=== PATIENT | female | born 1950 | race Caucasian/White ===

== ENCOUNTER 2019-02-19 07:43 | Inpatient (IN) | payer MEDICARE, BC ==
[~2019-02-19] VITALS: Ht 170.2 cm; Wt 92.6 kg
[2019-02-19] VITALS (15 sets, daily range): BP systolic 139–191; BP diastolic 57–76
[2019-02-19] MEDS ORDERED: INSULIN REGULAR 100 UNIT/ML 3ML VIAL. IV ONE (08:00)
[2019-02-19] MEDS ORDERED: IV NORMAL SALINE 1000ML BAG 1,000 ML IV ONE ×3 (08:00→09:00)
[2019-02-19] MEDS ORDERED: INSULIN,REGULAR 150 UNIT DRIP 150 ML IV ONE (08:00)
[2019-02-19 08:11] LABS: BASE EXCESS ABG -13 mmol/L (-3-3); HCO3 ABG 11 mmol/L (21-28); PCO2 ABG 22 mmHg (35-46); PO2 ABG 68 mmHg (65-108); SAT O2 ABG 92 % (92-99)
[2019-02-19 08:13] LABS: BASO % 0 % (0-3); EOS % 0 % (0-3); HEMATOCRIT 49.1 % (36.0-47.0); HEMOGLOBIN 15.8 g/dL (12.0-15.5); LYMPH # 0.7 x10^3/uL (1.0-4.8); LYMPH % 6 % (24-48); MEAN CORPUSCULAR HEMOGLOBIN 30 pg (25-35); MEAN CORPUSCULAR HGB CONC 32 g/dL (31-37); MEAN CORPUSCULAR VOLUME 94 fL (79-100); MONO # 0.7 x10^3/uL (0.0-1.1); MONO % 6 % (0-9); NEUT # 11.3 x10^3uL (1.8-7.7); NEUT % 89 % (31-73); PLATELET COUNT 353 x10^3/uL (140-400); RED BLOOD COUNT 5.24 x10^6/uL (3.50-5.40); RED CELL DISTRIBUTION WIDTH 14.4 % (11.5-14.5); WHITE BLOOD COUNT 12.8 x10^3/uL (4.0-11.0)
[2019-02-19 08:19] LABS: FIO2 ABG 21%
[2019-02-19 08:33] LABS: PROTHROMBIN TIME PATIENT 14.5 SEC (11.7-14.0)
[2019-02-19 08:37] LABS: CALCIUM 10.7 mg/dL (8.5-10.1); CREATININE 2.1 mg/dL (0.6-1.0); GFR 23.6; POTASSIUM 4.1 mmol/L (3.5-5.1)
[2019-02-19 08:39] LABS: ALBUMIN/GLOBULIN RATIO 0.7 (1.0-1.7); MAGNESIUM 3.1 mg/dL (1.8-2.4); TOTAL BILIRUBIN 0.8 mg/dL (0.2-1.0); TOTAL PROTEIN 7.3 g/dL (6.4-8.2)
--- NOTE | 2019-02-19 08:43 | RAD ---
CT scan of the head without contrast 02/19/2019 Clinical History: Altered mental status. Technique: Unenhanced, contiguous, 5 mm axial sections were obtained through the head. One or more of the following individualized dose reduction techniques were utilized for this study: 1. Automated exposure control. 2. Adjustment of the mA and/or kV according to patient size. 3. Use of iterative reconstruction technique. Findings: No previous studies are available for comparison. There is generalized parenchymal atrophy. Areas of decreased attenuation are seen within the periventricular and subcortical white matter of both cerebral hemispheres consistent with areas of small vessel ischemic disease. A 6 mm low-attenuation area is seen superior to the region of the right lenticular nucleus which may represent an old area of lacunar infarction. No acute parenchymal abnormality is seen. No extra-axial fluid collection is noted. No skull fracture is seen. Impression: No acute intracranial abnormality is seen. Electronically signed by: Sacha Leon MD (02/19/2019 8:40 AM) [facility]
--- NOTE | 2019-02-19 08:49 | PHYS DOC ---
Past Medical History Past Medical History: Diabetes-Type II Additional Past Surgical Histo: Surgery on abcessed tooth Alcohol Use: None Drug Use: None Adult General Chief Complaint Chief Complaint: ALTERED MENTAL STATUS HPI HPI Patient is a 68 year old female who brought in by EMS because of altered level of consciousness. Patient has been who is a poor historian state she overusing her back one week ago and had back pain and took pain medication that caused nausea and vomiting and was not able to eat or drink and was unable to get out of the bed since yesterday morning and was found unresponsive today. Patient has history of diet-controlled diabetes mellitus and currently doesn't take any medication. EMS reported that patient had urine and bowel incontinence and covered with urine. Patient is able to tell her name but unable to give history. Review of Systems Review of Systems Unable to obtain because of medical condition Current Medications Current Medications Current Medications Medications (Trade) Dose Ordered Sig/Annette Start Time Stop Time Status Last Admin Dose Admin Insulin Human Regular 150 ml @ 0 mls/hr 1X ONCE 02/19/19 08:00 02/19/19 08:02 DC 02/19/19 08:34 7 MLS/HR Insulin Human Regular (HumuLIN R VIAL) 10 unit 1X ONCE 02/19/19 08:00 02/19/19 08:02 DC 02/19/19 07:50 10 UNIT Sodium Chloride 1,000 ml @ 1,000 mls/hr 1X ONCE 02/19/19 08:00 02/19/19 08:59 DC 02/19/19 08:10 1,000 MLS/HR Allergies Allergies Physical Exam Physical Exam Constitutional: Moderate distress distress, afebrile[] HENT: Normocephalic, atraumatic, oropharynx dry Eyes: PERRLA. Neck: Normal range of motion, no tenderness, supple, no stridor. [] Cardiovascular: Tachycardia, no murmur [] Lungs & Thorax: Bilateral breath sounds clear to auscultation [] Abdomen: Bowel sounds normal, soft, no tenderness, no masses, no pulsatile masses. [] Skin: Warm, dry, no erythema, no rash. [] ] Extremities: No sign of injury or edema Neurologic: Alert 1, moves all extremities Psychologic: Unable to evaluate Current Patient Data Vital Signs Vital Signs Date Time Temp Pulse Resp B/P (MAP) Pulse Ox O2 Delivery O2 Flow Rate FiO2 02/19/19 07:50 97.7 105 20 190/80 (116) 93 Room Air 97.7 Lab Values Laboratory Tests Test 02/19/19 07:52 02/19/19 08:00 O2 Saturation 92 % (92-99) Arterial Blood pH 7.31 (7.35-7.45) L Arterial Blood pCO2 at Patient Temp 22 mmHg (35-46) L Arterial Blood pO2 at Patient Temp 68 mmHg (65-108) Arterial Blood HCO3 11 mmol/L (21-28) L Arterial Blood Base Excess -13 mmol/L (-3-3) L FiO2 21% White Blood Count 12.8 x10^3/uL (4.0-11.0) H Red Blood Count 5.24 x10^6/uL (3.50-5.40) Hemoglobin 15.8 g/dL (12.0-15.5) H Hematocrit 49.1 % (36.0-47.0) H Mean Corpuscular Volume 94 fL (79-100) Mean Corpuscular Hemoglobin 30 pg (25-35) Mean Corpuscular Hemoglobin Concent 32 g/dL (31-37) Red Cell Distribution Width 14.4 % (11.5-14.5) Platelet Count 353 x10^3/uL (140-400) Neutrophils (%) (Auto) 89 % (31-73) H Lymphocytes (%) (Auto) 6 % (24-48) L Monocytes (%) (Auto) 6 % (0-9) Eosinophils (%) (Auto) 0 % (0-3) Basophils (%) (Auto) 0 % (0-3) Neutrophils # (Auto) 11.3 x10^3uL (1.8-7.7) H Lymphocytes # (Auto) 0.7 x10^3/uL (1.0-4.8) L Monocytes # (Auto) 0.7 x10^3/uL (0.0-1.1) Eosinophils # (Auto) 0.0 x10^3/uL (0.0-0.7) Basophils # (Auto) 0.0 x10^3/uL (0.0-0.2) Segmented Neutrophils % 85 % (35-66) H Band Neutrophils % 8 % (0-9) Lymphocytes % 4 % (24-48) L Monocytes % 3 % (0-10) Platelet Estimate Adequate (ADEQUATE) Prothrombin Time 14.5 SEC (11.7-14.0) H Prothrombin Time INR 1.2 (0.8-1.1) H PTT 24 SEC (24-38) Sodium Level 146 mmol/L (136-145) H Potassium Level 4.1 mmol/L (3.5-5.1) Chloride Level 101 mmol/L (98-107) Carbon Dioxide Level 13 mmol/L (21-32) L Anion Gap 32 (6-14) H Blood Urea Nitrogen 57 mg/dL (7-20) H Creatinine 2.1 mg/dL (0.6-1.0) H Estimated GFR (Cockcroft-Gault) 23.6 BUN/Creatinine Ratio 27 (6-20) H Glucose Level 747 mg/dL (70-99) *H Lactic Acid Level 2.3 mmol/L (0.4-2.0) H Calcium Level 10.7 mg/dL (8.5-10.1) H Phosphorus Level 5.1 mg/dL (2.6-4.7) H Magnesium Level 3.1 mg/dL (1.8-2.4) H Total Bilirubin 0.8 mg/dL (0.2-1.0) Aspartate Amino Transferase (AST) 14 U/L (15-37) L Alanine Aminotransferase (ALT) 17 U/L (14-59) Alkaline Phosphatase 116 U/L (46-116) Ammonia 14 mcmol/L (11-34) Creatine Kinase 50 U/L (26-192) Troponin I Quantitative < 0.017 ng/mL (0.000-0.055) WQ-Ppr-T-Type Natriuretic Peptide 139 pg/mL (0-124) H Total Protein 7.3 g/dL (6.4-8.2) Albumin 3.0 g/dL (3.4-5.0) L Albumin/Globulin Ratio 0.7 (1.0-1.7) L Lipase 90 U/L (73-393) Acetone Level Mod pos (NEG) Laboratory Tests 02/19/19 08:00 Laboratory Tests 02/19/19 08:00 EKG EKG EKG interpreted by me. EKG at 0750 showed sinus tachycardia at rate of 108, left atrial abnormality, left axis deviation, left anterior fascicular block, normal KS and QT intervals, poor R-wave progress in anterior leads, no acute ST and T-wave abnormalities. Radiology/Procedures Radiology/Procedures [address] [address] IMAGING REPORT Signed PATIENT: MATHIEU ORTIZ ACCOUNT: [id number] : 1950 LOCATION: ER AGE: 68 SEX: F EXAM STATUS: REG ER ORD. PHYSICIAN: MARYLIN SALMERON MD REASON: ALOC, SOA PROCEDURE: PORTABLE CHEST 1V AP portable chest radiograph 02/19/2019 Clinical History: Shortness of breath. An AP erect portable digital radiograph of the chest was obtained. No previous studies are available for comparison. The cardiac silhouette is mildly enlarged. The thoracic aorta is mildly tortuous. Mild elevation of the right hemidiaphragm is seen. No acute pulmonary infiltrate is noted. No pneumothorax or pleural effusion is seen. Very mild S-shaped curvature of the thoracolumbar spine is seen. Degenerative changes are seen involving the thoracic spine. IMPRESSION: No acute abnormality is seen. Electronically signed by: Sacha Leon MD (02/19/2019 8:44 AM) [facility] DICTATED and SIGNED BY: SACHA LEON MD DATE: 02/19/19 [id number] [place] [address] IMAGING REPORT Signed PATIENT: MATHIEU ORTIZ ACCOUNT: [id number] : 1950 LOCATION: ER AGE: 68 SEX: F EXAM STATUS: REG ER ORD. PHYSICIAN: MARYLIN SALMERON MD REASON: ALOC/AMS PROCEDURE: CT HEAD WO CONTRAST CT scan of the head without contrast 02/19/2019 Clinical History: Altered mental status. Technique: Unenhanced, contiguous, 5 mm axial sections were obtained through the head. One or more of the following individualized dose reduction techniques were utilized for this study: 1. Automated exposure control. 2. Adjustment of the mA and/or kV according to patient size. 3. Use of iterative reconstruction technique. Findings: No previous studies are available for comparison. There is generalized parenchymal atrophy. Areas of decreased attenuation are seen within the periventricular and subcortical white matter of both cerebral hemispheres consistent with areas of small vessel ischemic disease. A 6 mm low-attenuation area is seen superior to the region of the right lenticular nucleus which may represent an old area of lacunar infarction. No acute parenchymal abnormality is seen. No extra-axial fluid collection is noted. No skull fracture is seen. Impression: No acute intracranial abnormality is seen. Electronically signed by: Sacha Leon MD (02/19/2019 8:40 AM) [facility] DICTATED and SIGNED BY: SACHA LEON MD DATE: 02/19/19 6589 Course & Med Decision Making Course & Med Decision Making Pertinent Labs and Imaging studies reviewed. (See chart for details) Evaluation of patient in ER showed 68-year-old female patient with diet- controlled diabetes mellitus brought in by EMS because of altered level of consciousness. Patient was alert and oriented 1 and had tachycardia and a dry oral mucosa. Patient had blood sugar of 1700 and treated with IV fluid and insulin bolus and drip. Labs showed renal insufficiency and dehydration and elevation of lactic acid with UTI. Patient gradually started to sit extremity and became more alert and oriented. Patient was admitted to ICU. Patient requiring admission for further evaluation and treatment. Discussed with who is in agreement with admission. Discussed findings and plan with patient and family, who acknowledge understanding and agreement. Dragon Disclaimer Dragon Disclaimer This electronic medical record was generated, in whole or in part, using a voice recognition dictation system. Departure Departure Impression: Primary Impression: DKA (diabetic ketoacidoses) Additional Impressions: Altered level of consciousness Renal insufficiency Dehydration Hypermagnesemia Sepsis Hypercalcemia Disposition: ADMITTED INPATIENT (at 0854) Admitting Physician: Sabiha Olivo (accepted admission at 0 853) Condition: GUARDED Referrals: NO PCP (PCP) Critical Care Time Critical care time was 70 minutes exclusive of procedures. Problem Qualifiers Primary Impression: DKA (diabetic ketoacidoses) Diabetes mellitus type: type 2 Diabetes mellitus complication detail: with coma Qualified Codes: E11.11 - Type 2 diabetes mellitus with ketoacidosis with coma Additional Impressions: Sepsis Sepsis type: sepsis due to unspecified organism Qualified Codes: A41.9 - Sepsis, unspecified organism MARYLIN SALMERON MD February 19, 2019 08:49
[2019-02-19] MEDS ORDERED: cefTRIAXone IV Push 1 GM VIAL. IVP ONE (09:00)
[2019-02-19 09:13] LABS: % BANDS 8 % (0-9); % LYMPHS 4 % (24-48); % MONOS 3 % (0-10); % SEGS 85 % (35-66); PLT ESTIMATE ADEQUATE (ADEQUATE)
[2019-02-19] MEDS ORDERED: ONDANSETRON PF 4 MG/2 ML VIAL. IV PRN (09:45)
[2019-02-19] MEDS ORDERED: HYDROcodone/APAP 5/325MG 1 TAB TABLET PO PRN (09:45)
[2019-02-19] MEDS ORDERED: ACETAMINOPHEN/CODEINE 300/30MG TABLET. PO PRN (09:45)
[2019-02-19] MEDS ORDERED: ONDANSETRON ODT 4 MG TAB.RAPDIS. PO PRN (09:45)
[2019-02-19] MEDS ORDERED: fentaNYL PF VIAL 100 MCG/2 ML VIAL IV PRN (09:45)
[2019-02-19] MEDS ORDERED: POTASSIUM CHLORIDE 10MEQ 100 ML IV PRN ×3 (09:45→10:00)
[2019-02-19] MEDS ORDERED: INSULIN REGULAR VIAL 150 UNIT in 0.9 % SODIUM CHLORIDE 150ML 150 ML IV PRN ×2 (10:00→13:00)
[2019-02-19] MEDS ORDERED: IV NORMAL SALINE 1000ML BAG 1,000 ML IV SCH (10:00)
--- NOTE | 2019-02-19 10:00 | NUR ---
Pt arrived via gurney from ED. Pt alert to self only and currently thinks it is 2017. Pt admitted with altered mental status and DKA. Pt currently has insulin gtt running. Per family, pt does not take any home medications. Pt denies pain at this time. Will continue to monitor.
[2019-02-19] MEDS: IV 1/2 NORMAL SALINE 1,000 ML IV SCH ×2 (10:07→14:59)
[2019-02-19] MEDS: LABETALOL 20 MG/4 ML DISP.SYRIN. IVP PRN (10:46)
--- NOTE | 2019-02-19 11:10 | PDOC1 ---
History and Physical Date of Admission Date of Admission DATE: 02/19/19 TIME: 11:04 Identification/Chief Complaint Chief Complaint back pain Source Source: Caregiver, Chart review, Patient History of Present Illness History of Present Illness She is a very poor historian, currently confused seen the ICU. 68-year-old white obese female with a BMI 31, brought in by , not taking meds since June 2018. Apparently brought in because of back pain, I am unable to elicit if there was trauma etc.to the back. Again poor historian and was not at bedside during my encounter. But on labs was found to be in DKA with a blood sugar over 700, anion gap of 30. Bicarbonate 13, ABG pH 7.31. WBC 12 with hemoconcentration at 15 hemoglobin Platelets 353. Magnesium is high at 3.1, lactate elevated at 2.3 tachycardic, tachypneic, Kussmaul's respiration, hypercalcemia 10.7 with pending UA. Admitted DKA protocol ICU. Past Medical History Endocrine: Diabetes Past Surgical History Past Surgical History: No pertinent history Family History Family History: Family History Unknown Social History Smoke: No ALCOHOL: none Drugs: None, Other (could not be fully obtained, confused) Current Problem List Problem List Problems Medical Problems: (1) Altered level of consciousness Status: Acute (2) Dehydration Status: Acute (3) DKA (diabetic ketoacidoses) Status: Acute (4) Hypercalcemia Status: Acute (5) Hypermagnesemia Status: Acute (6) Renal insufficiency Status: Acute (7) Sepsis Status: Acute Current Medications Current Medications Current Medications Sodium Chloride 1,000 ml @ 1,000 mls/hr 1X ONCE IV Last administered on 02/19/19at 08:10; Start 02/19/19 at 08:00; Stop 02/19/19 at 08:59; Status DC Insulin Human Regular (HumuLIN R VIAL) 10 unit 1X ONCE IV Last administered on 02/19/19at 07:50; Start 02/19/19 at 08:00; Stop 02/19/19 at 08:02; Status DC Insulin Human Regular 150 ml @ 0 mls/hr 1X ONCE IV Last administered on 02/09 10/30at 08:34; Start 02/19/19 at 08:00; Stop 02/19/19 at 08:02; Status DC Sodium Chloride 1,000 ml @ 100 mls/hr 1X ONCE IV Last administered on 02/19/19at 08:29; Start 02/19/19 at 09:00; Stop 02/19/19 at 18:59 Sodium Chloride 1,000 ml @ 1,000 mls/hr 1X ONCE IV ; Start 02/19/19 at 09:00; Stop 02/19/19 at 10:02; Status DC Ceftriaxone Sodium (Rocephin) 1 gm 1X ONCE IVP Last administered on 02/19/19at 10:28; Start 02/19/19 at 09:00; Stop 02/19/19 at 09:01; Status DC Sodium Chloride 1,000 ml @ 200 mls/hr Q5H IV ; Start 02/19/19 at 10:00; Stop 02/20/19 at 09:59; Status Cancel Insulin Human Regular 150 unit/ Sodium Chloride 151.5 ml @ 0 mls/hr CONT PRN PRN IV PER PROTOCOL; Start 02/19/19 at 13:00; Status Cancel Dextrose/Sodium Chloride 1,000 ml @ 250 mls/hr Q4H IV ; Start 02/19/19 at 19:00 Insulin Human Regular 150 unit/ Sodium Chloride 151.5 ml @ 0 mls/hr CONT PRN PRN IV PER PROTOCOL; Start 02/19/19 at 10:00 Potassium Chloride/Water 100 ml @ 100 mls/hr PRN Q1HR PRN IV SEE COMMENTS; Start 02/19/19 at 10:00 Potassium Chloride/Water 100 ml @ 100 mls/hr PRN Q1HR PRN IV SEE COMMENTS; Start 02/19/19 at 09:45 Potassium Chloride/Water 100 ml @ 100 mls/hr PRN Q1HR PRN IV SEE COMMENTS; Start 02/19/19 at 09:45 Labetalol HCl (Normodyne Iv Push) 10 mg PRN Q2HR PRN IVP HYPERTENSION, SEE COMMENTS Last administered on 02/19/19at 10:46; Start 02/19/19 at 09:45 Acetaminophen/ Codeine Phosphate (Tylenol #3) 1 tab PRN Q6HRS PRN PO PAIN; Start 02/19/19 at 09:45 Ondansetron HCl (Zofran) 4 mg PRN Q6HRS PRN IV NAUSEA/VOMITING; Start 02/19/19 at 09:45 Ondansetron HCl (Zofran Odt) 4 mg PRN Q6HRS PRN PO NAUSEA/VOMITING; Start 02/19/19 at 09:45 Acetaminophen/ Hydrocodone Bitart (Lortab 5/325) 1 tab PRN Q4HRS PRN PO PAIN; Start 02/19/19 at 09:45 Fentanyl Citrate (Fentanyl 2ml Vial) 25 mcg PRN Q2HR PRN IV PAIN; Start 02/19/19 at 09:45 Sodium Chloride 1,000 ml @ 250 mls/hr Q4H IV Last administered on 02/19/19at 10:07; Start 02/19/19 at 11:00 Allergies Allergies: Coded Allergies: No Known Drug Allergies (Unverified , 02/19/19) ROS Review of System Back pain right side is all she can tell me, the rest of ROS is limited-she is confused Physical Exam General: mild distress, Other (tachypnea, Kussmaul's respiration, but sats are okay) HEENT: Atraumatic, PERRLA, EOMI Lungs: Clear to auscultation Heart: RRR, no thrills, no rubs, no gallops, no murmurs, no jug vein distention, other (sinus tachycardia) Cardiovascular: S1, S2 Abdomen: Normal bowel sounds, Soft, No tenderness, No hepatosplenomegaly, No masses Rectal Exam: not examined PELVIC: Nml ext genitalia Extremities: No clubbing, No cyanosis, No edema, Normal pulses, No tender ness/swelling Skin: No rashes, No breakdown, No significant lesion, Other (sallow skin,) Vitals Vitals Vital Signs Date Time Temp Pulse Resp B/P (MAP) Pulse Ox O2 Delivery O2 Flow Rate FiO2 02/19/19 11:00 74 21 139/58 (85) 94 Nasal Cannula 2.0 02/19/19 09:30 98.6 98.6 Labs Labs Laboratory Tests Test 02/19/19 07:52 02/19/19 08:00 02/19/19 09:31 O2 Saturation 92 % (92-99) Arterial Blood pH 7.31 (7.35-7.45) Arterial Blood pCO2 at Patient Temp 22 mmHg (35-46) Arterial Blood pO2 at Patient Temp 68 mmHg (65-108) Arterial Blood HCO3 11 mmol/L (21-28) Arterial Blood Base Excess -13 mmol/L (-3-3) FiO2 21% White Blood Count 12.8 x10^3/uL (4.0-11.0) Red Blood Count 5.24 x10^6/uL (3.50-5.40) Hemoglobin 15.8 g/dL (12.0-15.5) Hematocrit 49.1 % (36.0-47.0) Mean Corpuscular Volume 94 fL (79-100) Mean Corpuscular Hemoglobin 30 pg (25-35) Mean Corpuscular Hemoglobin Concent 32 g/dL (31-37) Red Cell Distribution Width 14.4 % (11.5-14.5) Platelet Count 353 x10^3/uL (140-400) Neutrophils (%) (Auto) 89 % (31-73) Lymphocytes (%) (Auto) 6 % (24-48) Monocytes (%) (Auto) 6 % (0-9) Eosinophils (%) (Auto) 0 % (0-3) Basophils (%) (Auto) 0 % (0-3) Neutrophils # (Auto) 11.3 x10^3uL (1.8-7.7) Lymphocytes # (Auto) 0.7 x10^3/uL (1.0-4.8) Monocytes # (Auto) 0.7 x10^3/uL (0.0-1.1) Eosinophils # (Auto) 0.0 x10^3/uL (0.0-0.7) Basophils # (Auto) 0.0 x10^3/uL (0.0-0.2) Segmented Neutrophils % 85 % (35-66) Band Neutrophils % 8 % (0-9) Lymphocytes % 4 % (24-48) Monocytes % 3 % (0-10) Platelet Estimate Adequate (ADEQUATE) Prothrombin Time 14.5 SEC (11.7-14.0) Prothromb Time International Ratio 1.2 (0.8-1.1) Activated Partial Thromboplast Time 24 SEC (24-38) Sodium Level 146 mmol/L (136-145) Potassium Level 4.1 mmol/L (3.5-5.1) Chloride Level 101 mmol/L (98-107) Carbon Dioxide Level 13 mmol/L (21-32) Anion Gap 32 (6-14) Blood Urea Nitrogen 57 mg/dL (7-20) Creatinine 2.1 mg/dL (0.6-1.0) Estimated GFR (Cockcroft-Gault) 23.6 BUN/Creatinine Ratio 27 (6-20) Glucose Level 747 mg/dL (70-99) Lactic Acid Level 2.3 mmol/L (0.4-2.0) Calcium Level 10.7 mg/dL (8.5-10.1) Phosphorus Level 5.1 mg/dL (2.6-4.7) Magnesium Level 3.1 mg/dL (1.8-2.4) Total Bilirubin 0.8 mg/dL (0.2-1.0) Aspartate Amino Transf (AST/SGOT) 14 U/L (15-37) Alanine Aminotransferase (ALT/SGPT) 17 U/L (14-59) Alkaline Phosphatase 116 U/L (46-116) Ammonia 14 mcmol/L (11-34) Creatine Kinase 50 U/L (26-192) Troponin I Quantitative < 0.017 ng/mL (0.000-0.055) TY-Lul-I-Type Natriuretic Peptide 139 pg/mL (0-124) Total Protein 7.3 g/dL (6.4-8.2) Albumin 3.0 g/dL (3.4-5.0) Albumin/Globulin Ratio 0.7 (1.0-1.7) Lipase 90 U/L (73-393) Acetone Level Mod pos (NEG) Glucose (Fingerstick) 521 mg/dL (70-99) Laboratory Tests Test 02/19/19 07:52 02/19/19 08:00 02/19/19 09:31 O2 Saturation 92 % (92-99) Arterial Blood pH 7.31 (7.35-7.45) Arterial Blood pCO2 at Patient Temp 22 mmHg (35-46) Arterial Blood pO2 at Patient Temp 68 mmHg (65-108) Arterial Blood HCO3 11 mmol/L (21-28) Arterial Blood Base Excess -13 mmol/L (-3-3) FiO2 21% White Blood Count 12.8 x10^3/uL (4.0-11.0) Red Blood Count 5.24 x10^6/uL (3.50-5.40) Hemoglobin 15.8 g/dL (12.0-15.5) Hematocrit 49.1 % (36.0-47.0) Mean Corpuscular Volume 94 fL (79-100) Mean Corpuscular Hemoglobin 30 pg (25-35) Mean Corpuscular Hemoglobin Concent 32 g/dL (31-37) Red Cell Distribution Width 14.4 % (11.5-14.5) Platelet Count 353 x10^3/uL (140-400) Neutrophils (%) (Auto) 89 % (31-73) Lymphocytes (%) (Auto) 6 % (24-48) Monocytes (%) (Auto) 6 % (0-9) Eosinophils (%) (Auto) 0 % (0-3) Basophils (%) (Auto) 0 % (0-3) Neutrophils # (Auto) 11.3 x10^3uL (1.8-7.7) Lymphocytes # (Auto) 0.7 x10^3/uL (1.0-4.8) Monocytes # (Auto) 0.7 x10^3/uL (0.0-1.1) Eosinophils # (Auto) 0.0 x10^3/uL (0.0-0.7) Basophils # (Auto) 0.0 x10^3/uL (0.0-0.2) Segmented Neutrophils % 85 % (35-66) Band Neutrophils % 8 % (0-9) Lymphocytes % 4 % (24-48) Monocytes % 3 % (0-10) Platelet Estimate Adequate (ADEQUATE) Prothrombin Time 14.5 SEC (11.7-14.0) Prothromb Time International Ratio 1.2 (0.8-1.1) Activated Partial Thromboplast Time 24 SEC (24-38) Sodium Level 146 mmol/L (136-145) Potassium Level 4.1 mmol/L (3.5-5.1) Chloride Level 101 mmol/L (98-107) Carbon Dioxide Level 13 mmol/L (21-32) Anion Gap 32 (6-14) Blood Urea Nitrogen 57 mg/dL (7-20) Creatinine 2.1 mg/dL (0.6-1.0) Estimated GFR (Cockcroft-Gault) 23.6 BUN/Creatinine Ratio 27 (6-20) Glucose Level 747 mg/dL (70-99) Lactic Acid Level 2.3 mmol/L (0.4-2.0) Calcium Level 10.7 mg/dL (8.5-10.1) Phosphorus Level 5.1 mg/dL (2.6-4.7) Magnesium Level 3.1 mg/dL (1.8-2.4) Total Bilirubin 0.8 mg/dL (0.2-1.0) Aspartate Amino Transf (AST/SGOT) 14 U/L (15-37) Alanine Aminotransferase (ALT/SGPT) 17 U/L (14-59) Alkaline Phosphatase 116 U/L (46-116) Ammonia 14 mcmol/L (11-34) Creatine Kinase 50 U/L (26-192) Troponin I Quantitative < 0.017 ng/mL (0.000-0.055) LY-Dkm-C-Type Natriuretic Peptide 139 pg/mL (0-124) Total Protein 7.3 g/dL (6.4-8.2) Albumin 3.0 g/dL (3.4-5.0) Albumin/Globulin Ratio 0.7 (1.0-1.7) Lipase 90 U/L (73-393) Acetone Level Mod pos (NEG) Glucose (Fingerstick) 521 mg/dL (70-99) VTE Prophylaxis Ordered VTE Prophylaxis Devices: Yes VTE Pharmacological Prophylaxi: Yes Assessment/Plan Assessment/Plan DKA with metabolic encephalopathy Diabetes Mellitus 2, diet-controlled per 's relay-not on any meds since June 2018 Hemoconcentration Reactive leukocytosis AK IN deepthi background of DKA Increase in anion gap metabolic acidosis in the background of DKA Hypercalcemia in the background of hemoconcentration and DKA Hypermagnesemia Elevated lactate SIRS not infectious Accelerated hypertension POA Plan: ICU bed, DKA protocol Check a UA Follow that hemoconcentration and leukocytosis - should get better with treatment No need for bicarbonate is ABG/pH is not less than 6.9 Hydrated aggressively to address DKA and hypercalcemia and hemoconcentration DVT prophylaxis Liquid diet for now then ADA diet once more fully awake PT OT once more fully awake Check an A1c Labetalol when necessary for high BP Check a thoracolumbar x-ray and consult physiatry as her chief complaint was back pain which initially brought her in Critical care 35 minutes FULL CODE ZAKIA PRUETT MD February 19, 2019 11:10
[2019-02-19 11:17] LABS: BILIRUBIN,URINE MODERATE (NEG); CLARITY,URINE CLEAR; COLOR,URINE YELLOW; NITRITE,URINE NEGATIVE (NEG); PROTEIN,URINE 30 mg/dL (NEG-TRACE); UROBILINOGEN,URINE 0.2 mg/dL (0.2 mg/dL)
[2019-02-19 11:21] LABS: BARBITURATES NEG (NEG); BENZODIAZEPINES NEG (NEG); CANNABINOIDS NEG (NEG); COCAINE NEG (NEG); METHADONE NEG (NEG); OPIATES NEG (NEG); PHENCYCLIDINE NEG (NEG)
[2019-02-19 11:22] LABS: AMPHETAMINE/METHAMPHETAMINE NEG (NEG)
[2019-02-19 11:25] LABS: BACTERIA,URINE 0 /HPF (0-FEW); RBC,URINE OCC /HPF (0-2); SQUAMOUS EPITHELIAL CELL,UR FEW /LPF; WBC,URINE RARE /HPF (0-4)
--- NOTE | 2019-02-19 12:01 | NUR ---
Pt is extremely agitated and confused. Unable to redirect pt after multiple attempts. Pt continues to pull at lines and take soft mitts off. Received orders from Dr. Olivo at this time. Will continue to monitor.
[2019-02-19 12:54] LABS: CALCIUM 9.3 mg/dL (8.5-10.1); CREATININE 1.8 mg/dL (0.6-1.0); GFR 28.2; MAGNESIUM 2.4 mg/dL (1.8-2.4); PHOSPHORUS 2.4 mg/dL (2.6-4.7)
[2019-02-19 13:10] LABS: POTASSIUM 2.5 mmol/L (3.5-5.1)
[2019-02-19] MEDS: POTASSIUM PHOSPHATE DIBASIC 13.6 MMOL in IV DEXTROSE 5% 100ML 100 ML IV SCH ×3 (13:38→18:05)
[2019-02-19] MEDS ORDERED: IV DEXTROSE 5 %-0.45 % NACL 1,000 ML IV SCH (14:00)
--- NOTE | 2019-02-19 14:00 | RAD ---
AP and lateral radiographs of the lower thoracic to include the lumbar spine 02/19/2019 CLINICAL HISTORY: Mid and low back pain. Portable AP and lateral digital radiographs of the mid and lower thoracic and lumbar spine were obtained. The spine was imaged from the T4 level through the lumbar vertebrae on the lateral radiograph and the T5 level through the lumbar vertebrae on the AP radiograph. Minimal S-shaped curvature of the thoracolumbar spine is seen. No fracture or subluxation is seen. Degenerative changes are seen throughout the visualized thoracic and lumbar disc spaces consisting of varying degrees of disc space narrowing, vertebral endplate sclerosis and minimal to mild anterior vertebral body osteophyte formation. Degenerative changes are seen involving the facet joints of the mid and lower thoracic spine and the lower lumbar spine. IMPRESSION: Degenerative changes are seen involving the thoracic and lumbar spine as outlined above. No acute osseous abnormality is seen. Electronically signed by: Sacha Leon MD (02/19/2019 1:57 PM) [facility]
[2019-02-19] MEDS: IV DEXTROSE 5 %-0.45 % NACL 1,000 ML IV SCH ×2 (14:57→18:06)
[2019-02-19] MEDS: HEPARIN for SUB-Q USE 5,000 UNIT/ML VIAL. SQ SCH ×2 (14:58→21:36)
[2019-02-19 20:19] LABS: CALCIUM 9.1 mg/dL (8.5-10.1); CREATININE 1.5 mg/dL (0.6-1.0); GFR 34.7; MAGNESIUM 2.1 mg/dL (1.8-2.4); PHOSPHORUS 4.8 mg/dL (2.6-4.7); POTASSIUM 3.2 mmol/L (3.5-5.1)
[2019-02-19] MEDS: PATCH REMOVAL. MC SCH (21:00)
[2019-02-19] MEDS ORDERED: ACETAMINOPHEN 650 MG SUPP.RECT. PR PRN (21:00)
[2019-02-19] MEDS ORDERED: POTASSIUM CHLORIDE 40 MEQ in IV NORMAL SALINE 1000ML BAG 1,000 ML IV SCH (21:00)
[2019-02-19] MEDS: INSULIN GLARGINE 300 UNITS/3 ML INSULN.PEN. SQ SCH (21:07)
[2019-02-19] MEDS: ACETAMINOPHEN 325 MG TABLET. PO PRN (21:24)
--- NOTE | 2019-02-19 22:20 | NUR ---
Dr. Olivo notified at approx 2034 of pts lab results orders given. Pt given lantus 30 units and insulin gtt stopped at 2149. Pt had a temp of 100.7 orders received and tylenol po adm, pt took crushed and in applesauce. Will continue to monitor.
[2019-02-20] VITALS (24 sets, daily range): BP systolic 145–189; BP diastolic 62–81
[2019-02-20] MEDS ORDERED: INSULIN LISPRO 300 UNITS/3 ML INSULN.PEN. SQ ONE ×2 (02:00→06:00)
[2019-02-20 04:37] LABS: CALCIUM 9.3 mg/dL (8.5-10.1); CREATININE 1.4 mg/dL (0.6-1.0); GFR 37.6; POTASSIUM 3.7 mmol/L (3.5-5.1)
[2019-02-20] MEDS: HEPARIN for SUB-Q USE 5,000 UNIT/ML VIAL. SQ SCH ×3 (05:35→21:36)
[2019-02-20] MEDS: INSULIN LISPRO 300 UNITS/3 ML INSULN.PEN. SQ SCH ×6 (08:00→18:25)
[2019-02-20] MEDS: LIDOCAINE (700MG/PATCH) PATCH. TD SCH (08:12)
[2019-02-20] MEDS: LABETALOL 20 MG/4 ML DISP.SYRIN. IVP PRN ×2 (08:16→21:31)
[2019-02-20] MEDS: SODIUM CHLORIDE IV SCH ×2 (08:51→21:30)
[2019-02-20] MEDS: STERILE WATER IV SCH ×2 (08:51→21:30)
[2019-02-20] MEDS: ACETAMINOPHEN 325 MG TABLET. PO PRN (11:16)
--- NOTE | 2019-02-20 12:43 | NUR ---
Called consult for Dr. Sheehan, this nurse will continue to monitor.
[2019-02-20 12:49] LABS: CALCIUM 8.9 mg/dL (8.5-10.1); CREATININE 1.3 mg/dL (0.6-1.0); POTASSIUM 3.6 mmol/L (3.5-5.1)
--- NOTE | 2019-02-20 13:41 | PDOC ---
[employer] PROGRESS NOTE Chief Complaint Chief Complaint DKA DM Bilious Emesis AMS Electrolyte abnormalities History of Present Illness History of Present Illness Patient seen and examined in ICU Patient was alert and oriented to self, but not time nor place. Stating it was 1976 and unable to determine what hospital she was at. She was very lethargic Patient recently had an episode of emesis which was bilious with some granulations Last Anion gap was 16 Discussed with nurse Vitals Vitals Vital Signs Date Time Temp Pulse Resp B/P (MAP) Pulse Ox O2 Delivery O2 Flow Rate FiO2 02/20/19 12:11 98.5 82 19 175/62 (99) 95 Nasal Cannula 2.0 98.5 Physical Exam General: Alert, mild distress, Other (oriented to self, but not place or time) Heart: Regular rate, Normal S1 Abdomen: Normal bowel sounds, Soft, No tenderness, No hepatosplenomegaly, No masses Extremities: No clubbing, No cyanosis, No edema, Normal pulses, No tenderness/swelling Skin: No rashes, No breakdown, No significant lesion, Other (sallow skin,) Labs LABS Laboratory Tests Test 02/19/19 13:54 02/19/19 14:53 02/19/19 16:00 02/19/19 17:03 Glucose (Fingerstick) 230 mg/dL (70-99) 236 mg/dL (70-99) 243 mg/dL (70-99) 256 mg/dL (70-99) Test 02/19/19 18:03 02/19/19 19:00 02/19/19 19:55 02/19/19 20:05 Glucose (Fingerstick) 208 mg/dL (70-99) 213 mg/dL (70-99) 168 mg/dL (70-99) Sodium Level 147 mmol/L (136-145) Potassium Level 3.2 mmol/L (3.5-5.1) Chloride Level 112 mmol/L (98-107) Carbon Dioxide Level 23 mmol/L (21-32) Anion Gap 12 (6-14) Blood Urea Nitrogen 39 mg/dL (7-20) Creatinine 1.5 mg/dL (0.6-1.0) Estimated GFR (Cockcroft-Gault) 34.7 Glucose Level 186 mg/dL (70-99) Calcium Level 9.1 mg/dL (8.5-10.1) Phosphorus Level 4.8 mg/dL (2.6-4.7) Magnesium Level 2.1 mg/dL (1.8-2.4) Test 02/19/19 23:10 02/20/19 01:15 02/20/19 03:30 02/20/19 07:20 Glucose (Fingerstick) 155 mg/dL (70-99) 297 mg/dL (70-99) 286 mg/dL (70-99) Sodium Level 150 mmol/L (136-145) Potassium Level 3.7 mmol/L (3.5-5.1) Chloride Level 113 mmol/L (98-107) Carbon Dioxide Level 21 mmol/L (21-32) Anion Gap 16 (6-14) Blood Urea Nitrogen 37 mg/dL (7-20) Creatinine 1.4 mg/dL (0.6-1.0) Estimated GFR (Cockcroft-Gault) 37.6 Glucose Level 352 mg/dL (70-99) Calcium Level 9.3 mg/dL (8.5-10.1) Test 02/20/19 11:14 02/20/19 12:22 02/20/19 12:56 Glucose (Fingerstick) 263 mg/dL (70-99) 296 mg/dL (70-99) Sodium Level 153 mmol/L (136-145) Potassium Level 3.6 mmol/L (3.5-5.1) Chloride Level 115 mmol/L (98-107) Carbon Dioxide Level 23 mmol/L (21-32) Anion Gap 15 (6-14) Blood Urea Nitrogen 38 mg/dL (7-20) Creatinine 1.3 mg/dL (0.6-1.0) Estimated GFR (Cockcroft-Gault) 41.0 Glucose Level 321 mg/dL (70-99) Calcium Level 8.9 mg/dL (8.5-10.1) Review of Systems Review of Systems Patient admits to N/V Patient denies LE swelling Assessment and Plan Assessmemt and Plan Problems Medical Problems: (1) Altered level of consciousness Status: Acute (2) Dehydration Status: Acute (3) DKA (diabetic ketoacidoses) Status: Acute (4) Hypercalcemia Status: Acute (5) Hypermagnesemia Status: Acute (6) Renal insufficiency Status: Acute (7) Sepsis Status: Acute Assessment: DKA- Anion gap of 16 DM- BS of 296 Bilious Emesis AMS Electrolyte abnormalities Plan: ICU monitoring Repeat Anion gap Stat Insulin Electrolyte Corrections prn IVF Zofran Labs Home meds DVT ppx Consult GI Comment Review of Relevant I have reviewed the following items katalina (where applicable) has been applied. Labs Laboratory Tests Test 02/19/19 07:52 02/19/19 08:00 02/19/19 09:31 02/19/19 10:31 O2 Saturation 92 % (92-99) Arterial Blood pH 7.31 (7.35-7.45) Arterial Blood pCO2 at Patient Temp 22 mmHg (35-46) Arterial Blood pO2 at Patient Temp 68 mmHg (65-108) Arterial Blood HCO3 11 mmol/L (21-28) Arterial Blood Base Excess -13 mmol/L (-3-3) FiO2 21% White Blood Count 12.8 x10^3/uL (4.0-11.0) Red Blood Count 5.24 x10^6/uL (3.50-5.40) Hemoglobin 15.8 g/dL (12.0-15.5) Hematocrit 49.1 % (36.0-47.0) Mean Corpuscular Volume 94 fL (79-100) Mean Corpuscular Hemoglobin 30 pg (25-35) Mean Corpuscular Hemoglobin Concent 32 g/dL (31-37) Red Cell Distribution Width 14.4 % (11.5-14.5) Platelet Count 353 x10^3/uL (140-400) Neutrophils (%) (Auto) 89 % (31-73) Lymphocytes (%) (Auto) 6 % (24-48) Monocytes (%) (Auto) 6 % (0-9) Eosinophils (%) (Auto) 0 % (0-3) Basophils (%) (Auto) 0 % (0-3) Neutrophils # (Auto) 11.3 x10^3uL (1.8-7.7) Lymphocytes # (Auto) 0.7 x10^3/uL (1.0-4.8) Monocytes # (Auto) 0.7 x10^3/uL (0.0-1.1) Eosinophils # (Auto) 0.0 x10^3/uL (0.0-0.7) Basophils # (Auto) 0.0 x10^3/uL (0.0-0.2) Segmented Neutrophils % 85 % (35-66) Band Neutrophils % 8 % (0-9) Lymphocytes % 4 % (24-48) Monocytes % 3 % (0-10) Platelet Estimate Adequate (ADEQUATE) Prothrombin Time 14.5 SEC (11.7-14.0) Prothromb Time International Ratio 1.2 (0.8-1.1) Activated Partial Thromboplast Time 24 SEC (24-38) Sodium Level 146 mmol/L (136-145) Potassium Level 4.1 mmol/L (3.5-5.1) Chloride Level 101 mmol/L (98-107) Carbon Dioxide Level 13 mmol/L (21-32) Anion Gap 32 (6-14) Blood Urea Nitrogen 57 mg/dL (7-20) Creatinine 2.1 mg/dL (0.6-1.0) Estimated GFR (Cockcroft-Gault) 23.6 BUN/Creatinine Ratio 27 (6-20) Glucose Level 747 mg/dL (70-99) Lactic Acid Level 2.3 mmol/L (0.4-2.0) Calcium Level 10.7 mg/dL (8.5-10.1) Phosphorus Level 5.1 mg/dL (2.6-4.7) Magnesium Level 3.1 mg/dL (1.8-2.4) Total Bilirubin 0.8 mg/dL (0.2-1.0) Aspartate Amino Transf (AST/SGOT) 14 U/L (15-37) Alanine Aminotransferase (ALT/SGPT) 17 U/L (14-59) Alkaline Phosphatase 116 U/L (46-116) Ammonia 14 mcmol/L (11-34) Creatine Kinase 50 U/L (26-192) Troponin I Quantitative < 0.017 ng/mL (0.000-0.055) OR-Byh-E-Type Natriuretic Peptide 139 pg/mL (0-124) Total Protein 7.3 g/dL (6.4-8.2) Albumin 3.0 g/dL (3.4-5.0) Albumin/Globulin Ratio 0.7 (1.0-1.7) Lipase 90 U/L (73-393) Acetone Level Mod pos (NEG) Glucose (Fingerstick) 521 mg/dL (70-99) 450 mg/dL (70-99) Test 02/19/19 10:35 02/19/19 11:05 02/19/19 11:35 02/19/19 12:23 Nasal Screen MRSA (PCR) Negative (Negative) Urine Collection Type Unknown Urine Color Yellow Urine Clarity Clear Urine pH 5.0 Urine Specific [place] >=1.030 Urine Protein 30 mg/dL (NEG-TRACE) Urine Glucose (UA) >=1000 mg/dL (NEG) Urine Ketones (Stick) >=80 mg/dL (NEG) Urine Blood Trace (NEG) Urine Nitrite Negative (NEG) Urine Bilirubin Moderate (NEG) Urine Urobilinogen Dipstick 0.2 mg/dL (0.2 mg/dL) Urine Leukocyte Esterase Negative (NEG) Urine RBC Occ /HPF (0-2) Urine WBC Rare /HPF (0-4) Urine Squamous Epithelial Cells Few /LPF Urine Bacteria 0 /HPF (0-FEW) Urine Opiates Screen Neg (NEG) Urine Methadone Screen Neg (NEG) Urine Barbiturates Neg (NEG) Urine Phencyclidine Screen Neg (NEG) Urine Amphetamine/Methamphetamine Neg (NEG) Urine Benzodiazepines Screen Neg (NEG) Urine Cocaine Screen Neg (NEG) Urine Cannabinoids Screen Neg (NEG) Urine Ethyl Alcohol Neg (NEG) Glucose (Fingerstick) 358 mg/dL (70-99) Sodium Level 148 mmol/L (136-145) Potassium Level 2.5 mmol/L (3.5-5.1) Chloride Level 110 mmol/L (98-107) Carbon Dioxide Level 19 mmol/L (21-32) Anion Gap 19 (6-14) Blood Urea Nitrogen 47 mg/dL (7-20) Creatinine 1.8 mg/dL (0.6-1.0) Estimated GFR (Cockcroft-Gault) 28.2 Glucose Level 338 mg/dL (70-99) Lactic Acid Level 2.8 mmol/L (0.4-2.0) Calcium Level 9.3 mg/dL (8.5-10.1) Phosphorus Level 2.4 mg/dL (2.6-4.7) Magnesium Level 2.4 mg/dL (1.8-2.4) Test 02/19/19 12:49 02/19/19 13:54 02/19/19 14:53 02/19/19 16:00 Glucose (Fingerstick) 294 mg/dL (70-99) 230 mg/dL (70-99) 236 mg/dL (70-99) 243 mg/dL (70-99) Test 02/19/19 17:03 02/19/19 18:03 02/19/19 19:00 02/19/19 19:55 Glucose (Fingerstick) 256 mg/dL (70-99) 208 mg/dL (70-99) 213 mg/dL (70-99) Sodium Level 147 mmol/L (136-145) Potassium Level 3.2 mmol/L (3.5-5.1) Chloride Level 112 mmol/L (98-107) Carbon Dioxide Level 23 mmol/L (21-32) Anion Gap 12 (6-14) Blood Urea Nitrogen 39 mg/dL (7-20) Creatinine 1.5 mg/dL (0.6-1.0) Estimated GFR (Cockcroft-Gault) 34.7 Glucose Level 186 mg/dL (70-99) Calcium Level 9.1 mg/dL (8.5-10.1) Phosphorus Level 4.8 mg/dL (2.6-4.7) Magnesium Level 2.1 mg/dL (1.8-2.4) Test 02/19/19 20:05 02/19/19 23:10 02/20/19 01:15 02/20/19 03:30 Glucose (Fingerstick) 168 mg/dL (70-99) 155 mg/dL (70-99) 297 mg/dL (70-99) Sodium Level 150 mmol/L (136-145) Potassium Level 3.7 mmol/L (3.5-5.1) Chloride Level 113 mmol/L (98-107) Carbon Dioxide Level 21 mmol/L (21-32) Anion Gap 16 (6-14) Blood Urea Nitrogen 37 mg/dL (7-20) Creatinine 1.4 mg/dL (0.6-1.0) Estimated GFR (Cockcroft-Gault) 37.6 Glucose Level 352 mg/dL (70-99) Calcium Level 9.3 mg/dL (8.5-10.1) Test 02/20/19 07:20 02/20/19 11:14 02/20/19 12:22 02/20/19 12:56 Glucose (Fingerstick) 286 mg/dL (70-99) 263 mg/dL (70-99) 296 mg/dL (70-99) Sodium Level 153 mmol/L (136-145) Potassium Level 3.6 mmol/L (3.5-5.1) Chloride Level 115 mmol/L (98-107) Carbon Dioxide Level 23 mmol/L (21-32) Anion Gap 15 (6-14) Blood Urea Nitrogen 38 mg/dL (7-20) Creatinine 1.3 mg/dL (0.6-1.0) Estimated GFR (Cockcroft-Gault) 41.0 Glucose Level 321 mg/dL (70-99) Calcium Level 8.9 mg/dL (8.5-10.1) Laboratory Tests Test 02/19/19 13:54 02/19/19 14:53 02/19/19 16:00 02/19/19 17:03 Glucose (Fingerstick) 230 mg/dL (70-99) 236 mg/dL (70-99) 243 mg/dL (70-99) 256 mg/dL (70-99) Test 02/19/19 18:03 02/19/19 19:00 02/19/19 19:55 02/19/19 20:05 Glucose (Fingerstick) 208 mg/dL (70-99) 213 mg/dL (70-99) 168 mg/dL (70-99) Sodium Level 147 mmol/L (136-145) Potassium Level 3.2 mmol/L (3.5-5.1) Chloride Level 112 mmol/L (98-107) Carbon Dioxide Level 23 mmol/L (21-32) Anion Gap 12 (6-14) Blood Urea Nitrogen 39 mg/dL (7-20) Creatinine 1.5 mg/dL (0.6-1.0) Estimated GFR (Cockcroft-Gault) 34.7 Glucose Level 186 mg/dL (70-99) Calcium Level 9.1 mg/dL (8.5-10.1) Phosphorus Level 4.8 mg/dL (2.6-4.7) Magnesium Level 2.1 mg/dL (1.8-2.4) Test 02/19/19 23:10 02/20/19 01:15 02/20/19 03:30 02/20/19 07:20 Glucose (Fingerstick) 155 mg/dL (70-99) 297 mg/dL (70-99) 286 mg/dL (70-99) Sodium Level 150 mmol/L (136-145) Potassium Level 3.7 mmol/L (3.5-5.1) Chloride Level 113 mmol/L (98-107) Carbon Dioxide Level 21 mmol/L (21-32) Anion Gap 16 (6-14) Blood Urea Nitrogen 37 mg/dL (7-20) Creatinine 1.4 mg/dL (0.6-1.0) Estimated GFR (Cockcroft-Gault) 37.6 Glucose Level 352 mg/dL (70-99) Calcium Level 9.3 mg/dL (8.5-10.1) Test 02/20/19 11:14 02/20/19 12:22 02/20/19 12:56 Glucose (Fingerstick) 263 mg/dL (70-99) 296 mg/dL (70-99) Sodium Level 153 mmol/L (136-145) Potassium Level 3.6 mmol/L (3.5-5.1) Chloride Level 115 mmol/L (98-107) Carbon Dioxide Level 23 mmol/L (21-32) Anion Gap 15 (6-14) Blood Urea Nitrogen 38 mg/dL (7-20) Creatinine 1.3 mg/dL (0.6-1.0) Estimated GFR (Cockcroft-Gault) 41.0 Glucose Level 321 mg/dL (70-99) Calcium Level 8.9 mg/dL (8.5-10.1) Medications Current Medications Sodium Chloride 1,000 ml @ 1,000 mls/hr 1X ONCE IV Last administered on 02/19at 08:10; Start 02/19/19 at 08:00; Stop 02/19/19 at 08:59; Status DC Insulin Human Regular (HumuLIN R VIAL) 10 unit 1X ONCE IV Last administered on 02/19/19at 07:50; Start 02/19/19 at 08:00; Stop 02/19/19 at 08:02; Status DC Insulin Human Regular 150 ml @ 0 mls/hr 1X ONCE IV Last administered on 02/19/19at 08:34; Start 02/19/19 at 08:00; Stop 02/19/19 at 08:02; Status DC Sodium Chloride 1,000 ml @ 100 mls/hr 1X ONCE IV Last administered on 02/19/19at 08:29; Start 02/19/19 at 09:00; Stop 02/19/19 at 13:58; Status DC Sodium Chloride 1,000 ml @ 1,000 mls/hr 1X ONCE IV ; Start 02/19/19 at 09:00; Stop 02/19/19 at 10:02; Status DC Ceftriaxone Sodium (Rocephin) 1 gm 1X ONCE IVP Last administered on 02/19/19at 10:28; Start 02/19/19 at 09:00; Stop 02/19/19 at 09:01; Status DC Sodium Chloride 1,000 ml @ 200 mls/hr Q5H IV ; Start 02/19/19 at 10:00; Stop 02/20/19 at 09:59; Status Cancel Insulin Human Regular 150 unit/ Sodium Chloride 151.5 ml @ 0 mls/hr CONT PRN PRN IV PER PROTOCOL; Start 02/19/19 at 13:00; Status Cancel Dextrose/Sodium Chloride 1,000 ml @ 250 mls/hr Q4H IV Last administered on 02/19/19at 18:06; Start 02/19/19 at 15:00; Stop 02/19/19 at 21:01; Status DC Insulin Human Regular 150 unit/ Sodium Chloride 151.5 ml @ 0 mls/hr CONT PRN P RN IV PER PROTOCOL; Start 02/19/19 at 10:00; Stop 02/19/19 at 21:01; Status DC Potassium Chloride/Water 100 ml @ 100 mls/hr PRN Q1HR PRN IV SEE COMMENTS; Start 02/19/19 at 10:00; Stop 02/19/19 at 21:01; Status DC Potassium Chloride/Water 100 ml @ 100 mls/hr PRN Q1HR PRN IV SEE COMMENTS; Start 02/19/19 at 09:45; Stop 02/19/19 at 21:01; Status DC Potassium Chloride/Water 100 ml @ 100 mls/hr PRN Q1HR PRN IV SEE COMMENTS; Start 02/19/19 at 09:45; Stop 02/19/19 at 21:01; Status DC Labetalol HCl (Normodyne Iv Push) 10 mg PRN Q2HR PRN IVP HYPERTENSION, SEE COMMENTS Last administered on 02/20/19at 08:16; Start 02/19/19 at 09:45 Acetaminophen/ Codeine Phosphate (Tylenol #3) 1 tab PRN Q6HRS PRN PO PAIN; Start 02/19/19 at 09:45 Ondansetron HCl (Zofran) 4 mg PRN Q6HRS PRN IV NAUSEA/VOMITING Last administered on 02/20/19at 11:25; Start 02/19/19 at 09:45 Ondansetron HCl (Zofran Odt) 4 mg PRN Q6HRS PRN PO NAUSEA/VOMITING; Start 02/19/19 at 09:45 Acetaminophen/ Hydrocodone Bitart (Lortab 5/325) 1 tab PRN Q4HRS PRN PO PAIN; Start 02/19/19 at 09:45 Fentanyl Citrate (Fentanyl 2ml Vial) 25 mcg PRN Q2HR PRN IV PAIN; Start 02/19/19 at 09:45 Sodium Chloride 1,000 ml @ 250 mls/hr Q4H IV Last administered on 02/19/19at 10:07; Start 02/19/19 at 11:00; Stop 02/19/19 at 18:06; Status DC Lidocaine (Lidoderm) 1 patch DAILY TD Last administered on 02/20/19 08:12; Start 02/20/19 at 09:00 Miscellaneous (Lidoderm Patch Removal) 1 ea QHS MC Last administered on 02/19/19 21:00; Start 02/19/19 at 21:00 Heparin Sodium (Porcine) (Heparin Sodium) 5,000 unit Q8HRS SQ Last administered on 02/20/19at 05:35; Start 02/19/19 at 14:00 Lorazepam (Ativan) 2 mg PRN Q4HRS PRN IV ANXIETY / AGITATION Last administered on 02/19/19at 11:59; Start 02/19/19 at 11:45 Lorazepam (Ativan) 2 mg PRN Q4HRS PRN IV ANXIETY / AGITATION; Start 02/19/19 at 12:00; Status UNV Potassium Phosphate 13.6 mmol/Dextrose 104.5333 ml @ 52.267 m... Q2H IV Last administered on 02/19/19at 18:05; Start 02/19/19 at 14:00; Stop 02/19/19 at 19:59; Status DC Dextrose/Sodium Chloride 1,000 ml @ 250 mls/hr Q4H IV ; Start 02/19/19 at 14:00; Status UNV Potassium Chloride 40 meq/ Sodium Chloride 1,020 ml @ 75 mls/hr [id number] IV Last administered on 02/19/19at 21:07; Start 02/19/19 at 21:00; Stop 02/20/19 at 08:04; Status DC Insulin Glargine (Lantus) 30 units QHS SQ Last administered on 02/19/19at 21:07; Start 02/19/19 at 21:00 Insulin Human Lispro (HumaLOG) 0-9 UNITS TIDWMEALS SQ Last administered on 02/20/19at 11:18; Start 02/20/19 at 08:00 Dextrose (Dextrose 50%-Water Syringe) 12.5 gm PRN Q15MIN PRN IV SEE COMMENTS; Start 02/19/19 at 21:00 Insulin Human Lispro (HumaLOG) 12 units TIDWMEALS SQ Last administered on 02/20/19at 12:59; Start 02/20/19 at 08:00 Acetaminophen (Tylenol) 650 mg PRN Q6HRS PRN PO temp Last administered on 02/20/19at 11:16; Start 02/19/19 at 21:00 Acetaminophen (Tylenol Supp) 650 mg PRN Q6HRS PRN VA MILD PAIN / TEMP; Start 02/19/19 at 21:00 Insulin Human Lispro (HumaLOG) 4 units 1X ONCE SQ Last administered on 02/20/19at 02:00; Start 02/20/19 at 02:00; Stop 02/20/19 at 02:01; Status DC Insulin Human Lispro (HumaLOG) 10 units 1X ONCE SQ Last administered on 02/20/19at 05:35; Start 02/20/19 at 06:00; Stop 02/20/19 at 06:01; Status DC Sodium Chloride 38.75 meq/Sterile Water 1,009.6875 ml @ 75 mls/hr [id number] IV Last administered on 02/20/19at 08:51; Start 02/20/19 at 09:00 Vitals/I & O Vital Sign - Last 24 Hours 02/19/19 02/19/19 02/19/19/11/19 14:00 15:00 16:00 16:00 Temp 98.0 98.0 Pulse 86 90 89 Resp 19 B/P (MAP) 139/66 (90) 149/66 (93) 167/61 (96) Pulse Ox 96 96 96 O2 Delivery Nasal Cannula Nasal Cannula Nasal Cannula Nasal Cannula O2 Flow Rate 2.0 2.0 2.0 2.0 02/19/19 02/19/19 02/19/19 02/19/19 17:00 18:00 19:00 19:52 Pulse 90 95 93 Resp 20 B/P (MAP) 147/61 (89) 164/66 (98) 147/63 (91) Pulse Ox 96 94 96 O2 Delivery Nasal Cannula Nasal Cannula Nasal Cannula O2 Flow Rate 2.0 2.0 2.0 2.0 02/19/19 02/19/19 02/19/19 02/19/19 20:00 21:00 22:00 23:00 Temp 99.5 99.5 Pulse 95 97 103 98 Resp 20 B/P (MAP) 150/64 (92) 183/72 (109) 171/72 (105) 153/57 (89) Pulse Ox 96 95 95 95 O2 Delivery Nasal Cannula Nasal Cannula Nasal Cannula Nasal Cannula O2 Flow Rate 2.0 2.0 2.0 2.0 02/20/19 02/20/19 02/20/19 02/20/19 00:00 00:24 01:00 02:06 Pulse 99 101 101 Resp 20 B/P (MAP) 176/81 (112) 169/78 (108) 189/69 (109) Pulse Ox 93 91 92 O2 Delivery Nasal Cannula Nasal Cannula Nasal Cannula O2 Flow Rate 2.0 2.0 2.0 2.0 02/20/19 02/20/19 02/20/19 02/20/19 03:00 04:00 04:00 05:13 Temp 97.7 97.7 Pulse 103 100 97 Resp 18 B/P (MAP) 159/76 (103) 161/73 (102) 157/71 (99) Pulse Ox 94 93 95 O2 Delivery Nasal Cannula Nasal Cannula Nasal Cannula Nasal Cannula O2 Flow Rate 2.0 2.0 2.0 2.0 02/20/19 02/20/19 02/20/1912/19 06:00 07:00 07:45 08:16 Temp 98.7 98.7 Pulse 100 98 97 Resp 22 23 B/P (MAP) 174/68 (103) 174/77 (109) 175/77 Pulse Ox 93 93 O2 Delivery Nasal Cannula Nasal Cannula Nasal Cannula O2 Flow Rate 2.0 2.0 2.0 02/20/19 02/20/19 02/20/19 02/20/19 08:17 09:02 10:06 11:05 Temp 98.7 100.4 98.7 100.4 Pulse 97 81 81 85 Resp 24 19 20 19 B/P (MAP) 175/77 (109) 147/70 (95) 165/70 (101) 173/78 (109) Pulse Ox 93 95 92 93 O2 Delivery Nasal Cannula Nasal Cannula Nasal Cannula Nasal Cannula O2 Flow Rate 2.0 2.0 2.0 2.0 02/20/19 02/20/19 11:44 12:11 Temp 98.5 98.5 Pulse 82 Resp 19 B/P (MAP) 175/62 (99) Pulse Ox 95 O2 Delivery Nasal Cannula Nasal Cannula O2 Flow Rate 2.0 2.0 Intake and Output 02/19/19 02/19/19 02/20/19 15:00 23:00 07:00 Intake Total 3000 ml 1178.41 ml 0 ml Output Total 715 ml 450 ml 385 ml Balance 2285 ml 728.41 ml -385 ml KERI MAE K III DO February 20, 2019 13:41
--- NOTE | 2019-02-20 14:07 | PDOC2 ---
CONSULT Date of Consult Date of Consult DATE: 02/20/19 TIME: 13:58 Reason for Consult Reason for Consult: Nausea, vomiting History of Present Illness Reason for Visit: This is a 68-year-old female who has a history of diabetes but apparently has not been taking medications or following with a physician. She presents with a several week history of poor appetite and worsening nausea and some vomiting this week. She denies any hematemesis, fever, chills, melena. Her bowel pattern is irregular but she has a poor by mouth intake recently. She is unsure if she is ever had a colonoscopy or any GI tests. In fact she has not seen a physician in quite some time so she is unaware of any other chronic medical problems. She denies abdominal pain but does continue to have nausea. She presented with a very high glucose and was in diabetic ketoacidosis acutely. Past Medical History Endocrine: Diabetes Past Surgical History Past Surgical History: Other (injury to neck with a laceration), No pertinent history (she denies any other surgical procedures but she is not sure) Family History Family History: Family History Unknown Social History No ALCOHOL: none Drugs: None, Other (could not be fully obtained, confused) Current Problem List Problem List Problems Medical Problems: (1) Altered level of consciousness Status: Acute (2) Dehydration Status: Acute (3) DKA (diabetic ketoacidoses) Status: Acute (4) Hypercalcemia Status: Acute (5) Hypermagnesemia Status: Acute (6) Renal insufficiency Status: Acute (7) Sepsis Status: Acute Current Medications Current Medications Current Medications Sodium Chloride 1,000 ml @ 1,000 mls/hr 1X ONCE IV Last administered on 02/19/19at 08:10; Start 02/19/19 at 08:00; Stop 02/19/19 at 08:59; Status DC Insulin Human Regular (HumuLIN R VIAL) 10 unit 1X ONCE IV Last administered on 02/19/19at 07:50; Start 02/19/19 at 08:00; Stop 02/19/19 at 08:02; Status DC Insulin Human Regular 150 ml @ 0 mls/hr 1X ONCE IV Last administered on at 08:34; Start 02/19/19 at 08:00; Stop 02/19/19 at 08:02; Status DC Sodium Chloride 1,000 ml @ 100 mls/hr 1X ONCE IV Last administered on 02/19/19at 08:29; Start 02/19/19 at 09:00; Stop 02/19/19 at 13:58; Status DC Sodium Chloride 1,000 ml @ 1,000 mls/hr 1X ONCE IV ; Start 02/19/19 at 09:00; Stop 02/19/19 at 10:02; Status DC Ceftriaxone Sodium (Rocephin) 1 gm 1X ONCE IVP Last administered on 02/19/19at 10:28; Start 02/19/19 at 09:00; Stop 02/19/19 at 09:01; Status DC Sodium Chloride 1,000 ml @ 200 mls/hr Q5H IV ; Start 02/19/19 at 10:00; Stop 02/20/19 at 09:59; Status Cancel Insulin Human Regular 150 unit/ Sodium Chloride 151.5 ml @ 0 mls/hr CONT PRN PRN IV PER PROTOCOL; Start 02/19/19 at 13:00; Status Cancel Dextrose/Sodium Chloride 1,000 ml @ 250 mls/hr Q4H IV Last administered on 02/19/19at 18:06; Start 02/19/19 at 15:00; Stop 02/19/19 at 21:01; Status DC Insulin Human Regular 150 unit/ Sodium Chloride 151.5 ml @ 0 mls/hr CONT PRN PRN IV PER PROTOCOL; Start 02/19/19 at 10:00; Stop 02/19/19 at 21:01; Status DC Potassium Chloride/Water 100 ml @ 100 mls/hr PRN Q1HR PRN IV SEE COMMENTS; Start 02/19/19 at 10:00; Stop 02/19/19 at 21:01; Status DC Potassium Chloride/Water 100 ml @ 100 mls/hr PRN Q1HR PRN IV SEE COMMENTS; Start 02/19/19 at 09:45; Stop 02/19/19 at 21:01; Status DC Potassium Chloride/Water 100 ml @ 100 mls/hr PRN Q1HR PRN IV SEE COMMENTS; Start 02/19/19 at 09:45; Stop 02/19/19 at 21:01; Status DC Labetalol HCl (Normodyne Iv Push) 10 mg PRN Q2HR PRN IVP HYPERTENSION, SEE COMMENTS Last administered on 02/20/19at 08:16; Start 02/19/19 at 09:45 Acetaminophen/ Codeine Phosphate (Tylenol #3) 1 tab PRN Q6HRS PRN PO PAIN; Start 02/19/19 at 09:45 Ondansetron HCl (Zofran) 4 mg PRN Q6HRS PRN IV NAUSEA/VOMITING Last administered on 02/20/19at 11:25; Start 02/19/19 at 09:45 Ondansetron HCl (Zofran Odt) 4 mg PRN Q6HRS PRN PO NAUSEA/VOMITING; Start 02/19/19 at 09:45 Acetaminophen/ Hydrocodone Bitart (Lortab 5/325) 1 tab PRN Q4HRS PRN PO PAIN; Start 02/19/19 at 09:45 Fentanyl Citrate (Fentanyl 2ml Vial) 25 mcg PRN Q2HR PRN IV PAIN; Start 02/19/19 at 09:45 Sodium Chloride 1,000 ml @ 250 mls/hr Q4H IV Last administered on 02/19/19at 10:07; Start 02/19/19 at 11:00; Stop 02/19/19 at 18:06; Status DC Lidocaine (Lidoderm) 1 patch DAILY TD Last administered on 02/20/19at 08:12; Start 02/20/19 at 09:00 Miscellaneous (Lidoderm Patch Removal) 1 ea QHS MC Last administered on 02/19/19at 21:00; Start 02/19/19 at 21:00 Heparin Sodium (Porcine) (Heparin Sodium) 5,000 unit Q8HRS SQ Last administered on 02/20/19at 05:35; Start 02/19/19 at 14:00 Lorazepam (Ativan) 2 mg PRN Q4HRS PRN IV ANXIETY / AGITATION Last administered on 02/19/19at 11:59; Start 02/19/19 at 11:45 Lorazepam (Ativan) 2 mg PRN Q4HRS PRN IV ANXIETY / AGITATION; Start 02/19/19 at 12:00; Status UNV Potassium Phosphate 13.6 mmol/Dextrose 104.5333 ml @ 52.267 m... Q2H IV Last administered on 02/19/19at 18:05; Start 02/19/19 at 14:00; Stop 02/19/19 at 19:59; Status DC Dextrose/Sodium Chloride 1,000 ml @ 250 mls/hr Q4H IV ; Start 02/19/19 at 14:00; Status UNV Potassium Chloride 40 meq/ Sodium Chloride 1,020 ml @ 75 mls/hr [id number] IV Last administered on 02/19/19at 21:07; Start 02/19/19 at 21:00; Stop 02/20/19 at 08:04; Status DC Insulin Glargine (Lantus) 30 units QHS SQ Last administered on 02/19/19at 21:07; Start 02/19/19 at 21:00 Insulin Human Lispro (HumaLOG) 0-9 UNITS TIDWMEALS SQ Last administered on 02/20at 11:18; Start 02/20/19 at 08:00 Dextrose (Dextrose 50%-Water Syringe) 12.5 gm PRN Q15MIN PRN IV SEE COMMENTS; Start 02/19/19 at 21:00 Insulin Human Lispro (HumaLOG) 12 units TIDWMEALS SQ Last administered on 02/20/19at 12:59; Start 02/20/19 at 08:00 Acetaminophen (Tylenol) 650 mg PRN Q6HRS PRN PO temp Last administered on 02/20/19at 11:16; Start 02/19/19 at 21:00 Acetaminophen (Tylenol Supp) 650 mg PRN Q6HRS PRN VA MILD PAIN / TEMP; Start 02/19/19 at 21:00 Insulin Human Lispro (HumaLOG) 4 units 1X ONCE SQ Last administered on 02/20/19at 02:00; Start 02/20/19 at 02:00; Stop 02/20/19 at 02:01; Status DC Insulin Human Lispro (HumaLOG) 10 units 1X ONCE SQ Last administered on 02/20/19at 05:35; Start 02/20/19 at 06:00; Stop 02/20/19 at 06:01; Status DC Sodium Chloride 38.75 meq/Sterile Water 1,009.6875 ml @ 75 mls/hr [id number] IV Last administered on 02/20/19at 08:51; Start 02/20/19 at 09:00 Allergies Allergies: Coded Allergies: No Known Drug Allergies (Unverified , 02/19/19) ROS General: No: Chills PSYCHOLOGICAL ROS: YES: Memory difficulties Eyes: No Blurry vision, No Decreased vision HEENT: No: Heacaches Gastrointestinal: Yes Nausea, Yes Vomiting Physical Exam General: Alert, Cooperative, Other (but poor memory) HEENT: PERRLA Lungs: Clear to auscultation Heart: Regular rate, Normal S1, Normal S2 Abdomen: Normal bowel sounds, Soft, No tenderness, No hepatosplenomegaly Extremities: No clubbing, No cyanosis, No edema Skin: No rashes Psych/Mental Status: Other (flat affect) Vitals VITALS Vital Signs Date Time Temp Pulse Resp B/P (MAP) Pulse Ox O2 Delivery O2 Flow Rate FiO2 02/20/19 13:00 82 19 166/63 (97) 97 Nasal Cannula 2.0 02/20/19 12:11 98.5 98.5 Labs Labs Laboratory Tests Test 02/19/19 07:52 02/19/19 08:00 02/19/19 09:31 02/19/19 10:31 O2 Saturation 92 % (92-99) Arterial Blood pH 7.31 (7.35-7.45) Arterial Blood pCO2 at Patient Temp 22 mmHg (35-46) Arterial Blood pO2 at Patient Temp 68 mmHg (65-108) Arterial Blood HCO3 11 mmol/L (21-28) Arterial Blood Base Excess -13 mmol/L (-3-3) FiO2 21% White Blood Count 12.8 x10^3/uL (4.0-11.0) Red Blood Count 5.24 x10^6/uL (3.50-5.40) Hemoglobin 15.8 g/dL (12.0-15.5) Hematocrit 49.1 % (36.0-47.0) Mean Corpuscular Volume 94 fL (79-100) Mean Corpuscular Hemoglobin 30 pg (25-35) Mean Corpuscular Hemoglobin Concent 32 g/dL (31-37) Red Cell Distribution Width 14.4 % (11.5-14.5) Platelet Count 353 x10^3/uL (140-400) Neutrophils (%) (Auto) 89 % (31-73) Lymphocytes (%) (Auto) 6 % (24-48) Monocytes (%) (Auto) 6 % (0-9) Eosinophils (%) (Auto) 0 % (0-3) Basophils (%) (Auto) 0 % (0-3) Neutrophils # (Auto) 11.3 x10^3uL (1.8-7.7) Lymphocytes # (Auto) 0.7 x10^3/uL (1.0-4.8) Monocytes # (Auto) 0.7 x10^3/uL (0.0-1.1) Eosinophils # (Auto) 0.0 x10^3/uL (0.0-0.7) Basophils # (Auto) 0.0 x10^3/uL (0.0-0.2) Segmented Neutrophils % 85 % (35-66) Band Neutrophils % 8 % (0-9) Lymphocytes % 4 % (24-48) Monocytes % 3 % (0-10) Platelet Estimate Adequate (ADEQUATE) Prothrombin Time 14.5 SEC (11.7-14.0) Prothromb Time International Ratio 1.2 (0.8-1.1) Activated Partial Thromboplast Time 24 SEC (24-38) Sodium Level 146 mmol/L (136-145) Potassium Level 4.1 mmol/L (3.5-5.1) Chloride Level 101 mmol/L (98-107) Carbon Dioxide Level 13 mmol/L (21-32) Anion Gap 32 (6-14) Blood Urea Nitrogen 57 mg/dL (7-20) Creatinine 2.1 mg/dL (0.6-1.0) Estimated GFR (Cockcroft-Gault) 23.6 BUN/Creatinine Ratio 27 (6-20) Glucose Level 747 mg/dL (70-99) Lactic Acid Level 2.3 mmol/L (0.4-2.0) Calcium Level 10.7 mg/dL (8.5-10.1) Phosphorus Level 5.1 mg/dL (2.6-4.7) Magnesium Level 3.1 mg/dL (1.8-2.4) Total Bilirubin 0.8 mg/dL (0.2-1.0) Aspartate Amino Transf (AST/SGOT) 14 U/L (15-37) Alanine Aminotransferase (ALT/SGPT) 17 U/L (14-59) Alkaline Phosphatase 116 U/L (46-116) Ammonia 14 mcmol/L (11-34) Creatine Kinase 50 U/L (26-192) Troponin I Quantitative < 0.017 ng/mL (0.000-0.055) UQ-Ugr-T-Type Natriuretic Peptide 139 pg/mL (0-124) Total Protein 7.3 g/dL (6.4-8.2) Albumin 3.0 g/dL (3.4-5.0) Albumin/Globulin Ratio 0.7 (1.0-1.7) Lipase 90 U/L (73-393) Acetone Level Mod pos (NEG) Glucose (Fingerstick) 521 mg/dL (70-99) 450 mg/dL (70-99) Test 02/19/19 10:35 02/19/19 11:05 02/19/19 11:35 02/19/19 12:23 Nasal Screen MRSA (PCR) Negative (Negative) Urine Collection Type Unknown Urine Color Yellow Urine Clarity Clear Urine pH 5.0 Urine Specific [place] >=1.030 Urine Protein 30 mg/dL (NEG-TRACE) Urine Glucose (UA) >=1000 mg/dL (NEG) Urine Ketones (Stick) >=80 mg/dL (NEG) Urine Blood Trace (NEG) Urine Nitrite Negative (NEG) Urine Bilirubin Moderate (NEG) Urine Urobilinogen Dipstick 0.2 mg/dL (0.2 mg/dL) Urine Leukocyte Esterase Negative (NEG) Urine RBC Occ /HPF (0-2) Urine WBC Rare /HPF (0-4) Urine Squamous Epithelial Cells Few /LPF Urine Bacteria 0 /HPF (0-FEW) Urine Opiates Screen Neg (NEG) Urine Methadone Screen Neg (NEG) Urine Barbiturates Neg (NEG) Urine Phencyclidine Screen Neg (NEG) Urine Amphetamine/Methamphetamine Neg (NEG) Urine Benzodiazepines Screen Neg (NEG) Urine Cocaine Screen Neg (NEG) Urine Cannabinoids Screen Neg (NEG) Urine Ethyl Alcohol Neg (NEG) Glucose (Fingerstick) 358 mg/dL (70-99) Sodium Level 148 mmol/L (136-145) Potassium Level 2.5 mmol/L (3.5-5.1) Chloride Level 110 mmol/L (98-107) Carbon Dioxide Level 19 mmol/L (21-32) Anion Gap 19 (6-14) Blood Urea Nitrogen 47 mg/dL (7-20) Creatinine 1.8 mg/dL (0.6-1.0) Estimated GFR (Cockcroft-Gault) 28.2 Glucose Level 338 mg/dL (70-99) Lactic Acid Level 2.8 mmol/L (0.4-2.0) Calcium Level 9.3 mg/dL (8.5-10.1) Phosphorus Level 2.4 mg/dL (2.6-4.7) Magnesium Level 2.4 mg/dL (1.8-2.4) Test 02/19/19 12:49 02/19/19 13:54 02/19/19 14:53 02/19/19 16:00 Glucose (Fingerstick) 294 mg/dL (70-99) 230 mg/dL (70-99) 236 mg/dL (70-99) 243 mg/dL (70-99) Test 02/19/19 17:03 02/19/19 18:03 02/19/19 19:00 02/19/19 19:55 Glucose (Fingerstick) 256 mg/dL (70-99) 208 mg/dL (70-99) 213 mg/dL (70-99) Sodium Level 147 mmol/L (136-145) Potassium Level 3.2 mmol/L (3.5-5.1) Chloride Level 112 mmol/L (98-107) Carbon Dioxide Level 23 mmol/L (21-32) Anion Gap 12 (6-14) Blood Urea Nitrogen 39 mg/dL (7-20) Creatinine 1.5 mg/dL (0.6-1.0) Estimated GFR (Cockcroft-Gault) 34.7 Glucose Level 186 mg/dL (70-99) Calcium Level 9.1 mg/dL (8.5-10.1) Phosphorus Level 4.8 mg/dL (2.6-4.7) Magnesium Level 2.1 mg/dL (1.8-2.4) Test 02/19/19 20:05 02/19/19 23:10 02/20/19 01:15 02/20/19 03:30 Glucose (Fingerstick) 168 mg/dL (70-99) 155 mg/dL (70-99) 297 mg/dL (70-99) Sodium Level 150 mmol/L (136-145) Potassium Level 3.7 mmol/L (3.5-5.1) Chloride Level 113 mmol/L (98-107) Carbon Dioxide Level 21 mmol/L (21-32) Anion Gap 16 (6-14) Blood Urea Nitrogen 37 mg/dL (7-20) Creatinine 1.4 mg/dL (0.6-1.0) Estimated GFR (Cockcroft-Gault) 37.6 Glucose Level 352 mg/dL (70-99) Calcium Level 9.3 mg/dL (8.5-10.1) Test 02/20/19 07:20 02/20/19 11:14 02/20/19 12:22 02/20/19 12:56 Glucose (Fingerstick) 286 mg/dL (70-99) 263 mg/dL (70-99) 296 mg/dL (70-99) Sodium Level 153 mmol/L (136-145) Potassium Level 3.6 mmol/L (3.5-5.1) Chloride Level 115 mmol/L (98-107) Carbon Dioxide Level 23 mmol/L (21-32) Anion Gap 15 (6-14) Blood Urea Nitrogen 38 mg/dL (7-20) Creatinine 1.3 mg/dL (0.6-1.0) Estimated GFR (Cockcroft-Gault) 41.0 Glucose Level 321 mg/dL (70-99) Calcium Level 8.9 mg/dL (8.5-10.1) Laboratory Tests Test 02/19/19 14:53 02/19/19 16:00 02/19/19 17:03 02/19/19 18:03 Glucose (Fingerstick) 236 mg/dL (70-99) 243 mg/dL (70-99) 256 mg/dL (70-99) 208 mg/dL (70-99) Test 02/19/19 19:00 02/19/19 19:55 02/19/19 20:05 02/19/19 23:10 Glucose (Fingerstick) 213 mg/dL (70-99) 168 mg/dL (70-99) 155 mg/dL (70-99) Sodium Level 147 mmol/L (136-145) Potassium Level 3.2 mmol/L (3.5-5.1) Chloride Level 112 mmol/L (98-107) Carbon Dioxide Level 23 mmol/L (21-32) Anion Gap 12 (6-14) Blood Urea Nitrogen 39 mg/dL (7-20) Creatinine 1.5 mg/dL (0.6-1.0) Estimated GFR (Cockcroft-Gault) 34.7 Glucose Level 186 mg/dL (70-99) Calcium Level 9.1 mg/dL (8.5-10.1) Phosphorus Level 4.8 mg/dL (2.6-4.7) Magnesium Level 2.1 mg/dL (1.8-2.4) Test 02/20/19 01:15 02/20/19 03:30 02/20/19 07:20 02/20/19 11:14 Glucose (Fingerstick) 297 mg/dL (70-99) 286 mg/dL (70-99) 263 mg/dL (70-99) Sodium Level 150 mmol/L (136-145) Potassium Level 3.7 mmol/L (3.5-5.1) Chloride Level 113 mmol/L (98-107) Carbon Dioxide Level 21 mmol/L (21-32) Anion Gap 16 (6-14) Blood Urea Nitrogen 37 mg/dL (7-20) Creatinine 1.4 mg/dL (0.6-1.0) Estimated GFR (Cockcroft-Gault) 37.6 Glucose Level 352 mg/dL (70-99) Calcium Level 9.3 mg/dL (8.5-10.1) Test 02/20/19 12:22 02/20/19 12:56 Sodium Level 153 mmol/L (136-145) Potassium Level 3.6 mmol/L (3.5-5.1) Chloride Level 115 mmol/L (98-107) Carbon Dioxide Level 23 mmol/L (21-32) Anion Gap 15 (6-14) Blood Urea Nitrogen 38 mg/dL (7-20) Creatinine 1.3 mg/dL (0.6-1.0) Estimated GFR (Cockcroft-Gault) 41.0 Glucose Level 321 mg/dL (70-99) Calcium Level 8.9 mg/dL (8.5-10.1) Glucose (Fingerstick) 296 mg/dL (70-99) Assessment/Plan Assessment/Plan Recent nausea and vomiting. Mostly bilious without coffee-ground or hematemesis. Seems to parallel her presentation with diabetic ketoacidosis. However she does have chronic nausea and poor by mouth intake so other causes besides DKA should be considered including gastritis, peptic ulcer disease, biliary tract disease, gastroparesis, etc. Chronic nausea with poor by mouth intake. Need to consider gastritis, peptic disease, biliary tract disease. Plan: Empiric anti-emetics Protonix US of abd Consider EGD and gastric emptying NAOMI BAXTER MD February 20, 2019 14:07
[2019-02-20] MEDS ORDERED: METOCLOPRAMIDE HCL 10 MG/2 ML VIAL. IV PRN (14:15)
--- NOTE | 2019-02-20 15:49 | EKG ---
[facility] [address] [place] [address] Test Date: 2019-02-19 Test Time: 07:50:52 Pat Name: MATHIEU ORTIZ Department: Room: 104 1 Gender: F Travel Attendants: : 1950 Requested By: MARYLIN SALMERON Order Number: [id number] Reading MD: Waldo Hernandez MD Measurements Intervals [place] Rate: 108 P: -12 NC: 142 QRS: -31 QRSD: 80 T: 41 QT: 360 QTc: 486 Interpretive Statements SINUS TACHYCARDIA POOR R WAVE PROGRESSION CONSIDER LEAD PLACEMENT LAD CONSIDER PRIOR INFERIOR INFARCT Electronically Signed On 03-17-2019 14:44:58 CDT by Waldo Hernandez MD
--- NOTE | 2019-02-20 15:51 | RAD ---
Ultrasound of the abdomen 02/20/2019 CLINICAL HISTORY: Nausea and vomiting. TECHNIQUE: A real-time ultrasound examination of the abdomen was performed. Multiple images were obtained. FINDINGS: The gallbladder is distended. Multiple gallstones are seen within the dependent portions of the gallbladder. The gallbladder wall thickness is within normal limits. No pericholecystic fluid is seen. The common bile duct measures 5 mm in diameter which is within normal limits. The liver is borderline enlarged measuring 18.2 cm in length. Increased echogenicity of the liver parenchyma is seen consistent with fatty infiltration. The spleen, visualized portions of the pancreas and left kidney are within normal limits. Mild right hydronephrosis is noted. The abdominal aorta and inferior vena cava are not well visualized due to the patient's body habitus and overlying bowel gas. No free fluid is seen. IMPRESSION: 1. Cholelithiasis. 2. Fatty infiltration of the liver. 3. Mild right hydronephrosis. Electronically signed by: Sacha Leon MD (02/20/2019 3:48 PM) [facility]
[2019-02-20 19:28] LABS: CALCIUM 9.4 mg/dL (8.5-10.1); CREATININE 1.2 mg/dL (0.6-1.0); GFR 44.9; POTASSIUM 3.6 mmol/L (3.5-5.1)
[2019-02-20] MEDS: PATCH REMOVAL. MC SCH (20:24)
[2019-02-20] MEDS: INSULIN GLARGINE 300 UNITS/3 ML INSULN.PEN. SQ SCH (21:35)
[2019-02-20 22:06] LABS: HEMOGLOBIN A1C 11.2 % (4.8-5.6)
[2019-02-21] VITALS (21 sets, daily range): BP systolic 147–184; BP diastolic 56–88
[2019-02-21 05:20] LABS: BASO % 0 % (0-3); EOS % 0 % (0-3); HEMATOCRIT 41.2 % (36.0-47.0); HEMOGLOBIN 13.8 g/dL (12.0-15.5); LYMPH # 0.8 x10^3/uL (1.0-4.8); LYMPH % 8 % (24-48); MEAN CORPUSCULAR HEMOGLOBIN 31 pg (25-35); MEAN CORPUSCULAR HGB CONC 34 g/dL (31-37); MEAN CORPUSCULAR VOLUME 92 fL (79-100); MONO # 0.5 x10^3/uL (0.0-1.1); MONO % 5 % (0-9); NEUT # 8.5 x10^3uL (1.8-7.7); NEUT % 87 % (31-73); PLATELET COUNT 189 x10^3/uL (140-400); RED BLOOD COUNT 4.48 x10^6/uL (3.50-5.40); RED CELL DISTRIBUTION WIDTH 13.8 % (11.5-14.5); WHITE BLOOD COUNT 9.8 x10^3/uL (4.0-11.0)
[2019-02-21 05:33] LABS: GFR 55.5; POTASSIUM 3.9 mmol/L (3.5-5.1)
[2019-02-21] MEDS: HEPARIN for SUB-Q USE 5,000 UNIT/ML VIAL. SQ SCH ×3 (06:00→21:19)
[2019-02-21] MEDS: INSULIN LISPRO 300 UNITS/3 ML INSULN.PEN. SQ SCH ×10 (08:20→21:18)
--- NOTE | 2019-02-21 08:25 | NUR ---
0820 novolog doses nonadmin as the schedule had been changed after 0800 doses given, creating a new order. EGD will be rescheduled to tomorrow as staff yesterday and during not were not able to get a hold of for consents. Pt not alert enough to sign consents at this time.
[2019-02-21] MEDS: LABETALOL 20 MG/4 ML DISP.SYRIN. IVP PRN ×3 (08:29→14:06)
[2019-02-21] MEDS: SODIUM CHLORIDE IV SCH ×3 (08:29→21:12)
[2019-02-21] MEDS: STERILE WATER IV SCH ×3 (08:29→21:12)
[2019-02-21] MEDS: LIDOCAINE (700MG/PATCH) PATCH. TD SCH (09:00)
--- NOTE | 2019-02-21 09:11 | NUR ---
report given to ELISHA Sprague who has resumed care at this time.
--- NOTE | 2019-02-21 11:09 | NUR ---
SS following for discharge planning. SS reviewed pt chart. Pt is from home with spouse and is currently requiring oxygen. No discharge needs noted at this time. SS will continue to follow for discharge planning.
--- NOTE | 2019-02-21 11:25 | PDOC ---
Objective: Objective: Reviewed w/ RN - "out of it," was NPO for EGD but awaiting to call re: consent. Vital Signs: Vital Signs Date Time Temp Pulse Resp B/P (MAP) Pulse Ox O2 Delivery O2 Flow Rate FiO2 02/21/19 10:54 98.7 75 18 163/77 (105) 99 Nasal Cannula 2.0 98.7 Labs: Laboratory Tests Test 02/20/19 12:22 02/20/19 12:56 02/20/19 16:37 02/20/19 18:21 Sodium Level 153 mmol/L Potassium Level 3.6 mmol/L Chloride Level 115 mmol/L Carbon Dioxide Level 23 mmol/L Anion Gap 15 Blood Urea Nitrogen 38 mg/dL Creatinine 1.3 mg/dL Estimated GFR (Cockcroft-Gault) 41.0 Glucose Level 321 mg/dL Calcium Level 8.9 mg/dL Glucose (Fingerstick) 296 mg/dL 239 mg/dL 263 mg/dL Test 02/20/19 19:10 02/20/19 20:31 02/21/19 03:45 02/21/19 08:14 Sodium Level 152 mmol/L 152 mmol/L Potassium Level 3.6 mmol/L 3.9 mmol/L Chloride Level 114 mmol/L 113 mmol/L Carbon Dioxide Level 24 mmol/L 23 mmol/L Anion Gap 14 16 Blood Urea Nitrogen 39 mg/dL 35 mg/dL Creatinine 1.2 mg/dL 1.0 mg/dL Estimated GFR (Cockcroft-Gault) 44.9 55.5 Glucose Level 278 mg/dL 290 mg/dL Calcium Level 9.4 mg/dL 9.0 mg/dL Glucose (Fingerstick) 229 mg/dL 293 mg/dL White Blood Count 9.8 x10^3/uL Red Blood Count 4.48 x10^6/uL Hemoglobin 13.8 g/dL Hematocrit 41.2 % Mean Corpuscular Volume 92 fL Mean Corpuscular Hemoglobin 31 pg Mean Corpuscular Hemoglobin Concent 34 g/dL Red Cell Distribution Width 13.8 % Platelet Count 189 x10^3/uL Neutrophils (%) (Auto) 87 % Lymphocytes (%) (Auto) 8 % Monocytes (%) (Auto) 5 % Eosinophils (%) (Auto) 0 % Basophils (%) (Auto) 0 % Neutrophils # (Auto) 8.5 x10^3uL Lymphocytes # (Auto) 0.8 x10^3/uL Monocytes # (Auto) 0.5 x10^3/uL Eosinophils # (Auto) 0.0 x10^3/uL Basophils # (Auto) 0.0 x10^3/uL Imaging: US IMPRESSION: 1. Cholelithiasis. 2. Fatty infiltration of the liver. 3. Mild right hydronephrosis. PE: GEN: NAD LUNGS: NC HEART: RRR ABD: NABS, S/ND/NT NEURO/PSYCH: drowsy - mumbles some during exam, otherwise no meaningful history A/P: N/v, anorexia DKA, HTN Cholelithiasis, hepatic steatosis -- ?now has orders to try ADA diet Plan for EGD tomorrow pending consent issues. 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 MOUNA HAGER February 21, 2019 11:25
[2019-02-21] MEDS: PANTOPRAZOLE 40 MG TABLET.DR. PO SCH ×2 (12:14→17:33)
[2019-02-21 12:33] LABS: CALCIUM 9.3 mg/dL (8.5-10.1); GFR 55.5; POTASSIUM 3.7 mmol/L (3.5-5.1)
--- NOTE | 2019-02-21 12:37 | PDOC ---
[employer] PROGRESS NOTE Chief Complaint Chief Complaint DKA DM Bilious Emesis AMS Electrolyte abnormalities History of Present Illness History of Present Illness Patient seen and examined in ICU She continues to be lethargic, still minimally alert Anion gap had improved but is elevated back to 16 Discussed with nurse Vitals Vitals Vital Signs Date Time Temp Pulse Resp B/P (MAP) Pulse Ox O2 Delivery O2 Flow Rate FiO2 02/21/19 12:00 98.6 68 20 178/88 (118) 97 Nasal Cannula 2.0 98.6 Physical Exam General: Alert, Cooperative, Other (but poor memory) Heart: Regular rate, Normal S1, Normal S2 Abdomen: Normal bowel sounds, Soft, No tenderness, No hepatosplenomegaly Extremities: No clubbing, No cyanosis, No edema Skin: No rashes Labs LABS Laboratory Tests Test 02/20/19 12:56 02/20/19 16:37 02/20/19 18:21 02/20/19 19:10 Glucose (Fingerstick) 296 mg/dL (70-99) 239 mg/dL (70-99) 263 mg/dL (70-99) Sodium Level 152 mmol/L (136-145) Potassium Level 3.6 mmol/L (3.5-5.1) Chloride Level 114 mmol/L (98-107) Carbon Dioxide Level 24 mmol/L (21-32) Anion Gap 14 (6-14) Blood Urea Nitrogen 39 mg/dL (7-20) Creatinine 1.2 mg/dL (0.6-1.0) Estimated GFR (Cockcroft-Gault) 44.9 Glucose Level 278 mg/dL (70-99) Calcium Level 9.4 mg/dL (8.5-10.1) Test 02/20/19 20:31 02/21/19 03:45 02/21/19 08:14 02/21/19 11:24 Glucose (Fingerstick) 229 mg/dL (70-99) 293 mg/dL (70-99) 251 mg/dL (70-99) White Blood Count 9.8 x10^3/uL (4.0-11.0) Red Blood Count 4.48 x10^6/uL (3.50-5.40) Hemoglobin 13.8 g/dL (12.0-15.5) Hematocrit 41.2 % (36.0-47.0) Mean Corpuscular Volume 92 fL (79-100) Mean Corpuscular Hemoglobin 31 pg (25-35) Mean Corpuscular Hemoglobin Concent 34 g/dL (31-37) Red Cell Distribution Width 13.8 % (11.5-14.5) Platelet Count 189 x10^3/uL (140-400) Neutrophils (%) (Auto) 87 % (31-73) Lymphocytes (%) (Auto) 8 % (24-48) Monocytes (%) (Auto) 5 % (0-9) Eosinophils (%) (Auto) 0 % (0-3) Basophils (%) (Auto) 0 % (0-3) Neutrophils # (Auto) 8.5 x10^3uL (1.8-7.7) Lymphocytes # (Auto) 0.8 x10^3/uL (1.0-4.8) Monocytes # (Auto) 0.5 x10^3/uL (0.0-1.1) Eosinophils # (Auto) 0.0 x10^3/uL (0.0-0.7) Basophils # (Auto) 0.0 x10^3/uL (0.0-0.2) Sodium Level 152 mmol/L (136-145) Potassium Level 3.9 mmol/L (3.5-5.1) Chloride Level 113 mmol/L (98-107) Carbon Dioxide Level 23 mmol/L (21-32) Anion Gap 16 (6-14) Blood Urea Nitrogen 35 mg/dL (7-20) Creatinine 1.0 mg/dL (0.6-1.0) Estimated GFR (Cockcroft-Gault) 55.5 Glucose Level 290 mg/dL (70-99) Calcium Level 9.0 mg/dL (8.5-10.1) Review of Systems Review of Systems Patient denies LE swelling Patient denies cough Assessment and Plan Assessmemt and Plan Problems Medical Problems: (1) Altered level of consciousness Status: Acute (2) Dehydration Status: Acute (3) DKA (diabetic ketoacidoses) Status: Acute (4) Hypercalcemia Status: Acute (5) Hypermagnesemia Status: Acute (6) Renal insufficiency Status: Acute (7) Sepsis Status: Acute Assessment: DKA- Anion gap of 16 DM- BS of 296 Bilious Emesis AMS Electrolyte abnormalities Plan: ICU monitoring Awaiting EGD hopefully tomorrow DKA protocol Protonix IVF Zofran Labs Home meds DVT ppx GI following Comment Review of Relevant I have reviewed the following items katalina (where applicable) has been applied. Labs Laboratory Tests Test 02/19/19 12:49 02/19/19 13:54 02/19/19 14:53 02/19/19 16:00 Glucose (Fingerstick) 294 mg/dL (70-99) 230 mg/dL (70-99) 236 mg/dL (70-99) 243 mg/dL (70-99) Test 02/19/19 17:03 02/19/19 18:03 02/19/19 19:00 02/19/19 19:55 Glucose (Fingerstick) 256 mg/dL (70-99) 208 mg/dL (70-99) 213 mg/dL (70-99) Sodium Level 147 mmol/L (136-145) Potassium Level 3.2 mmol/L (3.5-5.1) Chloride Level 112 mmol/L (98-107) Carbon Dioxide Level 23 mmol/L (21-32) Anion Gap 12 (6-14) Blood Urea Nitrogen 39 mg/dL (7-20) Creatinine 1.5 mg/dL (0.6-1.0) Estimated GFR (Cockcroft-Gault) 34.7 Glucose Level 186 mg/dL (70-99) Calcium Level 9.1 mg/dL (8.5-10.1) Phosphorus Level 4.8 mg/dL (2.6-4.7) Magnesium Level 2.1 mg/dL (1.8-2.4) Test 02/19/19 20:05 02/19/19 23:10 02/20/19 01:15 02/20/19 03:30 Glucose (Fingerstick) 168 mg/dL (70-99) 155 mg/dL (70-99) 297 mg/dL (70-99) Sodium Level 150 mmol/L (136-145) Potassium Level 3.7 mmol/L (3.5-5.1) Chloride Level 113 mmol/L (98-107) Carbon Dioxide Level 21 mmol/L (21-32) Anion Gap 16 (6-14) Blood Urea Nitrogen 37 mg/dL (7-20) Creatinine 1.4 mg/dL (0.6-1.0) Estimated GFR (Cockcroft-Gault) 37.6 Glucose Level 352 mg/dL (70-99) Calcium Level 9.3 mg/dL (8.5-10.1) Test 02/20/19 07:20 02/20/19 11:14 02/20/19 12:22 02/20/19 12:56 Glucose (Fingerstick) 286 mg/dL (70-99) 263 mg/dL (70-99) 296 mg/dL (70-99) Sodium Level 153 mmol/L (136-145) Potassium Level 3.6 mmol/L (3.5-5.1) Chloride Level 115 mmol/L (98-107) Carbon Dioxide Level 23 mmol/L (21-32) Anion Gap 15 (6-14) Blood Urea Nitrogen 38 mg/dL (7-20) Creatinine 1.3 mg/dL (0.6-1.0) Estimated GFR (Cockcroft-Gault) 41.0 Glucose Level 321 mg/dL (70-99) Calcium Level 8.9 mg/dL (8.5-10.1) Test 02/20/19 16:37 02/20/19 18:21 02/20/19 19:10 02/20/19 20:31 Glucose (Fingerstick) 239 mg/dL (70-99) 263 mg/dL (70-99) 229 mg/dL (70-99) Sodium Level 152 mmol/L (136-145) Potassium Level 3.6 mmol/L (3.5-5.1) Chloride Level 114 mmol/L (98-107) Carbon Dioxide Level 24 mmol/L (21-32) Anion Gap 14 (6-14) Blood Urea Nitrogen 39 mg/dL (7-20) Creatinine 1.2 mg/dL (0.6-1.0) Estimated GFR (Cockcroft-Gault) 44.9 Glucose Level 278 mg/dL (70-99) Calcium Level 9.4 mg/dL (8.5-10.1) Test 02/21/19 03:45 02/21/19 08:14 02/21/19 11:24 White Blood Count 9.8 x10^3/uL (4.0-11.0) Red Blood Count 4.48 x10^6/uL (3.50-5.40) Hemoglobin 13.8 g/dL (12.0-15.5) Hematocrit 41.2 % (36.0-47.0) Mean Corpuscular Volume 92 fL (79-100) Mean Corpuscular Hemoglobin 31 pg (25-35) Mean Corpuscular Hemoglobin Concent 34 g/dL (31-37) Red Cell Distribution Width 13.8 % (11.5-14.5) Platelet Count 189 x10^3/uL (140-400) Neutrophils (%) (Auto) 87 % (31-73) Lymphocytes (%) (Auto) 8 % (24-48) Monocytes (%) (Auto) 5 % (0-9) Eosinophils (%) (Auto) 0 % (0-3) Basophils (%) (Auto) 0 % (0-3) Neutrophils # (Auto) 8.5 x10^3uL (1.8-7.7) Lymphocytes # (Auto) 0.8 x10^3/uL (1.0-4.8) Monocytes # (Auto) 0.5 x10^3/uL (0.0-1.1) Eosinophils # (Auto) 0.0 x10^3/uL (0.0-0.7) Basophils # (Auto) 0.0 x10^3/uL (0.0-0.2) Sodium Level 152 mmol/L (136-145) Potassium Level 3.9 mmol/L (3.5-5.1) Chloride Level 113 mmol/L (98-107) Carbon Dioxide Level 23 mmol/L (21-32) Anion Gap 16 (6-14) Blood Urea Nitrogen 35 mg/dL (7-20) Creatinine 1.0 mg/dL (0.6-1.0) Estimated GFR (Cockcroft-Gault) 55.5 Glucose Level 290 mg/dL (70-99) Calcium Level 9.0 mg/dL (8.5-10.1) Glucose (Fingerstick) 293 mg/dL (70-99) 251 mg/dL (70-99) Laboratory Tests Test 02/20/19 12:56 02/20/19 16:37 02/20/19 18:21 02/20/19 19:10 Glucose (Fingerstick) 296 mg/dL (70-99) 239 mg/dL (70-99) 263 mg/dL (70-99) Sodium Level 152 mmol/L (136-145) Potassium Level 3.6 mmol/L (3.5-5.1) Chloride Level 114 mmol/L (98-107) Carbon Dioxide Level 24 mmol/L (21-32) Anion Gap 14 (6-14) Blood Urea Nitrogen 39 mg/dL (7-20) Creatinine 1.2 mg/dL (0.6-1.0) Estimated GFR (Cockcroft-Gault) 44.9 Glucose Level 278 mg/dL (70-99) Calcium Level 9.4 mg/dL (8.5-10.1) Test 02/20/19 20:31 02/21/19 03:45 02/21/19 08:14 02/21/19 11:24 Glucose (Fingerstick) 229 mg/dL (70-99) 293 mg/dL (70-99) 251 mg/dL (70-99) White Blood Count 9.8 x10^3/uL (4.0-11.0) Red Blood Count 4.48 x10^6/uL (3.50-5.40) Hemoglobin 13.8 g/dL (12.0-15.5) Hematocrit 41.2 % (36.0-47.0) Mean Corpuscular Volume 92 fL (79-100) Mean Corpuscular Hemoglobin 31 pg (25-35) Mean Corpuscular Hemoglobin Concent 34 g/dL (31-37) Red Cell Distribution Width 13.8 % (11.5-14.5) Platelet Count 189 x10^3/uL (140-400) Neutrophils (%) (Auto) 87 % (31-73) Lymphocytes (%) (Auto) 8 % (24-48) Monocytes (%) (Auto) 5 % (0-9) Eosinophils (%) (Auto) 0 % (0-3) Basophils (%) (Auto) 0 % (0-3) Neutrophils # (Auto) 8.5 x10^3uL (1.8-7.7) Lymphocytes # (Auto) 0.8 x10^3/uL (1.0-4.8) Monocytes # (Auto) 0.5 x10^3/uL (0.0-1.1) Eosinophils # (Auto) 0.0 x10^3/uL (0.0-0.7) Basophils # (Auto) 0.0 x10^3/uL (0.0-0.2) Sodium Level 152 mmol/L (136-145) Potassium Level 3.9 mmol/L (3.5-5.1) Chloride Level 113 mmol/L (98-107) Carbon Dioxide Level 23 mmol/L (21-32) Anion Gap 16 (6-14) Blood Urea Nitrogen 35 mg/dL (7-20) Creatinine 1.0 mg/dL (0.6-1.0) Estimated GFR (Cockcroft-Gault) 55.5 Glucose Level 290 mg/dL (70-99) Calcium Level 9.0 mg/dL (8.5-10.1) Medications Current Medications Sodium Chloride 1,000 ml @ 1,000 mls/hr 1X ONCE IV Last administered on 02/19/19at 08:10; Start 02/19/19 at 08:00; Stop 02/19/19 at 08:59; Status DC Insulin Human Regular (HumuLIN R VIAL) 10 unit 1X ONCE IV Last administered on 02/19/19at 07:50; Start 02/19/19 at 08:00; Stop 02/19/19 at 08:02; Status DC Insulin Human Regular 150 ml @ 0 mls/hr 1X ONCE IV Last administered on 02/19/19at 08:34; Start 02/19/19 at 08:00; Stop 02/19/19 at 08:02; Status DC Sodium Chloride 1,000 ml @ 100 mls/hr 1X ONCE IV Last administered on 02/19/19at 08:29; Start 02/19/19 at 09:00; Stop 02/19/19 at 13:58; Status DC Sodium Chloride 1,000 ml @ 1,000 mls/hr 1X ONCE IV ; Start 02/19/19 at 09:00; Stop 02/19/19 at 10:02; Status DC Ceftriaxone Sodium (Rocephin) 1 gm 1X ONCE IVP Last administered on 02/19/19at 10:28; Start 02/19/19 at 09:00; Stop 02/19/19 at 09:01; Status DC Sodium Chloride 1,000 ml @ 200 mls/hr Q5H IV ; Start 02/19/19 at 10:00; Stop 02/20/19 at 09:59; Status Cancel Insulin Human Regular 150 unit/ Sodium Chloride 151.5 ml @ 0 mls/hr CONT PRN PRN IV PER PROTOCOL; Start 02/19/19 at 13:00; Status Cancel Dextrose/Sodium Chloride 1,000 ml @ 250 mls/hr Q4H IV Last administered on 02/19/19at 18:06; Start 02/19/19 at 15:00; Stop 02/19/19 at 21:01; Status DC Insulin Human Regular 150 unit/ Sodium Chloride 151.5 ml @ 0 mls/hr CONT PRN PRN IV PER PROTOCOL; Start 02/19/19 at 10:00; Stop 02/19/19 at 21:01; Status DC Potassium Chloride/Water 100 ml @ 100 mls/hr PRN Q1HR PRN IV SEE COMMENTS; Start 02/19/19 at 10:00; Stop 02/19/19 at 21:01; Status DC Potassium Chloride/Water 100 ml @ 100 mls/hr PRN Q1HR PRN IV SEE COMMENTS; Start 02/19/19 at 09:45; Stop 02/19/19 at 21:01; Status DC Potassium Chloride/Water 100 ml @ 100 mls/hr PRN Q1HR PRN IV SEE COMMENTS; Start 02/19/19 at 09:45; Stop 02/19/19 at 21:01; Status DC Labetalol HCl (Normodyne Iv Push) 10 mg PRN Q2HR PRN IVP HYPERTENSION, SEE COMMENTS Last administered on 02/21/19at 10:50; Start 02/19/19 at 09:45 Acetaminophen/ Codeine Phosphate (Tylenol #3) 1 tab PRN Q6HRS PRN PO PAIN; Start 02/19/19 at 09:45 Ondansetron HCl (Zofran) 4 mg PRN Q6HRS PRN IV NAUSEA/VOMITING 1ST CHOICE Last administered on 02/20/19at 11:25; Start 02/19/19 at 09:45 Ondansetron HCl (Zofran Odt) 4 mg PRN Q6HRS PRN PO NAUSEA/VOMITING; Start 02/19/19 at 09:45 Acetaminophen/ Hydrocodone Bitart (Lortab 5/325) 1 tab PRN Q4HRS PRN PO PAIN; Start 02/19/19 at 09:45 Fentanyl Citrate (Fentanyl 2ml Vial) 25 mcg PRN Q2HR PRN IV PAIN; Start 02/19/19 at 09:45 Sodium Chloride 1,000 ml @ 250 mls/hr Q4H IV Last administered on 02/19/19at 10:07; Start 02/19/19 at 11:00; Stop 02/19/19 at 18:06; Status DC Lidocaine (Lidoderm) 1 patch DAILY TD Last administered on 02/20/19at 08:12; Start 02/20/19 at 09:00 Miscellaneous (Lidoderm Patch Removal) 1 ea QHS MC Last administered on 02/20/19 20:24; Start 02/19/19 at 21:00 Heparin Sodium (Porcine) (Heparin Sodium) 5,000 unit Q8HRS SQ Last administered on 02/20/19 21:36; Start 02/19/19 at 14:00 Lorazepam (Ativan) 2 mg PRN Q4HRS PRN IV ANXIETY / AGITATION Last administered on 02/19/19at 11:59; Start 02/19/19 at 11:45 Lorazepam (Ativan) 2 mg PRN Q4HRS PRN IV ANXIETY / AGITATION; Start 02/19/19 at 12:00; Status UNV Potassium Phosphate 13.6 mmol/Dextrose 104.5333 ml @ 52.267 m... Q2H IV Last administered on 02/19/19 18:05; Start 02/19/19 at 14:00; Stop 02/19/19 at 19:59; Status DC Dextrose/Sodium Chloride 1,000 ml @ 250 mls/hr Q4H IV ; Start 02/19/19 at 14:00; Status UNV Potassium Chloride 40 meq/ Sodium Chloride 1,020 ml @ 75 mls/hr [id number] IV Last administered on 02/19/19 21:07; Start 02/19/19 at 21:00; Stop 02/20/19 at 08:04; Status DC Insulin Glargine (Lantus) 30 units QHS SQ Last administered on 02/20/19 21:35; Start 02/19/19 at 21:00 Insulin Human Lispro (HumaLOG) 0-9 UNITS TIDWMEALS SQ Last administered on 02/20/19 16:44; Start 02/20/19 at 08:00; Stop 02/21/19 at 08:18; Status DC Dextrose (Dextrose 50%-Water Syringe) 12.5 gm PRN Q15MIN PRN IV SEE COMMENTS; Start 02/19/19 at 21:00 Insulin Human Lispro (HumaLOG) 12 units TIDWMEALS SQ Last administered on 02/20/19at 18:25; Start 02/20/19 at 08:00; Stop 02/21/19 at 08:18; Status DC Acetaminophen (Tylenol) 650 mg PRN Q6HRS PRN PO temp Last administered on 02/20/19at 11:16; Start 02/19/19 at 21:00 Acetaminophen (Tylenol Supp) 650 mg PRN Q6HRS PRN KS MILD PAIN / TEMP; Start 02/19/19 at 21:00 Insulin Human Lispro (HumaLOG) 4 units 1X ONCE SQ Last administered on 02/20/19at 02:00; Start 02/20/19 at 02:00; Stop 02/20/19 at 02:01; Status DC Insulin Human Lispro (HumaLOG) 10 units 1X ONCE SQ Last administered on 02/20/19at 05:35; Start 02/20/19 at 06:00; Stop 02/20/19 at 06:01; Status DC Sodium Chloride 38.75 meq/Sterile Water 1,009.6875 ml @ 250 mls/hr Q4H3M IV Last administered on 02/21/19at 08:29; Start 02/20/19 at 09:00 Metoclopramide HCl (Reglan Vial) 5 mg PRN Q6HRS PRN IV NAUSEA/VOMITING 2ND CHOICE; Start 02/20/19 at 14:15 Insulin Human Lispro (HumaLOG) 12 units QIDACHS SQ Last administered on 02/21/19at 12:05; Start 02/21/19 at 08:20 Insulin Human Lispro (HumaLOG) 0-9 UNITS QIDACHS SQ ; Start 02/21/19 at 08:20 Pantoprazole Sodium (Protonix) 40 mg BIDAC PO Last administered on 02/21/19at 12 :14; Start 02/21/19 at 11:30 Vitals/I & O Vital Sign - Last 24 Hours 02/20/19 02/20/19 02/20/19 02/20/19 13:00 14:02 15:08 16:01 Temp 98.7 98.7 Pulse 82 83 81 79 Resp 19 19 17 17 B/P (MAP) 166/63 (97) 173/66 (101) 161/70 (100) 145/63 (90) Pulse Ox 97 95 94 94 O2 Delivery Nasal Cannula Nasal Cannula Nasal Cannula Nasal Cannula O2 Flow Rate 2.0 2.0 2.0 2.0 02/20/19 02/20/19 02/20/19 02/20/19 16:05 17:01 18:04 19:00 Pulse 83 83 80 Resp 17 18 21 B/P (MAP) 152/71 (98) 175/74 (107) 176/64 (101) Pulse Ox 94 94 94 O2 Delivery Nasal Cannula Nasal Cannula Nasal Cannula Nasal Cannula O2 Flow Rate 2.0 2.0 2.0 2.0 02/20/19 02/20/19 02/20/19 02/20/19 20:00 20:17 21:00 21:31 Temp 99.1 99.1 Pulse 82 80 88 Resp 18 17 B/P (MAP) 180/69 (106) 176/73 (107) 176/73 Pulse Ox 99 96 O2 Delivery Nasal Cannula Nasal Cannula Nasal Cannula O2 Flow Rate 2.0 2.0 2.0 02/20/19 02/20/19 02/21/19 02/21/19 22:09 23:04 00:05 00:15 Temp 98.2 98.2 Pulse 79 81 82 Resp 23 22 25 B/P (MAP) 169/69 (102) 152/72 (98) 173/75 (107) Pulse Ox 93 97 94 O2 Delivery Nasal Cannula Nasal Cannula Nasal Cannula O2 Flow Rate 2.0 2.0 2.0 02/21/19 02/21/19 02/21/19 02/21/19 00:16 01:00 02:02 03:03 Pulse 76 82 82 Resp 17 20 14 B/P (MAP) 163/66 (98) 184/71 (108) 163/74 (103) Pulse Ox 97 92 96 O2 Delivery Nasal Cannula Nasal Cannula Nasal Cannula Nasal Cannula O2 Flow Rate 2.0 2.0 2.0 2.0 02/21/19 02/21/19 02/21/19 02/21/19 04:00 04:00 05:00 06:00 Temp 98.5 98.5 Pulse 80 76 86 Resp 19 19 21 B/P (MAP) 181/72 (108) 169/67 (101) 180/80 (113) Pulse Ox 97 97 100 O2 Delivery Nasal Cannula Nasal Cannula Nasal Cannula Nasal Cannula O2 Flow Rate 2.0 2.0 2.0 2.0 02/21/19 02/21/19 02/21/19 02/21/19 07:00 07:53 08:00 08:00 Temp 99.8 99.8 Pulse 83 81 81 Resp 19 23 B/P (MAP) 156/62 (93) 183/85 (117) 183/85 (117) Pulse Ox 96 96 O2 Delivery Nasal Cannula Nasal Cannula Nasal Cannula Nasal Cannula O2 Flow Rate 2.0 2.0 2.0 2.0 02/21/19 02/21/19 02/21/19 02/21/19 08:29 08:58 10:00 10:30 Temp 99.9 99.9 Pulse 81 71 72 75 Resp 28 20 B/P (MAP) 183/85 160/72 (101) 170/71 (104) 163/77 (105) Pulse Ox 97 99 O2 Delivery Nasal Cannula Nasal Cannula O2 Flow Rate 2.0 2.0 02/21/19 02/21/19 02/21/19 02/21/19 10:50 10:54 11:33 12:00 Temp 98.7 98.6 98.7 98.6 Pulse 75 75 68 Resp 18 20 B/P (MAP) 163/77 163/77 (105) 178/88 (118) Pulse Ox 99 97 O2 Delivery Nasal Cannula Nasal Cannula Nasal Cannula O2 Flow Rate 2.0 2.0 2.0 Intake and Output 02/20/19 02/20/19 02/21/19 14:59 22:59 06:59 Intake Total 600 ml Output Total 375 ml 380 ml 330 ml Balance -375 ml -380 ml 270 ml KERI MAE III DO February 21, 2019 12:37
--- NOTE | 2019-02-21 12:39 | NUR ---
The patient refused to eat any of her lunch and only wants applesauce. She ate one container with total assistance and does not want any more or anything else at this time. Scheduled insulin given due to high blood sugar. Held sliding scale due to low PO intake. Patient is sitting up in her chair at this time with her call light in reach. She states no pain or concerns at this time. Still drowsy but starting to wake up more since this nurses first assessment this morning. BP elevated still and PRN medication given. Will continue to monitor.
--- NOTE | 2019-02-21 15:44 | NUR ---
Dr Garrison was called in regards to patients elevated BP during the day today. Patient is getting transferred by bed to room 521. IVP labetalol D/C'd due to transfer out of ICU and patient was started on PRN clonidine 0.2mg Q8hr PRN and also norvasc 10mg PO daily. Patient updated and aware. Report called to Ronn Andrade at 1535. Patient transferred around 1545. NO concerns noted upon transfer
[2019-02-21] MEDS ORDERED: cloNIDine HCL 0.2 MG TABLET PO PRN (15:45)
[2019-02-21] MEDS: PATCH REMOVAL. MC SCH (21:00)
[2019-02-21] MEDS: INSULIN GLARGINE 300 UNITS/3 ML INSULN.PEN. SQ SCH (21:18)
--- NOTE | 2019-02-22 00:10 | NUR ---
Patient continues to have a very poor appetite, consuming 5-10% of her dinner. Refusing meal replacement drinks at this time.
[2019-02-22 02:36] VITALS: BP 152/75
[2019-02-22] MEDS: HEPARIN for SUB-Q USE 5,000 UNIT/ML VIAL. SQ SCH ×3 (03:07→20:12)
[2019-02-22 04:41] LABS: BASO # 0.1 x10^3/uL (0.0-0.2); BASO % 1 % (0-3); EOS % 0 % (0-3); HEMOGLOBIN 12.3 g/dL (12.0-15.5); LYMPH # 1.5 x10^3/uL (1.0-4.8); LYMPH % 10 % (24-48); MEAN CORPUSCULAR HEMOGLOBIN 30 pg (25-35); MEAN CORPUSCULAR HGB CONC 33 g/dL (31-37); MEAN CORPUSCULAR VOLUME 90 fL (79-100); MONO # 0.8 x10^3/uL (0.0-1.1); MONO % 5 % (0-9); NEUT % 84 % (31-73); PLATELET COUNT 185 x10^3/uL (140-400); RED BLOOD COUNT 4.11 x10^6/uL (3.50-5.40); RED CELL DISTRIBUTION WIDTH 13.5 % (11.5-14.5); WHITE BLOOD COUNT 15.4 x10^3/uL (4.0-11.0)
[2019-02-22 05:01] LABS: CALCIUM 8.8 mg/dL (8.5-10.1); CREATININE 0.9 mg/dL (0.6-1.0); GFR 62.6; POTASSIUM 3.5 mmol/L (3.5-5.1)
[2019-02-22 07:00] VITALS: BP_SYST 147; BP_SYST 160; BP_DIAS 56; BP_DIAS 82
[2019-02-22] MEDS ORDERED: IV RINGERS,LACTATED 1000ML 1,000 ML IV SCH (07:00)
[2019-02-22] MEDS ORDERED: MORPHINE SULFATE 2 MG/ML VIAL. IV PRN (07:00)
[2019-02-22] MEDS ORDERED: HYDROmorphone 2 MG/ML VIAL IV PRN (07:00)
[2019-02-22] MEDS ORDERED: ONDANSETRON PF 4 MG/2 ML VIAL. IV PRN (07:00)
[2019-02-22] MEDS ORDERED: fentaNYL PF VIAL 100 MCG/2 ML VIAL IV PRN ×4 (07:00→13:15)
[2019-02-22] MEDS ORDERED: LIDOCAINE 1% PF 2 ML VIAL. ID PRN ×2 (07:00→13:15)
[2019-02-22] MEDS: INSULIN LISPRO 300 UNITS/3 ML INSULN.PEN. SQ SCH ×8 (07:30→21:25)
[2019-02-22] MEDS: PANTOPRAZOLE 40 MG TABLET.DR. PO SCH ×2 (08:51→16:48)
[2019-02-22] MEDS: amLODIPine BESYLATE 10 MG TABLET PO SCH (08:52)
[2019-02-22] MEDS: LIDOCAINE (700MG/PATCH) PATCH. TD SCH (08:56)
[2019-02-22] MEDS: SODIUM CHLORIDE IV SCH ×3 (08:57→23:39)
[2019-02-22] MEDS: STERILE WATER IV SCH ×3 (08:57→23:39)
[2019-02-22 10:43] VITALS: BP 156/71
--- NOTE | 2019-02-22 12:08 | NUR ---
SW following pt. Spoke with pt's regarding SNU and options. Pt was asleep in room. SW discussed SNU options and medicare ratings. Pt's chose [facility]. DRAGAN phoned and faxed referral to [facility]. Pt acceptance and admission pending. Will continue to follow. MANDEEP RN.
[2019-02-22] MEDS ORDERED: OXYMETAZOLINE 0.05% NASAL SPRAY 30ML BOTTLE. NS ONE (13:00)
[2019-02-22] MEDS: IV RINGERS,LACTATED 1000ML 1,000 ML IV SCH ×2 (13:11→20:31)
[2019-02-22] MEDS ORDERED: MIDAZOLAM HCL/PF 2 MG/2 ML VIAL. IV PRN (13:15)
[2019-02-22] MEDS ORDERED: POTASSIUM CHLORIDE 20 MEQ TABLET.ER. PO ONE (13:30)
[2019-02-22] MEDS ORDERED: PROPOFOL 20 ML IV ONE (14:20)
--- NOTE | 2019-02-22 14:31 | PDOC4 ---
PROCEDURE Procedure EGD - n/v anesthesia with propofol Findings- normal esophagus erosive gastritis in body and antrum (bx) with small amount of retained bile, normal pylorus normal duodenum (bx) Plan- PPI trial of diet and monitor surgery consult for gallstones NAOMI BAXTER MD February 22, 2019 14:31
--- NOTE | 2019-02-22 14:58 | CONS ---
DATE OF CONSULTATION: LOCATION: She is in room 521. ATTENDING PHYSICIAN: Dr. Olivo. The patient was seen at the request of Dr. Olivo for rehab evaluation. Actually, I went to see her yesterday while she was in ICU room 104, but she was so lethargic, so I did not have the opportunity to see her. HISTORY OF PRESENT ILLNESS: The patient is a 68-year-old right-handed female with obesity, BMI of 31, admitted back by her , not taking medications since 06/2018. She complains of back pain. The patient was found with diabetic ketoacidosis with blood sugar over 700, anion gap of 30, bicarbonate 13. ABG: pH 7.31. WBC 12,000 with hemoconcentration with hemoglobin at 15 grams, platelets 353, magnesium 3.1, lactate 2.3, tachycardic, tachypneic, hypercalcemia at 10.7. The patient with known diabetes mellitus. The patient states that she lives with her , had few steps to manage. 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 The patient admits some pain in her side. The patient since admission had radiological studies including CT scan of the brain, which failed to reveal any acute abnormalities. It revealed areas of decreased attenuation within the periventricular and subcortical white matter of both cerebral hemispheres consistent with areas of small vessel ischemic disease. A 6 mm low attenuation area is seen superior to the region of right lenticular nucleus, which may represent an old area of lacunar infarction. No acute parenchymal abnormality was seen. No extraaxial fluid collection. Her skull fracture was identified. X-rays of thoracolumbar spine revealed degenerative changes without any acute abnormalities. Chest x-ray failed to reveal any acute abnormality. Ultrasound of the abdomen revealed cholelithiasis, fatty infiltration of the liver, mild right hydronephrosis. The patient is scheduled for EGD to be done this morning. The patient admits that prior to the present hospitalization, she has been independent with her mobility and self-care skills, not using any assistive devices. PHYSICAL EXAMINATION: Today revealed a middle-aged female. She is somewhat lethargic, but can open her eyes and follows commands and talks. She had no facial asymmetry, but she has some left visual field neglect or cut. The patient moves all 4 extremities voluntarily where she had 4/5 to 4+/5 grade muscle strength with relatively increased weakness in dorsiflexor muscles of both feet. She seemed to have equal perception of touch and pinprick sensation bilaterally. Deep tendon reflexes are decreased overall with absent knee and ankle jerks and she had pain-free range of motion of all 4 extremity joints. No significant tenderness to palpation noted over thoracic or lumbar spine area. Straight leg raising test is negative bilaterally. She is receiving IV fluids. She had an indwelling Pressley catheter in place. She requires help with bed mobility. I have not tested her transfers or ambulation skills at this time. ASSESSMENT: A middle-aged female with diabetes mellitus with peripheral neuropathy, admitted with altered level of consciousness, being treated for dehydration, diabetic ketoacidosis, hypercalcemia, hypermagnesemia, renal insufficiency and sepsis. The patient also is obese. RECOMMENDATIONS: Agree with the plans for physical therapy, occupational therapy and speech pathology to help with her deficits. To get her up as tolerated. At the present time, she just complains of being thirsty. She did not complain any back pain. She complains of some pain in her sides. Dr. Olivo, appreciate asking me to participate in the care of this interesting patient. I will be glad to follow her with you as needed for her rehabilitation. MILA AUGUSTIN MD DR: JOSE/christina JOB#: [id number] / [id number]
[2019-02-22] MEDS: FLUTICASONE 50MCG/NASAL SPRAY 16GM BOTTLE. NS SCH (16:47)
[2019-02-22 19:00] VITALS: BP 161/74
[2019-02-22] MEDS: PATCH REMOVAL. MC SCH (21:00)
[2019-02-22] MEDS: OXYMETAZOLINE 0.05% NASAL SPRAY 30ML BOTTLE. NS SCH (21:17)
[2019-02-22] MEDS: INSULIN GLARGINE 300 UNITS/3 ML INSULN.PEN. SQ SCH (21:26)
[2019-02-22 22:58] VITALS: BP 151/87
[2019-02-23 02:43] VITALS: BP 166/71
[2019-02-23 04:22] LABS: BASO % 0 % (0-3); EOS # 0.2 x10^3/uL (0.0-0.7); EOS % 1 % (0-3); HEMATOCRIT 38.5 % (36.0-47.0); HEMOGLOBIN 12.8 g/dL (12.0-15.5); LYMPH # 1.8 x10^3/uL (1.0-4.8); LYMPH % 11 % (24-48); MEAN CORPUSCULAR HEMOGLOBIN 30 pg (25-35); MEAN CORPUSCULAR HGB CONC 33 g/dL (31-37); MEAN CORPUSCULAR VOLUME 89 fL (79-100); MONO % 6 % (0-9); NEUT # 13.5 x10^3uL (1.8-7.7); NEUT % 82 % (31-73); PLATELET COUNT 207 x10^3/uL (140-400); RED BLOOD COUNT 4.34 x10^6/uL (3.50-5.40); RED CELL DISTRIBUTION WIDTH 13.2 % (11.5-14.5); WHITE BLOOD COUNT 16.6 x10^3/uL (4.0-11.0)
[2019-02-23 04:36] LABS: CALCIUM 8.4 mg/dL (8.5-10.1); CREATININE 0.7 mg/dL (0.6-1.0); GFR 83.7; POTASSIUM 3.4 mmol/L (3.5-5.1)
[2019-02-23] MEDS: HEPARIN for SUB-Q USE 5,000 UNIT/ML VIAL. SQ SCH ×3 (05:40→21:51)
[2019-02-23 07:00] VITALS: BP 156/58
[2019-02-23] MEDS: INSULIN LISPRO 300 UNITS/3 ML INSULN.PEN. SQ SCH ×7 (07:30→21:00)
[2019-02-23] MEDS: PANTOPRAZOLE 40 MG TABLET.DR. PO SCH ×2 (07:30→17:19)
--- NOTE | 2019-02-23 08:22 | NUR ---
Pt has been accepted at [facility] and facility will have a bed available upon dc. MANDEEP TELLO.
[2019-02-23] MEDS: amLODIPine BESYLATE 10 MG TABLET PO SCH (08:24)
--- NOTE | 2019-02-23 08:55 | PDOC2 ---
CONSULT Date of Consult Date of Consult DATE: 02/23/19 TIME: 08:46 Reason for Consult Reason for Consult: gallstones in the setting of poorly controlled diabetes Referring Physician Referring Physician: Pallavi Identification/Chief Complaint Chief Complaint back pain Source Source: Chart review, Patient History of Present Illness Reason for Visit: 68 yo F admitted with DKA with glu greater then 700. Has reportedly been off DM meds for several years. This has improved, but she still reports back pain. Also reported to have poor PO intake and chronic nausea. GI is working pt up. EGD did demonstrated small amount of retained food (risk for gastroparesis, given DM, poorly controlled) and US demonstrated gallstones. Pt is seen in hospital room. Responsive, but somewhat poor historian and pt appears hesitant to engage in interview. Past Medical History Endocrine: Diabetes Past Surgical History Past Surgical History: Other (injury to neck with a laceration), No pertinent history (she denies any other surgical procedures but she is not sure) Family History Family History: Family History Unknown Social History No ALCOHOL: none Drugs: None, Other (could not be fully obtained, confused) Current Problem List Problem List Problems Medical Problems: (1) Altered level of consciousness Status: Acute (2) Dehydration Status: Acute (3) DKA (diabetic ketoacidoses) Status: Acute (4) Hypercalcemia Status: Acute (5) Hypermagnesemia Status: Acute (6) Renal insufficiency Status: Acute (7) Sepsis Status: Acute Current Medications Current Medications Current Medications Sodium Chloride 1,000 ml @ 1,000 mls/hr 1X ONCE IV Last administered on 02/19/19at 08:10; Start 02/19/19 at 08:00; Stop 02/19/19 at 08:59; Status DC Insulin Human Regular (HumuLIN R VIAL) 10 unit 1X ONCE IV Last administered on 02/19/19at 07:50; Start 02/19/19 at 08:00; Stop 02/19/19 at 08:02; Status DC Insulin Human Regular 150 ml @ 0 mls/hr 1X ONCE IV Last administered on 02/19/19at 08:34; Start 02/19/19 at 08:00; Stop 02/19/19 at 08:02; Status DC Sodium Chloride 1,000 ml @ 100 mls/hr 1X ONCE IV Last administered on 02/19/19at 08:29; Start 02/19/19 at 09:00; Stop 02/19/19 at 13:58; Status DC Sodium Chloride 1,000 ml @ 1,000 mls/hr 1X ONCE IV ; Start 02/19/19 at 09:00; Stop 02/19/19 at 10:02; Status DC Ceftriaxone Sodium (Rocephin) 1 gm 1X ONCE IVP Last administered on 02/19/19at 10:28; Start 02/19/19 at 09:00; Stop 02/19/19 at 09:01; Status DC Sodium Chloride 1,000 ml @ 200 mls/hr Q5H IV ; Start 02/19/19 at 10:00; Stop 02/20/19 at 09:59; Status Cancel Insulin Human Regular 150 unit/ Sodium Chloride 151.5 ml @ 0 mls/hr CONT PRN PRN IV PER PROTOCOL; Start 02/19/19 at 13:00; Status Cancel Dextrose/Sodium Chloride 1,000 ml @ 250 mls/hr Q4H IV Last administered on 02/19/19at 18:06; Start 02/19/19 at 15:00; Stop 02/19/19 at 21:01; Status DC Insulin Human Regular 150 unit/ Sodium Chloride 151.5 ml @ 0 mls/hr CONT PRN PRN IV PER PROTOCOL; Start 02/19/19 at 10:00; Stop 02/19/19 at 21:01; Status DC Potassium Chloride/Water 100 ml @ 100 mls/hr PRN Q1HR PRN IV SEE COMMENTS; Start 02/19/19 at 10:00; Stop 02/19/19 at 21:01; Status DC Potassium Chloride/Water 100 ml @ 100 mls/hr PRN Q1HR PRN IV SEE COMMENTS; Start 02/19/19 at 09:45; Stop 02/19/19 at 21:01; Status DC Potassium Chloride/Water 100 ml @ 100 mls/hr PRN Q1HR PRN IV SEE COMMENTS; Start 02/19/19 at 09:45; Stop 02/19/19 at 21:01; Status DC Labetalol HCl (Normodyne Iv Push) 10 mg PRN Q2HR PRN IVP HYPERTENSION, SEE COMMENTS Last administered on 02/21/19at 14:06; Start 02/19/19 at 09:45; Stop 02/21/19 at 15:43; Status DC Acetaminophen/ Codeine Phosphate (Tylenol #3) 1 tab PRN Q6HRS PRN PO PAIN; Start 02/19/19 at 09:45 Ondansetron HCl (Zofran) 4 mg PRN Q6HRS PRN IV NAUSEA/VOMITING 1ST CHOICE Last administered on 02/20/19at 11:25; Start 02/19/19 at 09:45 Ondansetron HCl (Zofran Odt) 4 mg PRN Q6HRS PRN PO NAUSEA/VOMITING; Start 02/19/19 at 09:45 Acetaminophen/ Hydrocodone Bitart (Lortab 5/325) 1 tab PRN Q4HRS PRN PO PAIN; Start 02/19/19 at 09:45 Fentanyl Citrate (Fentanyl 2ml Vial) 25 mcg PRN Q2HR PRN IV PAIN; Start 02/19/19 at 09:45 Sodium Chloride 1,000 ml @ 250 mls/hr Q4H IV Last administered on 02/19/19at 10:07; Start 02/19/19 at 11:00; Stop 02/19/19 at 18:06; Status DC Lidocaine (Lidoderm) 1 patch DAILY TD Last administered on 02/22/19at 08:56; Start 02/20/19 at 09:00 Miscellaneous (Lidoderm Patch Removal) 1 ea QHS MC Last administered on 02/22/19at 21:00; Start 02/19/19 at 21:00 Heparin Sodium (Porcine) (Heparin Sodium) 5,000 unit Q8HRS SQ Last administered on 02/21/19at 21:19; Start 02/19/19 at 14:00 Lorazepam (Ativan) 2 mg PRN Q4HRS PRN IV ANXIETY / AGITATION Last administered on 02/19/19at 11:59; Start 02/19/19 at 11:45 Lorazepam (Ativan) 2 mg PRN Q4HRS PRN IV ANXIETY / AGITATION; Start 02/19/19 at 12:00; Status UNV Potassium Phosphate 13.6 mmol/Dextrose 104.5333 ml @ 52.267 m... Q2H IV Last administered on 02/19/19at 18:05; Start 02/19/19 at 14:00; Stop 02/19/19 at 19:59; Status DC Dextrose/Sodium Chloride 1,000 ml @ 250 mls/hr Q4H IV ; Start 02/19/19 at 14:00; Status UNV Potassium Chloride 40 meq/ Sodium Chloride 1,020 ml @ 75 mls/hr [id number] IV Last administered on 02/19/19at 21:07; Start 02/19/19 at 21:00; Stop 02/20/19 at 08:04; Status DC Insulin Glargine (Lantus) 30 units QHS SQ Last administered on 02/22/19at 21:26; Start 02/19/19 at 21:00 Insulin Human Lispro (HumaLOG) 0-9 UNITS TIDWMEALS SQ Last administered on 02/20/19at 16:44; Start 02/20/19 at 08:00; Stop 02/21/19 at 08:18; Status DC Dextrose (Dextrose 50%-Water Syringe) 12.5 gm PRN Q15MIN PRN IV SEE COMMENTS; Start 02/19/19 at 21:00 Insulin Human Lispro (HumaLOG) 12 units TIDWMEALS SQ Last administered on 02/20/19at 18:25; Start 02/20/19 at 08:00; Stop 02/21/19 at 08:18; Status DC Acetaminophen (Tylenol) 650 mg PRN Q6HRS PRN PO temp Last administered on 02/20/19at 11:16; Start 02/19/19 at 21:00 Acetaminophen (Tylenol Supp) 650 mg PRN Q6HRS PRN [place] MILD PAIN / TEMP; Start 02/19/19 at 21:00 Insulin Human Lispro (HumaLOG) 4 units 1X ONCE SQ Last administered on 02/20/19at 02:00; Start 02/20/19 at 02:00; Stop 02/20/19 at 02:01; Status DC Insulin Human Lispro (HumaLOG) 10 units 1X ONCE SQ Last administered on 02/20/19at 05:35; Start 02/20/19 at 06:00; Stop 02/20/19 at 06:01; Status DC Sodium Chloride 38.75 meq/Sterile Water 1,009.6875 ml @ 100 mls/hr Q10H6M IV Last administered on 02/22/19at 23:39; Start 02/20/19 at 09:00 Metoclopramide HCl (Reglan Vial) 5 mg PRN Q6HRS PRN IV NAUSEA/VOMITING 2ND CHOICE; Start 02/20/19 at 14:15 Insulin Human Lispro (HumaLOG) 12 units QIDACHS SQ Last administered on 02/22/19at 12:45; Start 02/21/19 at 08:20; Stop 02/22/19 at 12:59; Status DC Insulin Human Lispro (HumaLOG) 0-9 UNITS QIDACHS SQ Last administered on 02/22/19at 12:44; Start 02/21/19 at 08:20 Pantoprazole Sodium (Protonix) 40 mg BIDAC PO Last administered on 02/22/19at 16:48; Start 02/21/19 at 11:30 Ondansetron HCl (Zofran) 4 mg PRN Q6HRS PRN IV NAUSEA/VOMITING; Start 02/22/19 at 07:00; Stop 02/23/19 at 07:00; Status DC Fentanyl Citrate (Fentanyl 2ml Vial) 25 mcg PRN Q5MIN PRN IV MILD PAIN; Start 02/22/19 at 07:00; Stop 02/23/19 at 07:00; Status DC Fentanyl Citrate (Fentanyl 2ml Vial) 50 mcg PRN Q5MIN PRN IV MODERATE TO SEVERE PAIN; Start 02/22/19 at 07:00; Stop 02/23/19 at 07:00; Status DC Morphine Sulfate (Morphine Sulfate) 1 mg PRN Q10MIN PRN IV SEVERE PAIN; Start 02/22/19 at 07:00; Stop 02/23/19 at 07:00; Status DC Ringer's Solution 1,000 ml @ 30 mls/hr Q24H IV Last administered on 02/22/19at 13:26; Start 02/22/19 at 07:00; Stop 02/22/19 at 18:59; Status DC Lidocaine HCl (Xylocaine-Mpf 1% 2ml Vial) 2 ml PRN 1X PRN ID PRIOR TO IV START; Start 02/22/19 at 07:00; Stop 02/23/19 at 07:00; Status DC Hydromorphone HCl (Dilaudid) 0.5 mg PRN Q10MIN PRN IV SEV PAIN, Second choice; Start 02/22/19 at 07:00; Stop 02/23/19 at 07:00; Status DC Clonidine HCl (Catapres) 0.2 mg PRN Q8HRS PRN PO SBP >160 Last administered on 02/21/19 18:25; Start 02/21/19 at 15:45 Amlodipine Besylate (Norvasc) 10 mg DAILY PO Last administered on 02/22/19 08:52; Start 02/22/19 at 09:00 Oxymetazoline HCl (Afrin) 2 spray 1X ONCE NS Last administered on 02/22/19 16:48; Start 02/22/19 at 13:00; Stop 02/22/19 at 13:01; Status DC Oxymetazoline HCl (Afrin) 2 spray BID NS Last administered on 02/22/19 21:17; Start 02/22/19 at 21:00 Fluticasone Propionate (Flonase) 2 spray DAILY NS Last administered on 02/22/19 16:47; Start 02/22/19 at 13:00 Potassium Chloride (Klor-Con) 20 meq 1X ONCE PO Last administered on 02/22/19 16:48; Start 02/22/19 at 13:30; Stop 02/22/19 at 13:31; Status DC Insulin Human Lispro (HumaLOG) 15 units QIDACHS SQ Last administered on 02/22/19 21:25; Start 02/22/19 at 16:30 Midazolam HCl (Versed) 2 mg PRN 1X PRN IV PRIOR TO PROCEDURE; Start 02/22/19 at 13:15; Stop 02/23/19 at 13:14 Fentanyl Citrate (Fentanyl 2ml Vial) 25 mcg PRN Q5MIN PRN IV X 2 DOSES FOR PAIN; Start 02/22/19 at 13:15; Stop 02/23/19 at 13:14 Fentanyl Citrate (Fentanyl 2ml Vial) 50 mcg PRN Q5MIN PRN IV X 2 DOSES FOR PAIN; Start 02/22/19 at 13:15; Stop 02/23/19 at 13:14 Ringer's Solution 1,000 ml @ 125 mls/hr Q8H IV ; Start 02/22/19 at 13:11; Stop 02/23/19 at 01:10; Status DC Lidocaine HCl (Xylocaine-Mpf 1% 2ml Vial) 2 ml 1X PRN PRN ID IV START; Start 02/22/19 at 13:15; Stop 02/23/19 at 13:14 Propofol 20 ml @ As Directed STK-MED ONCE IV ; Start 02/22/19 at 14:20; Stop 02/22/19 at 14:21; Status DC Allergies Allergies: Coded Allergies: No Known Drug Allergies (Unverified , 02/22/19) ROS General: YES: Appetite Gastrointestinal: Yes Nausea Neurological: Yes Other (back pain) Physical Exam Physical Exam obese General: Alert, No acute distress HEENT: Atraumatic, Other (does not open eyes much) Lungs: Normal air movement Abdomen: Soft, Other (TTP RUQ) Extremities: No clubbing, No cyanosis Skin: Other (arm with chronic scars c/w scratching) Neuro: Normal speech, Sensation intact Psych/Mental Status: Mental status NL Vitals VITALS Vital Signs Date Time Temp Pulse Resp B/P (MAP) Pulse Ox O2 Delivery O2 Flow Rate FiO2 02/23/19 07:00 97.9 73 16 156/58 (90) 94 Nasal Cannula 2.0 97.9 Labs Labs Laboratory Tests Test 02/21/19 11:24 02/21/19 11:50 02/21/19 16:39 02/21/19 20:22 Glucose (Fingerstick) 251 mg/dL (70-99) 244 mg/dL (70-99) 293 mg/dL (70-99) Sodium Level 146 mmol/L (136-145) Potassium Level 3.7 mmol/L (3.5-5.1) Chloride Level 111 mmol/L (98-107) Carbon Dioxide Level 24 mmol/L (21-32) Anion Gap 11 (6-14) Blood Urea Nitrogen 36 mg/dL (7-20) Creatinine 1.0 mg/dL (0.6-1.0) Estimated GFR (Cockcroft-Gault) 55.5 Glucose Level 262 mg/dL (70-99) Calcium Level 9.3 mg/dL (8.5-10.1) Test 02/21/19 23:52 02/22/19 04:30 02/22/19 07:58 02/22/19 10:59 Glucose (Fingerstick) 222 mg/dL (70-99) 211 mg/dL (70-99) 238 mg/dL (70-99) White Blood Count 15.4 x10^3/uL (4.0-11.0) Red Blood Count 4.11 x10^6/uL (3.50-5.40) Hemoglobin 12.3 g/dL (12.0-15.5) Hematocrit 37.0 % (36.0-47.0) Mean Corpuscular Volume 90 fL (79-100) Mean Corpuscular Hemoglobin 30 pg (25-35) Mean Corpuscular Hemoglobin Concent 33 g/dL (31-37) Red Cell Distribution Width 13.5 % (11.5-14.5) Platelet Count 185 x10^3/uL (140-400) Neutrophils (%) (Auto) 84 % (31-73) Lymphocytes (%) (Auto) 10 % (24-48) Monocytes (%) (Auto) 5 % (0-9) Eosinophils (%) (Auto) 0 % (0-3) Basophils (%) (Auto) 1 % (0-3) Neutrophils # (Auto) 13.0 x10^3uL (1.8-7.7) Lymphocytes # (Auto) 1.5 x10^3/uL (1.0-4.8) Monocytes # (Auto) 0.8 x10^3/uL (0.0-1.1) Eosinophils # (Auto) 0.0 x10^3/uL (0.0-0.7) Basophils # (Auto) 0.1 x10^3/uL (0.0-0.2) Sodium Level 141 mmol/L (136-145) Potassium Level 3.5 mmol/L (3.5-5.1) Chloride Level 107 mmol/L (98-107) Carbon Dioxide Level 25 mmol/L (21-32) Anion Gap 9 (6-14) Blood Urea Nitrogen 31 mg/dL (7-20) Creatinine 0.9 mg/dL (0.6-1.0) Estimated GFR (Cockcroft-Gault) 62.6 Glucose Level 232 mg/dL (70-99) Calcium Level 8.8 mg/dL (8.5-10.1) Test 02/22/19 16:10 02/22/19 20:40 02/23/19 03:45 02/23/19 07:21 Glucose (Fingerstick) 162 mg/dL (70-99) 96 mg/dL (70-99) 111 mg/dL (70-99) White Blood Count 16.6 x10^3/uL (4.0-11.0) Red Blood Count 4.34 x10^6/uL (3.50-5.40) Hemoglobin 12.8 g/dL (12.0-15.5) Hematocrit 38.5 % (36.0-47.0) Mean Corpuscular Volume 89 fL (79-100) Mean Corpuscular Hemoglobin 30 pg (25-35) Mean Corpuscular Hemoglobin Concent 33 g/dL (31-37) Red Cell Distribution Width 13.2 % (11.5-14.5) Platelet Count 207 x10^3/uL (140-400) Neutrophils (%) (Auto) 82 % (31-73) Lymphocytes (%) (Auto) 11 % (24-48) Monocytes (%) (Auto) 6 % (0-9) Eosinophils (%) (Auto) 1 % (0-3) Basophils (%) (Auto) 0 % (0-3) Neutrophils # (Auto) 13.5 x10^3uL (1.8-7.7) Lymphocytes # (Auto) 1.8 x10^3/uL (1.0-4.8) Monocytes # (Auto) 1.0 x10^3/uL (0.0-1.1) Eosinophils # (Auto) 0.2 x10^3/uL (0.0-0.7) Basophils # (Auto) 0.0 x10^3/uL (0.0-0.2) Sodium Level 136 mmol/L (136-145) Potassium Level 3.4 mmol/L (3.5-5.1) Chloride Level 103 mmol/L (98-107) Carbon Dioxide Level 23 mmol/L (21-32) Anion Gap 10 (6-14) Blood Urea Nitrogen 21 mg/dL (7-20) Creatinine 0.7 mg/dL (0.6-1.0) Estimated GFR (Cockcroft-Gault) 83.7 Glucose Level 120 mg/dL (70-99) Calcium Level 8.4 mg/dL (8.5-10.1) Laboratory Tests Test 02/22/19 10:59 02/22/19 16:10 02/22/19 20:40 02/23/19 03:45 Glucose (Fingerstick) 238 mg/dL (70-99) 162 mg/dL (70-99) 96 mg/dL (70-99) White Blood Count 16.6 x10^3/uL (4.0-11.0) Red Blood Count 4.34 x10^6/uL (3.50-5.40) Hemoglobin 12.8 g/dL (12.0-15.5) Hematocrit 38.5 % (36.0-47.0) Mean Corpuscular Volume 89 fL (79-100) Mean Corpuscular Hemoglobin 30 pg (25-35) Mean Corpuscular Hemoglobin Concent 33 g/dL (31-37) Red Cell Distribution Width 13.2 % (11.5-14.5) Platelet Count 207 x10^3/uL (140-400) Neutrophils (%) (Auto) 82 % (31-73) Lymphocytes (%) (Auto) 11 % (24-48) Monocytes (%) (Auto) 6 % (0-9) Eosinophils (%) (Auto) 1 % (0-3) Basophils (%) (Auto) 0 % (0-3) Neutrophils # (Auto) 13.5 x10^3uL (1.8-7.7) Lymphocytes # (Auto) 1.8 x10^3/uL (1.0-4.8) Monocytes # (Auto) 1.0 x10^3/uL (0.0-1.1) Eosinophils # (Auto) 0.2 x10^3/uL (0.0-0.7) Basophils # (Auto) 0.0 x10^3/uL (0.0-0.2) Sodium Level 136 mmol/L (136-145) Potassium Level 3.4 mmol/L (3.5-5.1) Chloride Level 103 mmol/L (98-107) Carbon Dioxide Level 23 mmol/L (21-32) Anion Gap 10 (6-14) Blood Urea Nitrogen 21 mg/dL (7-20) Creatinine 0.7 mg/dL (0.6-1.0) Estimated GFR (Cockcroft-Gault) 83.7 Glucose Level 120 mg/dL (70-99) Calcium Level 8.4 mg/dL (8.5-10.1) Test 02/23/19 07:21 Glucose (Fingerstick) 111 mg/dL (70-99) Images Images US with gallstones, no obvious cholecystitis Assessment/Plan Assessment/Plan Gallstones, favor symptomatic, in setting of DM gallstones in setting of DM is indication for cholecystectomy, given risk of complications. In addition, nausea, RUQ TTP and back pain may all be related to biliary disease. D/w pt, whom is hesitant in pursuing cholecystectomy. R/R/B/A d/w pt. She is not interested currently in surgery, but is encouraged to d/w family and other physicians. Pt is tentatively scheduled for tomorrow, but certainly no intervention will be performed without pt consent. Pt does represent a poor candidate given recent DKA and elevated hgb A1c. Thanks for consult! KRYSTIN EDWARDS MD February 23, 2019 08:55
[2019-02-23] MEDS: OXYMETAZOLINE 0.05% NASAL SPRAY 30ML BOTTLE. NS SCH ×2 (09:11→21:43)
[2019-02-23] MEDS: FLUTICASONE 50MCG/NASAL SPRAY 16GM BOTTLE. NS SCH (09:11)
[2019-02-23] MEDS: LIDOCAINE (700MG/PATCH) PATCH. TD SCH (09:11)
[2019-02-23 11:00] VITALS: BP 149/72
--- NOTE | 2019-02-23 12:46 | RAD ---
Radionuclide gastric emptying study, 02/23/2019: HISTORY: Nausea The study was performed utilizing a test meal radiolabeled with 2 mCi of technetium 99m sulfur colloid. The following gastric retention values were obtained: 1 hour-64 percent (normal is less than 90 percent) 2 hours-55 percent (normal is less than 60 percent) 3 hours-36 percent (normal is less than 30 percent) 4 hours-28 percent (normal is less than 10 percent) IMPRESSION: Mildly delayed gastric emptying Electronically signed by: Luis Stratton MD (02/23/2019 12:44 PM) [facility]
--- NOTE | 2019-02-23 13:03 | PDOC ---
Subjective: Subjective: Tells me she ate eggs - I think referring to gastric emptying test. No n/v but not hungry. Apparently h/o dysphagia - frequent w/ solids though not every meal, felt in throat. Does not want gallbladder surgery and hopes she's going home soon. Reports small stools. Objective: Objective: Reviewed chart - surgery has seen, suggested cholecystectomy tomorrow, she declines. Reviewed w/ RN - was confused this morning, better now. Vital Signs: Vital Signs Date Time Temp Pulse Resp B/P (MAP) Pulse Ox O2 Delivery O2 Flow Rate FiO2 02/23/19 11:00 97.4 89 14 149/72 (97) 95 Nasal Cannula 2.0 97.4 Labs: Laboratory Tests Test 02/22/19 16:10 02/22/19 20:40 02/23/19 07:21 02/23/19 08:55 Glucose (Fingerstick) 162 mg/dL (70-99) 96 mg/dL (70-99) 111 mg/dL (70-99) 146 mg/dL (70-99) Test 02/23/19 12:16 Glucose (Fingerstick) 122 mg/dL (70-99) Imaging: GES 02/23 1 hour-64 percent (normal is less than 90 percent) 2 hours-55 percent (normal is less than 60 percent) 3 hours-36 percent (normal is less than 30 percent) 4 hours-28 percent (normal is less than 10 percent) IMPRESSION: Mildly delayed gastric emptying. EGD 02/22 normal esophagus erosive gastritis in body and antrum (bx) with small amount of retained bile, normal pylorus normal duodenum (bx) PE: GEN: NAD - in WC, present LUNGS: NC HEART: RRR ABD: NABS, S/ND/NT NEURO/PSYCH: keeps eyes closed, seems quite drowsy though improved from when I saw her on Thursday A/P: N/v, anorexia - better? - erosive gastritis (bx pending) on EGD, mildly delayed gastric emptying as above DM - A1c 11.2 Cholelithiasis - declines cholecystectomy Dysphagia - normal esophagus on EGD, [employer] eval pending Intermittent confusion Leukocytosis -- Has 5mg IV Reglan ordered PRN - has not received - could consider this (even on scheduled basis for awhile). Recommend gastroparesis diet (?would she benefit from nutrition consult) and better control of diabetes. Continue PPI. MOUNA HAGER February 23, 2019 13:03
[2019-02-23] MEDS ORDERED: POLYETHYLENE GLYCOL 3350 17 GM PACKET. PO PRN (13:15)
--- NOTE | 2019-02-23 14:10 | PDOC ---
PROGRESS NOTES Chief Complaint Chief Complaint DKA resolved, transferred out of ICU Symptomatic Cholelithiasis DM type 2 insulin requiring Bilious Emesis resolved AMS resolved Electrolyte abnormalities replacing Plan: Patient seen by surgery and recommended to have cholecystectomy. Patient is not interested at the present time, I have reiterated the risk of not addressing this at the present time specially given her elevated white blood cell count. Patient's wishes will be respected and will continue with medical management at this time. History of Present Illness History of Present Illness Patient awake alert and oriented in person time place and situation seems that her altered mental status documented earlier in her hospital stay has result. Family member at bedside, I had a conversation with her family member present regarding the risks associated with not undergoing surgery. I have explained the plan of care in detail the present time no other concerns were addressed the best of my abilities Vitals Vitals Vital Signs Date Time Temp Pulse Resp B/P (MAP) Pulse Ox O2 Delivery O2 Flow Rate FiO2 02/23/19 11:00 97.4 89 14 149/72 (97) 95 Nasal Cannula 2.0 97.4 Physical Exam General: Alert, No acute distress Heart: Regular rate, Normal S1, Normal S2 Abdomen: Soft, Other (TTP RUQ) Extremities: No clubbing, No cyanosis Skin: Other (arm with chronic scars c/w scratching) Labs LABS Laboratory Tests Test 02/22/19 16:10 02/22/19 20:40 02/23/19 03:45 02/23/19 07:21 Glucose (Fingerstick) 162 mg/dL (70-99) 96 mg/dL (70-99) 111 mg/dL (70-99) White Blood Count 16.6 x10^3/uL (4.0-11.0) Red Blood Count 4.34 x10^6/uL (3.50-5.40) Hemoglobin 12.8 g/dL (12.0-15.5) Hematocrit 38.5 % (36.0-47.0) Mean Corpuscular Volume 89 fL (79-100) Mean Corpuscular Hemoglobin 30 pg (25-35) Mean Corpuscular Hemoglobin Concent 33 g/dL (31-37) Red Cell Distribution Width 13.2 % (11.5-14.5) Platelet Count 207 x10^3/uL (140-400) Neutrophils (%) (Auto) 82 % (31-73) Lymphocytes (%) (Auto) 11 % (24-48) Monocytes (%) (Auto) 6 % (0-9) Eosinophils (%) (Auto) 1 % (0-3) Basophils (%) (Auto) 0 % (0-3) Neutrophils # (Auto) 13.5 x10^3uL (1.8-7.7) Lymphocytes # (Auto) 1.8 x10^3/uL (1.0-4.8) Monocytes # (Auto) 1.0 x10^3/uL (0.0-1.1) Eosinophils # (Auto) 0.2 x10^3/uL (0.0-0.7) Basophils # (Auto) 0.0 x10^3/uL (0.0-0.2) Sodium Level 136 mmol/L (136-145) Potassium Level 3.4 mmol/L (3.5-5.1) Chloride Level 103 mmol/L (98-107) Carbon Dioxide Level 23 mmol/L (21-32) Anion Gap 10 (6-14) Blood Urea Nitrogen 21 mg/dL (7-20) Creatinine 0.7 mg/dL (0.6-1.0) Estimated GFR (Cockcroft-Gault) 83.7 Glucose Level 120 mg/dL (70-99) Calcium Level 8.4 mg/dL (8.5-10.1) Test 02/23/19 08:55 02/23/19 12:16 Glucose (Fingerstick) 146 mg/dL (70-99) 122 mg/dL (70-99) Review of Systems Review of Systems Pertinent as per history of present illness otherwise 14 point review of system is negative Assessment and Plan Assessmemt and Plan Problems Medical Problems: (1) Altered level of consciousness Status: Acute (2) Dehydration Status: Acute (3) DKA (diabetic ketoacidoses) Status: Acute (4) Hypercalcemia Status: Acute (5) Hypermagnesemia Status: Acute (6) Renal insufficiency Status: Acute (7) Sepsis Status: Acute Comment Review of Relevant I have reviewed the following items katalina (where applicable) has been applied. Labs Laboratory Tests Test 02/21/19 16:39 02/21/19 20:22 02/21/19 23:52 02/22/19 04:30 Glucose (Fingerstick) 244 mg/dL (70-99) 293 mg/dL (70-99) 222 mg/dL (70-99) White Blood Count 15.4 x10^3/uL (4.0-11.0) Red Blood Count 4.11 x10^6/uL (3.50-5.40) Hemoglobin 12.3 g/dL (12.0-15.5) Hematocrit 37.0 % (36.0-47.0) Mean Corpuscular Volume 90 fL (79-100) Mean Corpuscular Hemoglobin 30 pg (25-35) Mean Corpuscular Hemoglobin Concent 33 g/dL (31-37) Red Cell Distribution Width 13.5 % (11.5-14.5) Platelet Count 185 x10^3/uL (140-400) Neutrophils (%) (Auto) 84 % (31-73) Lymphocytes (%) (Auto) 10 % (24-48) Monocytes (%) (Auto) 5 % (0-9) Eosinophils (%) (Auto) 0 % (0-3) Basophils (%) (Auto) 1 % (0-3) Neutrophils # (Auto) 13.0 x10^3uL (1.8-7.7) Lymphocytes # (Auto) 1.5 x10^3/uL (1.0-4.8) Monocytes # (Auto) 0.8 x10^3/uL (0.0-1.1) Eosinophils # (Auto) 0.0 x10^3/uL (0.0-0.7) Basophils # (Auto) 0.1 x10^3/uL (0.0-0.2) Sodium Level 141 mmol/L (136-145) Potassium Level 3.5 mmol/L (3.5-5.1) Chloride Level 107 mmol/L (98-107) Carbon Dioxide Level 25 mmol/L (21-32) Anion Gap 9 (6-14) Blood Urea Nitrogen 31 mg/dL (7-20) Creatinine 0.9 mg/dL (0.6-1.0) Estimated GFR (Cockcroft-Gault) 62.6 Glucose Level 232 mg/dL (70-99) Calcium Level 8.8 mg/dL (8.5-10.1) Test 02/22/19 07:58 02/22/19 10:59 02/22/19 16:10 02/22/19 20:40 Glucose (Fingerstick) 211 mg/dL (70-99) 238 mg/dL (70-99) 162 mg/dL (70-99) 96 mg/dL (70-99) Test 02/23/19 03:45 02/23/19 07:21 02/23/19 08:55 02/23/19 12:16 White Blood Count 16.6 x10^3/uL (4.0-11.0) Red Blood Count 4.34 x10^6/uL (3.50-5.40) Hemoglobin 12.8 g/dL (12.0-15.5) Hematocrit 38.5 % (36.0-47.0) Mean Corpuscular Volume 89 fL (79-100) Mean Corpuscular Hemoglobin 30 pg (25-35) Mean Corpuscular Hemoglobin Concent 33 g/dL (31-37) Red Cell Distribution Width 13.2 % (11.5-14.5) Platelet Count 207 x10^3/uL (140-400) Neutrophils (%) (Auto) 82 % (31-73) Lymphocytes (%) (Auto) 11 % (24-48) Monocytes (%) (Auto) 6 % (0-9) Eosinophils (%) (Auto) 1 % (0-3) Basophils (%) (Auto) 0 % (0-3) Neutrophils # (Auto) 13.5 x10^3uL (1.8-7.7) Lymphocytes # (Auto) 1.8 x10^3/uL (1.0-4.8) Monocytes # (Auto) 1.0 x10^3/uL (0.0-1.1) Eosinophils # (Auto) 0.2 x10^3/uL (0.0-0.7) Basophils # (Auto) 0.0 x10^3/uL (0.0-0.2) Sodium Level 136 mmol/L (136-145) Potassium Level 3.4 mmol/L (3.5-5.1) Chloride Level 103 mmol/L (98-107) Carbon Dioxide Level 23 mmol/L (21-32) Anion Gap 10 (6-14) Blood Urea Nitrogen 21 mg/dL (7-20) Creatinine 0.7 mg/dL (0.6-1.0) Estimated GFR (Cockcroft-Gault) 83.7 Glucose Level 120 mg/dL (70-99) Calcium Level 8.4 mg/dL (8.5-10.1) Glucose (Fingerstick) 111 mg/dL (70-99) 146 mg/dL (70-99) 122 mg/dL (70-99) Laboratory Tests Test 02/22/19 16:10 02/22/19 20:40 02/23/19 03:45 02/23/19 07:21 Glucose (Fingerstick) 162 mg/dL (70-99) 96 mg/dL (70-99) 111 mg/dL (70-99) White Blood Count 16.6 x10^3/uL (4.0-11.0) Red Blood Count 4.34 x10^6/uL (3.50-5.40) Hemoglobin 12.8 g/dL (12.0-15.5) Hematocrit 38.5 % (36.0-47.0) Mean Corpuscular Volume 89 fL (79-100) Mean Corpuscular Hemoglobin 30 pg (25-35) Mean Corpuscular Hemoglobin Concent 33 g/dL (31-37) Red Cell Distribution Width 13.2 % (11.5-14.5) Platelet Count 207 x10^3/uL (140-400) Neutrophils (%) (Auto) 82 % (31-73) Lymphocytes (%) (Auto) 11 % (24-48) Monocytes (%) (Auto) 6 % (0-9) Eosinophils (%) (Auto) 1 % (0-3) Basophils (%) (Auto) 0 % (0-3) Neutrophils # (Auto) 13.5 x10^3uL (1.8-7.7) Lymphocytes # (Auto) 1.8 x10^3/uL (1.0-4.8) Monocytes # (Auto) 1.0 x10^3/uL (0.0-1.1) Eosinophils # (Auto) 0.2 x10^3/uL (0.0-0.7) Basophils # (Auto) 0.0 x10^3/uL (0.0-0.2) Sodium Level 136 mmol/L (136-145) Potassium Level 3.4 mmol/L (3.5-5.1) Chloride Level 103 mmol/L (98-107) Carbon Dioxide Level 23 mmol/L (21-32) Anion Gap 10 (6-14) Blood Urea Nitrogen 21 mg/dL (7-20) Creatinine 0.7 mg/dL (0.6-1.0) Estimated GFR (Cockcroft-Gault) 83.7 Glucose Level 120 mg/dL (70-99) Calcium Level 8.4 mg/dL (8.5-10.1) Test 02/23/19 08:55 02/23/19 12:16 Glucose (Fingerstick) 146 mg/dL (70-99) 122 mg/dL (70-99) Medications Current Medications Sodium Chloride 1,000 ml @ 1,000 mls/hr 1X ONCE IV Last administered on 02/19/19at 08:10; Start 02/19/19 at 08:00; Stop 02/19/19 at 08:59; Status DC Insulin Human Regular (HumuLIN R VIAL) 10 unit 1X ONCE IV Last administered on 02/19/19at 07:50; Start 02/19/19 at 08:00; Stop 02/19/19 at 08:02; Status DC Insulin Human Regular 150 ml @ 0 mls/hr 1X ONCE IV Last administered on 02/19/19at 08:34; Start 02/19/19 at 08:00; Stop 02/19/19 at 08:02; Status DC Sodium Chloride 1,000 ml @ 100 mls/hr 1X ONCE IV Last administered on 02/19/19at 08:29; Start 02/19/19 at 09:00; Stop 02/19/19 at 13:58; Status DC Sodium Chloride 1,000 ml @ 1,000 mls/hr 1X ONCE IV ; Start 02/19/19 at 09:00; Stop 02/19/19 at 10:02; Status DC Ceftriaxone Sodium (Rocephin) 1 gm 1X ONCE IVP Last administered on 02/19/19at 10:28; Start 02/19/19 at 09:00; Stop 02/19/19 at 09:01; Status DC Sodium Chloride 1,000 ml @ 200 mls/hr Q5H IV ; Start 02/19/19 at 10:00; Stop 02/20/19 at 09:59; Status Cancel Insulin Human Regular 150 unit/ Sodium Chloride 151.5 ml @ 0 mls/hr CONT PRN PRN IV PER PROTOCOL; Start 02/19/19 at 13:00; Status Cancel Dextrose/Sodium Chloride 1,000 ml @ 250 mls/hr Q4H IV Last administered on 02/19/19at 18:06; Start 02/19/19 at 15:00; Stop 02/19/19 at 21:01; Status DC Insulin Human Regular 150 unit/ Sodium Chloride 151.5 ml @ 0 mls/hr CONT PRN PRN IV PER PROTOCOL; Start 02/19/19 at 10:00; Stop 02/19/19 at 21:01; Status DC Potassium Chloride/Water 100 ml @ 100 mls/hr PRN Q1HR PRN IV SEE COMMENTS; Start 02/19/19 at 10:00; Stop 02/19/19 at 21:01; Status DC Potassium Chloride/Water 100 ml @ 100 mls/hr PRN Q1HR PRN IV SEE COMMENTS; Start 02/19/19 at 09:45; Stop 02/19/19 at 21:01; Status DC Potassium Chloride/Water 100 ml @ 100 mls/hr PRN Q1HR PRN IV SEE COMMENTS; Start 02/19/19 at 09:45; Stop 02/19/19 at 21:01; Status DC Labetalol HCl (Normodyne Iv Push) 10 mg PRN Q2HR PRN IVP HYPERTENSION, SEE COMMENTS Last administered on 02/21/19at 14:06; Start 02/19/19 at 09:45; Stop 02/21/19 at 15:43; Status DC Acetaminophen/ Codeine Phosphate (Tylenol #3) 1 tab PRN Q6HRS PRN PO PAIN; Start 02/19/19 at 09:45 Ondansetron HCl (Zofran) 4 mg PRN Q6HRS PRN IV NAUSEA/VOMITING 1ST CHOICE Last administered on 02/20/19at 11:25; Start 02/19/19 at 09:45 Ondansetron HCl (Zofran Odt) 4 mg PRN Q6HRS PRN PO NAUSEA/VOMITING; Start 02/19/19 at 09:45 Acetaminophen/ Hydrocodone Bitart (Lortab 5/325) 1 tab PRN Q4HRS PRN PO PAIN; Start 02/19/19 at 09:45 Fentanyl Citrate (Fentanyl 2ml Vial) 25 mcg PRN Q2HR PRN IV PAIN; Start 02/19/19 at 09:45 Sodium Chloride 1,000 ml @ 250 mls/hr Q4H IV Last administered on 02/19/19 10:07; Start 02/19/19 at 11:00; Stop 02/19/19 at 18:06; Status DC Lidocaine (Lidoderm) 1 patch DAILY TD Last administered on 02/23/19 09:11; Start 02/20/19 at 09:00 Miscellaneous (Lidoderm Patch Removal) 1 ea QHS MC Last administered on 02/22/19 21:00; Start 02/19/19 at 21:00 Heparin Sodium (Porcine) (Heparin Sodium) 5,000 unit Q8HRS SQ Last administered on 02/21/19 21:19; Start 02/19/19 at 14:00 Lorazepam (Ativan) 2 mg PRN Q4HRS PRN IV ANXIETY / AGITATION Last administered on 02/19/19at 11:59; Start 02/19/19 at 11:45 Lorazepam (Ativan) 2 mg PRN Q4HRS PRN IV ANXIETY / AGITATION; Start 02/19/19 at 12:00; Status UNV Potassium Phosphate 13.6 mmol/Dextrose 104.5333 ml @ 52.267 m... Q2H IV Last administered on 02/19/19 18:05; Start 02/19/19 at 14:00; Stop 02/19/19 at 19:59; Status DC Dextrose/Sodium Chloride 1,000 ml @ 250 mls/hr Q4H IV ; Start 02/19/19 at 14:00; Status UNV Potassium Chloride 40 meq/ Sodium Chloride 1,020 ml @ 75 mls/hr [id number] IV Last administered on 02/19/19 21:07; Start 02/19/19 at 21:00; Stop 02/20/19 at 08:04; Status DC Insulin Glargine (Lantus) 30 units QHS SQ Last administered on 02/22/19 21:26; Start 02/19/19 at 21:00 Insulin Human Lispro (HumaLOG) 0-9 UNITS TIDWMEALS SQ Last administered on 5/12/19at 16:44; Start 02/20/19 at 08:00; Stop 02/21/19 at 08:18; Status DC Dextrose (Dextrose 50%-Water Syringe) 12.5 gm PRN Q15MIN PRN IV SEE COMMENTS; Start 02/19/19 at 21:00 Insulin Human Lispro (HumaLOG) 12 units TIDWMEALS SQ Last administered on 02/20/19at 18:25; Start 02/20/19 at 08:00; Stop 02/21/19 at 08:18; Status DC Acetaminophen (Tylenol) 650 mg PRN Q6HRS PRN PO temp Last administered on 02/20/19at 11:16; Start 02/19/19 at 21:00 Acetaminophen (Tylenol Supp) 650 mg PRN Q6HRS PRN TX MILD PAIN / TEMP; Start 02/19/19 at 21:00 Insulin Human Lispro (HumaLOG) 4 units 1X ONCE SQ Last administered on 02/20/19at 02:00; Start 02/20/19 at 02:00; Stop 02/20/19 at 02:01; Status DC Insulin Human Lispro (HumaLOG) 10 units 1X ONCE SQ Last administered on 02/20/19at 05:35; Start 02/20/19 at 06:00; Stop 02/20/19 at 06:01; Status DC Sodium Chloride 38.75 meq/Sterile Water 1,009.6875 ml @ 100 mls/hr Q10H6M IV Last administered on 02/22/19at 23:39; Start 02/20/19 at 09:00 Metoclopramide HCl (Reglan Vial) 5 mg PRN Q6HRS PRN IV NAUSEA/VOMITING 2ND CHOICE; Start 02/20/19 at 14:15 Insulin Human Lispro (HumaLOG) 12 units QIDACHS SQ Last administered on 02/22/19at 12:45; Start 02/21/19 at 08:20; Stop 02/22/19 at 12:59; Status DC Insulin Human Lispro (HumaLOG) 0-9 UNITS QIDACHS SQ Last administered on 02/22/19at 12:44; Start 02/21/19 at 08:20 Pantoprazole Sodium (Protonix) 40 mg BIDAC PO Last administered on 02/22/19at 16:48; Start 02/21/19 at 11:30 Ondansetron HCl (Zofran) 4 mg PRN Q6HRS PRN IV NAUSEA/VOMITING; Start 02/22/19 at 07:00; Stop 02/23/19 at 07:00; Status DC Fentanyl Citrate (Fentanyl 2ml Vial) 25 mcg PRN Q5MIN PRN IV MILD PAIN; Start 02/22/19 at 07:00; Stop 02/23/19 at 07:00; Status DC Fentanyl Citrate (Fentanyl 2ml Vial) 50 mcg PRN Q5MIN PRN IV MODERATE TO SEVERE PAIN; Start 02/22/19 at 07:00; Stop 02/23/19 at 07:00; Status DC Morphine Sulfate (Morphine Sulfate) 1 mg PRN Q10MIN PRN IV SEVERE PAIN; Start 02/22/19 at 07:00; Stop 02/23/19 at 07:00; Status DC Ringer's Solution 1,000 ml @ 30 mls/hr Q24H IV Last administered on 02/22/19at 13:26; Start 02/22/19 at 07:00; Stop 02/22/19 at 18:59; Status DC Lidocaine HCl (Xylocaine-Mpf 1% 2ml Vial) 2 ml PRN 1X PRN ID PRIOR TO IV START; Start 02/22/19 at 07:00; Stop 02/23/19 at 07:00; Status DC Hydromorphone HCl (Dilaudid) 0.5 mg PRN Q10MIN PRN IV SEV PAIN, Second choice; Start 02/22/19 at 07:00; Stop 02/23/19 at 07:00; Status DC Clonidine HCl (Catapres) 0.2 mg PRN Q8HRS PRN PO SBP >160 Last administered on 02/21/19at 18:25; Start 02/21/19 at 15:45 Amlodipine Besylate (Norvasc) 10 mg DAILY PO Last administered on 02/22/19at 08:52; Start 02/22/19 at 09:00 Oxymetazoline HCl (Afrin) 2 spray 1X ONCE NS Last administered on 02/22/19at 16:48; Start 02/22/19 at 13:00; Stop 02/22/19 at 13:01; Status DC Oxymetazoline HCl (Afrin) 2 spray BID NS Last administered on 02/23/19at 09:11; Start 02/22/19 at 21:00 Fluticasone Propionate (Flonase) 2 spray DAILY NS Last administered on 02/23/19at 09:11; Start 02/22/19 at 13:00 Potassium Chloride (Klor-Con) 20 meq 1X ONCE PO Last administered on 02/22/19at 16:48; Start 02/22/19 at 13:30; Stop 02/22/19 at 13:31; Status DC Insulin Human Lispro (HumaLOG) 15 units QIDACHS SQ Last administered on 02/23/19at 12:34; Start 02/22/19 at 16:30 Midazolam HCl (Versed) 2 mg PRN 1X PRN IV PRIOR TO PROCEDURE; Start 02/22/19 at 13:15; Stop 02/23/19 at 13:14; Status DC Fentanyl Citrate (Fentanyl 2ml Vial) 25 mcg PRN Q5MIN PRN IV X 2 DOSES FOR PAIN; Start 02/22/19 at 13:15; Stop 02/23/19 at 13:14; Status DC Fentanyl Citrate (Fentanyl 2ml Vial) 50 mcg PRN Q5MIN PRN IV X 2 DOSES FOR PAIN; Start 02/22/19 at 13:15; Stop 02/23/19 at 13:14; Status DC Ringer's Solution 1,000 ml @ 125 mls/hr Q8H IV ; Start 02/22/19 at 13:11; Stop 02/23/19 at 01:10; Status DC Lidocaine HCl (Xylocaine-Mpf 1% 2ml Vial) 2 ml 1X PRN PRN ID IV START; Start 02/22/19 at 13:15; Stop 02/23/19 at 13:14; Status DC Propofol 20 ml @ As Directed STK-MED ONCE IV ; Start 02/22/19 at 14:20; Stop 02/22/19 at 14:21; Status DC Heparin Sodium (Porcine) 1000 unit/Sodium Chloride 1,001 ml @ 1,001 mls/hr 1X ONCE IRR ; Start 02/24/19 at 06:00; Stop 02/24/19 at 06:59 Polyethylene Glycol (miraLAX PACKET) 17 gm DAILY PO ; Start 02/23/19 at 14:00 Polyethylene Glycol (miraLAX PACKET) 17 gm PRN DAILY PRN PO CONSTIPATION; Start 02/23/19 at 13:15 Vitals/I & O Vital Sign - Last 24 Hours 02/22/19 02/22/19 02/22/19 02/22/19 14:33 14:48 15:03 15:18 Temp 97 97.0 97.0 97.0 Pulse 68 75 76 73 Resp 16 16 17 B/P (MAP) 148/65 157/69 164/72 154/69 Pulse Ox 95 93 94 94 O2 Delivery Nasal Cannula Nasal Cannula Nasal Cannula Nasal Cannula O2 Flow Rate 2.0 5 5 5 02/22/19 02/22/19 02/22/19 02/23/19 19:00 20:00 22:58 02:43 Temp 97.4 97.9 97.5 97.4 97.9 97.5 Pulse 74 73 68 Resp 18 17 16 B/P (MAP) 161/74 (103) 151/87 (108) 166/71 (102) Pulse Ox 95 95 94 O2 Delivery Nasal Cannula Nasal Cannula Nasal Cannula Nasal Cannula O2 Flow Rate 2.0 2.0 2.0 2.0 02/23/19 02/23/19 02/23/19 07:00 08:00 11:00 Temp 97.9 97.4 97.9 97.4 Pulse 73 89 Resp 16 14 B/P (MAP) 156/58 (90) 149/72 (97) Pulse Ox 94 95 O2 Delivery Nasal Cannula Nasal Cannula Nasal Cannula O2 Flow Rate 2.0 2.0 2.0 Intake and Output 02/22/19 02/22/19 02/23/19 15:00 23:00 07:00 Intake Total 1500 ml 200 ml Output Total 750 ml 800 ml 250 ml Balance -750 ml 700 ml -50 ml LUIS FELIPE EDDY MD February 23, 2019 14:10
--- NOTE | 2019-02-23 14:40 | PDOC ---
PROGRESS NOTES Subjective Subjective She admits low back pain. Objective Objective Vital Signs Date Time Temp Pulse Resp B/P (MAP) Pulse Ox O2 Delivery O2 Flow Rate FiO2 02/23/19 11:00 97.4 89 14 149/72 (97) 95 Nasal Cannula 2.0 97.4 Intake and Output0 02/23/19 07:00 Intake Total 1700 ml Output Total 1800 ml Balance -100 ml Intake Oral 700 ml IV Total 1000 ml Output Urine Total 1800 ml Physical Exam Physical Exam She is more awake sitting up in chair and she had minimal tenderness to palpation over sacroiliac joints. Assessment Assessment Problems Medical Problems: (1) Altered level of consciousness Status: Acute (2) Dehydration Status: Acute (3) DKA (diabetic ketoacidoses) Status: Acute (4) Hypercalcemia Status: Acute (5) Hypermagnesemia Status: Acute (6) Renal insufficiency Status: Acute (7) Sepsis Status: Acute Plan Plan of Care Agree with plans for SNF transfer when medically stable. Comment Review of Relevant I have reviewed the following items katalina (where applicable) has been applied. Labs Laboratory Tests Test 02/21/19 16:39 02/21/19 20:22 02/21/19 23:52 02/22/19 04:30 Glucose (Fingerstick) 244 mg/dL (70-99) 293 mg/dL (70-99) 222 mg/dL (70-99) White Blood Count 15.4 x10^3/uL (4.0-11.0) Red Blood Count 4.11 x10^6/uL (3.50-5.40) Hemoglobin 12.3 g/dL (12.0-15.5) Hematocrit 37.0 % (36.0-47.0) Mean Corpuscular Volume 90 fL (79-100) Mean Corpuscular Hemoglobin 30 pg (25-35) Mean Corpuscular Hemoglobin Concent 33 g/dL (31-37) Red Cell Distribution Width 13.5 % (11.5-14.5) Platelet Count 185 x10^3/uL (140-400) Neutrophils (%) (Auto) 84 % (31-73) Lymphocytes (%) (Auto) 10 % (24-48) Monocytes (%) (Auto) 5 % (0-9) Eosinophils (%) (Auto) 0 % (0-3) Basophils (%) (Auto) 1 % (0-3) Neutrophils # (Auto) 13.0 x10^3uL (1.8-7.7) Lymphocytes # (Auto) 1.5 x10^3/uL (1.0-4.8) Monocytes # (Auto) 0.8 x10^3/uL (0.0-1.1) Eosinophils # (Auto) 0.0 x10^3/uL (0.0-0.7) Basophils # (Auto) 0.1 x10^3/uL (0.0-0.2) Sodium Level 141 mmol/L (136-145) Potassium Level 3.5 mmol/L (3.5-5.1) Chloride Level 107 mmol/L (98-107) Carbon Dioxide Level 25 mmol/L (21-32) Anion Gap 9 (6-14) Blood Urea Nitrogen 31 mg/dL (7-20) Creatinine 0.9 mg/dL (0.6-1.0) Estimated GFR (Cockcroft-Gault) 62.6 Glucose Level 232 mg/dL (70-99) Calcium Level 8.8 mg/dL (8.5-10.1) Test 02/22/19 07:58 02/22/19 10:59 02/22/19 16:10 02/22/19 20:40 Glucose (Fingerstick) 211 mg/dL (70-99) 238 mg/dL (70-99) 162 mg/dL (70-99) 96 mg/dL (70-99) Test 02/23/19 03:45 02/23/19 07:21 02/23/19 08:55 02/23/19 12:16 White Blood Count 16.6 x10^3/uL (4.0-11.0) Red Blood Count 4.34 x10^6/uL (3.50-5.40) Hemoglobin 12.8 g/dL (12.0-15.5) Hematocrit 38.5 % (36.0-47.0) Mean Corpuscular Volume 89 fL (79-100) Mean Corpuscular Hemoglobin 30 pg (25-35) Mean Corpuscular Hemoglobin Concent 33 g/dL (31-37) Red Cell Distribution Width 13.2 % (11.5-14.5) Platelet Count 207 x10^3/uL (140-400) Neutrophils (%) (Auto) 82 % (31-73) Lymphocytes (%) (Auto) 11 % (24-48) Monocytes (%) (Auto) 6 % (0-9) Eosinophils (%) (Auto) 1 % (0-3) Basophils (%) (Auto) 0 % (0-3) Neutrophils # (Auto) 13.5 x10^3uL (1.8-7.7) Lymphocytes # (Auto) 1.8 x10^3/uL (1.0-4.8) Monocytes # (Auto) 1.0 x10^3/uL (0.0-1.1) Eosinophils # (Auto) 0.2 x10^3/uL (0.0-0.7) Basophils # (Auto) 0.0 x10^3/uL (0.0-0.2) Sodium Level 136 mmol/L (136-145) Potassium Level 3.4 mmol/L (3.5-5.1) Chloride Level 103 mmol/L (98-107) Carbon Dioxide Level 23 mmol/L (21-32) Anion Gap 10 (6-14) Blood Urea Nitrogen 21 mg/dL (7-20) Creatinine 0.7 mg/dL (0.6-1.0) Estimated GFR (Cockcroft-Gault) 83.7 Glucose Level 120 mg/dL (70-99) Calcium Level 8.4 mg/dL (8.5-10.1) Glucose (Fingerstick) 111 mg/dL (70-99) 146 mg/dL (70-99) 122 mg/dL (70-99) Laboratory Tests Test 02/22/19 16:10 02/22/19 20:40 02/23/19 03:45 02/23/19 07:21 Glucose (Fingerstick) 162 mg/dL (70-99) 96 mg/dL (70-99) 111 mg/dL (70-99) White Blood Count 16.6 x10^3/uL (4.0-11.0) Red Blood Count 4.34 x10^6/uL (3.50-5.40) Hemoglobin 12.8 g/dL (12.0-15.5) Hematocrit 38.5 % (36.0-47.0) Mean Corpuscular Volume 89 fL (79-100) Mean Corpuscular Hemoglobin 30 pg (25-35) Mean Corpuscular Hemoglobin Concent 33 g/dL (31-37) Red Cell Distribution Width 13.2 % (11.5-14.5) Platelet Count 207 x10^3/uL (140-400) Neutrophils (%) (Auto) 82 % (31-73) Lymphocytes (%) (Auto) 11 % (24-48) Monocytes (%) (Auto) 6 % (0-9) Eosinophils (%) (Auto) 1 % (0-3) Basophils (%) (Auto) 0 % (0-3) Neutrophils # (Auto) 13.5 x10^3uL (1.8-7.7) Lymphocytes # (Auto) 1.8 x10^3/uL (1.0-4.8) Monocytes # (Auto) 1.0 x10^3/uL (0.0-1.1) Eosinophils # (Auto) 0.2 x10^3/uL (0.0-0.7) Basophils # (Auto) 0.0 x10^3/uL (0.0-0.2) Sodium Level 136 mmol/L (136-145) Potassium Level 3.4 mmol/L (3.5-5.1) Chloride Level 103 mmol/L (98-107) Carbon Dioxide Level 23 mmol/L (21-32) Anion Gap 10 (6-14) Blood Urea Nitrogen 21 mg/dL (7-20) Creatinine 0.7 mg/dL (0.6-1.0) Estimated GFR (Cockcroft-Gault) 83.7 Glucose Level 120 mg/dL (70-99) Calcium Level 8.4 mg/dL (8.5-10.1) Test 02/23/19 08:55 02/23/19 12:16 Glucose (Fingerstick) 146 mg/dL (70-99) 122 mg/dL (70-99) Medications Current Medications Sodium Chloride 1,000 ml @ 1,000 mls/hr 1X ONCE IV Last administered on 02/19/19at 08:10; Start 02/19/19 at 08:00; Stop 02/19/19 at 08:59; Status DC Insulin Human Regular (HumuLIN R VIAL) 10 unit 1X ONCE IV Last administered on 02/19/19at 07:50; Start 02/19/19 at 08:00; Stop 02/19/19 at 08:02; Status DC Insulin Human Regular 150 ml @ 0 mls/hr 1X ONCE IV Last administered on 02/19/19at 08:34; Start 02/19/19 at 08:00; Stop 02/19/19 at 08:02; Status DC Sodium Chloride 1,000 ml @ 100 mls/hr 1X ONCE IV Last administered on 02/19/19at 08:29; Start 02/19/19 at 09:00; Stop 02/19/19 at 13:58; Status DC Sodium Chloride 1,000 ml @ 1,000 mls/hr 1X ONCE IV ; Start 02/19/19 at 09:00; Stop 02/19/19 at 10:02; Status DC Ceftriaxone Sodium (Rocephin) 1 gm 1X ONCE IVP Last administered on 02/19/19at 10:28; Start 02/19/19 at 09:00; Stop 02/19/19 at 09:01; Status DC Sodium Chloride 1,000 ml @ 200 mls/hr Q5H IV ; Start 02/19/19 at 10:00; Stop 02/20/19 at 09:59; Status Cancel Insulin Human Regular 150 unit/ Sodium Chloride 151.5 ml @ 0 mls/hr CONT PRN PRN IV PER PROTOCOL; Start 02/19/19 at 13:00; Status Cancel Dextrose/Sodium Chloride 1,000 ml @ 250 mls/hr Q4H IV Last administered on 02/19/19at 18:06; Start 02/19/19 at 15:00; Stop 02/19/19 at 21:01; Status DC Insulin Human Regular 150 unit/ Sodium Chloride 151.5 ml @ 0 mls/hr CONT PRN PRN IV PER PROTOCOL; Start 02/19/19 at 10:00; Stop 02/19/19 at 21:01; Status DC Potassium Chloride/Water 100 ml @ 100 mls/hr PRN Q1HR PRN IV SEE COMMENTS; Start 02/19/19 at 10:00; Stop 02/19/19 at 21:01; Status DC Potassium Chloride/Water 100 ml @ 100 mls/hr PRN Q1HR PRN IV SEE COMMENTS; Start 02/19/19 at 09:45; Stop 02/19/19 at 21:01; Status DC Potassium Chloride/Water 100 ml @ 100 mls/hr PRN Q1HR PRN IV SEE COMMENTS; Start 02/19/19 at 09:45; Stop 02/19/19 at 21:01; Status DC Labetalol HCl (Normodyne Iv Push) 10 mg PRN Q2HR PRN IVP HYPERTENSION, SEE COMMENTS Last administered on 02/21/19at 14:06; Start 02/19/19 at 09:45; Stop 02/21/19 at 15:43; Status DC Acetaminophen/ Codeine Phosphate (Tylenol #3) 1 tab PRN Q6HRS PRN PO PAIN; Start 02/19/19 at 09:45 Ondansetron HCl (Zofran) 4 mg PRN Q6HRS PRN IV NAUSEA/VOMITING 1ST CHOICE Last administered on 02/20/19at 11:25; Start 02/19/19 at 09:45 Ondansetron HCl (Zofran Odt) 4 mg PRN Q6HRS PRN PO NAUSEA/VOMITING; Start 02/19/19 at 09:45 Acetaminophen/ Hydrocodone Bitart (Lortab 5/325) 1 tab PRN Q4HRS PRN PO PAIN; Start 02/19/19 at 09:45 Fentanyl Citrate (Fentanyl 2ml Vial) 25 mcg PRN Q2HR PRN IV PAIN; Start 02/19/19 at 09:45 Sodium Chloride 1,000 ml @ 250 mls/hr Q4H IV Last administered on 02/19/19at 10:07; Start 02/19/19 at 11:00; Stop 02/19/19 at 18:06; Status DC Lidocaine (Lidoderm) 1 patch DAILY TD Last administered on 02/23/19at 09:11; Start 02/20/19 at 09:00 Miscellaneous (Lidoderm Patch Removal) 1 ea QHS MC Last administered on 02/22/19at 21:00; Start 02/19/19 at 21:00 Heparin Sodium (Porcine) (Heparin Sodium) 5,000 unit Q8HRS SQ Last administered on 02/21/19at 21:19; Start 02/19/19 at 14:00 Lorazepam (Ativan) 2 mg PRN Q4HRS PRN IV ANXIETY / AGITATION Last administered on 02/19/19at 11:59; Start 02/19/19 at 11:45 Lorazepam (Ativan) 2 mg PRN Q4HRS PRN IV ANXIETY / AGITATION; Start 02/19/19 at 12:00; Status UNV Potassium Phosphate 13.6 mmol/Dextrose 104.5333 ml @ 52.267 m... Q2H IV Last administered on 02/19/19at 18:05; Start 02/19/19 at 14:00; Stop 02/19/19 at 19:59; Status DC Dextrose/Sodium Chloride 1,000 ml @ 250 mls/hr Q4H IV ; Start 02/19/19 at 14:00; Status UNV Potassium Chloride 40 meq/ Sodium Chloride 1,020 ml @ 75 mls/hr [id number] IV Last administered on 02/19/19at 21:07; Start 02/19/19 at 21:00; Stop 02/20/19 at 08:04; Status DC Insulin Glargine (Lantus) 30 units QHS SQ Last administered on 02/22/19at 21:26; Start 02/19/19 at 21:00 Insulin Human Lispro (HumaLOG) 0-9 UNITS TIDWMEALS SQ Last administered on 02/20/19at 16:44; Start 02/20/19 at 08:00; Stop 02/21/19 at 08:18; Status DC Dextrose (Dextrose 50%-Water Syringe) 12.5 gm PRN Q15MIN PRN IV SEE COMMENTS; Start 02/19/19 at 21:00 Insulin Human Lispro (HumaLOG) 12 units TIDWMEALS SQ Last administered on 02/20/19at 18:25; Start 02/20/19 at 08:00; Stop 02/21/19 at 08:18; Status DC Acetaminophen (Tylenol) 650 mg PRN Q6HRS PRN PO temp Last administered on 02/20/19at 11:16; Start 02/19/19 at 21:00 Acetaminophen (Tylenol Supp) 650 mg PRN Q6HRS PRN AL MILD PAIN / TEMP; Start 02/19/19 at 21:00 Insulin Human Lispro (HumaLOG) 4 units 1X ONCE SQ Last administered on 02/20/19at 02:00; Start 02/20/19 at 02:00; Stop 02/20/19 at 02:01; Status DC Insulin Human Lispro (HumaLOG) 10 units 1X ONCE SQ Last administered on 02/20/19at 05:35; Start 02/20/19 at 06:00; Stop 02/20/19 at 06:01; Status DC Sodium Chloride 38.75 meq/Sterile Water 1,009.6875 ml @ 100 mls/hr Q10H6M IV Last administered on 02/22/19at 23:39; Start 02/20/19 at 09:00 Metoclopramide HCl (Reglan Vial) 5 mg PRN Q6HRS PRN IV NAUSEA/VOMITING 2ND CHOICE; Start 02/20/19 at 14:15 Insulin Human Lispro (HumaLOG) 12 units QIDACHS SQ Last administered on 02/22/19at 12:45; Start 02/21/19 at 08:20; Stop 02/22/19 at 12:59; Status DC Insulin Human Lispro (HumaLOG) 0-9 UNITS QIDACHS SQ Last administered on 02/22/19at 12:44; Start 02/21/19 at 08:20 Pantoprazole Sodium (Protonix) 40 mg BIDAC PO Last administered on 02/22/19at 16:48; Start 02/21/19 at 11:30 Ondansetron HCl (Zofran) 4 mg PRN Q6HRS PRN IV NAUSEA/VOMITING; Start 02/22/19 at 07:00; Stop 02/23/19 at 07:00; Status DC Fentanyl Citrate (Fentanyl 2ml Vial) 25 mcg PRN Q5MIN PRN IV MILD PAIN; Start 02/22/19 at 07:00; Stop 02/23/19 at 07:00; Status DC Fentanyl Citrate (Fentanyl 2ml Vial) 50 mcg PRN Q5MIN PRN IV MODERATE TO SEVERE PAIN; Start 02/22/19 at 07:00; Stop 02/23/19 at 07:00; Status DC Morphine Sulfate (Morphine Sulfate) 1 mg PRN Q10MIN PRN IV SEVERE PAIN; Start 02/22/19 at 07:00; Stop 02/23/19 at 07:00; Status DC Ringer's Solution 1,000 ml @ 30 mls/hr Q24H IV Last administered on 02/22/19at 13:26; Start 02/22/19 at 07:00; Stop 02/22/19 at 18:59; Status DC Lidocaine HCl (Xylocaine-Mpf 1% 2ml Vial) 2 ml PRN 1X PRN ID PRIOR TO IV START; Start 02/22/19 at 07:00; Stop 02/23/19 at 07:00; Status DC Hydromorphone HCl (Dilaudid) 0.5 mg PRN Q10MIN PRN IV SEV PAIN, Second choice; Start 02/22/19 at 07:00; Stop 02/23/19 at 07:00; Status DC Clonidine HCl (Catapres) 0.2 mg PRN Q8HRS PRN PO SBP >160 Last administered on 02/21/19at 18:25; Start 02/21/19 at 15:45 Amlodipine Besylate (Norvasc) 10 mg DAILY PO Last administered on 02/22/19at 08:52; Start 02/22/19 at 09:00 Oxymetazoline HCl (Afrin) 2 spray 1X ONCE NS Last administered on 02/22/19at 16:48; Start 02/22/19 at 13:00; Stop 02/22/19 at 13:01; Status DC Oxymetazoline HCl (Afrin) 2 spray BID NS Last administered on 02/23/19at 09:11; Start 02/22/19 at 21:00 Fluticasone Propionate (Flonase) 2 spray DAILY NS Last administered on 02/23/19at 09:11; Start 02/22/19 at 13:00 Potassium Chloride (Klor-Con) 20 meq 1X ONCE PO Last administered on 02/22/19at 16:48; Start 02/22/19 at 13:30; Stop 02/22/19 at 13:31; Status DC Insulin Human Lispro (HumaLOG) 15 units QIDACHS SQ Last administered on 02/23/19at 12:34; Start 02/22/19 at 16:30 Midazolam HCl (Versed) 2 mg PRN 1X PRN IV PRIOR TO PROCEDURE; Start 02/22/19 at 13:15; Stop 02/23/19 at 13:14; Status DC Fentanyl Citrate (Fentanyl 2ml Vial) 25 mcg PRN Q5MIN PRN IV X 2 DOSES FOR PAIN ; Start 02/22/19 at 13:15; Stop 02/23/19 at 13:14; Status DC Fentanyl Citrate (Fentanyl 2ml Vial) 50 mcg PRN Q5MIN PRN IV X 2 DOSES FOR PAIN; Start 02/22/19 at 13:15; Stop 02/23/19 at 13:14; Status DC Ringer's Solution 1,000 ml @ 125 mls/hr Q8H IV ; Start 02/22/19 at 13:11; Stop 02/23/19 at 01:10; Status DC Lidocaine HCl (Xylocaine-Mpf 1% 2ml Vial) 2 ml 1X PRN PRN ID IV START; Start 02/22/19 at 13:15; Stop 02/23/19 at 13:14; Status DC Propofol 20 ml @ As Directed STK-MED ONCE IV ; Start 02/22/19 at 14:20; Stop 02/22/19 at 14:21; Status DC Heparin Sodium (Porcine) 1000 unit/Sodium Chloride 1,001 ml @ 1,001 mls/hr 1X ONCE IRR ; Start 02/24/19 at 06:00; Stop 02/24/19 at 06:59 Polyethylene Glycol (miraLAX PACKET) 17 gm DAILY PO ; Start 02/23/19 at 14:00 Polyethylene Glycol (miraLAX PACKET) 17 gm PRN DAILY PRN PO CONSTIPATION; Start 02/23/19 at 13:15 Vitals/I & O Vital Sign - Last 24 Hours 02/22/19 02/22/19 02/22/19 02/22/19 14:48 15:03 15:18 19:00 Temp 97.0 97.4 97.0 97.4 Pulse 75 76 73 74 Resp 16 17 18 B/P (MAP) 157/69 164/72 154/69 161/74 (103) Pulse Ox 93 94 94 95 O2 Delivery Nasal Cannula Nasal Cannula Nasal Cannula Nasal Cannula O2 Flow Rate 5 5 5 2.0 02/22/19 02/22/19 02/23/19 02/23/19 20:00 22:58 02:43 07:00 Temp 97.9 97.5 97.9 97.9 97.5 97.9 Pulse 73 68 73 Resp 17 16 16 B/P (MAP) 151/87 (108) 166/71 (102) 156/58 (90) Pulse Ox 95 94 94 O2 Delivery Nasal Cannula Nasal Cannula Nasal Cannula Nasal Cannula O2 Flow Rate 2.0 2.0 2.0 2.0 02/23/19 02/23/19 08:00 11:00 Temp 97.4 97.4 Pulse 89 Resp 14 B/P (MAP) 149/72 (97) Pulse Ox 95 O2 Delivery Nasal Cannula Nasal Cannula O2 Flow Rate 2.0 2.0 Intake and Output 02/22/19 02/22/19 02/23/19 15:00 23:00 07:00 Intake Total 1500 ml 200 ml Output Total 750 ml 800 ml 250 ml Balance -750 ml 700 ml -50 ml MILA AUGUSTIN MD February 23, 2019 14:40
[2019-02-23 15:00] VITALS: BP 139/64
[2019-02-23] MEDS: POLYETHYLENE GLYCOL 3350 17 GM PACKET. PO SCH (15:43)
[2019-02-23] MEDS: SODIUM CHLORIDE IV SCH (17:47)
[2019-02-23] MEDS: STERILE WATER IV SCH (17:47)
[2019-02-23 19:00] VITALS: BP 163/76
[2019-02-23] MEDS: INSULIN GLARGINE 300 UNITS/3 ML INSULN.PEN. SQ SCH (21:00)
[2019-02-23] MEDS: PATCH REMOVAL. MC SCH (21:00)
[2019-02-23 23:00] VITALS: BP 162/77
[2019-02-24] VITALS (7 sets, daily range): BP systolic 132–172; BP diastolic 56–74
[2019-02-24] MEDS: SODIUM CHLORIDE IV SCH (01:56)
[2019-02-24] MEDS: STERILE WATER IV SCH (01:56)
[2019-02-24] MEDS: HEPARIN for SUB-Q USE 5,000 UNIT/ML VIAL. SQ SCH ×3 (05:55→22:50)
[2019-02-24] MEDS ORDERED: HEPARIN 1,000 UNIT in IV NORMAL SALINE 1,000 ML for SURG PERIOP IRR ONE (06:00)
[2019-02-24] MEDS ORDERED: PROCHLORPERAZINE 10 MG/2 ML VIAL. IV PRN (07:00)
[2019-02-24] MEDS ORDERED: ONDANSETRON PF 4 MG/2 ML VIAL. IV PRN (07:00)
[2019-02-24] MEDS ORDERED: MORPHINE SULFATE 2 MG/ML VIAL. IV PRN (07:00)
[2019-02-24] MEDS ORDERED: LIDOCAINE 1% PF 2 ML VIAL. ID PRN (07:00)
[2019-02-24] MEDS ORDERED: fentaNYL PF VIAL 100 MCG/2 ML VIAL IV PRN ×2 (07:00)
[2019-02-24] MEDS ORDERED: IV RINGERS,LACTATED 1000ML 1,000 ML IV SCH (07:00)
[2019-02-24] MEDS ORDERED: HYDROmorphone 2 MG/ML VIAL IV PRN (07:00)
[2019-02-24] MEDS: INSULIN LISPRO 300 UNITS/3 ML INSULN.PEN. SQ SCH ×8 (07:30→21:23)
[2019-02-24] MEDS: LISINOPRIL 20 MG TABLET PO SCH (08:32)
[2019-02-24] MEDS: PANTOPRAZOLE 40 MG TABLET.DR. PO SCH ×2 (08:33→17:54)
[2019-02-24] MEDS: amLODIPine BESYLATE 10 MG TABLET PO SCH (08:33)
[2019-02-24] MEDS: OXYMETAZOLINE 0.05% NASAL SPRAY 30ML BOTTLE. NS SCH ×2 (08:34→21:14)
[2019-02-24] MEDS: POLYETHYLENE GLYCOL 3350 17 GM PACKET. PO SCH (08:34)
[2019-02-24] MEDS: FLUTICASONE 50MCG/NASAL SPRAY 16GM BOTTLE. NS SCH (08:34)
[2019-02-24] MEDS: LIDOCAINE (700MG/PATCH) PATCH. TD SCH (08:45)
--- NOTE | 2019-02-24 08:45 | NUR ---
VS @08:24BP = 172/71, HR = 71 Scheduled meds of Lisinopril 20 MG and Amlodipine 10 MG given at 08:35. Please advise if any other treatment---> Spoke with Dr. Madrigal (covering for Dr. Olivo) who advised to monitor BP since BP meds were recently given.
--- NOTE | 2019-02-24 09:26 | PDOC ---
RAMON CONTRERAS BAND SHOVER 02/24/19 0926: SURGICAL PROGRESS NOTE Subjective up in chair some back pain not interested in surgery Vital Signs Vital Signs Date Time Temp Pulse Resp B/P (MAP) Pulse Ox O2 Delivery O2 Flow Rate FiO2 02/24/19 08:33 71 172/71 02/24/19 08:24 98.2 17 95 Nasal Cannula 2.0 98.2 I&O Intake and Output 02/24/19 07:00 Intake Total 360 ml Output Total 800 ml Balance -440 ml Intake Oral 360 ml Output Urine Total 800 ml General: Alert, Oriented X3, Cooperative, No acute distress Abdomen: Soft, No tenderness Labs Laboratory Tests Test 02/22/19 10:59 02/22/19 16:10 02/22/19 20:40 02/23/19 03:45 Glucose (Fingerstick) 238 mg/dL (70-99) 162 mg/dL (70-99) 96 mg/dL (70-99) White Blood Count 16.6 x10^3/uL (4.0-11.0) Red Blood Count 4.34 x10^6/uL (3.50-5.40) Hemoglobin 12.8 g/dL (12.0-15.5) Hematocrit 38.5 % (36.0-47.0) Mean Corpuscular Volume 89 fL (79-100) Mean Corpuscular Hemoglobin 30 pg (25-35) Mean Corpuscular Hemoglobin Concent 33 g/dL (31-37) Red Cell Distribution Width 13.2 % (11.5-14.5) Platelet Count 207 x10^3/uL (140-400) Neutrophils (%) (Auto) 82 % (31-73) Lymphocytes (%) (Auto) 11 % (24-48) Monocytes (%) (Auto) 6 % (0-9) Eosinophils (%) (Auto) 1 % (0-3) Basophils (%) (Auto) 0 % (0-3) Neutrophils # (Auto) 13.5 x10^3uL (1.8-7.7) Lymphocytes # (Auto) 1.8 x10^3/uL (1.0-4.8) Monocytes # (Auto) 1.0 x10^3/uL (0.0-1.1) Eosinophils # (Auto) 0.2 x10^3/uL (0.0-0.7) Basophils # (Auto) 0.0 x10^3/uL (0.0-0.2) Sodium Level 136 mmol/L (136-145) Potassium Level 3.4 mmol/L (3.5-5.1) Chloride Level 103 mmol/L (98-107) Carbon Dioxide Level 23 mmol/L (21-32) Anion Gap 10 (6-14) Blood Urea Nitrogen 21 mg/dL (7-20) Creatinine 0.7 mg/dL (0.6-1.0) Estimated GFR (Cockcroft-Gault) 83.7 Glucose Level 120 mg/dL (70-99) Calcium Level 8.4 mg/dL (8.5-10.1) Test 02/23/19 07:21 02/23/19 08:55 02/23/19 12:16 02/23/19 16:53 Glucose (Fingerstick) 111 mg/dL (70-99) 146 mg/dL (70-99) 122 mg/dL (70-99) 73 mg/dL (70-99) Test 02/23/19 21:27 02/24/19 07:48 Glucose (Fingerstick) 86 mg/dL (70-99) 130 mg/dL (70-99) Laboratory Tests Test 02/23/19 12:16 02/23/19 16:53 02/23/19 21:27 02/24/19 07:48 Glucose (Fingerstick) 122 mg/dL (70-99) 73 mg/dL (70-99) 86 mg/dL (70-99) 130 mg/dL (70-99) Problem List Problems Medical Problems: (1) Altered level of consciousness Status: Acute (2) Dehydration Status: Acute (3) DKA (diabetic ketoacidoses) Status: Acute (4) Hypercalcemia Status: Acute (5) Hypermagnesemia Status: Acute (6) Renal insufficiency Status: Acute (7) Sepsis Status: Acute Assessment/Plan not interested in surgery available as needed, can fu if becomes interested KRYSTIN EDWARDS MD 02/24/19 1308: SURGICAL PROGRESS NOTE Assessment/Plan Pt seen and examined. Agree with Ms. Contreras's note Pt feels better abd soft, mild TTP RUQ pt not interested in surgery, despite recommendations, although somewhat poor candidate Will sign off, but please call for questions. RAMON CONTRERAS APRN February 24, 2019 09:26 KRYSTIN EDWARDS MD February 24, 2019 13:08
--- NOTE | 2019-02-24 09:54 | PDOC ---
Subjective: Subjective: Feels better today, eating some, passing gas. Objective: Objective: D/w Dr. Madrigal - lina declines cholecystectomy, plans for therapy eval re: possible discharge, plans to remove Pressley. Refusing Miralax. Vital Signs: Vital Signs Date Time Temp Pulse Resp B/P (MAP) Pulse Ox O2 Delivery O2 Flow Rate FiO2 02/24/19 08:33 71 172/71 02/24/19 08:24 98.2 17 95 Nasal Cannula 2.0 98.2 Labs: Laboratory Tests Test 02/23/19 12:16 02/23/19 16:53 02/23/19 21:27 02/24/19 07:48 Glucose (Fingerstick) 122 mg/dL 73 mg/dL 86 mg/dL 130 mg/dL PE: GEN: NAD, up to chair LUNGS: CTAB HEART: RRR ABD: quiet BS, soft, non-tender NEURO/PSYCH: A & O 3 - more awake today A/P: N/v, anorexia - resolving - erosive gastritis (bx pending) on EGD and now on PPI, mildly delayed gastric emptying on GES in setting of DKA this admission Cholelithiasis - declines cholecystectomy Dysphagia - normal esophagus on EGD, 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 MOUNA HAGER February 24, 2019 09:53
[2019-02-24 09:58] LABS: BASO # 0.1 x10^3/uL (0.0-0.2); BASO % 1 % (0-3); EOS # 0.4 x10^3/uL (0.0-0.7); EOS % 3 % (0-3); HEMATOCRIT 36.9 % (36.0-47.0); HEMOGLOBIN 12.4 g/dL (12.0-15.5); LYMPH # 1.9 x10^3/uL (1.0-4.8); LYMPH % 12 % (24-48); MEAN CORPUSCULAR HEMOGLOBIN 30 pg (25-35); MEAN CORPUSCULAR HGB CONC 34 g/dL (31-37); MEAN CORPUSCULAR VOLUME 88 fL (79-100); MONO # 0.9 x10^3/uL (0.0-1.1); MONO % 6 % (0-9); NEUT % 80 % (31-73); PLATELET COUNT 274 x10^3/uL (140-400); RED BLOOD COUNT 4.19 x10^6/uL (3.50-5.40); RED CELL DISTRIBUTION WIDTH 13.5 % (11.5-14.5); WHITE BLOOD COUNT 16.3 x10^3/uL (4.0-11.0)
--- NOTE | 2019-02-24 10:00 | NUR ---
Per doctor order, Pressley catheter was discontinued and removed from patient, without complications; andre-care done at that time. Patient was first assisted to move from chair to bed and repositioned.
[2019-02-24 10:24] LABS: CALCIUM 8.5 mg/dL (8.5-10.1); CREATININE 0.6 mg/dL (0.6-1.0)
--- NOTE | 2019-02-24 11:30 | NUR ---
Patient refused both lunch and insulin.
--- NOTE | 2019-02-24 13:00 | NUR ---
Spoke with Narda (Speech Therapist): patient's swallowing is good and oral neuro motor / tongue in tact; however, there is still left-sided droop and communication and outreach manager deficit. An MRI is planned to evaluate patient for a stroke.
--- NOTE | 2019-02-24 13:50 | NUR ---
Dr. Andrade and this nurse assisted patient to try to stand with walker for Dr. Andrade's assessment. Patient was very weak and sat down in chair without holding the standing position but for a few seconds. Spoke with Dr. Andrade, who indicated the CT is negative for CVA; left sided weakness may be related to diabetic neuropathy and/or medication non-compliance. The patient is not strong enough to ambulate to the bathroom, and needs 2 to 3 people to assist for bedside commode. Chair alarm is "on". If after urination, bladder scan shows > 200 mL urine, then a Pressley catheter could be placed to treat urinary retention.
--- NOTE | 2019-02-24 14:23 | NUR ---
[facility] called from MRI; Dr. Hsu is ready for the patient to be transported to MRI.
--- NOTE | 2019-02-24 14:35 | PDOC ---
PROGRESS NOTES Subjective Subjective No new complaints. She wants to go to bath room. Objective Objective Vital Signs Date Time Temp Pulse Resp B/P (MAP) Pulse Ox O2 Delivery O2 Flow Rate FiO2 02/24/19 11:00 97.9 76 17 147/63 (91) 95 Nasal Cannula 2.0 97.9 Intake and Output 02/24/19 07:00 Intake Total 360 ml Output Total 800 ml Balance -440 ml Intake Oral 360 ml Output Urine Total 800 ml Physical Exam Physical Exam She is alert,sitting in bedside chair and she continues with left visual field cut and mild edema of left hand but I did not seem any significant focal weakness of her extremities and she continues with generalized muscle weakness and she requires maximal assistance to come to a standing position and once and once up she had tendency to lean backwards and seh wants to sit down after standing for a few minutes. She is incontinent of bowel and bladder since Pressley catheter was discontinued. Assessment Assessment Problems Medical Problems: (1) Altered level of consciousness Status: Acute (2) Dehydration Status: Acute (3) DKA (diabetic ketoacidoses) Status: Acute (4) Hypercalcemia Status: Acute (5) Hypermagnesemia Status: Acute (6) Renal insufficiency Status: Acute (7) Sepsis Status: Acute Plan Plan of Care To SNF when medically stable. Comment Review of Relevant I have reviewed the following items katalina (where applicable) has been applied. Labs Laboratory Tests Test 02/22/19 16:10 02/22/19 20:40 02/23/19 03:45 02/23/19 07:21 Glucose (Fingerstick) 162 mg/dL (70-99) 96 mg/dL (70-99) 111 mg/dL (70-99) White Blood Count 16.6 x10^3/uL (4.0-11.0) Red Blood Count 4.34 x10^6/uL (3.50-5.40) Hemoglobin 12.8 g/dL (12.0-15.5) Hematocrit 38.5 % (36.0-47.0) Mean Corpuscular Volume 89 fL (79-100) Mean Corpuscular Hemoglobin 30 pg (25-35) Mean Corpuscular Hemoglobin Concent 33 g/dL (31-37) Red Cell Distribution Width 13.2 % (11.5-14.5) Platelet Count 207 x10^3/uL (140-400) Neutrophils (%) (Auto) 82 % (31-73) Lymphocytes (%) (Auto) 11 % (24-48) Monocytes (%) (Auto) 6 % (0-9) Eosinophils (%) (Auto) 1 % (0-3) Basophils (%) (Auto) 0 % (0-3) Neutrophils # (Auto) 13.5 x10^3uL (1.8-7.7) Lymphocytes # (Auto) 1.8 x10^3/uL (1.0-4.8) Monocytes # (Auto) 1.0 x10^3/uL (0.0-1.1) Eosinophils # (Auto) 0.2 x10^3/uL (0.0-0.7) Basophils # (Auto) 0.0 x10^3/uL (0.0-0.2) Sodium Level 136 mmol/L (136-145) Potassium Level 3.4 mmol/L (3.5-5.1) Chloride Level 103 mmol/L (98-107) Carbon Dioxide Level 23 mmol/L (21-32) Anion Gap 10 (6-14) Blood Urea Nitrogen 21 mg/dL (7-20) Creatinine 0.7 mg/dL (0.6-1.0) Estimated GFR (Cockcroft-Gault) 83.7 Glucose Level 120 mg/dL (70-99) Calcium Level 8.4 mg/dL (8.5-10.1) Test 02/23/19 08:55 02/23/19 12:16 02/23/19 16:53 02/23/19 21:27 Glucose (Fingerstick) 146 mg/dL (70-99) 122 mg/dL (70-99) 73 mg/dL (70-99) 86 mg/dL (70-99) Test 02/24/19 07:48 02/24/19 09:15 02/24/19 11:26 Glucose (Fingerstick) 130 mg/dL (70-99) 204 mg/dL (70-99) White Blood Count 16.3 x10^3/uL (4.0-11.0) Red Blood Count 4.19 x10^6/uL (3.50-5.40) Hemoglobin 12.4 g/dL (12.0-15.5) Hematocrit 36.9 % (36.0-47.0) Mean Corpuscular Volume 88 fL (79-100) Mean Corpuscular Hemoglobin 30 pg (25-35) Mean Corpuscular Hemoglobin Concent 34 g/dL (31-37) Red Cell Distribution Width 13.5 % (11.5-14.5) Platelet Count 274 x10^3/uL (140-400) Neutrophils (%) (Auto) 80 % (31-73) Lymphocytes (%) (Auto) 12 % (24-48) Monocytes (%) (Auto) 6 % (0-9) Eosinophils (%) (Auto) 3 % (0-3) Basophils (%) (Auto) 1 % (0-3) Neutrophils # (Auto) 13.0 x10^3uL (1.8-7.7) Lymphocytes # (Auto) 1.9 x10^3/uL (1.0-4.8) Monocytes # (Auto) 0.9 x10^3/uL (0.0-1.1) Eosinophils # (Auto) 0.4 x10^3/uL (0.0-0.7) Basophils # (Auto) 0.1 x10^3/uL (0.0-0.2) Sodium Level 133 mmol/L (136-145) Potassium Level 3.0 mmol/L (3.5-5.1) Chloride Level 99 mmol/L (98-107) Carbon Dioxide Level 22 mmol/L (21-32) Anion Gap 12 (6-14) Blood Urea Nitrogen 16 mg/dL (7-20) Creatinine 0.6 mg/dL (0.6-1.0) Estimated GFR (Cockcroft-Gault) 100.0 Glucose Level 198 mg/dL (70-99) Calcium Level 8.5 mg/dL (8.5-10.1) Laboratory Tests Test 02/23/19 16:53 02/23/19 21:27 02/24/19 07:48 02/24/19 09:15 Glucose (Fingerstick) 73 mg/dL (70-99) 86 mg/dL (70-99) 130 mg/dL (70-99) White Blood Count 16.3 x10^3/uL (4.0-11.0) Red Blood Count 4.19 x10^6/uL (3.50-5.40) Hemoglobin 12.4 g/dL (12.0-15.5) Hematocrit 36.9 % (36.0-47.0) Mean Corpuscular Volume 88 fL (79-100) Mean Corpuscular Hemoglobin 30 pg (25-35) Mean Corpuscular Hemoglobin Concent 34 g/dL (31-37) Red Cell Distribution Width 13.5 % (11.5-14.5) Platelet Count 274 x10^3/uL (140-400) Neutrophils (%) (Auto) 80 % (31-73) Lymphocytes (%) (Auto) 12 % (24-48) Monocytes (%) (Auto) 6 % (0-9) Eosinophils (%) (Auto) 3 % (0-3) Basophils (%) (Auto) 1 % (0-3) Neutrophils # (Auto) 13.0 x10^3uL (1.8-7.7) Lymphocytes # (Auto) 1.9 x10^3/uL (1.0-4.8) Monocytes # (Auto) 0.9 x10^3/uL (0.0-1.1) Eosinophils # (Auto) 0.4 x10^3/uL (0.0-0.7) Basophils # (Auto) 0.1 x10^3/uL (0.0-0.2) Sodium Level 133 mmol/L (136-145) Potassium Level 3.0 mmol/L (3.5-5.1) Chloride Level 99 mmol/L (98-107) Carbon Dioxide Level 22 mmol/L (21-32) Anion Gap 12 (6-14) Blood Urea Nitrogen 16 mg/dL (7-20) Creatinine 0.6 mg/dL (0.6-1.0) Estimated GFR (Cockcroft-Gault) 100.0 Glucose Level 198 mg/dL (70-99) Calcium Level 8.5 mg/dL (8.5-10.1) Test 02/24/19 11:26 Glucose (Fingerstick) 204 mg/dL (70-99) Medications Current Medications Sodium Chloride 1,000 ml @ 1,000 mls/hr 1X ONCE IV Last administered on 02/19/19at 08:10; Start 02/19/19 at 08:00; Stop 02/19/19 at 08:59; Status DC Insulin Human Regular (HumuLIN R VIAL) 10 unit 1X ONCE IV Last administered on 02/19/19at 07:50; Start 02/19/19 at 08:00; Stop 02/19/19 at 08:02; Status DC Insulin Human Regular 150 ml @ 0 mls/hr 1X ONCE IV Last administered on 02/19/19at 08:34; Start 02/19/19 at 08:00; Stop 02/19/19 at 08:02; Status DC Sodium Chloride 1,000 ml @ 100 mls/hr 1X ONCE IV Last administered on 02/19/19at 08:29; Start 02/19/19 at 09:00; Stop 02/19/19 at 13:58; Status DC Sodium Chloride 1,000 ml @ 1,000 mls/hr 1X ONCE IV ; Start 02/19/19 at 09:00; Stop 02/19/19 at 10:02; Status DC Ceftriaxone Sodium (Rocephin) 1 gm 1X ONCE IVP Last administered on 02/19/19at 10:28; Start 02/19/19 at 09:00; Stop 02/19/19 at 09:01; Status DC Sodium Chloride 1,000 ml @ 200 mls/hr Q5H IV ; Start 02/19/19 at 10:00; Stop 02/20/19 at 09:59; Status Cancel Insulin Human Regular 150 unit/ Sodium Chloride 151.5 ml @ 0 mls/hr CONT PRN PRN IV PER PROTOCOL; Start 02/19/19 at 13:00; Status Cancel Dextrose/Sodium Chloride 1,000 ml @ 250 mls/hr Q4H IV Last administered on 02/19/19at 18:06; Start 02/19/19 at 15:00; Stop 02/19/19 at 21:01; Status DC Insulin Human Regular 150 unit/ Sodium Chloride 151.5 ml @ 0 mls/hr CONT PRN PRN IV PER PROTOCOL; Start 02/19/19 at 10:00; Stop 02/19/19 at 21:01; Status DC Potassium Chloride/Water 100 ml @ 100 mls/hr PRN Q1HR PRN IV SEE COMMENTS; Start 02/19/19 at 10:00; Stop 02/19/19 at 21:01; Status DC Potassium Chloride/Water 100 ml @ 100 mls/hr PRN Q1HR PRN IV SEE COMMENTS; Start 02/19/19 at 09:45; Stop 02/19/19 at 21:01; Status DC Potassium Chloride/Water 100 ml @ 100 mls/hr PRN Q1HR PRN IV SEE COMMENTS; Start 02/19/19 at 09:45; Stop 02/19/19 at 21:01; Status DC Labetalol HCl (Normodyne Iv Push) 10 mg PRN Q2HR PRN IVP HYPERTENSION, SEE COMMENTS Last administered on 02/21/19at 14:06; Start 02/19/19 at 09:45; Stop 02/21/19 at 15:43; Status DC Acetaminophen/ Codeine Phosphate (Tylenol #3) 1 tab PRN Q6HRS PRN PO PAIN; Start 02/19/19 at 09:45 Ondansetron HCl (Zofran) 4 mg PRN Q6HRS PRN IV NAUSEA/VOMITING 1ST CHOICE Last administered on 02/20/19at 11:25; Start 02/19/19 at 09:45 Ondansetron HCl (Zofran Odt) 4 mg PRN Q6HRS PRN PO NAUSEA/VOMITING; Start 02/19/19 at 09:45 Acetaminophen/ Hydrocodone Bitart (Lortab 5/325) 1 tab PRN Q4HRS PRN PO PAIN; Start 02/19/19 at 09:45 Fentanyl Citrate (Fentanyl 2ml Vial) 25 mcg PRN Q2HR PRN IV PAIN; Start 02/19/19 at 09:45 Sodium Chloride 1,000 ml @ 250 mls/hr Q4H IV Last administered on 02/19/19at 10:07; Start 02/19/19 at 11:00; Stop 02/19/19 at 18:06; Status DC Lidocaine (Lidoderm) 1 patch DAILY TD Last administered on 02/24/19at 08:45; Start 02/20/19 at 09:00 Miscellaneous (Lidoderm Patch Removal) 1 ea QHS MC Last administered on 02/23/19at 21:00; Start 02/19/19 at 21:00 Heparin Sodium (Porcine) (Heparin Sodium) 5,000 unit Q8HRS SQ Last administered on 02/24/19at 05:55; Start 02/19/19 at 14:00 Lorazepam (Ativan) 2 mg PRN Q4HRS PRN IV ANXIETY / AGITATION Last administered on 02/19/19at 11:59; Start 02/19/19 at 11:45 Lorazepam (Ativan) 2 mg PRN Q4HRS PRN IV ANXIETY / AGITATION; Start 02/19/19 at 12:00; Status UNV Potassium Phosphate 13.6 mmol/Dextrose 104.5333 ml @ 52.267 m... Q2H IV Last administered on 02/19/19at 18:05; Start 02/19/19 at 14:00; Stop 02/19/19 at 19:59; Status DC Dextrose/Sodium Chloride 1,000 ml @ 250 mls/hr Q4H IV ; Start 02/19/19 at 14:00; Status UNV Potassium Chloride 40 meq/ Sodium Chloride 1,020 ml @ 75 mls/hr [id number] IV Last administered on 02/19/19 21:07; Start 02/19/19 at 21:00; Stop 02/20/19 at 08:04; Status DC Insulin Glargine (Lantus) 30 units QHS SQ Last administered on 02/22/19at 21:26; Start 02/19/19 at 21:00 Insulin Human Lispro (HumaLOG) 0-9 UNITS TIDWMEALS SQ Last administered on 02/20/19 16:44; Start 02/20/19 at 08:00; Stop 02/21/19 at 08:18; Status DC Dextrose (Dextrose 50%-Water Syringe) 12.5 gm PRN Q15MIN PRN IV SEE COMMENTS; Start 02/19/19 at 21:00 Insulin Human Lispro (HumaLOG) 12 units TIDWMEALS SQ Last administered on 02/20/19 18:25; Start 02/20/19 at 08:00; Stop 02/21/19 at 08:18; Status DC Acetaminophen (Tylenol) 650 mg PRN Q6HRS PRN PO temp Last administered on 02/20/19at 11:16; Start 02/19/19 at 21:00 Acetaminophen (Tylenol Supp) 650 mg PRN Q6HRS PRN TX MILD PAIN / TEMP; Start 02/19/19 at 21:00 Insulin Human Lispro (HumaLOG) 4 units 1X ONCE SQ Last administered on 5/12/19at 02:00; Start 02/20/19 at 02:00; Stop 02/20/19 at 02:01; Status DC Insulin Human Lispro (HumaLOG) 10 units 1X ONCE SQ Last administered on 02/20/19at 05:35; Start 02/20/19 at 06:00; Stop 02/20/19 at 06:01; Status DC Sodium Chloride 38.75 meq/Sterile Water 1,009.6875 ml @ 100 mls/hr Q10H6M IV Last administered on 02/24/19at 01:56; Start 02/20/19 at 09:00; Stop 02/24/19 at 09:15; Status DC Metoclopramide HCl (Reglan Vial) 5 mg PRN Q6HRS PRN IV NAUSEA/VOMITING 2ND CHOICE; Start 02/20/19 at 14:15 Insulin Human Lispro (HumaLOG) 12 units QIDACHS SQ Last administered on 02/22/19at 12:45; Start 02/21/19 at 08:20; Stop 02/22/19 at 12:59; Status DC Insulin Human Lispro (HumaLOG) 0-9 UNITS QIDACHS SQ Last administered on 02/22/19at 12:44; Start 02/21/19 at 08:20 Pantoprazole Sodium (Protonix) 40 mg BIDAC PO Last administered on 02/24/19at 08:33; Start 02/21/19 at 11:30 Ondansetron HCl (Zofran) 4 mg PRN Q6HRS PRN IV NAUSEA/VOMITING; Start 02/22/19 at 07:00; Stop 02/23/19 at 07:00; Status DC Fentanyl Citrate (Fentanyl 2ml Vial) 25 mcg PRN Q5MIN PRN IV MILD PAIN; Start 02/22/19 at 07:00; Stop 02/23/19 at 07:00; Status DC Fentanyl Citrate (Fentanyl 2ml Vial) 50 mcg PRN Q5MIN PRN IV MODERATE TO SEVERE PAIN; Start 02/22/19 at 07:00; Stop 02/23/19 at 07:00; Status DC Morphine Sulfate (Morphine Sulfate) 1 mg PRN Q10MIN PRN IV SEVERE PAIN; Start 02/22/19 at 07:00; Stop 02/23/19 at 07:00; Status DC Ringer's Solution 1,000 ml @ 30 mls/hr Q24H IV Last administered on 02/22/19at 13:26; Start 02/22/19 at 07:00; Stop 02/22/19 at 18:59; Status DC Lidocaine HCl (Xylocaine-Mpf 1% 2ml Vial) 2 ml PRN 1X PRN ID PRIOR TO IV START; Start 02/22/19 at 07:00; Stop 02/23/19 at 07:00; Status DC Hydromorphone HCl (Dilaudid) 0.5 mg PRN Q10MIN PRN IV SEV PAIN, Second choice; Start 02/22/19 at 07:00; Stop 02/23/19 at 07:00; Status DC Clonidine HCl (Catapres) 0.2 mg PRN Q8HRS PRN PO SBP >160 Last administered on 02/21/19at 18:25; Start 02/21/19 at 15:45 Amlodipine Besylate (Norvasc) 10 mg DAILY PO Last administered on 02/24/19at 08:33; Start 02/22/19 at 09:00 Oxymetazoline HCl (Afrin) 2 spray 1X ONCE NS Last administered on 02/22/19at 16:48; Start 02/22/19 at 13:00; Stop 02/22/19 at 13:01; Status DC Oxymetazoline HCl (Afrin) 2 spray BID NS Last administered on 02/24/19at 08:34; Start 02/22/19 at 21:00 Fluticasone Propionate (Flonase) 2 spray DAILY NS Last administered on 02/24/19at 08:34; Start 02/22/19 at 13:00 Potassium Chloride (Klor-Con) 20 meq 1X ONCE PO Last administered on 02/22/19at 16:48; Start 02/22/19 at 13:30; Stop 02/22/19 at 13:31; Status DC Insulin Human Lispro (HumaLOG) 15 units QIDACHS SQ Last administered on 02/23/19at 12:34; Start 02/22/19 at 16:30 Midazolam HCl (Versed) 2 mg PRN 1X PRN IV PRIOR TO PROCEDURE; Start 02/22/19 at 13:15; Stop 02/23/19 at 13:14; Status DC Fentanyl Citrate (Fentanyl 2ml Vial) 25 mcg PRN Q5MIN PRN IV X 2 DOSES FOR PAIN; Start 02/22/19 at 13:15; Stop 02/23/19 at 13:14; Status DC Fentanyl Citrate (Fentanyl 2ml Vial) 50 mcg PRN Q5MIN PRN IV X 2 DOSES FOR PAIN; Start 02/22/19 at 13:15; Stop 02/23/19 at 13:14; Status DC Ringer's Solution 1,000 ml @ 125 mls/hr Q8H IV ; Start 02/22/19 at 13:11; Stop 02/23/19 at 01:10; Status DC Lidocaine HCl (Xylocaine-Mpf 1% 2ml Vial) 2 ml 1X PRN PRN ID IV START; Start 02/22/19 at 13:15; Stop 02/23/19 at 13:14; Status DC Propofol 20 ml @ As Directed STK-MED ONCE IV ; Start 02/22/19 at 14:20; Stop 02/22/19 at 14:21; Status DC Heparin Sodium (Porcine) 1000 unit/Sodium Chloride 1,001 ml @ 1,001 mls/hr 1X ONCE IRR ; Start 02/24/19 at 06:00; Stop 02/24/19 at 06:59; Status DC Polyethylene Glycol (miraLAX PACKET) 17 gm DAILY PO Last administered on 02/23/19at 15:43; Start 02/23/19 at 14:00 Polyethylene Glycol (miraLAX PACKET) 17 gm PRN DAILY PRN PO CONSTIPATION; Start 02/23/19 at 13:15 Ondansetron HCl (Zofran) 4 mg PRN Q6HRS PRN IV NAUSEA/VOMITING; Start 02/24/19 at 07:00; Stop 02/25/19 at 06:59 Fentanyl Citrate (Fentanyl 2ml Vial) 25 mcg PRN Q5MIN PRN IV MILD PAIN 1-3; Start 02/24/19 at 07:00; Stop 02/25/19 at 06:59 Fentanyl Citrate (Fentanyl 2ml Vial) 50 mcg PRN Q5MIN PRN IV MODERATE TO SEVERE PAIN; Start 02/24/19 at 07:00; Stop 02/25/19 at 06:59 Morphine Sulfate (Morphine Sulfate) 1 mg PRN Q10MIN PRN IV SEVERE PAIN 7-10; Start 02/24/19 at 07:00; Stop 02/25/19 at 06:59 Ringer's Solution 1,000 ml @ 30 mls/hr Q24H IV ; Start 02/24/19 at 07:00; Stop 02/24/19 at 18:59 Lidocaine HCl (Xylocaine-Mpf 1% 2ml Vial) 2 ml PRN 1X PRN ID PRIOR TO IV START; Start 02/24/19 at 07:00; Stop 02/25/19 at 06:59 Hydromorphone HCl (Dilaudid) 0.5 mg PRN Q10MIN PRN IV SEV PAIN, Second choice; Start 02/24/19 at 07:00; Stop 02/25/19 at 06:59 Prochlorperazine Edisylate (Compazine) 5 mg PACU PRN PRN IV NAUSEA, MRX1; Start 02/24/19 at 07:00; Stop 02/25/19 at 06:59 Lisinopril (Prinivil) 20 mg DAILY PO Last administered on 02/24/19at 08:32; Start 02/24/19 at 09:00 Vitals/I & O Vital Sign - Last 24 Hours 02/23/19 02/23/19 02/23/19 02/23/19 15:00 19:00 20:00 23:00 Temp 97.7 97.4 97.7 97.7 97.4 97.7 Pulse 72 67 68 Resp 18 24 18 B/P (MAP) 139/64 (89) 163/76 (105) 162/77 (105) Pulse Ox 96 100 97 O2 Delivery Nasal Cannula Nasal Cannula O2 Flow Rate 2.0 2.0 02/23/19 02/24/19 02/24/19 02/24/19 23:28 03:00 07:00 08:00 Temp 98.0 99.3 98.0 99.3 Pulse 68 74 Resp 18 17 B/P (MAP) 165/74 (104) 147/70 (95) Pulse Ox 97 93 O2 Delivery Nasal Cannula Nasal Cannula O2 Flow Rate 2.0 2.0 02/24/19 02/24/19 02/24/19 02/24/19 08:24 08:32 08:33 11:00 Temp 98.2 97.9 98.2 97.9 Pulse 71 71 71 76 Resp 17 17 B/P (MAP) 172/71 (104) 172/71 172/71 147/63 (91) Pulse Ox 95 95 O2 Delivery Nasal Cannula Nasal Cannula O2 Flow Rate 2.0 2.0 Intake and Output 02/23/19 02/23/19 02/24/19 15:00 23:00 07:00 Intake Total 0 ml 360 ml Output Total 500 ml 300 ml Balance 0 ml -140 ml -300 ml MILA AUGUSTIN MD February 24, 2019 14:34
--- NOTE | 2019-02-24 15:06 | PATHOLOGY ---
[facility] Accession Number: [id number] . 01 Material submitted: . PART A: duodenum - DUODENAL BX R/O CELIAC SPRUE PART B: gastrointestinal site - ANTRUM GASTRITIS R/O H. PYLORI . 01 Clinical history: . Nausea with vomiting, anorexia . 02 Diagnosis: A. Duodenal biopsies: - Focal mild nonspecific duodenitis. . B. Gastric biopsies, antrum: - Congestion and focal slight chronic inflammation. . (JPM:mml; 02/24/2019) [facility]/02/24/2019 . 02 Comment: Sections of the duodenal biopsy show a focal mild increase of chronic inflammatory cells with a few admixed neutrophils within the lamina propria. The mucosal villi show no sprue-like changes. . Sections of the gastric biopsy reveal segments of gastric body mucosa showing congestion and focal slight chronic inflammation. An immunoperoxidase stain for Helicobacter is negative for Helicobacter organisms. There is no evidence of malignancy. . Special stain performed: Immunoperoxidase stain for Helicobacter on B1 . (JPM:mml; 02/24/2019) . 02 Electronically signed: . Cristofer Pardo MD, Pathologist NPI- [id number] . 01 Gross description: . A. Received in formalin labeled "Joan Villafuerte, duodenal BX, rule out celiac sprue," are 3 segments of hickman soft tissue measuring 0.7 x 0.6 x 0.2 cm in aggregate dimensions and ranging from 0.2 to 0.4 cm in maximum dimension. The specimen is submitted entirely in cassette A1. . B. Received in formalin labeled "Tomkins, Joan, antrum gastritis, rule out H. pylori," are 2 segments of hickman soft tissue measuring 0.6 x 0.2 x 0.2 cm in aggregate dimensions and measuring 0.3 cm each in maximum dimension. The specimen is submitted entirely in cassette B1. (TSD; 02/23/2019) TOB/TOB . 02 Pathologist provided ICD-10: K29.80, K29.50 . 02 CPT . 042689, 426729, Z19193 Specimen Comment: A courtesy copy of this report has been sent to Specimen Comment: [phone], , . Specimen Comment: Report sent to ,DR SALMERON / DR PRUETT Performed at: 01 [facility] [address], [place] [id number] MD Rylan Sanches MD Phone: [phone] Performed at: 02 [facility] [address] [place], [place] [id number] MD Cristofer Pardo MD Phone: [phone]
--- NOTE | 2019-02-24 16:20 | NUR ---
Telephone call received from Radiologist Dr. Dia: per radiology report there is a Large infarct on the Right side (positive for stroke). This nurse notified Dr. Madrigal. Addendum: 02/24/19 at 1627 by JEFF DANIELS RN This radiology report is related to the MRI done today.
--- NOTE | 2019-02-24 16:22 | RAD ---
MRI Brain without contrast History: Left-sided weakness Technique: Multiplanar, multisequential noncontrast MR imaging was performed of the brain. Comparison: Head CT exam February 19, 2019 Findings: Not apparent on previous CT head exam, there is a large area of restricted diffusion centered in the right temporal lobe although extent to the right parietal and occipital lobes, also some smaller foci of the right thalamus, right insula, right basal ganglia. More confluent focus of restricted diffusion measures on the order of 6.4 cm AP by 3.5 cm transverse. There is some corresponding sulcal effacement and mild mass effect as well as diffuse T2 and FLAIR hyperintense signal. There is some subtle associated decreased signal on the gradient echo sequence at site of more confluent diffusion signal change. There is no restricted diffusion of the left hemisphere or posterior fossa. There is old right basal ganglia lacunar infarct. There is other very mild T2 and FLAIR hyperintense signal of the supratentorial parenchyma bilaterally likely component of chronic microvascular ischemic disease. There is no midline shift. Ventricular size is within normal limits. Cerebral volume can be considered within normal limits. There is preservation of the basilar and internal carotid artery flow-voids, vasculature not accurately evaluated. Proximal right M1 narrowing is not excludable by this exam. There has been lens surgery bilaterally, slightly disconjugate gaze. There is patchy mild ethmoid air cell mucosal thickening. There is very mild thickening of the mastoid air cells bilaterally. Cerebellar tonsils are normal in location. There is nonspecific mild heterogeneity of the marrow of the nonexpanded clivus. There is no significant abnormality of pineal gland or pituitary gland. Impression: 1. There is a large subacute infarct centered in the right temporal lobe extending to parietal and occipital lobes, also some smaller foci of the right basal ganglia, right thalamus, and right insula. There is mild petechial hemorrhage associated with area of more confluent diffusion signal abnormality of the right temporal lobe. Proximal right M1 narrowing is not excludable by this exam. FOR INTERNAL CODING PURPOSES Critical result: Findings discussed with patient's nurse Germaine at 02/24/2019 4:19 PM, to inform doctor of findings. RESULT CODE: (C) Electronically signed by: Suhas Davison MD (02/24/2019 4:19 PM) [id number]
--- NOTE | 2019-02-24 16:30 | NUR ---
Patient transported to CT by ELIANA Lyons and Germaine RN
--- NOTE | 2019-02-24 16:40 | NUR ---
Telephone call received from Dr. Madrigal to consult neurology; Dr. Hsu, who was consulted earlier for the MRI, was contacted to review the MRI results.
--- NOTE | 2019-02-24 17:00 | NUR ---
Patient transported to CT scan with contrast.
[2019-02-24] MEDS ORDERED: IOHEXOL 350 MG/ML 100 ML VIAL. IV ONE (17:15)
[2019-02-24] MEDS ORDERED: ASPIRIN RECTAL 300 MG SUPP. PR PRN (17:15)
--- NOTE | 2019-02-24 17:15 | NUR ---
Patient transported back to room by ELIANA Lyons and ELISHA Herron
--- NOTE | 2019-02-24 17:23 | PDOC ---
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 There is mild petechial hemorrhage associated with area of more confluent diffusion signal abnormality of the right temporal lobe. Proximal right M1 narrowing is not excludable by this exam. Plan: Patient seen by surgery and recommended to have cholecystectomy. Patient is not interested at the present time, I have reiterated the risk of not addressing this at the present time specially given her elevated white blood cell count. Patient's wishes will be respected and will continue with medical management at this time. History of Present Illness History of Present Illness Patient today feeling better compared to yesterday. She has a slight facial droop during my encounter but no significant deficits. Later in day the patient unfortunately suffered change in her status and her deficit became very apparent on thing a workup that has yielded positive results for a new stroke. The patien t is hemodynamically stable and will continue with medical management, we have requested a neurological evaluation as well Vitals Vitals Vital Signs Date Time Temp Pulse Resp B/P (MAP) Pulse Ox O2 Delivery O2 Flow Rate FiO2 02/24/19 15:00 97.7 84 17 132/64 (86) 93 Nasal Cannula 2.0 97.7 Physical Exam General: Alert, Oriented X3, Cooperative, No acute distress Heart: Regular rate, Normal S1, Normal S2 Abdomen: Soft, No tenderness Extremities: No clubbing, No cyanosis Skin: Other (arm with chronic scars c/w scratching) Labs LABS Laboratory Tests Test 02/23/19 21:27 02/24/19 07:48 02/24/19 09:15 02/24/19 11:26 Glucose (Fingerstick) 86 mg/dL (70-99) 130 mg/dL (70-99) 204 mg/dL (70-99) White Blood Count 16.3 x10^3/uL (4.0-11.0) Red Blood Count 4.19 x10^6/uL (3.50-5.40) Hemoglobin 12.4 g/dL (12.0-15.5) Hematocrit 36.9 % (36.0-47.0) Mean Corpuscular Volume 88 fL (79-100) Mean Corpuscular Hemoglobin 30 pg (25-35) Mean Corpuscular Hemoglobin Concent 34 g/dL (31-37) Red Cell Distribution Width 13.5 % (11.5-14.5) Platelet Count 274 x10^3/uL (140-400) Neutrophils (%) (Auto) 80 % (31-73) Lymphocytes (%) (Auto) 12 % (24-48) Monocytes (%) (Auto) 6 % (0-9) Eosinophils (%) (Auto) 3 % (0-3) Basophils (%) (Auto) 1 % (0-3) Neutrophils # (Auto) 13.0 x10^3uL (1.8-7.7) Lymphocytes # (Auto) 1.9 x10^3/uL (1.0-4.8) Monocytes # (Auto) 0.9 x10^3/uL (0.0-1.1) Eosinophils # (Auto) 0.4 x10^3/uL (0.0-0.7) Basophils # (Auto) 0.1 x10^3/uL (0.0-0.2) Sodium Level 133 mmol/L (136-145) Potassium Level 3.0 mmol/L (3.5-5.1) Chloride Level 99 mmol/L (98-107) Carbon Dioxide Level 22 mmol/L (21-32) Anion Gap 12 (6-14) Blood Urea Nitrogen 16 mg/dL (7-20) Creatinine 0.6 mg/dL (0.6-1.0) Estimated GFR (Cockcroft-Gault) 100.0 Glucose Level 198 mg/dL (70-99) Calcium Level 8.5 mg/dL (8.5-10.1) Vitamin B12 Level 613 pg/mL (247-911) Thyroid Stimulating Hormone (TSH) 1.726 uIU/mL (0.358-3.74) Test 02/24/19 16:40 Glucose (Fingerstick) 288 mg/dL (70-99) Review of Systems Review of Systems Pertinent as per history of present illness otherwise 14 point review of system is negative Assessment and Plan Assessmemt and Plan Problems Medical Problems: (1) Altered level of consciousness Status: Acute (2) Dehydration Status: Acute (3) DKA (diabetic ketoacidoses) Status: Acute (4) Hypercalcemia Status: Acute (5) Hypermagnesemia Status: Acute (6) Renal insufficiency Status: Acute (7) Sepsis Status: Acute Comment Review of Relevant I have reviewed the following items katalina (where applicable) has been applied. Labs Laboratory Tests Test 02/22/19 20:40 02/23/19 03:45 02/23/19 07:21 02/23/19 08:55 Glucose (Fingerstick) 96 mg/dL (70-99) 111 mg/dL (70-99) 146 mg/dL (70-99) White Blood Count 16.6 x10^3/uL (4.0-11.0) Red Blood Count 4.34 x10^6/uL (3.50-5.40) Hemoglobin 12.8 g/dL (12.0-15.5) Hematocrit 38.5 % (36.0-47.0) Mean Corpuscular Volume 89 fL (79-100) Mean Corpuscular Hemoglobin 30 pg (25-35) Mean Corpuscular Hemoglobin Concent 33 g/dL (31-37) Red Cell Distribution Width 13.2 % (11.5-14.5) Platelet Count 207 x10^3/uL (140-400) Neutrophils (%) (Auto) 82 % (31-73) Lymphocytes (%) (Auto) 11 % (24-48) Monocytes (%) (Auto) 6 % (0-9) Eosinophils (%) (Auto) 1 % (0-3) Basophils (%) (Auto) 0 % (0-3) Neutrophils # (Auto) 13.5 x10^3uL (1.8-7.7) Lymphocytes # (Auto) 1.8 x10^3/uL (1.0-4.8) Monocytes # (Auto) 1.0 x10^3/uL (0.0-1.1) Eosinophils # (Auto) 0.2 x10^3/uL (0.0-0.7) Basophils # (Auto) 0.0 x10^3/uL (0.0-0.2) Sodium Level 136 mmol/L (136-145) Potassium Level 3.4 mmol/L (3.5-5.1) Chloride Level 103 mmol/L (98-107) Carbon Dioxide Level 23 mmol/L (21-32) Anion Gap 10 (6-14) Blood Urea Nitrogen 21 mg/dL (7-20) Creatinine 0.7 mg/dL (0.6-1.0) Estimated GFR (Cockcroft-Gault) 83.7 Glucose Level 120 mg/dL (70-99) Calcium Level 8.4 mg/dL (8.5-10.1) Test 02/23/19 12:16 02/23/19 16:53 02/23/19 21:27 02/24/19 07:48 Glucose (Fingerstick) 122 mg/dL (70-99) 73 mg/dL (70-99) 86 mg/dL (70-99) 130 mg/dL (70-99) Test 02/24/19 09:15 02/24/19 11:26 02/24/19 16:40 White Blood Count 16.3 x10^3/uL (4.0-11.0) Red Blood Count 4.19 x10^6/uL (3.50-5.40) Hemoglobin 12.4 g/dL (12.0-15.5) Hematocrit 36.9 % (36.0-47.0) Mean Corpuscular Volume 88 fL (79-100) Mean Corpuscular Hemoglobin 30 pg (25-35) Mean Corpuscular Hemoglobin Concent 34 g/dL (31-37) Red Cell Distribution Width 13.5 % (11.5-14.5) Platelet Count 274 x10^3/uL (140-400) Neutrophils (%) (Auto) 80 % (31-73) Lymphocytes (%) (Auto) 12 % (24-48) Monocytes (%) (Auto) 6 % (0-9) Eosinophils (%) (Auto) 3 % (0-3) Basophils (%) (Auto) 1 % (0-3) Neutrophils # (Auto) 13.0 x10^3uL (1.8-7.7) Lymphocytes # (Auto) 1.9 x10^3/uL (1.0-4.8) Monocytes # (Auto) 0.9 x10^3/uL (0.0-1.1) Eosinophils # (Auto) 0.4 x10^3/uL (0.0-0.7) Basophils # (Auto) 0.1 x10^3/uL (0.0-0.2) Sodium Level 133 mmol/L (136-145) Potassium Level 3.0 mmol/L (3.5-5.1) Chloride Level 99 mmol/L (98-107) Carbon Dioxide Level 22 mmol/L (21-32) Anion Gap 12 (6-14) Blood Urea Nitrogen 16 mg/dL (7-20) Creatinine 0.6 mg/dL (0.6-1.0) Estimated GFR (Cockcroft-Gault) 100.0 Glucose Level 198 mg/dL (70-99) Calcium Level 8.5 mg/dL (8.5-10.1) Vitamin B12 Level 613 pg/mL (247-911) Thyroid Stimulating Hormone (TSH) 1.726 uIU/mL (0.358-3.74) Glucose (Fingerstick) 204 mg/dL (70-99) 288 mg/dL (70-99) Laboratory Tests Test 02/23/19 21:27 02/24/19 07:48 02/24/19 09:15 02/24/19 11:26 Glucose (Fingerstick) 86 mg/dL (70-99) 130 mg/dL (70-99) 204 mg/dL (70-99) White Blood Count 16.3 x10^3/uL (4.0-11.0) Red Blood Count 4.19 x10^6/uL (3.50-5.40) Hemoglobin 12.4 g/dL (12.0-15.5) Hematocrit 36.9 % (36.0-47.0) Mean Corpuscular Volume 88 fL (79-100) Mean Corpuscular Hemoglobin 30 pg (25-35) Mean Corpuscular Hemoglobin Concent 34 g/dL (31-37) Red Cell Distribution Width 13.5 % (11.5-14.5) Platelet Count 274 x10^3/uL (140-400) Neutrophils (%) (Auto) 80 % (31-73) Lymphocytes (%) (Auto) 12 % (24-48) Monocytes (%) (Auto) 6 % (0-9) Eosinophils (%) (Auto) 3 % (0-3) Basophils (%) (Auto) 1 % (0-3) Neutrophils # (Auto) 13.0 x10^3uL (1.8-7.7) Lymphocytes # (Auto) 1.9 x10^3/uL (1.0-4.8) Monocytes # (Auto) 0.9 x10^3/uL (0.0-1.1) Eosinophils # (Auto) 0.4 x10^3/uL (0.0-0.7) Basophils # (Auto) 0.1 x10^3/uL (0.0-0.2) Sodium Level 133 mmol/L (136-145) Potassium Level 3.0 mmol/L (3.5-5.1) Chloride Level 99 mmol/L (98-107) Carbon Dioxide Level 22 mmol/L (21-32) Anion Gap 12 (6-14) Blood Urea Nitrogen 16 mg/dL (7-20) Creatinine 0.6 mg/dL (0.6-1.0) Estimated GFR (Cockcroft-Gault) 100.0 Glucose Level 198 mg/dL (70-99) Calcium Level 8.5 mg/dL (8.5-10.1) Vitamin B12 Level 613 pg/mL (247-911) Thyroid Stimulating Hormone (TSH) 1.726 uIU/mL (0.358-3.74) Test 02/24/19 16:40 Glucose (Fingerstick) 288 mg/dL (70-99) Medications Current Medications Sodium Chloride 1,000 ml @ 1,000 mls/hr 1X ONCE IV Last administered on 02/19/19at 08:10; Start 02/19/19 at 08:00; Stop 02/19/19 at 08:59; Status DC Insulin Human Regular (HumuLIN R VIAL) 10 unit 1X ONCE IV Last administered on 02/19/19at 07:50; Start 02/19/19 at 08:00; Stop 02/19/19 at 08:02; Status DC Insulin Human Regular 150 ml @ 0 mls/hr 1X ONCE IV Last administered on 02/19/19at 08:34; Start 02/19/19 at 08:00; Stop 02/19/19 at 08:02; Status DC Sodium Chloride 1,000 ml @ 100 mls/hr 1X ONCE IV Last administered on 02/19/19at 08:29; Start 02/19/19 at 09:00; Stop 02/19/19 at 13:58; Status DC Sodium Chloride 1,000 ml @ 1,000 mls/hr 1X ONCE IV ; Start 02/19/19 at 09:00; Stop 02/19/19 at 10:02; Status DC Ceftriaxone Sodium (Rocephin) 1 gm 1X ONCE IVP Last administered on 02/19/19at 10:28; Start 02/19/19 at 09:00; Stop 02/19/19 at 09:01; Status DC Sodium Chloride 1,000 ml @ 200 mls/hr Q5H IV ; Start 02/19/19 at 10:00; Stop 02/20/19 at 09:59; Status Cancel Insulin Human Regular 150 unit/ Sodium Chloride 151.5 ml @ 0 mls/hr CONT PRN PRN IV PER PROTOCOL; Start 02/19/19 at 13:00; Status Cancel Dextrose/Sodium Chloride 1,000 ml @ 250 mls/hr Q4H IV Last administered on 02/19/19at 18:06; Start 02/19/19 at 15:00; Stop 02/19/19 at 21:01; Status DC Insulin Human Regular 150 unit/ Sodium Chloride 151.5 ml @ 0 mls/hr CONT PRN PRN IV PER PROTOCOL; Start 02/19/19 at 10:00; Stop 02/19/19 at 21:01; Status DC Potassium Chloride/Water 100 ml @ 100 mls/hr PRN Q1HR PRN IV SEE COMMENTS; Start 02/19/19 at 10:00; Stop 02/19/19 at 21:01; Status DC Potassium Chloride/Water 100 ml @ 100 mls/hr PRN Q1HR PRN IV SEE COMMENTS; Start 02/19/19 at 09:45; Stop 02/19/19 at 21:01; Status DC Potassium Chloride/Water 100 ml @ 100 mls/hr PRN Q1HR PRN IV SEE COMMENTS; Start 02/19/19 at 09:45; Stop 02/19/19 at 21:01; Status DC Labetalol HCl (Normodyne Iv Push) 10 mg PRN Q2HR PRN IVP HYPERTENSION, SEE COMMENTS Last administered on 02/21/19at 14:06; Start 02/19/19 at 09:45; Stop 02/21/19 at 15:43; Status DC Acetaminophen/ Codeine Phosphate (Tylenol #3) 1 tab PRN Q6HRS PRN PO PAIN; Start 02/19/19 at 09:45 Ondansetron HCl (Zofran) 4 mg PRN Q6HRS PRN IV NAUSEA/VOMITING 1ST CHOICE Last administered on 02/20/19at 11:25; Start 02/19/19 at 09:45 Ondansetron HCl (Zofran Odt) 4 mg PRN Q6HRS PRN PO NAUSEA/VOMITING; Start 02/19/19 at 09:45 Acetaminophen/ Hydrocodone Bitart (Lortab 5/325) 1 tab PRN Q4HRS PRN PO PAIN; Start 02/19/19 at 09:45 Fentanyl Citrate (Fentanyl 2ml Vial) 25 mcg PRN Q2HR PRN IV PAIN; Start 02/19/19 at 09:45 Sodium Chloride 1,000 ml @ 250 mls/hr Q4H IV Last administered on 02/19/19at 10:07; Start 02/19/19 at 11:00; Stop 02/19/19 at 18:06; Status DC Lidocaine (Lidoderm) 1 patch DAILY TD Last administered on 02/24/19at 08:45; Start 02/20/19 at 09:00 Miscellaneous (Lidoderm Patch Removal) 1 ea QHS MC Last administered on 02/23/19at 21:00; Start 02/19/19 at 21:00 Heparin Sodium (Porcine) (Heparin Sodium) 5,000 unit Q8HRS SQ Last administered on 02/24/19at 14:37; Start 02/19/19 at 14:00 Lorazepam (Ativan) 2 mg PRN Q4HRS PRN IV ANXIETY / AGITATION Last administered on 02/19/19at 11:59; Start 02/19/19 at 11:45 Lorazepam (Ativan) 2 mg PRN Q4HRS PRN IV ANXIETY / AGITATION; Start 02/19/19 at 12:00; Status UNV Potassium Phosphate 13.6 mmol/Dextrose 104.5333 ml @ 52.267 m... Q2H IV Last administered on 02/19/19at 18:05; Start 02/19/19 at 14:00; Stop 02/19/19 at 19:59; Status DC Dextrose/Sodium Chloride 1,000 ml @ 250 mls/hr Q4H IV ; Start 02/19/19 at 14:00; Status UNV Potassium Chloride 40 meq/ Sodium Chloride 1,020 ml @ 75 mls/hr [id number] IV Last administered on 02/19/19at 21:07; Start 02/19/19 at 21:00; Stop 02/20/19 at 08:04; Status DC Insulin Glargine (Lantus) 30 units QHS SQ Last administered on 02/22/19at 21:26; Start 02/19/19 at 21:00 Insulin Human Lispro (HumaLOG) 0-9 UNITS TIDWMEALS SQ Last administered on 02/20/19at 16:44; Start 02/20/19 at 08:00; Stop 02/21/19 at 08:18; Status DC Dextrose (Dextrose 50%-Water Syringe) 12.5 gm PRN Q15MIN PRN IV SEE COMMENTS; Start 02/19/19 at 21:00 Insulin Human Lispro (HumaLOG) 12 units TIDWMEALS SQ Last administered on 02/20/19at 18:25; Start 02/20/19 at 08:00; Stop 02/21/19 at 08:18; Status DC Acetaminophen (Tylenol) 650 mg PRN Q6HRS PRN PO temp Last administered on 02/20/19at 11:16; Start 02/19/19 at 21:00 Acetaminophen (Tylenol Supp) 650 mg PRN Q6HRS PRN AK MILD PAIN / TEMP; Start 02/19/19 at 21:00 Insulin Human Lispro (HumaLOG) 4 units 1X ONCE SQ Last administered on 02/20/19at 02:00; Start 02/20/19 at 02:00; Stop 02/20/19 at 02:01; Status DC Insulin Human Lispro (HumaLOG) 10 units 1X ONCE SQ Last administered on 02/20/19at 05:35; Start 02/20/19 at 06:00; Stop 02/20/19 at 06:01; Status DC Sodium Chloride 38.75 meq/Sterile Water 1,009.6875 ml @ 100 mls/hr Q10H6M IV Last administered on 02/24/19at 01:56; Start 02/20/19 at 09:00; Stop 02/24/19 at 09:15; Status DC Metoclopramide HCl (Reglan Vial) 5 mg PRN Q6HRS PRN IV NAUSEA/VOMITING 2ND CHOICE; Start 02/20/19 at 14:15 Insulin Human Lispro (HumaLOG) 12 units QIDACHS SQ Last administered on 02/22/19at 12:45; Start 02/21/19 at 08:20; Stop 02/22/19 at 12:59; Status DC Insulin Human Lispro (HumaLOG) 0-9 UNITS QIDACHS SQ Last administered on 02/22/19at 12:44; Start 02/21/19 at 08:20 Pantoprazole Sodium (Protonix) 40 mg BIDAC PO Last administered on 02/24/19at 08:33; Start 02/21/19 at 11:30 Ondansetron HCl (Zofran) 4 mg PRN Q6HRS PRN IV NAUSEA/VOMITING; Start 02/22/19 at 07:00; Stop 02/23/19 at 07:00; Status DC Fentanyl Citrate (Fentanyl 2ml Vial) 25 mcg PRN Q5MIN PRN IV MILD PAIN; Start 02/22/19 at 07:00; Stop 02/23/19 at 07:00; Status DC Fentanyl Citrate (Fentanyl 2ml Vial) 50 mcg PRN Q5MIN PRN IV MODERATE TO SEVERE PAIN; Start 02/22/19 at 07:00; Stop 02/23/19 at 07:00; Status DC Morphine Sulfate (Morphine Sulfate) 1 mg PRN Q10MIN PRN IV SEVERE PAIN; Start 02/22/19 at 07:00; Stop 02/23/19 at 07:00; Status DC Ringer's Solution 1,000 ml @ 30 mls/hr Q24H IV Last administered on 02/22/19at 13:26; Start 02/22/19 at 07:00; Stop 02/22/19 at 18:59; Status DC Lidocaine HCl (Xylocaine-Mpf 1% 2ml Vial) 2 ml PRN 1X PRN ID PRIOR TO IV START; Start 02/22/19 at 07:00; Stop 02/23/19 at 07:00; Status DC Hydromorphone HCl (Dilaudid) 0.5 mg PRN Q10MIN PRN IV SEV PAIN, Second choice; Start 02/22/19 at 07:00; Stop 02/23/19 at 07:00; Status DC Clonidine HCl (Catapres) 0.2 mg PRN Q8HRS PRN PO SBP >160 Last administered on 02/21/19at 18:25; Start 02/21/19 at 15:45 Amlodipine Besylate (Norvasc) 10 mg DAILY PO Last administered on 02/24/19 08:33; Start 02/22/19 at 09:00 Oxymetazoline HCl (Afrin) 2 spray 1X ONCE NS Last administered on 02/22/19at 16:48; Start 02/22/19 at 13:00; Stop 02/22/19 at 13:01; Status DC Oxymetazoline HCl (Afrin) 2 spray BID NS Last administered on 02/24/19 08:34; Start 02/22/19 at 21:00 Fluticasone Propionate (Flonase) 2 spray DAILY NS Last administered on 02/24/19at 08:34; Start 02/22/19 at 13:00 Potassium Chloride (Klor-Con) 20 meq 1X ONCE PO Last administered on 02/22/19at 16:48; Start 02/22/19 at 13:30; Stop 02/22/19 at 13:31; Status DC Insulin Human Lispro (HumaLOG) 15 units QIDACHS SQ Last administered on 02/23/19at 12:34; Start 02/22/19 at 16:30 Midazolam HCl (Versed) 2 mg PRN 1X PRN IV PRIOR TO PROCEDURE; Start 02/22/19 at 13:15; Stop 02/23/19 at 13:14; Status DC Fentanyl Citrate (Fentanyl 2ml Vial) 25 mcg PRN Q5MIN PRN IV X 2 DOSES FOR PAIN; Start 02/22/19 at 13:15; Stop 02/23/19 at 13:14; Status DC Fentanyl Citrate (Fentanyl 2ml Vial) 50 mcg PRN Q5MIN PRN IV X 2 DOSES FOR PAIN; Start 02/22/19 at 13:15; Stop 02/23/19 at 13:14; Status DC Ringer's Solution 1,000 ml @ 125 mls/hr Q8H IV ; Start 02/22/19 at 13:11; Stop 02/23/19 at 01:10; Status DC Lidocaine HCl (Xylocaine-Mpf 1% 2ml Vial) 2 ml 1X PRN PRN ID IV START; Start 02/22/19 at 13:15; Stop 02/23/19 at 13:14; Status DC Propofol 20 ml @ As Directed STK-MED ONCE IV ; Start 02/22/19 at 14:20; Stop 02/22/19 at 14:21; Status DC Heparin Sodium (Porcine) 1000 unit/Sodium Chloride 1,001 ml @ 1,001 mls/hr 1X ONCE IRR ; Start 02/24/19 at 06:00; Stop 02/24/19 at 06:59; Status DC Polyethylene Glycol (miraLAX PACKET) 17 gm DAILY PO Last administered on 02/23/19at 15:43; Start 02/23/19 at 14:00 Polyethylene Glycol (miraLAX PACKET) 17 gm PRN DAILY PRN PO CONSTIPATION; Start 02/23/19 at 13:15 Ondansetron HCl (Zofran) 4 mg PRN Q6HRS PRN IV NAUSEA/VOMITING; Start 02/24/19 at 07:00; Stop 02/24/19 at 21:00 Fentanyl Citrate (Fentanyl 2ml Vial) 25 mcg PRN Q5MIN PRN IV MILD PAIN 1-3; Start 02/24/19 at 07:00; Stop 02/24/19 at 21:00 Fentanyl Citrate (Fentanyl 2ml Vial) 50 mcg PRN Q5MIN PRN IV MODERATE TO SEVERE PAIN; Start 02/24/19 at 07:00; Stop 02/24/19 at 21:00 Morphine Sulfate (Morphine Sulfate) 1 mg PRN Q10MIN PRN IV SEVERE PAIN 7-10; Start 02/24/19 at 07:00; Stop 02/24/19 at 21:00 Ringer's Solution 1,000 ml @ 30 mls/hr Q24H IV ; Start 02/24/19 at 07:00; Stop 02/24/19 at 18:59 Lidocaine HCl (Xylocaine-Mpf 1% 2ml Vial) 2 ml PRN 1X PRN ID PRIOR TO IV START; Start 02/24/19 at 07:00; Stop 02/24/19 at 21:00 Hydromorphone HCl (Dilaudid) 0.5 mg PRN Q10MIN PRN IV SEV PAIN, Second choice; Start 02/24/19 at 07:00; Stop 02/24/19 at 21:00 Prochlorperazine Edisylate (Compazine) 5 mg PACU PRN PRN IV NAUSEA, MRX1; Start 02/24/19 at 07:00; Stop 02/24/19 at 21:00 Lisinopril (Prinivil) 20 mg DAILY PO Last administered on 02/24/19at 08:32; Start 02/24/19 at 09:00 Aspirin (Paul Aspirin) 325 mg DAILYWBKFT PO ; Start 02/24/19 at 17:30 Aspirin (Aspirin Rectal Supp) 300 mg PRN DAILY PRN AK IF UNABLE TO TAKE PO; Start 02/24/19 at 17:15 Iohexol (Omnipaque 350 Mg/ml) 75 ml 1X ONCE IV ; Start 02/24/19 at 17:15; Stop 02/24/19 at 17:16; Status UNV Vitals/I & O Vital Sign - Last 24 Hours 02/23/19 02/23/19 02/23/19 02/23/19 19:00 20:00 23:00 23:28 Temp 97.4 97.7 97.4 97.7 Pulse 67 68 Resp 24 18 B/P (MAP) 163/76 (105) 162/77 (105) Pulse Ox 100 97 O2 Delivery Nasal Cannula Nasal Cannula O2 Flow Rate 2.0 2.0 02/24/19 02/24/19 02/24/19 02/24/19 03:00 07:00 08:00 08:24 Temp 98.0 99.3 98.2 98.0 99.3 98.2 Pulse 68 74 71 Resp 18 17 17 B/P (MAP) 165/74 (104) 147/70 (95) 172/71 (104) Pulse Ox 97 93 95 O2 Delivery Nasal Cannula Nasal Cannula O2 Flow Rate 2.0 2.0 02/24/19 02/24/19 02/24/19 02/24/19 08:32 08:33 11:00 15:00 Temp 97.9 97.7 97.9 97.7 Pulse 71 71 76 84 Resp 17 17 B/P (MAP) 172/71 172/71 147/63 (91) 132/64 (86) Pulse Ox 95 93 O2 Delivery Nasal Cannula Nasal Cannula O2 Flow Rate 2.0 2.0 Intake and Output 02/23/19 02/23/19 02/24/19 15:00 23:00 07:00 Intake Total 0 ml 360 ml Output Total 500 ml 300 ml Balance 0 ml -140 ml -300 ml LUIS FELIPE EDDY MD February 24, 2019 17:23
[2019-02-24] MEDS: ASPIRIN 325 MG TABLET PO SCH (17:54)
--- NOTE | 2019-02-24 18:00 | NUR ---
Medications, insulin, and dinner given at this time, upon patient return from CT scan.
--- NOTE | 2019-02-24 18:12 | PDOC2 ---
NEUROLOGY CONSULT Date of Admission Date of Admission DATE: 02/24/19 TIME: 17:50 Reason for Consult Reason for Consult: IMPRESSION: Large subacute right temporal, parietal and occipital infarct. Small right BG, thalamus and insula infarct. Right M! narrow? Petechial hemorrhage. Metabolic encephalopathy. Left side vague facial drooping, onset time unknown. Left side mild weakness, onset time unknown. Hyperglycemia, glucose level 747. DKA. DM. HTN. Leukocytosis. Cholelithiasis Fatty liver. Urinary and bowel incontinence. Obesity. RECOMMENDATIONS/PLAN: ASA 325 mg daily, if not take PO, 300 mg rectal. CTA today. If large vessel thrombosis or clots, may consider transfer to or [facility]. Echo + bubble study. Lab: see orders, including lipid panel. Control hyperglycemia. Treat medical and surgical diseases. HISTORY OF THE PRESENT ILLNESS: This is a 68-y-old female patient who was admitted on 02/19/19 due to DKA with glucose greater then 700. She was reportedly off DM meds for several years. She still complained back pain, poor PO intake and chronic nausea. GI was consulted and she was revealed cholelithiasis. Surgery was consulted, but patient declined cholecystectomy. She was noted left side facial drooping and left side weakness on 02/24/19, but patient stated she did not realized weakness. Neurology was requested for consultation, and a large subacute right MCA territory infarct was revealed. Past Medical History Endocrine: Diabetes, obesity. HTN. Past Surgical History Injury to neck with a laceration. She denies any other surgical procedures but she is not sure. Family History Unknown ALLERGY: Unknown MEDICATIONS: Refer to [facility] SOCIAL HISTORY: Lives with her at home. Denies current smoking, drinking, and illicit drug use. REVIEW OF SYSTEMS: Constitutional: Obese. Head: No traumatic brain or head injury. Skin: No edema, or rash. Ear: No infection. Eyes: No vision loss or color blindness. Nose: No bleeding or purulent discharges. Hearing: No hearing decrease. Neck: No injury. Breast: No history of cancer, masses,or discharges. Cardiac: HTN. Pulmonary: No COPD. GI: Cholelithiasis. Urinary/genital: UTI. Endocrinologic: Diabetes Mellitus, obesity. Skeletomuscular: No muscular atrophy. Neurological: see HP. Psychiatric: Denies drug use/abuse. Otherwise, not [id number] review of systems. PHYSICAL EXAMINATION: General appearance is in subacute distress. HEENT: Normocephalic and nontraumatic. Eyes, nose, ears, and throat are unremarkable. Neck is supple. No lymphadenopathy. No crepitus. Cardiovascular: S1, S2, regular rate and rhythm. Pulmonary: mildly decreased to auscultation bilaterally. Abdomen: Bowel sounds are positive. Extremities: No rash, lesions, or edema. No restriction of range of motion NEUROLOGICAL EXAMINATION: Awake. Reactions slow. Oriented partially to time, place but knew person. PERRL. EOMI. CN: no obvious focal findings at this time. Muscle tone: within normal. Muscle strength: left side 4, right side 5. DTR: 2- Plantar reflex: Neutral response bilaterally Gait: Unable to walk w/o assistance. Sensory exam: unable to access accurately due to not answer questions correctly. No acute cerebellar signs elicited. F-T-N test fine. Current Medications Current Medications Current Medications Sodium Chloride 1,000 ml @ 1,000 mls/hr 1X ONCE IV Last administered on 02/19/19at 08:10; Start 02/19/19 at 08:00; Stop 02/19/19 at 08:59; Status DC Insulin Human Regular (HumuLIN R VIAL) 10 unit 1X ONCE IV Last administered on 02/19/19at 07:50; Start 02/19/19 at 08:00; Stop 02/19/19 at 08:02; Status DC Insulin Human Regular 150 ml @ 0 mls/hr 1X ONCE IV Last administered on 02/19/19at 08:34; Start 02/19/19 at 08:00; Stop 02/19/19 at 08:02; Status DC Sodium Chloride 1,000 ml @ 100 mls/hr 1X ONCE IV Last administered on 02/19/19at 08:29; Start 02/19/19 at 09:00; Stop 02/19/19 at 13:58; Status DC Sodium Chloride 1,000 ml @ 1,000 mls/hr 1X ONCE IV ; Start 02/19/19 at 09:00; Stop 02/19/19 at 10:02; Status DC Ceftriaxone Sodium (Rocephin) 1 gm 1X ONCE IVP Last administered on 02/19/19at 10:28; Start 02/19/19 at 09:00; Stop 02/19/19 at 09:01; Status DC Sodium Chloride 1,000 ml @ 200 mls/hr Q5H IV ; Start 02/19/19 at 10:00; Stop 02/20/19 at 09:59; Status Cancel Insulin Human Regular 150 unit/ Sodium Chloride 151.5 ml @ 0 mls/hr CONT PRN PRN IV PER PROTOCOL; Start 02/19/19 at 13:00; Status Cancel Dextrose/Sodium Chloride 1,000 ml @ 250 mls/hr Q4H IV Last administered on 02/19/19at 18:06; Start 02/19/19 at 15:00; Stop 02/19/19 at 21:01; Status DC Insulin Human Regular 150 unit/ Sodium Chloride 151.5 ml @ 0 mls/hr CONT PRN PRN IV PER PROTOCOL; Start 02/19/19 at 10:00; Stop 02/19/19 at 21:01; Status DC Potassium Chloride/Water 100 ml @ 100 mls/hr PRN Q1HR PRN IV SEE COMMENTS; Start 02/19/19 at 10:00; Stop 02/19/19 at 21:01; Status DC Potassium Chloride/Water 100 ml @ 100 mls/hr PRN Q1HR PRN IV SEE COMMENTS; Start 02/19/19 at 09:45; Stop 02/19/19 at 21:01; Status DC Potassium Chloride/Water 100 ml @ 100 mls/hr PRN Q1HR PRN IV SEE COMMENTS; Start 02/19/19 at 09:45; Stop 02/19/19 at 21:01; Status DC Labetalol HCl (Normodyne Iv Push) 10 mg PRN Q2HR PRN IVP HYPERTENSION, SEE COMMENTS Last administered on 02/21/19at 14:06; Start 02/19/19 at 09:45; Stop 02/21/19 at 15:43; Status DC Acetaminophen/ Codeine Phosphate (Tylenol #3) 1 tab PRN Q6HRS PRN PO PAIN; Start 02/19/19 at 09:45 Ondansetron HCl (Zofran) 4 mg PRN Q6HRS PRN IV NAUSEA/VOMITING 1ST CHOICE Last administered on 02/20/19at 11:25; Start 02/19/19 at 09:45 Ondansetron HCl (Zofran Odt) 4 mg PRN Q6HRS PRN PO NAUSEA/VOMITING; Start 02/19/19 at 09:45 Acetaminophen/ Hydrocodone Bitart (Lortab 5/325) 1 tab PRN Q4HRS PRN PO PAIN; Start 02/19/19 at 09:45 Fentanyl Citrate (Fentanyl 2ml Vial) 25 mcg PRN Q2HR PRN IV PAIN; Start 02/19/19 at 09:45 Sodium Chloride 1,000 ml @ 250 mls/hr Q4H IV Last administered on 02/19/19at 10:07; Start 02/19/19 at 11:00; Stop 02/19/19 at 18:06; Status DC Lidocaine (Lidoderm) 1 patch DAILY TD Last administered on 02/24/19 08:45; Start 02/20/19 at 09:00 Miscellaneous (Lidoderm Patch Removal) 1 ea QHS MC Last administered on 02/23/19at 21:00; Start 02/19/19 at 21:00 Heparin Sodium (Porcine) (Heparin Sodium) 5,000 unit Q8HRS SQ Last administered on 02/24/19at 14:37; Start 02/19/19 at 14:00 Lorazepam (Ativan) 2 mg PRN Q4HRS PRN IV ANXIETY / AGITATION Last administered on 02/19/19 11:59; Start 02/19/19 at 11:45 Lorazepam (Ativan) 2 mg PRN Q4HRS PRN IV ANXIETY / AGITATION; Start 02/19/19 at 12:00; Status UNV Potassium Phosphate 13.6 mmol/Dextrose 104.5333 ml @ 52.267 m... Q2H IV Last administered on 02/19/19at 18:05; Start 02/19/19 at 14:00; Stop 02/19/19 at 19:59; Status DC Dextrose/Sodium Chloride 1,000 ml @ 250 mls/hr Q4H IV ; Start 02/19/19 at 14:00; Status UNV Potassium Chloride 40 meq/ Sodium Chloride 1,020 ml @ 75 mls/hr [id number] IV Last administered on 02/19/19 21:07; Start 02/19/19 at 21:00; Stop 02/20/19 at 08:04; Status DC Insulin Glargine (Lantus) 30 units QHS SQ Last administered on 02/22/19at 21:26; Start 02/19/19 at 21:00 Insulin Human Lispro (HumaLOG) 0-9 UNITS TIDWMEALS SQ Last administered on 02/20/19at 16:44; Start 02/20/19 at 08:00; Stop 02/21/19 at 08:18; Status DC Dextrose (Dextrose 50%-Water Syringe) 12.5 gm PRN Q15MIN PRN IV SEE COMMENTS; Start 02/19/19 at 21:00 Insulin Human Lispro (HumaLOG) 12 units TIDWMEALS SQ Last administered on 02/20/19at 18:25; Start 02/20/19 at 08:00; Stop 02/21/19 at 08:18; Status DC Acetaminophen (Tylenol) 650 mg PRN Q6HRS PRN PO temp Last administered on 02/20/19at 11:16; Start 02/19/19 at 21:00 Acetaminophen (Tylenol Supp) 650 mg PRN Q6HRS PRN UT MILD PAIN / TEMP; Start 02/19/19 at 21:00 Insulin Human Lispro (HumaLOG) 4 units 1X ONCE SQ Last administered on 02/20/19at 02:00; Start 02/20/19 at 02:00; Stop 02/20/19 at 02:01; Status DC Insulin Human Lispro (HumaLOG) 10 units 1X ONCE SQ Last administered on 02/20/19at 05:35; Start 02/20/19 at 06:00; Stop 02/20/19 at 06:01; Status DC Sodium Chloride 38.75 meq/Sterile Water 1,009.6875 ml @ 100 mls/hr Q10H6M IV Last administered on 02/24/19at 01:56; Start 02/20/19 at 09:00; Stop 02/24/19 at 09:15; Status DC Metoclopramide HCl (Reglan Vial) 5 mg PRN Q6HRS PRN IV NAUSEA/VOMITING 2ND CHOICE; Start 02/20/19 at 14:15 Insulin Human Lispro (HumaLOG) 12 units QIDACHS SQ Last administered on 02/22/19at 12:45; Start 02/21/19 at 08:20; Stop 02/22/19 at 12:59; Status DC Insulin Human Lispro (HumaLOG) 0-9 UNITS QIDACHS SQ Last administered on at 12:44; Start 02/21/19 at 08:20 Pantoprazole Sodium (Protonix) 40 mg BIDAC PO Last administered on 02/24/19at 08:33; Start 02/21/19 at 11:30 Ondansetron HCl (Zofran) 4 mg PRN Q6HRS PRN IV NAUSEA/VOMITING; Start 02/22/19 at 07:00; Stop 02/23/19 at 07:00; Status DC Fentanyl Citrate (Fentanyl 2ml Vial) 25 mcg PRN Q5MIN PRN IV MILD PAIN; Start 02/22/19 at 07:00; Stop 02/23/19 at 07:00; Status DC Fentanyl Citrate (Fentanyl 2ml Vial) 50 mcg PRN Q5MIN PRN IV MODERATE TO SEVERE PAIN; Start 02/22/19 at 07:00; Stop 02/23/19 at 07:00; Status DC Morphine Sulfate (Morphine Sulfate) 1 mg PRN Q10MIN PRN IV SEVERE PAIN; Start 02/22/19 at 07:00; Stop 02/23/19 at 07:00; Status DC Ringer's Solution 1,000 ml @ 30 mls/hr Q24H IV Last administered on 02/22/19at 13:26; Start 02/22/19 at 07:00; Stop 02/22/19 at 18:59; Status DC Lidocaine HCl (Xylocaine-Mpf 1% 2ml Vial) 2 ml PRN 1X PRN ID PRIOR TO IV START; Start 02/22/19 at 07:00; Stop 02/23/19 at 07:00; Status DC Hydromorphone HCl (Dilaudid) 0.5 mg PRN Q10MIN PRN IV SEV PAIN, Second choice; Start 02/22/19 at 07:00; Stop 02/23/19 at 07:00; Status DC Clonidine HCl (Catapres) 0.2 mg PRN Q8HRS PRN PO SBP >160 Last administered on 02/21/19at 18:25; Start 02/21/19 at 15:45 Amlodipine Besylate (Norvasc) 10 mg DAILY PO Last administered on 02/24/19at 08:33; Start 02/22/19 at 09:00 Oxymetazoline HCl (Afrin) 2 spray 1X ONCE NS Last administered on 02/22/19at 16:48; Start 02/22/19 at 13:00; Stop 02/22/19 at 13:01; Status DC Oxymetazoline HCl (Afrin) 2 spray BID NS Last administered on 02/24/19at 08:34; Start 02/22/19 at 21:00 Fluticasone Propionate (Flonase) 2 spray DAILY NS Last administered on 02/09 08:34; Start 02/22/19 at 13:00 Potassium Chloride (Klor-Con) 20 meq 1X ONCE PO Last administered on 02/22/19at 16:48; Start 02/22/19 at 13:30; Stop 02/22/19 at 13:31; Status DC Insulin Human Lispro (HumaLOG) 15 units QIDACHS SQ Last administered on 02/23/19at 12:34; Start 02/22/19 at 16:30 Midazolam HCl (Versed) 2 mg PRN 1X PRN IV PRIOR TO PROCEDURE; Start 02/22/19 at 13:15; Stop 02/23/19 at 13:14; Status DC Fentanyl Citrate (Fentanyl 2ml Vial) 25 mcg PRN Q5MIN PRN IV X 2 DOSES FOR PAIN; Start 02/22/19 at 13:15; Stop 02/23/19 at 13:14; Status DC Fentanyl Citrate (Fentanyl 2ml Vial) 50 mcg PRN Q5MIN PRN IV X 2 DOSES FOR PAIN; Start 02/22/19 at 13:15; Stop 02/23/19 at 13:14; Status DC Ringer's Solution 1,000 ml @ 125 mls/hr Q8H IV ; Start 02/22/19 at 13:11; Stop 02/23/19 at 01:10; Status DC Lidocaine HCl (Xylocaine-Mpf 1% 2ml Vial) 2 ml 1X PRN PRN ID IV START; Start 02/22/19 at 13:15; Stop 02/23/19 at 13:14; Status DC Propofol 20 ml @ As Directed STK-MED ONCE IV ; Start 02/22/19 at 14:20; Stop 02/22/19 at 14:21; Status DC Heparin Sodium (Porcine) 1000 unit/Sodium Chloride 1,001 ml @ 1,001 mls/hr 1X ONCE IRR ; Start 02/24/19 at 06:00; Stop 02/24/19 at 06:59; Status DC Polyethylene Glycol (miraLAX PACKET) 17 gm DAILY PO Last administered on 02/23/19at 15:43; Start 02/23/19 at 14:00 Polyethylene Glycol (miraLAX PACKET) 17 gm PRN DAILY PRN PO CONSTIPATION; Start 02/23/19 at 13:15 Ondansetron HCl (Zofran) 4 mg PRN Q6HRS PRN IV NAUSEA/VOMITING; Start 02/24/19 at 07:00; Stop 02/24/19 at 21:00 Fentanyl Citrate (Fentanyl 2ml Vial) 25 mcg PRN Q5MIN PRN IV MILD PAIN 1-3; Start 02/24/19 at 07:00; Stop 02/24/19 at 21:00 Fentanyl Citrate (Fentanyl 2ml Vial) 50 mcg PRN Q5MIN PRN IV MODERATE TO SEVERE PAIN; Start 02/24/19 at 07:00; Stop 02/24/19 at 21:00 Morphine Sulfate (Morphine Sulfate) 1 mg PRN Q10MIN PRN IV SEVERE PAIN 7-10; Start 02/24/19 at 07:00; Stop 02/24/19 at 21:00 Ringer's Solution 1,000 ml @ 30 mls/hr Q24H IV ; Start 02/24/19 at 07:00; Stop 02/24/19 at 18:59 Lidocaine HCl (Xylocaine-Mpf 1% 2ml Vial) 2 ml PRN 1X PRN ID PRIOR TO IV START; Start 02/24/19 at 07:00; Stop 02/24/19 at 21:00 Hydromorphone HCl (Dilaudid) 0.5 mg PRN Q10MIN PRN IV SEV PAIN, Second choice; Start 02/24/19 at 07:00; Stop 02/24/19 at 21:00 Prochlorperazine Edisylate (Compazine) 5 mg PACU PRN PRN IV NAUSEA, MRX1; Start 02/24/19 at 07:00; Stop 02/24/19 at 21:00 Lisinopril (Prinivil) 20 mg DAILY PO Last administered on 02/24/19at 08:32; Start 02/24/19 at 09:00 Aspirin (Paul Aspirin) 325 mg DAILYWBKFT PO ; Start 02/24/19 at 17:30 Aspirin (Aspirin Rectal Supp) 300 mg PRN DAILY PRN UT IF UNABLE TO TAKE PO; Start 02/24/19 at 17:15 Iohexol (Omnipaque 350 Mg/ml) 75 ml 1X ONCE IV ; Start 02/24/19 at 17:15; Stop 02/24/19 at 17:16; Status DC Allergies Allergies: Allergies Coded Allergies Type Severity Reaction Last Updated Verified No Known Drug Allergies 02/22/19 No ROS Review of System The patient denies any associated fevers, chills, headache, ear pain, rhinorrhea, sore throat, stiff neck, productive cough, chest pain, shortness of breath, back or flank pain, abdominal pain, nausea, vomiting, diarrhea, constipation, dysuria, rash, numbness, weakness, tingling, incontinence, diffic ulty ambulating, or diaphoresis. Physical Exam Physical Exam General: Well developed, well nourished, no acute distress, well appearing HEENT: Pupils equally round and reactive to light, EOMI, no discharge, normal conjunctiva Neck: Supple, no nuchal rigidity, no JVD, trachea midline, no tenderness Cardiac: RRR, no murmurs, no gallops, no rubs Chest/Lungs: CTAB, no wheeze, no rhonchi, no crackles Abdomen: soft, non-distended, no guarding, no peritoneal signs, non-tender Back: No tenderness Extremities: no edema, pulses intact, non-tender,capillary refill <3 sec bilateral upper and lower extremities, Neuro: Alert and oriented x 4, no focal deficits, normal speech Vitals Vitals: Vital Signs Date Time Temp Pulse Resp B/P (MAP) Pulse Ox O2 Delivery O2 Flow Rate FiO2 02/24/19 15:00 97.7 84 17 132/64 (86) 93 Nasal Cannula 2.0 97.7 Labs Labs Laboratory Tests Test 02/22/19 20:40 02/23/19 03:45 02/23/19 07:21 02/23/19 08:55 Glucose (Fingerstick) 96 mg/dL (70-99) 111 mg/dL (70-99) 146 mg/dL (70-99) White Blood Count 16.6 x10^3/uL (4.0-11.0) Red Blood Count 4.34 x10^6/uL (3.50-5.40) Hemoglobin 12.8 g/dL (12.0-15.5) Hematocrit 38.5 % (36.0-47.0) Mean Corpuscular Volume 89 fL (79-100) Mean Corpuscular Hemoglobin 30 pg (25-35) Mean Corpuscular Hemoglobin Concent 33 g/dL (31-37) Red Cell Distribution Width 13.2 % (11.5-14.5) Platelet Count 207 x10^3/uL (140-400) Neutrophils (%) (Auto) 82 % (31-73) Lymphocytes (%) (Auto) 11 % (24-48) Monocytes (%) (Auto) 6 % (0-9) Eosinophils (%) (Auto) 1 % (0-3) Basophils (%) (Auto) 0 % (0-3) Neutrophils # (Auto) 13.5 x10^3uL (1.8-7.7) Lymphocytes # (Auto) 1.8 x10^3/uL (1.0-4.8) Monocytes # (Auto) 1.0 x10^3/uL (0.0-1.1) Eosinophils # (Auto) 0.2 x10^3/uL (0.0-0.7) Basophils # (Auto) 0.0 x10^3/uL (0.0-0.2) Sodium Level 136 mmol/L (136-145) Potassium Level 3.4 mmol/L (3.5-5.1) Chloride Level 103 mmol/L (98-107) Carbon Dioxide Level 23 mmol/L (21-32) Anion Gap 10 (6-14) Blood Urea Nitrogen 21 mg/dL (7-20) Creatinine 0.7 mg/dL (0.6-1.0) Estimated GFR (Cockcroft-Gault) 83.7 Glucose Level 120 mg/dL (70-99) Calcium Level 8.4 mg/dL (8.5-10.1) Test 02/23/19 12:16 02/23/19 16:53 02/23/19 21:27 02/24/19 07:48 Glucose (Fingerstick) 122 mg/dL (70-99) 73 mg/dL (70-99) 86 mg/dL (70-99) 130 mg/dL (70-99) Test 02/24/19 09:15 02/24/19 11:26 02/24/19 16:40 White Blood Count 16.3 x10^3/uL (4.0-11.0) Red Blood Count 4.19 x10^6/uL (3.50-5.40) Hemoglobin 12.4 g/dL (12.0-15.5) Hematocrit 36.9 % (36.0-47.0) Mean Corpuscular Volume 88 fL (79-100) Mean Corpuscular Hemoglobin 30 pg (25-35) Mean Corpuscular Hemoglobin Concent 34 g/dL (31-37) Red Cell Distribution Width 13.5 % (11.5-14.5) Platelet Count 274 x10^3/uL (140-400) Neutrophils (%) (Auto) 80 % (31-73) Lymphocytes (%) (Auto) 12 % (24-48) Monocytes (%) (Auto) 6 % (0-9) Eosinophils (%) (Auto) 3 % (0-3) Basophils (%) (Auto) 1 % (0-3) Neutrophils # (Auto) 13.0 x10^3uL (1.8-7.7) Lymphocytes # (Auto) 1.9 x10^3/uL (1.0-4.8) Monocytes # (Auto) 0.9 x10^3/uL (0.0-1.1) Eosinophils # (Auto) 0.4 x10^3/uL (0.0-0.7) Basophils # (Auto) 0.1 x10^3/uL (0.0-0.2) Sodium Level 133 mmol/L (136-145) Potassium Level 3.0 mmol/L (3.5-5.1) Chloride Level 99 mmol/L (98-107) Carbon Dioxide Level 22 mmol/L (21-32) Anion Gap 12 (6-14) Blood Urea Nitrogen 16 mg/dL (7-20) Creatinine 0.6 mg/dL (0.6-1.0) Estimated GFR (Cockcroft-Gault) 100.0 Glucose Level 198 mg/dL (70-99) Calcium Level 8.5 mg/dL (8.5-10.1) Vitamin B12 Level 613 pg/mL (247-911) Thyroid Stimulating Hormone (TSH) 1.726 uIU/mL (0.358-3.74) Glucose (Fingerstick) 204 mg/dL (70-99) 288 mg/dL (70-99) Laboratory Tests Test 02/23/19 21:27 02/24/19 07:48 02/24/19 09:15 02/24/19 11:26 Glucose (Fingerstick) 86 mg/dL (70-99) 130 mg/dL (70-99) 204 mg/dL (70-99) White Blood Count 16.3 x10^3/uL (4.0-11.0) Red Blood Count 4.19 x10^6/uL (3.50-5.40) Hemoglobin 12.4 g/dL (12.0-15.5) Hematocrit 36.9 % (36.0-47.0) Mean Corpuscular Volume 88 fL (79-100) Mean Corpuscular Hemoglobin 30 pg (25-35) Mean Corpuscular Hemoglobin Concent 34 g/dL (31-37) Red Cell Distribution Width 13.5 % (11.5-14.5) Platelet Count 274 x10^3/uL (140-400) Neutrophils (%) (Auto) 80 % (31-73) Lymphocytes (%) (Auto) 12 % (24-48) Monocytes (%) (Auto) 6 % (0-9) Eosinophils (%) (Auto) 3 % (0-3) Basophils (%) (Auto) 1 % (0-3) Neutrophils # (Auto) 13.0 x10^3uL (1.8-7.7) Lymphocytes # (Auto) 1.9 x10^3/uL (1.0-4.8) Monocytes # (Auto) 0.9 x10^3/uL (0.0-1.1) Eosinophils # (Auto) 0.4 x10^3/uL (0.0-0.7) Basophils # (Auto) 0.1 x10^3/uL (0.0-0.2) Sodium Level 133 mmol/L (136-145) Potassium Level 3.0 mmol/L (3.5-5.1) Chloride Level 99 mmol/L (98-107) Carbon Dioxide Level 22 mmol/L (21-32) Anion Gap 12 (6-14) Blood Urea Nitrogen 16 mg/dL (7-20) Creatinine 0.6 mg/dL (0.6-1.0) Estimated GFR (Cockcroft-Gault) 100.0 Glucose Level 198 mg/dL (70-99) Calcium Level 8.5 mg/dL (8.5-10.1) Vitamin B12 Level 613 pg/mL (247-911) Thyroid Stimulating Hormone (TSH) 1.726 uIU/mL (0.358-3.74) Test 02/24/19 16:40 Glucose (Fingerstick) 288 mg/dL (70-99) KARON ROA MD February 24, 2019 18:12
--- NOTE | 2019-02-24 18:15 | RAD ---
CTA of the head and neck with contrast 02/24/2019 Clinical history: Right MCA infarct. Left-sided weakness. Technique: After the intravenous administration 75 cc of Omnipaque 300, contiguous, 0.625 mm axial sections were obtained through the upper chest, neck and head. Multiplanar 3-D MIP and volume rendered 3-D reconstructed images were obtained. One or more of the following individualized dose reduction techniques were utilized for this study: 1. Automated exposure control. 2. Adjustment of the mA and/or kV according to patient size. 3. Use of iterative reconstruction technique. Findings: Comparison is made to patient's CT scan of the head performed earlier today. Additional comparison is made to patient's MRI of the brain formed earlier today. There is a common origin of the brachiocephalic and left common carotid artery from the thoracic aortic arch. This is a normal variation. This origin is patent. The origin of the left subclavian artery from the thoracic aortic arch is patent. The origins of the right common carotid artery and both vertebral arteries are patent. The common carotid arteries, carotid bifurcations and internal carotid arteries are within normal limits. No areas stenosis or occlusion is seen. The vertebral arteries are codominant Both vertebral arteries demonstrate normal antegrade flow. No area stenosis or occlusion is seen. Intracranially the petrous, cavernous and supraclinoid portions of the internal carotid arteries are within normal limits. The distal vertebral arteries and basilar artery are within normal limits. Mild atheromatous plaque formation is seen involving the proximal middle cerebral arteries bilaterally. No hemodynamically significant stenosis or area of occlusion is seen. Diminished arterial enhancement is within the branches of the right middle cerebral artery within the right temporal/parietal lobe which corresponds to the area infarction seen on the patient's MRI. No intracranial aneurysm is noted. The major dural venous sinuses are patent. No area of abnormal contrast enhancement is seen. No acute soft tissue abnormality is seen involving the neck. The left lobe of thyroid gland is enlarged and heterogeneous and extends into the superior mediastinum consistent with a multinodular goiter. Degenerative changes are seen involving the uncovertebral and facet joints throughout the cervical disc spaces. Pleural thickening is seen involving the posterior aspect of the right superior pleural space. A pleural calcification is seen in this region. IMPRESSION: 1. Negative CTA of the neck. 2. No intracranial stenosis or large area of occlusion is seen. Diminished arterial enhancement is seen within branches of the right middle cerebral artery and the right temporal/parietal lobe which correspond to the area infarction seen on the patient's MRI. Stenosis calculation for CTA are based on measurement of the distal internal carotid artery diameter in accordance with the NASCET methodology. Electronically signed by: Sacha Leon MD (02/24/2019 6:12 PM) [facility]
--- NOTE | 2019-02-24 19:30 | NUR ---
Dr. Hsu returned this nurse's page to determine next steps for patient care. Dr. Hsu had already read the radiology report of both MRI and CT with contrast; orders were already entered and will be followed; patient is currently stable; patient will have an echocardiograph tomorrow. No new orders at this time. Addendum: 02/24/19 at 1941 by JEFF DANIELS RN Dr. Hsu advised that patient can remain on the [address] [place] [address] unit at this time, and does not need to transfer to a different unit; the CVA appears to be 1 to 3 days old per doctor report.
[2019-02-24] MEDS: PATCH REMOVAL. MC SCH (21:00)
[2019-02-24] MEDS: INSULIN GLARGINE 300 UNITS/3 ML INSULN.PEN. SQ SCH (21:28)
[2019-02-25 03:00] VITALS: BP 117/51
[2019-02-25 05:09] LABS: BASO # 0.1 x10^3/uL (0.0-0.2); BASO % 0 % (0-3); EOS # 0.3 x10^3/uL (0.0-0.7); EOS % 1 % (0-3); HEMATOCRIT 34.2 % (36.0-47.0); HEMOGLOBIN 11.4 g/dL (12.0-15.5); LYMPH # 1.8 x10^3/uL (1.0-4.8); LYMPH % 9 % (24-48); MEAN CORPUSCULAR HEMOGLOBIN 29 pg (25-35); MEAN CORPUSCULAR HGB CONC 33 g/dL (31-37); MEAN CORPUSCULAR VOLUME 88 fL (79-100); MONO # 1.2 x10^3/uL (0.0-1.1); MONO % 6 % (0-9); NEUT # 15.9 x10^3uL (1.8-7.7); NEUT % 83 % (31-73); PLATELET COUNT 301 x10^3/uL (140-400); RED BLOOD COUNT 3.87 x10^6/uL (3.50-5.40); RED CELL DISTRIBUTION WIDTH 13.6 % (11.5-14.5); WHITE BLOOD COUNT 19.2 x10^3/uL (4.0-11.0)
[2019-02-25] MEDS: HEPARIN for SUB-Q USE 5,000 UNIT/ML VIAL. SQ SCH ×3 (06:00→21:16)
[2019-02-25 06:08] LABS: CALCIUM 8.3 mg/dL (8.5-10.1); CREATININE 0.6 mg/dL (0.6-1.0)
[2019-02-25 06:15] LABS: CHOLESTEROL/HDL RATIO 9.6
[2019-02-25 06:22] LABS: POTASSIUM 2.9 mmol/L (3.5-5.1)
[2019-02-25 07:00] VITALS: BP 146/53
[2019-02-25] MEDS ORDERED: POTASSIUM CL 40MEQ IN 0.9%NACL 1,000 ML IV ONE (07:00)
[2019-02-25] MEDS: INSULIN LISPRO 300 UNITS/3 ML INSULN.PEN. SQ SCH ×8 (07:30→21:00)
--- NOTE | 2019-02-25 08:31 | PDOC ---
PROGRESS NOTES Subjective Subjective No new complaints. Objective Objective Vital Signs Date Time Temp Pulse Resp B/P (MAP) Pulse Ox O2 Delivery O2 Flow Rate FiO2 02/25/19 07:00 98.1 72 18 146/53 (84) 95 Nasal Cannula 2.0 98.1 Intake and Output 02/25/19 07:00 Intake Total 1660 ml Output Total 1102 ml Balance 558 ml Intake Oral 660 ml IV Total 1000 ml Output Urine Total 1102 ml Physical Exam Physical Exam She is alert,comfortable,moves all 4 extremities actively and using both hands to feed her self and she continues with left visual field cut. Mri scan confirmed right MCA infarct wit some petechial hemorrhage. She continues with urinary incontinence and generalized weakness and mobility and self care limitations. Assessment Assessment Problems Medical Problems: (1) Altered level of consciousness Status: Acute (2) Dehydration Status: Acute (3) DKA (diabetic ketoacidoses) Status: Acute (4) Hypercalcemia Status: Acute (5) Hypermagnesemia Status: Acute (6) Renal insufficiency Status: Acute (7) Sepsis Status: Acute Plan Plan of Care To rehab unit or SNF of family's choice for continued in-patient rehab when medically stable. Comment Review of Relevant I have reviewed the following items katalina (where applicable) has been applied. Labs Laboratory Tests Test 02/23/19 08:55 02/23/19 12:16 02/23/19 16:53 02/23/19 21:27 Glucose (Fingerstick) 146 mg/dL (70-99) 122 mg/dL (70-99) 73 mg/dL (70-99) 86 mg/dL (70-99) Test 02/24/19 07:48 02/24/19 09:15 02/24/19 11:26 02/24/19 16:40 Glucose (Fingerstick) 130 mg/dL (70-99) 204 mg/dL (70-99) 288 mg/dL (70-99) White Blood Count 16.3 x10^3/uL (4.0-11.0) Red Blood Count 4.19 x10^6/uL (3.50-5.40) Hemoglobin 12.4 g/dL (12.0-15.5) Hematocrit 36.9 % (36.0-47.0) Mean Corpuscular Volume 88 fL (79-100) Mean Corpuscular Hemoglobin 30 pg (25-35) Mean Corpuscular Hemoglobin Concent 34 g/dL (31-37) Red Cell Distribution Width 13.5 % (11.5-14.5) Platelet Count 274 x10^3/uL (140-400) Neutrophils (%) (Auto) 80 % (31-73) Lymphocytes (%) (Auto) 12 % (24-48) Monocytes (%) (Auto) 6 % (0-9) Eosinophils (%) (Auto) 3 % (0-3) Basophils (%) (Auto) 1 % (0-3) Neutrophils # (Auto) 13.0 x10^3uL (1.8-7.7) Lymphocytes # (Auto) 1.9 x10^3/uL (1.0-4.8) Monocytes # (Auto) 0.9 x10^3/uL (0.0-1.1) Eosinophils # (Auto) 0.4 x10^3/uL (0.0-0.7) Basophils # (Auto) 0.1 x10^3/uL (0.0-0.2) Sodium Level 133 mmol/L (136-145) Potassium Level 3.0 mmol/L (3.5-5.1) Chloride Level 99 mmol/L (98-107) Carbon Dioxide Level 22 mmol/L (21-32) Anion Gap 12 (6-14) Blood Urea Nitrogen 16 mg/dL (7-20) Creatinine 0.6 mg/dL (0.6-1.0) Estimated GFR (Cockcroft-Gault) 100.0 Glucose Level 198 mg/dL (70-99) Calcium Level 8.5 mg/dL (8.5-10.1) Vitamin B12 Level 613 pg/mL (247-911) Thyroid Stimulating Hormone (TSH) 1.726 uIU/mL (0.358-3.74) Test 02/24/19 21:13 02/25/19 04:16 02/25/19 07:25 Glucose (Fingerstick) 194 mg/dL (70-99) 110 mg/dL (70-99) White Blood Count 19.2 x10^3/uL (4.0-11.0) Red Blood Count 3.87 x10^6/uL (3.50-5.40) Hemoglobin 11.4 g/dL (12.0-15.5) Hematocrit 34.2 % (36.0-47.0) Mean Corpuscular Volume 88 fL (79-100) Mean Corpuscular Hemoglobin 29 pg (25-35) Mean Corpuscular Hemoglobin Concent 33 g/dL (31-37) Red Cell Distribution Width 13.6 % (11.5-14.5) Platelet Count 301 x10^3/uL (140-400) Neutrophils (%) (Auto) 83 % (31-73) Lymphocytes (%) (Auto) 9 % (24-48) Monocytes (%) (Auto) 6 % (0-9) Eosinophils (%) (Auto) 1 % (0-3) Basophils (%) (Auto) 0 % (0-3) Neutrophils # (Auto) 15.9 x10^3uL (1.8-7.7) Lymphocytes # (Auto) 1.8 x10^3/uL (1.0-4.8) Monocytes # (Auto) 1.2 x10^3/uL (0.0-1.1) Eosinophils # (Auto) 0.3 x10^3/uL (0.0-0.7) Basophils # (Auto) 0.1 x10^3/uL (0.0-0.2) Sodium Level 141 mmol/L (136-145) Potassium Level 2.9 mmol/L (3.5-5.1) Chloride Level 105 mmol/L (98-107) Carbon Dioxide Level 24 mmol/L (21-32) Anion Gap 12 (6-14) Blood Urea Nitrogen 12 mg/dL (7-20) Creatinine 0.6 mg/dL (0.6-1.0) Estimated GFR (Cockcroft-Gault) 100.0 Glucose Level 72 mg/dL (70-99) Calcium Level 8.3 mg/dL (8.5-10.1) Triglycerides Level 431 mg/dL (0-150) Cholesterol Level 164 mg/dL (0-200) LDL Cholesterol, Calculated 61 mg/dL (0-100) VLDL Cholesterol, Calculated 86 mg/dL (0-40) Non-HDL Cholesterol Calculated 147 mg/dL (0-129) HDL Cholesterol 17 mg/dL (40-60) Cholesterol/HDL Ratio 9.6 Laboratory Tests Test 02/24/19 09:15 02/24/19 11:26 02/24/19 16:40 02/24/19 21:13 White Blood Count 16.3 x10^3/uL (4.0-11.0) Red Blood Count 4.19 x10^6/uL (3.50-5.40) Hemoglobin 12.4 g/dL (12.0-15.5) Hematocrit 36.9 % (36.0-47.0) Mean Corpuscular Volume 88 fL (79-100) Mean Corpuscular Hemoglobin 30 pg (25-35) Mean Corpuscular Hemoglobin Concent 34 g/dL (31-37) Red Cell Distribution Width 13.5 % (11.5-14.5) Platelet Count 274 x10^3/uL (140-400) Neutrophils (%) (Auto) 80 % (31-73) Lymphocytes (%) (Auto) 12 % (24-48) Monocytes (%) (Auto) 6 % (0-9) Eosinophils (%) (Auto) 3 % (0-3) Basophils (%) (Auto) 1 % (0-3) Neutrophils # (Auto) 13.0 x10^3uL (1.8-7.7) Lymphocytes # (Auto) 1.9 x10^3/uL (1.0-4.8) Monocytes # (Auto) 0.9 x10^3/uL (0.0-1.1) Eosinophils # (Auto) 0.4 x10^3/uL (0.0-0.7) Basophils # (Auto) 0.1 x10^3/uL (0.0-0.2) Sodium Level 133 mmol/L (136-145) Potassium Level 3.0 mmol/L (3.5-5.1) Chloride Level 99 mmol/L (98-107) Carbon Dioxide Level 22 mmol/L (21-32) Anion Gap 12 (6-14) Blood Urea Nitrogen 16 mg/dL (7-20) Creatinine 0.6 mg/dL (0.6-1.0) Estimated GFR (Cockcroft-Gault) 100.0 Glucose Level 198 mg/dL (70-99) Calcium Level 8.5 mg/dL (8.5-10.1) Vitamin B12 Level 613 pg/mL (247-911) Thyroid Stimulating Hormone (TSH) 1.726 uIU/mL (0.358-3.74) Glucose (Fingerstick) 204 mg/dL (70-99) 288 mg/dL (70-99) 194 mg/dL (70-99) Test 02/25/19 04:16 02/25/19 07:25 White Blood Count 19.2 x10^3/uL (4.0-11.0) Red Blood Count 3.87 x10^6/uL (3.50-5.40) Hemoglobin 11.4 g/dL (12.0-15.5) Hematocrit 34.2 % (36.0-47.0) Mean Corpuscular Volume 88 fL (79-100) Mean Corpuscular Hemoglobin 29 pg (25-35) Mean Corpuscular Hemoglobin Concent 33 g/dL (31-37) Red Cell Distribution Width 13.6 % (11.5-14.5) Platelet Count 301 x10^3/uL (140-400) Neutrophils (%) (Auto) 83 % (31-73) Lymphocytes (%) (Auto) 9 % (24-48) Monocytes (%) (Auto) 6 % (0-9) Eosinophils (%) (Auto) 1 % (0-3) Basophils (%) (Auto) 0 % (0-3) Neutrophils # (Auto) 15.9 x10^3uL (1.8-7.7) Lymphocytes # (Auto) 1.8 x10^3/uL (1.0-4.8) Monocytes # (Auto) 1.2 x10^3/uL (0.0-1.1) Eosinophils # (Auto) 0.3 x10^3/uL (0.0-0.7) Basophils # (Auto) 0.1 x10^3/uL (0.0-0.2) Sodium Level 141 mmol/L (136-145) Potassium Level 2.9 mmol/L (3.5-5.1) Chloride Level 105 mmol/L (98-107) Carbon Dioxide Level 24 mmol/L (21-32) Anion Gap 12 (6-14) Blood Urea Nitrogen 12 mg/dL (7-20) Creatinine 0.6 mg/dL (0.6-1.0) Estimated GFR (Cockcroft-Gault) 100.0 Glucose Level 72 mg/dL (70-99) Calcium Level 8.3 mg/dL (8.5-10.1) Triglycerides Level 431 mg/dL (0-150) Cholesterol Level 164 mg/dL (0-200) LDL Cholesterol, Calculated 61 mg/dL (0-100) VLDL Cholesterol, Calculated 86 mg/dL (0-40) Non-HDL Cholesterol Calculated 147 mg/dL (0-129) HDL Cholesterol 17 mg/dL (40-60) Cholesterol/HDL Ratio 9.6 Glucose (Fingerstick) 110 mg/dL (70-99) Medications Current Medications Sodium Chloride 1,000 ml @ 1,000 mls/hr 1X ONCE IV Last administered on 02/19/19at 08:10; Start 02/19/19 at 08:00; Stop 02/19/19 at 08:59; Status DC Insulin Human Regular (HumuLIN R VIAL) 10 unit 1X ONCE IV Last administered on 02/19/19at 07:50; Start 02/19/19 at 08:00; Stop 02/19/19 at 08:02; Status DC Insulin Human Regular 150 ml @ 0 mls/hr 1X ONCE IV Last administered on 02/19/19at 08:34; Start 02/19/19 at 08:00; Stop 02/19/19 at 08:02; Status DC Sodium Chloride 1,000 ml @ 100 mls/hr 1X ONCE IV Last administered on 02/19/19at 08:29; Start 02/19/19 at 09:00; Stop 02/19/19 at 13:58; Status DC Sodium Chloride 1,000 ml @ 1,000 mls/hr 1X ONCE IV ; Start 02/19/19 at 09:00; Stop 02/19/19 at 10:02; Status DC Ceftriaxone Sodium (Rocephin) 1 gm 1X ONCE IVP Last administered on 02/19/19at 10:28; Start 02/19/19 at 09:00; Stop 02/19/19 at 09:01; Status DC Sodium Chloride 1,000 ml @ 200 mls/hr Q5H IV ; Start 02/19/19 at 10:00; Stop 02/20/19 at 09:59; Status Cancel Insulin Human Regular 150 unit/ Sodium Chloride 151.5 ml @ 0 mls/hr CONT PRN PRN IV PER PROTOCOL; Start 02/19/19 at 13:00; Status Cancel Dextrose/Sodium Chloride 1,000 ml @ 250 mls/hr Q4H IV Last administered on 02/19/19at 18:06; Start 02/19/19 at 15:00; Stop 02/19/19 at 21:01; Status DC Insulin Human Regular 150 unit/ Sodium Chloride 151.5 ml @ 0 mls/hr CONT PRN PRN IV PER PROTOCOL; Start 02/19/19 at 10:00; Stop 02/19/19 at 21:01; Status DC Potassium Chloride/Water 100 ml @ 100 mls/hr PRN Q1HR PRN IV SEE COMMENTS; Start 02/19/19 at 10:00; Stop 02/19/19 at 21:01; Status DC Potassium Chloride/Water 100 ml @ 100 mls/hr PRN Q1HR PRN IV SEE COMMENTS; Start 02/19/19 at 09:45; Stop 02/19/19 at 21:01; Status DC Potassium Chloride/Water 100 ml @ 100 mls/hr PRN Q1HR PRN IV SEE COMMENTS; Start 02/19/19 at 09:45; Stop 02/19/19 at 21:01; Status DC Labetalol HCl (Normodyne Iv Push) 10 mg PRN Q2HR PRN IVP HYPERTENSION, SEE COMMENTS Last administered on 02/21/19at 14:06; Start 02/19/19 at 09:45; Stop 02/21/19 at 15:43; Status DC Acetaminophen/ Codeine Phosphate (Tylenol #3) 1 tab PRN Q6HRS PRN PO PAIN; Start 02/19/19 at 09:45 Ondansetron HCl (Zofran) 4 mg PRN Q6HRS PRN IV NAUSEA/VOMITING 1ST CHOICE Last administered on 02/20/19at 11:25; Start 02/19/19 at 09:45 Ondansetron HCl (Zofran Odt) 4 mg PRN Q6HRS PRN PO NAUSEA/VOMITING; Start 02/19/19 at 09:45 Acetaminophen/ Hydrocodone Bitart (Lortab 5/325) 1 tab PRN Q4HRS PRN PO PAIN; Start 02/19/19 at 09:45 Fentanyl Citrate (Fentanyl 2ml Vial) 25 mcg PRN Q2HR PRN IV PAIN; Start 02/19/19 at 09:45 Sodium Chloride 1,000 ml @ 250 mls/hr Q4H IV Last administered on 02/19/19at 10:07; Start 02/19/19 at 11:00; Stop 02/19/19 at 18:06; Status DC Lidocaine (Lidoderm) 1 patch DAILY TD Last administered on 02/24/19at 08:45; Start 02/20/19 at 09:00 Miscellaneous (Lidoderm Patch Removal) 1 ea QHS MC Last administered on 02/24/19at 21:00; Start 02/19/19 at 21:00 Heparin Sodium (Porcine) (Heparin Sodium) 5,000 unit Q8HRS SQ Last administered on 02/25/19at 06:00; Start 02/19/19 at 14:00 Lorazepam (Ativan) 2 mg PRN Q4HRS PRN IV ANXIETY / AGITATION Last administered on 02/19/19at 11:59; Start 02/19/19 at 11:45 Lorazepam (Ativan) 2 mg PRN Q4HRS PRN IV ANXIETY / AGITATION; Start 02/19/19 at 12:00; Status UNV Potassium Phosphate 13.6 mmol/Dextrose 104.5333 ml @ 52.267 m... Q2H IV Last administered on 02/19/19at 18:05; Start 02/19/19 at 14:00; Stop 02/19/19 at 19:59; Status DC Dextrose/Sodium Chloride 1,000 ml @ 250 mls/hr Q4H IV ; Start 02/19/19 at 14:00; Status UNV Potassium Chloride 40 meq/ Sodium Chloride 1,020 ml @ 75 mls/hr [id number] IV Last administered on 02/19/19at 21:07; Start 02/19/19 at 21:00; Stop 02/20/19 at 08:04; Status DC Insulin Glargine (Lantus) 30 units QHS SQ Last administered on 02/24/19at 21:28; Start 02/19/19 at 21:00 Insulin Human Lispro (HumaLOG) 0-9 UNITS TIDWMEALS SQ Last administered on 02/20/19at 16:44; Start 02/20/19 at 08:00; Stop 02/21/19 at 08:18; Status DC Dextrose (Dextrose 50%-Water Syringe) 12.5 gm PRN Q15MIN PRN IV SEE COMMENTS; Start 02/19/19 at 21:00 Insulin Human Lispro (HumaLOG) 12 units TIDWMEALS SQ Last administered on 02/20/19at 18:25; Start 02/20/19 at 08:00; Stop 02/21/19 at 08:18; Status DC Acetaminophen (Tylenol) 650 mg PRN Q6HRS PRN PO temp Last administered on 02/20/19at 11:16; Start 02/19/19 at 21:00 Acetaminophen (Tylenol Supp) 650 mg PRN Q6HRS PRN [facility] MILD PAIN / TEMP; Start 02/19/19 at 21:00 Insulin Human Lispro (HumaLOG) 4 units 1X ONCE SQ Last administered on 02/20/19at 02:00; Start 02/20/19 at 02:00; Stop 02/20/19 at 02:01; Status DC Insulin Human Lispro (HumaLOG) 10 units 1X ONCE SQ Last administered on 02/20/19at 05:35; Start 02/20/19 at 06:00; Stop 02/20/19 at 06:01; Status DC Sodium Chloride 38.75 meq/Sterile Water 1,009.6875 ml @ 100 mls/hr Q10H6M IV Last administered on 02/24/19at 01:56; Start 02/20/19 at 09:00; Stop 02/24/19 at 09:15; Status DC Metoclopramide HCl (Reglan Vial) 5 mg PRN Q6HRS PRN IV NAUSEA/VOMITING 2ND CHOICE; Start 02/20/19 at 14:15 Insulin Human Lispro (HumaLOG) 12 units QIDACHS SQ Last administered on 9at 12:45; Start 02/21/19 at 08:20; Stop 02/22/19 at 12:59; Status DC Insulin Human Lispro (HumaLOG) 0-9 UNITS QIDACHS SQ Last administered on 02/24/19at 18:00; Start 02/21/19 at 08:20 Pantoprazole Sodium (Protonix) 40 mg BIDAC PO Last administered on 02/24/19at 17:54; Start 02/21/19 at 11:30 Ondansetron HCl (Zofran) 4 mg PRN Q6HRS PRN IV NAUSEA/VOMITING; Start 02/22/19 at 07:00; Stop 02/23/19 at 07:00; Status DC Fentanyl Citrate (Fentanyl 2ml Vial) 25 mcg PRN Q5MIN PRN IV MILD PAIN; Start 02/22/19 at 07:00; Stop 02/23/19 at 07:00; Status DC Fentanyl Citrate (Fentanyl 2ml Vial) 50 mcg PRN Q5MIN PRN IV MODERATE TO SEVERE PAIN; Start 02/22/19 at 07:00; Stop 02/23/19 at 07:00; Status DC Morphine Sulfate (Morphine Sulfate) 1 mg PRN Q10MIN PRN IV SEVERE PAIN; Start 02/22/19 at 07:00; Stop 02/23/19 at 07:00; Status DC Ringer's Solution 1,000 ml @ 30 mls/hr Q24H IV Last administered on 02/22/19at 13:26; Start 02/22/19 at 07:00; Stop 02/22/19 at 18:59; Status DC Lidocaine HCl (Xylocaine-Mpf 1% 2ml Vial) 2 ml PRN 1X PRN ID PRIOR TO IV START; Start 02/22/19 at 07:00; Stop 02/23/19 at 07:00; Status DC Hydromorphone HCl (Dilaudid) 0.5 mg PRN Q10MIN PRN IV SEV PAIN, Second choice; Start 02/22/19 at 07:00; Stop 02/23/19 at 07:00; Status DC Clonidine HCl (Catapres) 0.2 mg PRN Q8HRS PRN PO SBP >160 Last administered on 02/21/19at 18:25; Start 02/21/19 at 15:45 Amlodipine Besylate (Norvasc) 10 mg DAILY PO Last administered on 02/24/19at 08:33; Start 02/22/19 at 09:00 Oxymetazoline HCl (Afrin) 2 spray 1X ONCE NS Last administered on 02/22/19at 16:48; Start 02/22/19 at 13:00; Stop 02/22/19 at 13:01; Status DC Oxymetazoline HCl (Afrin) 2 spray BID NS Last administered on 02/24/19at 21:14; Start 02/22/19 at 21:00 Fluticasone Propionate (Flonase) 2 spray DAILY NS Last administered on 02/24/19at 08:34; Start 02/22/19 at 13:00 Potassium Chloride (Klor-Con) 20 meq 1X ONCE PO Last administered on 02/22/19at 16:48; Start 02/22/19 at 13:30; Stop 02/22/19 at 13:31; Status DC Insulin Human Lispro (HumaLOG) 15 units QIDACHS SQ Last administered on 02/24/19at 21:23; Start 02/22/19 at 16:30 Midazolam HCl (Versed) 2 mg PRN 1X PRN IV PRIOR TO PROCEDURE; Start 02/22/19 at 13:15; Stop 02/23/19 at 13:14; Status DC Fentanyl Citrate (Fentanyl 2ml Vial) 25 mcg PRN Q5MIN PRN IV X 2 DOSES FOR PAIN; Start 02/22/19 at 13:15; Stop 02/23/19 at 13:14; Status DC Fentanyl Citrate (Fentanyl 2ml Vial) 50 mcg PRN Q5MIN PRN IV X 2 DOSES FOR PAIN; Start 02/22/19 at 13:15; Stop 02/23/19 at 13:14; Status DC Ringer's Solution 1,000 ml @ 125 mls/hr Q8H IV ; Start 02/22/19 at 13:11; Stop 02/23/19 at 01:10; Status DC Lidocaine HCl (Xylocaine-Mpf 1% 2ml Vial) 2 ml 1X PRN PRN ID IV START; Start 02/22/19 at 13:15; Stop 02/23/19 at 13:14; Status DC Propofol 20 ml @ As Directed STK-MED ONCE IV ; Start 02/22/19 at 14:20; Stop 02/22/19 at 14:21; Status DC Heparin Sodium (Porcine) 1000 unit/Sodium Chloride 1,001 ml @ 1,001 mls/hr 1X ONCE IRR ; Start 02/24/19 at 06:00; Stop 02/24/19 at 06:59; Status DC Polyethylene Glycol (miraLAX PACKET) 17 gm DAILY PO Last administered on 02/23/19at 15:43; Start 02/23/19 at 14:00 Polyethylene Glycol (miraLAX PACKET) 17 gm PRN DAILY PRN PO CONSTIPATION; Start 02/23/19 at 13:15 Ondansetron HCl (Zofran) 4 mg PRN Q6HRS PRN IV NAUSEA/VOMITING; Start 02/24/19 at 07:00; Stop 02/24/19 at 21:00; Status DC Fentanyl Citrate (Fentanyl 2ml Vial) 25 mcg PRN Q5MIN PRN IV MILD PAIN 1-3; Start 02/24/19 at 07:00; Stop 02/24/19 at 21:00; Status DC Fentanyl Citrate (Fentanyl 2ml Vial) 50 mcg PRN Q5MIN PRN IV MODERATE TO SEVERE PAIN; Start 02/24/19 at 07:00; Stop 02/24/19 at 21:00; Status DC Morphine Sulfate (Morphine Sulfate) 1 mg PRN Q10MIN PRN IV SEVERE PAIN 7-10; Start 02/24/19 at 07:00; Stop 02/24/19 at 21:00; Status DC Ringer's Solution 1,000 ml @ 30 mls/hr Q24H IV ; Start 02/24/19 at 07:00; Stop 02/24/19 at 18:59; Status DC Lidocaine HCl (Xylocaine-Mpf 1% 2ml Vial) 2 ml PRN 1X PRN ID PRIOR TO IV START; Start 02/24/19 at 07:00; Stop 02/24/19 at 21:00; Status DC Hydromorphone HCl (Dilaudid) 0.5 mg PRN Q10MIN PRN IV SEV PAIN, Second choice; Start 02/24/19 at 07:00; Stop 02/24/19 at 21:00; Status DC Prochlorperazine Edisylate (Compazine) 5 mg PACU PRN PRN IV NAUSEA, MRX1; Start 02/24/19 at 07:00; Stop 02/24/19 at 21:00; Status DC Lisinopril (Prinivil) 20 mg DAILY PO Last administered on 02/24/19at 08:32; Start 02/24/19 at 09:00 Aspirin (Paul Aspirin) 325 mg DAILYWBKFT PO Last administered on 02/24/19at 17:54; Start 02/24/19 at 17:30 Aspirin (Aspirin Rectal Supp) 300 mg PRN DAILY PRN [facility] IF UNABLE TO TAKE PO; Start 02/24/19 at 17:15 Iohexol (Omnipaque 350 Mg/ml) 75 ml 1X ONCE IV Last administered on 02/24/19at 17:15; Start 02/24/19 at 17:15; Stop 02/24/19 at 17:16; Status DC Potassium Chloride/Sodium Chloride 1,000 ml @ 75 mls/hr 1X ONCE IV Last administered on 02/25/19at 07:15; Start 02/25/19 at 07:00; Stop 02/25/19 at 20:19 Vitals/I & O Vital Sign - Last 24 Hours 02/24/19 02/24/19 02/24/19 02/24/19 08:32 08:33 11:00 15:00 Temp 97.9 97.7 97.9 97.7 Pulse 71 71 76 84 Resp 17 17 B/P (MAP) 172/71 172/71 147/63 (91) 132/64 (86) Pulse Ox 95 93 O2 Delivery Nasal Cannula Nasal Cannula O2 Flow Rate 2.0 2.0 02/24/19 02/24/19 02/24/19 02/25/19 19:00 20:00 23:00 03:00 Temp 98.9 98.8 98.6 98.9 98.8 98.6 Pulse 75 80 69 Resp 18 18 18 B/P (MAP) 144/63 (90) 154/56 (88) 117/51 (73) Pulse Ox 96 96 96 O2 Delivery Nasal Cannula Nasal Cannula Nasal Cannula Nasal Cannula O2 Flow Rate 2.0 2.0 2.0 2.0 02/25/19 07:00 Temp 98.1 98.1 Pulse 72 Resp 18 B/P (MAP) 146/53 (84) Pulse Ox 95 O2 Delivery Nasal Cannula O2 Flow Rate 2.0 Intake and Output 02/24/19 02/24/19 02/25/19 15:00 23:00 07:00 Intake Total 1480 ml 180 ml 0 ml Output Total 1100 ml 2 ml Balance 380 ml 178 ml 0 ml MILA AUGUSTIN MD February 25, 2019 08:31
--- NOTE | 2019-02-25 08:38 | NUR ---
NIH Stroke Scale completed on patient at 0830. Score=3. Patient shows inattention, vision loss on left side. Partial droop in left arm. Mild slur of speech. Patient is a/o x4. Dr. Hsu and Dr. Andrade notified by Mojgan TELLO. Mojgan TELLO is primary nurse for patient, notified of score and deficits. Bed alarm on, patient educated on not getting out of bed on her own. MRI done on 02/24/19. See labs, imaging, NIH.
[2019-02-25] MEDS: OXYMETAZOLINE 0.05% NASAL SPRAY 30ML BOTTLE. NS SCH ×2 (09:00→21:11)
--- NOTE | 2019-02-25 09:06 | PDOC ---
PROGRESS NOTES Chief Complaint Chief Complaint DKA resolved, transferred out of ICU Left sided weakness - Right middle cerebral artery CVA Symptomatic Cholelithiasis DM type 2 insulin requiring Bilious Emesis resolved AMS resolved Electrolyte abnormalities replacing Plan: Patient seen by surgery and recommended to have cholecystectomy. Patient is not interested at the present time, I have reiterated the risk of not addressing this at the present time specially given her elevated white blood cell count. Patient's wishes will be respected and will continue with medical management at this time. History of Present Illness History of Present Illness This is a 68-y-old female patient who was admitted on 02/19/19 due to DKA with glucose greater then 700. She was reportedly off DM meds for several years. She still complained back pain, poor PO intake and chronic nausea. GI was consulted and she was revealed cholelithiasis. Surgery was consulted, but patient declined cholecystectomy. She was noted left side facial drooping and left side weakness on 02/24/19, but patient stated she did not realized weakness. Neurology was requested for consultation, and a large subacute right MCA territory infarct was revealed. Patient today feeling better compared to yesterday. 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 K is 2.9 this morning and WBC is 19K, going up. No fevers or chills. She c/o dysuria as well and only wants to eat applesauce. Plan: Check UA consider cholecystectomy Rehab planning Replace K, check mag Vitals Vitals Vital Signs Date Time Temp Pulse Resp B/P (MAP) Pulse Ox O2 Delivery O2 Flow Rate FiO2 02/25/19 07:00 98.1 72 18 146/53 (84) 95 Nasal Cannula 2.0 98.1 Physical Exam General: Alert, Oriented X3, Cooperative, No acute distress Heart: Regular rate, Normal S1, Normal S2 Abdomen: Soft, No tenderness Extremities: No clubbing, No cyanosis Skin: Other (arm with chronic scars c/w scratching) Labs LABS Laboratory Tests Test 02/24/19 09:15 02/24/19 11:26 02/24/19 16:40 02/24/19 21:13 White Blood Count 16.3 x10^3/uL (4.0-11.0) Red Blood Count 4.19 x10^6/uL (3.50-5.40) Hemoglobin 12.4 g/dL (12.0-15.5) Hematocrit 36.9 % (36.0-47.0) Mean Corpuscular Volume 88 fL (79-100) Mean Corpuscular Hemoglobin 30 pg (25-35) Mean Corpuscular Hemoglobin Concent 34 g/dL (31-37) Red Cell Distribution Width 13.5 % (11.5-14.5) Platelet Count 274 x10^3/uL (140-400) Neutrophils (%) (Auto) 80 % (31-73) Lymphocytes (%) (Auto) 12 % (24-48) Monocytes (%) (Auto) 6 % (0-9) Eosinophils (%) (Auto) 3 % (0-3) Basophils (%) (Auto) 1 % (0-3) Neutrophils # (Auto) 13.0 x10^3uL (1.8-7.7) Lymphocytes # (Auto) 1.9 x10^3/uL (1.0-4.8) Monocytes # (Auto) 0.9 x10^3/uL (0.0-1.1) Eosinophils # (Auto) 0.4 x10^3/uL (0.0-0.7) Basophils # (Auto) 0.1 x10^3/uL (0.0-0.2) Sodium Level 133 mmol/L (136-145) Potassium Level 3.0 mmol/L (3.5-5.1) Chloride Level 99 mmol/L (98-107) Carbon Dioxide Level 22 mmol/L (21-32) Anion Gap 12 (6-14) Blood Urea Nitrogen 16 mg/dL (7-20) Creatinine 0.6 mg/dL (0.6-1.0) Estimated GFR (Cockcroft-Gault) 100.0 Glucose Level 198 mg/dL (70-99) Calcium Level 8.5 mg/dL (8.5-10.1) Vitamin B12 Level 613 pg/mL (247-911) Thyroid Stimulating Hormone (TSH) 1.726 uIU/mL (0.358-3.74) Glucose (Fingerstick) 204 mg/dL (70-99) 288 mg/dL (70-99) 194 mg/dL (70-99) Test 5/17/19 04:16 02/25/19 07:25 White Blood Count 19.2 x10^3/uL (4.0-11.0) Red Blood Count 3.87 x10^6/uL (3.50-5.40) Hemoglobin 11.4 g/dL (12.0-15.5) Hematocrit 34.2 % (36.0-47.0) Mean Corpuscular Volume 88 fL (79-100) Mean Corpuscular Hemoglobin 29 pg (25-35) Mean Corpuscular Hemoglobin Concent 33 g/dL (31-37) Red Cell Distribution Width 13.6 % (11.5-14.5) Platelet Count 301 x10^3/uL (140-400) Neutrophils (%) (Auto) 83 % (31-73) Lymphocytes (%) (Auto) 9 % (24-48) Monocytes (%) (Auto) 6 % (0-9) Eosinophils (%) (Auto) 1 % (0-3) Basophils (%) (Auto) 0 % (0-3) Neutrophils # (Auto) 15.9 x10^3uL (1.8-7.7) Lymphocytes # (Auto) 1.8 x10^3/uL (1.0-4.8) Monocytes # (Auto) 1.2 x10^3/uL (0.0-1.1) Eosinophils # (Auto) 0.3 x10^3/uL (0.0-0.7) Basophils # (Auto) 0.1 x10^3/uL (0.0-0.2) Sodium Level 141 mmol/L (136-145) Potassium Level 2.9 mmol/L (3.5-5.1) Chloride Level 105 mmol/L (98-107) Carbon Dioxide Level 24 mmol/L (21-32) Anion Gap 12 (6-14) Blood Urea Nitrogen 12 mg/dL (7-20) Creatinine 0.6 mg/dL (0.6-1.0) Estimated GFR (Cockcroft-Gault) 100.0 Glucose Level 72 mg/dL (70-99) Calcium Level 8.3 mg/dL (8.5-10.1) Triglycerides Level 431 mg/dL (0-150) Cholesterol Level 164 mg/dL (0-200) LDL Cholesterol, Calculated 61 mg/dL (0-100) VLDL Cholesterol, Calculated 86 mg/dL (0-40) Non-HDL Cholesterol Calculated 147 mg/dL (0-129) HDL Cholesterol 17 mg/dL (40-60) Cholesterol/HDL Ratio 9.6 Glucose (Fingerstick) 110 mg/dL (70-99) Assessment and Plan Assessmemt and Plan Problems Medical Problems: (1) Altered level of consciousness Status: Acute (2) Dehydration Status: Acute (3) DKA (diabetic ketoacidoses) Status: Acute (4) Hypercalcemia Status: Acute (5) Hypermagnesemia Status: Acute (6) Renal insufficiency Status: Acute (7) Sepsis Status: Acute Comment Review of Relevant I have reviewed the following items katalina (where applicable) has been applied. Labs Laboratory Tests Test 02/23/19 12:16 02/23/19 16:53 02/23/19 21:27 02/24/19 07:48 Glucose (Fingerstick) 122 mg/dL (70-99) 73 mg/dL (70-99) 86 mg/dL (70-99) 130 mg/dL (70-99) Test 02/24/19 09:15 02/24/19 11:26 02/24/19 16:40 02/24/19 21:13 White Blood Count 16.3 x10^3/uL (4.0-11.0) Red Blood Count 4.19 x10^6/uL (3.50-5.40) Hemoglobin 12.4 g/dL (12.0-15.5) Hematocrit 36.9 % (36.0-47.0) Mean Corpuscular Volume 88 fL (79-100) Mean Corpuscular Hemoglobin 30 pg (25-35) Mean Corpuscular Hemoglobin Concent 34 g/dL (31-37) Red Cell Distribution Width 13.5 % (11.5-14.5) Platelet Count 274 x10^3/uL (140-400) Neutrophils (%) (Auto) 80 % (31-73) Lymphocytes (%) (Auto) 12 % (24-48) Monocytes (%) (Auto) 6 % (0-9) Eosinophils (%) (Auto) 3 % (0-3) Basophils (%) (Auto) 1 % (0-3) Neutrophils # (Auto) 13.0 x10^3uL (1.8-7.7) Lymphocytes # (Auto) 1.9 x10^3/uL (1.0-4.8) Monocytes # (Auto) 0.9 x10^3/uL (0.0-1.1) Eosinophils # (Auto) 0.4 x10^3/uL (0.0-0.7) Basophils # (Auto) 0.1 x10^3/uL (0.0-0.2) Sodium Level 133 mmol/L (136-145) Potassium Level 3.0 mmol/L (3.5-5.1) Chloride Level 99 mmol/L (98-107) Carbon Dioxide Level 22 mmol/L (21-32) Anion Gap 12 (6-14) Blood Urea Nitrogen 16 mg/dL (7-20) Creatinine 0.6 mg/dL (0.6-1.0) Estimated GFR (Cockcroft-Gault) 100.0 Glucose Level 198 mg/dL (70-99) Calcium Level 8.5 mg/dL (8.5-10.1) Vitamin B12 Level 613 pg/mL (247-911) Thyroid Stimulating Hormone (TSH) 1.726 uIU/mL (0.358-3.74) Glucose (Fingerstick) 204 mg/dL (70-99) 288 mg/dL (70-99) 194 mg/dL (70-99) Test 02/25/19 04:16 02/25/19 07:25 White Blood Count 19.2 x10^3/uL (4.0-11.0) Red Blood Count 3.87 x10^6/uL (3.50-5.40) Hemoglobin 11.4 g/dL (12.0-15.5) Hematocrit 34.2 % (36.0-47.0) Mean Corpuscular Volume 88 fL (79-100) Mean Corpuscular Hemoglobin 29 pg (25-35) Mean Corpuscular Hemoglobin Concent 33 g/dL (31-37) Red Cell Distribution Width 13.6 % (11.5-14.5) Platelet Count 301 x10^3/uL (140-400) Neutrophils (%) (Auto) 83 % (31-73) Lymphocytes (%) (Auto) 9 % (24-48) Monocytes (%) (Auto) 6 % (0-9) Eosinophils (%) (Auto) 1 % (0-3) Basophils (%) (Auto) 0 % (0-3) Neutrophils # (Auto) 15.9 x10^3uL (1.8-7.7) Lymphocytes # (Auto) 1.8 x10^3/uL (1.0-4.8) Monocytes # (Auto) 1.2 x10^3/uL (0.0-1.1) Eosinophils # (Auto) 0.3 x10^3/uL (0.0-0.7) Basophils # (Auto) 0.1 x10^3/uL (0.0-0.2) Sodium Level 141 mmol/L (136-145) Potassium Level 2.9 mmol/L (3.5-5.1) Chloride Level 105 mmol/L (98-107) Carbon Dioxide Level 24 mmol/L (21-32) Anion Gap 12 (6-14) Blood Urea Nitrogen 12 mg/dL (7-20) Creatinine 0.6 mg/dL (0.6-1.0) Estimated GFR (Cockcroft-Gault) 100.0 Glucose Level 72 mg/dL (70-99) Calcium Level 8.3 mg/dL (8.5-10.1) Triglycerides Level 431 mg/dL (0-150) Cholesterol Level 164 mg/dL (0-200) LDL Cholesterol, Calculated 61 mg/dL (0-100) VLDL Cholesterol, Calculated 86 mg/dL (0-40) Non-HDL Cholesterol Calculated 147 mg/dL (0-129) HDL Cholesterol 17 mg/dL (40-60) Cholesterol/HDL Ratio 9.6 Glucose (Fingerstick) 110 mg/dL (70-99) Laboratory Tests Test 02/24/19 09:15 02/24/19 11:26 02/24/19 16:40 02/24/19 21:13 White Blood Count 16.3 x10^3/uL (4.0-11.0) Red Blood Count 4.19 x10^6/uL (3.50-5.40) Hemoglobin 12.4 g/dL (12.0-15.5) Hematocrit 36.9 % (36.0-47.0) Mean Corpuscular Volume 88 fL (79-100) Mean Corpuscular Hemoglobin 30 pg (25-35) Mean Corpuscular Hemoglobin Concent 34 g/dL (31-37) Red Cell Distribution Width 13.5 % (11.5-14.5) Platelet Count 274 x10^3/uL (140-400) Neutrophils (%) (Auto) 80 % (31-73) Lymphocytes (%) (Auto) 12 % (24-48) Monocytes (%) (Auto) 6 % (0-9) Eosinophils (%) (Auto) 3 % (0-3) Basophils (%) (Auto) 1 % (0-3) Neutrophils # (Auto) 13.0 x10^3uL (1.8-7.7) Lymphocytes # (Auto) 1.9 x10^3/uL (1.0-4.8) Monocytes # (Auto) 0.9 x10^3/uL (0.0-1.1) Eosinophils # (Auto) 0.4 x10^3/uL (0.0-0.7) Basophils # (Auto) 0.1 x10^3/uL (0.0-0.2) Sodium Level 133 mmol/L (136-145) Potassium Level 3.0 mmol/L (3.5-5.1) Chloride Level 99 mmol/L (98-107) Carbon Dioxide Level 22 mmol/L (21-32) Anion Gap 12 (6-14) Blood Urea Nitrogen 16 mg/dL (7-20) Creatinine 0.6 mg/dL (0.6-1.0) Estimated GFR (Cockcroft-Gault) 100.0 Glucose Level 198 mg/dL (70-99) Calcium Level 8.5 mg/dL (8.5-10.1) Vitamin B12 Level 613 pg/mL (247-911) Thyroid Stimulating Hormone (TSH) 1.726 uIU/mL (0.358-3.74) Glucose (Fingerstick) 204 mg/dL (70-99) 288 mg/dL (70-99) 194 mg/dL (70-99) Test 02/25/19 04:16 02/25/19 07:25 White Blood Count 19.2 x10^3/uL (4.0-11.0) Red Blood Count 3.87 x10^6/uL (3.50-5.40) Hemoglobin 11.4 g/dL (12.0-15.5) Hematocrit 34.2 % (36.0-47.0) Mean Corpuscular Volume 88 fL (79-100) Mean Corpuscular Hemoglobin 29 pg (25-35) Mean Corpuscular Hemoglobin Concent 33 g/dL (31-37) Red Cell Distribution Width 13.6 % (11.5-14.5) Platelet Count 301 x10^3/uL (140-400) Neutrophils (%) (Auto) 83 % (31-73) Lymphocytes (%) (Auto) 9 % (24-48) Monocytes (%) (Auto) 6 % (0-9) Eosinophils (%) (Auto) 1 % (0-3) Basophils (%) (Auto) 0 % (0-3) Neutrophils # (Auto) 15.9 x10^3uL (1.8-7.7) Lymphocytes # (Auto) 1.8 x10^3/uL (1.0-4.8) Monocytes # (Auto) 1.2 x10^3/uL (0.0-1.1) Eosinophils # (Auto) 0.3 x10^3/uL (0.0-0.7) Basophils # (Auto) 0.1 x10^3/uL (0.0-0.2) Sodium Level 141 mmol/L (136-145) Potassium Level 2.9 mmol/L (3.5-5.1) Chloride Level 105 mmol/L (98-107) Carbon Dioxide Level 24 mmol/L (21-32) Anion Gap 12 (6-14) Blood Urea Nitrogen 12 mg/dL (7-20) Creatinine 0.6 mg/dL (0.6-1.0) Estimated GFR (Cockcroft-Gault) 100.0 Glucose Level 72 mg/dL (70-99) Calcium Level 8.3 mg/dL (8.5-10.1) Triglycerides Level 431 mg/dL (0-150) Cholesterol Level 164 mg/dL (0-200) LDL Cholesterol, Calculated 61 mg/dL (0-100) VLDL Cholesterol, Calculated 86 mg/dL (0-40) Non-HDL Cholesterol Calculated 147 mg/dL (0-129) HDL Cholesterol 17 mg/dL (40-60) Cholesterol/HDL Ratio 9.6 Glucose (Fingerstick) 110 mg/dL (70-99) Medications Current Medications Sodium Chloride 1,000 ml @ 1,000 mls/hr 1X ONCE IV Last administered on 02/19/19at 08:10; Start 02/19/19 at 08:00; Stop 02/19/19 at 08:59; Status DC Insulin Human Regular (HumuLIN R VIAL) 10 unit 1X ONCE IV Last administered on 02/19/19at 07:50; Start 02/19/19 at 08:00; Stop 02/19/19 at 08:02; Status DC Insulin Human Regular 150 ml @ 0 mls/hr 1X ONCE IV Last administered on 02/19/19at 08:34; Start 02/19/19 at 08:00; Stop 02/19/19 at 08:02; Status DC Sodium Chloride 1,000 ml @ 100 mls/hr 1X ONCE IV Last administered on 02/19/19at 08:29; Start 02/19/19 at 09:00; Stop 02/19/19 at 13:58; Status DC Sodium Chloride 1,000 ml @ 1,000 mls/hr 1X ONCE IV ; Start 02/19/19 at 09:00; Stop 02/19/19 at 10:02; Status DC Ceftriaxone Sodium (Rocephin) 1 gm 1X ONCE IVP Last administered on 02/19/19at 10:28; Start 02/19/19 at 09:00; Stop 02/19/19 at 09:01; Status DC Sodium Chloride 1,000 ml @ 200 mls/hr Q5H IV ; Start 02/19/19 at 10:00; Stop 02/20/19 at 09:59; Status Cancel Insulin Human Regular 150 unit/ Sodium Chloride 151.5 ml @ 0 mls/hr CONT PRN PRN IV PER PROTOCOL; Start 02/19/19 at 13:00; Status Cancel Dextrose/Sodium Chloride 1,000 ml @ 250 mls/hr Q4H IV Last administered on 02/19/19at 18:06; Start 02/19/19 at 15:00; Stop 02/19/19 at 21:01; Status DC Insulin Human Regular 150 unit/ Sodium Chloride 151.5 ml @ 0 mls/hr CONT PRN PRN IV PER PROTOCOL; Start 02/19/19 at 10:00; Stop 02/19/19 at 21:01; Status DC Potassium Chloride/Water 100 ml @ 100 mls/hr PRN Q1HR PRN IV SEE COMMENTS; Start 02/19/19 at 10:00; Stop 02/19/19 at 21:01; Status DC Potassium Chloride/Water 100 ml @ 100 mls/hr PRN Q1HR PRN IV SEE COMMENTS; Start 02/19/19 at 09:45; Stop 02/19/19 at 21:01; Status DC Potassium Chloride/Water 100 ml @ 100 mls/hr PRN Q1HR PRN IV SEE COMMENTS; Start 02/19/19 at 09:45; Stop 02/19/19 at 21:01; Status DC Labetalol HCl (Normodyne Iv Push) 10 mg PRN Q2HR PRN IVP HYPERTENSION, SEE COMM ENTS Last administered on 02/21/19at 14:06; Start 02/19/19 at 09:45; Stop 02/21/19 at 15:43; Status DC Acetaminophen/ Codeine Phosphate (Tylenol #3) 1 tab PRN Q6HRS PRN PO PAIN; Start 02/19/19 at 09:45 Ondansetron HCl (Zofran) 4 mg PRN Q6HRS PRN IV NAUSEA/VOMITING 1ST CHOICE Last administered on 02/20/19at 11:25; Start 02/19/19 at 09:45 Ondansetron HCl (Zofran Odt) 4 mg PRN Q6HRS PRN PO NAUSEA/VOMITING; Start 02/19/19 at 09:45 Acetaminophen/ Hydrocodone Bitart (Lortab 5/325) 1 tab PRN Q4HRS PRN PO PAIN; Start 02/19/19 at 09:45 Fentanyl Citrate (Fentanyl 2ml Vial) 25 mcg PRN Q2HR PRN IV PAIN; Start 02/19/19 at 09:45 Sodium Chloride 1,000 ml @ 250 mls/hr Q4H IV Last administered on 02/19/19at 10:07; Start 02/19/19 at 11:00; Stop 02/19/19 at 18:06; Status DC Lidocaine (Lidoderm) 1 patch DAILY TD Last administered on 02/24/19at 08:45; Start 02/20/19 at 09:00 Miscellaneous (Lidoderm Patch Removal) 1 ea QHS MC Last administered on 02/24/19at 21:00; Start 02/19/19 at 21:00 Heparin Sodium (Porcine) (Heparin Sodium) 5,000 unit Q8HRS SQ Last administered on 02/25/19at 06:00; Start 02/19/19 at 14:00 Lorazepam (Ativan) 2 mg PRN Q4HRS PRN IV ANXIETY / AGITATION Last administered on 02/19/19at 11:59; Start 02/19/19 at 11:45 Lorazepam (Ativan) 2 mg PRN Q4HRS PRN IV ANXIETY / AGITATION; Start 02/19/19 at 12:00; Status UNV Potassium Phosphate 13.6 mmol/Dextrose 104.5333 ml @ 52.267 m... Q2H IV Last administered on 02/19/19at 18:05; Start 02/19/19 at 14:00; Stop 02/19/19 at 19:59; Status DC Dextrose/Sodium Chloride 1,000 ml @ 250 mls/hr Q4H IV ; Start 02/19/19 at 14:00; Status UNV Potassium Chloride 40 meq/ Sodium Chloride 1,020 ml @ 75 mls/hr [id number] IV Last administered on 02/19/19at 21:07; Start 02/19/19 at 21:00; Stop 02/20/19 at 08:04; Status DC Insulin Glargine (Lantus) 30 units QHS SQ Last administered on 02/24/19at 21:28; Start 02/19/19 at 21:00 Insulin Human Lispro (HumaLOG) 0-9 UNITS TIDWMEALS SQ Last administered on 02/20/19at 16:44; Start 02/20/19 at 08:00; Stop 02/21/19 at 08:18; Status DC Dextrose (Dextrose 50%-Water Syringe) 12.5 gm PRN Q15MIN PRN IV SEE COMMENTS; Start 02/19/19 at 21:00 Insulin Human Lispro (HumaLOG) 12 units TIDWMEALS SQ Last administered on 02/20/19at 18:25; Start 02/20/19 at 08:00; Stop 02/21/19 at 08:18; Status DC Acetaminophen (Tylenol) 650 mg PRN Q6HRS PRN PO temp Last administered on 02/20/19at 11:16; Start 02/19/19 at 21:00 Acetaminophen (Tylenol Supp) 650 mg PRN Q6HRS PRN RI MILD PAIN / TEMP; Start 02/19/19 at 21:00 Insulin Human Lispro (HumaLOG) 4 units 1X ONCE SQ Last administered on 02/20/19at 02:00; Start 02/20/19 at 02:00; Stop 02/20/19 at 02:01; Status DC Insulin Human Lispro (HumaLOG) 10 units 1X ONCE SQ Last administered on 02/20/19at 05:35; Start 02/20/19 at 06:00; Stop 02/20/19 at 06:01; Status DC Sodium Chloride 38.75 meq/Sterile Water 1,009.6875 ml @ 100 mls/hr Q10H6M IV Last administered on 02/24/19at 01:56; Start 02/20/19 at 09:00; Stop 02/24/19 at 09:15; Status DC Metoclopramide HCl (Reglan Vial) 5 mg PRN Q6HRS PRN IV NAUSEA/VOMITING 2ND CHOICE; Start 02/20/19 at 14:15 Insulin Human Lispro (HumaLOG) 12 units QIDACHS SQ Last administered on 02/22/19at 12:45; Start 02/21/19 at 08:20; Stop 02/22/19 at 12:59; Status DC Insulin Human Lispro (HumaLOG) 0-9 UNITS QIDACHS SQ Last administered on 02/24/19at 18:00; Start 02/21/19 at 08:20 Pantoprazole Sodium (Protonix) 40 mg BIDAC PO Last administered on 02/24/19at 17:54; Start 02/21/19 at 11:30 Ondansetron HCl (Zofran) 4 mg PRN Q6HRS PRN IV NAUSEA/VOMITING; Start 02/22/19 at 07:00; Stop 02/23/19 at 07:00; Status DC Fentanyl Citrate (Fentanyl 2ml Vial) 25 mcg PRN Q5MIN PRN IV MILD PAIN; Start 02/22/19 at 07:00; Stop 02/23/19 at 07:00; Status DC Fentanyl Citrate (Fentanyl 2ml Vial) 50 mcg PRN Q5MIN PRN IV MODERATE TO SEVERE PAIN; Start 02/22/19 at 07:00; Stop 02/23/19 at 07:00; Status DC Morphine Sulfate (Morphine Sulfate) 1 mg PRN Q10MIN PRN IV SEVERE PAIN; Start 02/22/19 at 07:00; Stop 02/23/19 at 07:00; Status DC Ringer's Solution 1,000 ml @ 30 mls/hr Q24H IV Last administered on 02/22/19at 13:26; Start 02/22/19 at 07:00; Stop 02/22/19 at 18:59; Status DC Lidocaine HCl (Xylocaine-Mpf 1% 2ml Vial) 2 ml PRN 1X PRN ID PRIOR TO IV START; Start 02/22/19 at 07:00; Stop 02/23/19 at 07:00; Status DC Hydromorphone HCl (Dilaudid) 0.5 mg PRN Q10MIN PRN IV SEV PAIN, Second choice; Start 02/22/19 at 07:00; Stop 02/23/19 at 07:00; Status DC Clonidine HCl (Catapres) 0.2 mg PRN Q8HRS PRN PO SBP >160 Last administered on 02/21/19at 18:25; Start 02/21/19 at 15:45 Amlodipine Besylate (Norvasc) 10 mg DAILY PO Last administered on 02/24/19 08:33; Start 02/22/19 at 09:00 Oxymetazoline HCl (Afrin) 2 spray 1X ONCE NS Last administered on 02/22/19 16 :48; Start 02/22/19 at 13:00; Stop 02/22/19 at 13:01; Status DC Oxymetazoline HCl (Afrin) 2 spray BID NS Last administered on 02/24/19at 21:14; Start 02/22/19 at 21:00 Fluticasone Propionate (Flonase) 2 spray DAILY NS Last administered on 02/24/19at 08:34; Start 02/22/19 at 13:00 Potassium Chloride (Klor-Con) 20 meq 1X ONCE PO Last administered on 02/22/19at 16:48; Start 02/22/19 at 13:30; Stop 02/22/19 at 13:31; Status DC Insulin Human Lispro (HumaLOG) 15 units QIDACHS SQ Last administered on 02/24/19at 21:23; Start 02/22/19 at 16:30 Midazolam HCl (Versed) 2 mg PRN 1X PRN IV PRIOR TO PROCEDURE; Start 02/22/19 at 13:15; Stop 02/23/19 at 13:14; Status DC Fentanyl Citrate (Fentanyl 2ml Vial) 25 mcg PRN Q5MIN PRN IV X 2 DOSES FOR PAIN; Start 02/22/19 at 13:15; Stop 02/23/19 at 13:14; Status DC Fentanyl Citrate (Fentanyl 2ml Vial) 50 mcg PRN Q5MIN PRN IV X 2 DOSES FOR PAIN; Start 02/22/19 at 13:15; Stop 02/23/19 at 13:14; Status DC Ringer's Solution 1,000 ml @ 125 mls/hr Q8H IV ; Start 02/22/19 at 13:11; Stop 02/23/19 at 01:10; Status DC Lidocaine HCl (Xylocaine-Mpf 1% 2ml Vial) 2 ml 1X PRN PRN ID IV START; Start 02/22/19 at 13:15; Stop 02/23/19 at 13:14; Status DC Propofol 20 ml @ As Directed STK-MED ONCE IV ; Start 02/22/19 at 14:20; Stop 02/22/19 at 14:21; Status DC Heparin Sodium (Porcine) 1000 unit/Sodium Chloride 1,001 ml @ 1,001 mls/hr 1X ONCE IRR ; Start 02/24/19 at 06:00; Stop 02/24/19 at 06:59; Status DC Polyethylene Glycol (miraLAX PACKET) 17 gm DAILY PO Last administered on 02/23/19at 15:43; Start 02/23/19 at 14:00 Polyethylene Glycol (miraLAX PACKET) 17 gm PRN DAILY PRN PO CONSTIPATION; Start 02/23/19 at 13:15 Ondansetron HCl (Zofran) 4 mg PRN Q6HRS PRN IV NAUSEA/VOMITING; Start 02/24/19 at 07:00; Stop 02/24/19 at 21:00; Status DC Fentanyl Citrate (Fentanyl 2ml Vial) 25 mcg PRN Q5MIN PRN IV MILD PAIN 1-3; Start 02/24/19 at 07:00; Stop 02/24/19 at 21:00; Status DC Fentanyl Citrate (Fentanyl 2ml Vial) 50 mcg PRN Q5MIN PRN IV MODERATE TO SEVERE PAIN; Start 02/24/19 at 07:00; Stop 02/24/19 at 21:00; Status DC Morphine Sulfate (Morphine Sulfate) 1 mg PRN Q10MIN PRN IV SEVERE PAIN 7-10; Start 02/24/19 at 07:00; Stop 02/24/19 at 21:00; Status DC Ringer's Solution 1,000 ml @ 30 mls/hr Q24H IV ; Start 02/24/19 at 07:00; Stop 02/24/19 at 18:59; Status DC Lidocaine HCl (Xylocaine-Mpf 1% 2ml Vial) 2 ml PRN 1X PRN ID PRIOR TO IV START; Start 02/24/19 at 07:00; Stop 02/24/19 at 21:00; Status DC Hydromorphone HCl (Dilaudid) 0.5 mg PRN Q10MIN PRN IV SEV PAIN, Second choice; Start 02/24/19 at 07:00; Stop 02/24/19 at 21:00; Status DC Prochlorperazine Edisylate (Compazine) 5 mg PACU PRN PRN IV NAUSEA, MRX1; Start 02/24/19 at 07:00; Stop 02/24/19 at 21:00; Status DC Lisinopril (Prinivil) 20 mg DAILY PO Last administered on 02/24/19at 08:32; S tart 02/24/19 at 09:00 Aspirin (Paul Aspirin) 325 mg DAILYWBKFT PO Last administered on 02/24/19at 17:54; Start 02/24/19 at 17:30 Aspirin (Aspirin Rectal Supp) 300 mg PRN DAILY PRN RI IF UNABLE TO TAKE PO; Start 02/24/19 at 17:15 Iohexol (Omnipaque 350 Mg/ml) 75 ml 1X ONCE IV Last administered on 02/24/19at 17:15; Start 02/24/19 at 17:15; Stop 02/24/19 at 17:16; Status DC Potassium Chloride/Sodium Chloride 1,000 ml @ 75 mls/hr 1X ONCE IV Last administered on 02/25/19at 07:15; Start 02/25/19 at 07:00; Stop 02/25/19 at 20:19 Vitals/I & O Vital Sign - Last 24 Hours 02/24/19 02/24/19 02/24/19 5/16/19 11:00 15:00 19:00 20:00 Temp 97.9 97.7 98.9 97.9 97.7 98.9 Pulse 76 84 75 Resp 18 B/P (MAP) 147/63 (91) 132/64 (86) 144/63 (90) Pulse Ox 95 93 96 O2 Delivery Nasal Cannula Nasal Cannula Nasal Cannula Nasal Cannula O2 Flow Rate 2.0 2.0 2.0 2.0 02/24/19 02/25/19 02/25/19 23:00 03:00 07:00 Temp 98.8 98.6 98.1 98.8 98.6 98.1 Pulse 80 69 72 Resp 18 B/P (MAP) 154/56 (88) 117/51 (73) 146/53 (84) Pulse Ox 96 96 95 O2 Delivery Nasal Cannula Nasal Cannula Nasal Cannula O2 Flow Rate 2.0 2.0 2.0 Intake and Output 02/24/19 02/24/19 02/25/19 15:00 23:00 07:00 Intake Total 1480 ml 180 ml 0 ml Output Total 1100 ml 2 ml Balance 380 ml 178 ml 0 ml GABRIELLE DAY MD February 25, 2019 09:06
[2019-02-25] MEDS: PANTOPRAZOLE 40 MG TABLET.DR. PO SCH ×2 (09:22→16:50)
[2019-02-25] MEDS: ASPIRIN 325 MG TABLET PO SCH (09:23)
[2019-02-25] MEDS: FLUTICASONE 50MCG/NASAL SPRAY 16GM BOTTLE. NS SCH (09:24)
[2019-02-25] MEDS: amLODIPine BESYLATE 10 MG TABLET PO SCH (09:24)
[2019-02-25] MEDS: LIDOCAINE (700MG/PATCH) PATCH. TD SCH (09:25)
[2019-02-25] MEDS: POLYETHYLENE GLYCOL 3350 17 GM PACKET. PO SCH (09:25)
[2019-02-25] MEDS: LISINOPRIL 20 MG TABLET PO SCH (09:25)
--- NOTE | 2019-02-25 09:30 | NUR ---
Pt's brief urine soaked, post void residual per bladder scan =0.
--- NOTE | 2019-02-25 09:30 | NUR ---
SW consulted for rehab screen. PT recommendation has changed to acute rehab. Discussed with Pt's via phone about inpatient rehab vs skilled. SW also discussed insurance coverage. Pt's reported he will discuss with pt and notify SW. Will continue to follow. Addendum: 02/25/19 at 1111 by LITA ARCHIBALD SW following pt. DRAGAN provided pt's with Brochure for [facility].
[2019-02-25 11:00] VITALS: BP 119/43
--- NOTE | 2019-02-25 11:30 | PDOC ---
Subjective: Subjective: Says she's eating okay and denies abd pain. Also says swallowing is "good." Still sleepy. wants to know why she's on oxygen again. Says a social sciences instructor called him this morning about therapy and he's waiting to speak with them. Objective: Objective: Reviewed chart - facial droop yesterday afternoon, imaging as below, neuro following. RN says stooled yesterday. Vital Signs: Vital Signs Date Time Temp Pulse Resp B/P (MAP) Pulse Ox O2 Delivery O2 Flow Rate FiO2 02/25/19 11:00 97.5 73 18 119/43 (68) 95 Nasal Cannula 2.0 97.5 Labs: Laboratory Tests Test 02/24/19 16:40 02/24/19 21:13 02/25/19 04:16 02/25/19 07:25 Glucose (Fingerstick) 288 mg/dL 194 mg/dL 110 mg/dL White Blood Count 19.2 x10^3/uL Red Blood Count 3.87 x10^6/uL Hemoglobin 11.4 g/dL Hematocrit 34.2 % Mean Corpuscular Volume 88 fL Mean Corpuscular Hemoglobin 29 pg Mean Corpuscular Hemoglobin Concent 33 g/dL Red Cell Distribution Width 13.6 % Platelet Count 301 x10^3/uL Neutrophils (%) (Auto) 83 % Lymphocytes (%) (Auto) 9 % Monocytes (%) (Auto) 6 % Eosinophils (%) (Auto) 1 % Basophils (%) (Auto) 0 % Neutrophils # (Auto) 15.9 x10^3uL Lymphocytes # (Auto) 1.8 x10^3/uL Monocytes # (Auto) 1.2 x10^3/uL Eosinophils # (Auto) 0.3 x10^3/uL Basophils # (Auto) 0.1 x10^3/uL Sodium Level 141 mmol/L Potassium Level 2.9 mmol/L Chloride Level 105 mmol/L Carbon Dioxide Level 24 mmol/L Anion Gap 12 Blood Urea Nitrogen 12 mg/dL Creatinine 0.6 mg/dL Estimated GFR (Cockcroft-Gault) 100.0 Glucose Level 72 mg/dL Calcium Level 8.3 mg/dL Triglycerides Level 431 mg/dL Cholesterol Level 164 mg/dL LDL Cholesterol, Calculated 61 mg/dL VLDL Cholesterol, Calculated 86 mg/dL Non-HDL Cholesterol Calculated 147 mg/dL HDL Cholesterol 17 mg/dL Cholesterol/HDL Ratio 9.6 Material submitted: . PART A: duodenum - DUODENAL BX R/O CELIAC SPRUE PART B: gastrointestinal site - ANTRUM GASTRITIS R/O H. PYLORI . 01 Clinical history: . Nausea with vomiting, anorexia . 02 Diagnosis: A. Duodenal biopsies: - Focal mild nonspecific duodenitis. . B. Gastric biopsies, antrum: - Congestion and focal slight chronic inflammation. Comment: Sections of the duodenal biopsy show a focal mild increase of chronic inflammatory cells with a few admixed neutrophils within the lamina propria. The mucosal villi show no sprue-like changes. Sections of the gastric biopsy reveal segments of gastric body mucosa showing congestion and focal slight chronic inflammation. An immunoperoxidase stain for Helicobacter is negative for Helicobacter organisms. There is no evidence of malignancy. Imaging: Brain MRI Impression: 1. There is a large subacute infarct centered in the right temporal lobe extending to parietal and occipital lobes, also some smaller foci of the right basal ganglia, right thalamus, and right insula. There is mild petechial hemorrhage associated with area of more confluent diffusion signal abnormality of the right temporal lobe. Proximal right M1 narrowing is not excludable by this exam. Head/Neck CTA IMPRESSION: 1. Negative CTA of the neck. 2. No intracranial stenosis or large area of occlusion is seen. Diminished arterial enhancement is seen within branches of the right middle cerebral artery and the right temporal/parietal lobe which correspond to the area infarction seen on the patient's MRI. Stenosis calculation for CTA are based on measurement of the distal internal carotid artery diameter in accordance with the NASCET methodology. PE: GEN: NAD LUNGS: NC HEART: RRR ABD: S/ND/NT NEURO/PSYCH: answers questions appropriately, keeps eyes closed A/P: Large subacute right temporal, parietal and occipital infarct N/v, anorexia, dysphagia - ?better, EGD path benign, has cholelithiasis -- Continue support per GI. MOUNA HAGER February 25, 2019 11:30
[2019-02-25] MEDS ORDERED: POTASSIUM CHLORIDE 20 MEQ TABLET.ER. PO ONE (11:45)
--- NOTE | 2019-02-25 12:48 | NUR ---
Pt's chose [facility]. SW faxed referral to [facility]. Pt acceptance and admission pending. Will continue to follow.
--- NOTE | 2019-02-25 14:35 | NUR ---
straight cathed to obtain UA,350 ml yellow urine returned,brief was wet prior to straight cath,Dr Kirby notified. see orders.
[2019-02-25 14:42] LABS: BILIRUBIN,URINE NEGATIVE (NEG); CLARITY,URINE CLEAR; COLOR,URINE YELLOW; NITRITE,URINE NEGATIVE (NEG); PH,URINE 5.5; PROTEIN,URINE NEGATIVE (NEG-TRACE); UROBILINOGEN,URINE 0.2 mg/dL (0.2 mg/dL)
[2019-02-25 15:00] VITALS: BP 128/45
[2019-02-25 15:10] LABS: BACTERIA,URINE FEW /HPF (0-FEW); RBC,URINE OCC /HPF (0-2); SQUAMOUS EPITHELIAL CELL,UR OCC /LPF
--- NOTE | 2019-02-25 15:16 | NUR ---
SW following pt. Pt has been accepted at [facility] and facility will have a bed available upon dc. Discussed with Physician.
--- NOTE | 2019-02-25 15:53 | PDOC ---
PROGRESS NOTES Assessment Assessment Large subacute right temporal, parietal and occipital infarct. Small right BG, thalamus and insula infarct. Right M 1 narrow? Petechial hemorrhage. Metabolic encephalopathy. Left side vague facial drooping, onset time unknown. Left side mild weakness, onset time unknown. Hyperglycemia, glucose level 747. Hypertriglyceridemia. DKA. DM. HTN. Leukocytosis. Cholelithiasis Fatty liver. Urinary and bowel incontinence. Obesity. RECOMMENDATIONS/PLAN: ASA 325 mg daily. Lipitor 40 mg HS. Echo + bubble study ordered on 02/24/19. Control hyperglycemia. Treat medical and surgical diseases. OT?PT as needed. HISTORY OF THE PRESENT ILLNESS: This is a 68-y-old female patient who was admitted on 02/19/19 due to DKA with glucose greater then 700. She was reportedly off DM meds for several years. She still complained back pain, poor PO intake and chronic nausea. GI was consulted and she was revealed cholelithiasis. Surgery was consulted, but patient declined cholecystectomy. She was noted left side facial drooping and left side weakness on 02/24/19, but patient stated she did not realized weakness. Neurology was requested for consultation, and a large subacute right MCA territory infarct was revealed. Past Medical History Endocrine: Diabetes, obesity. HTN. Past Surgical History Injury to neck with a laceration. She denies any other surgical procedures but she is not sure. Family History Unknown ALLERGY: Unknown MEDICATIONS: Refer to [facility] SOCIAL HISTORY: Lives with her at home. Denies current smoking, drinking, and illicit drug use. REVIEW OF SYSTEMS: Constitutional: Obese. Head: No traumatic brain or head injury. Skin: No edema, or rash. Ear: No infection. Eyes: No vision loss or color blindness. Nose: No bleeding or purulent discharges. Hearing: No hearing decrease. Neck: No injury. Breast: No history of cancer, masses,or discharges. Cardiac: HTN. Pulmonary: No COPD. GI: Cholelithiasis. Urinary/genital: UTI. Endocrinologic: Diabetes Mellitus, obesity. Skeletomuscular: No muscular atrophy. Neurological: see HP. Psychiatric: Denies drug use/abuse. Otherwise, not [id number] review of systems. PHYSICAL EXAMINATION: General appearance is in subacute distress. HEENT: Normocephalic and nontraumatic. Eyes, nose, ears, and throat are unremarkable. Neck is supple. No lymphadenopathy. No crepitus. Cardiovascular: S1, S2, regular rate and rhythm. Pulmonary: mildly decreased to auscultation bilaterally. Abdomen: Bowel sounds are positive. Extremities: No rash, lesions, or edema. No restriction of range of motion NEUROLOGICAL EXAMINATION: Awake. Reactions slow. Oriented partially to time, place but knew person. PERRL. EOMI. CN: no obvious focal findings at this time. Muscle tone: within normal. Muscle strength: left side 4, right side 5. DTR: 2- Plantar reflex: Neutral response bilaterally Gait: Unable to walk w/o assistance. Sensory exam: unable to access accurately due to not answer questions correctly. No acute cerebellar signs elicited. F-T-N test fine. Objective Objective Vital Signs Date Time Temp Pulse Resp B/P (MAP) Pulse Ox O2 Delivery O2 Flow Rate FiO2 02/25/19 15:00 97.8 73 16 128/45 (72) 95 Nasal Cannula 2.0 97.8 Intake and Output 02/25/19 07:00 Intake Total 1660 ml Output Total 1102 ml Balance 558 ml Intake Oral 660 ml IV Total 1000 ml Output Urine Total 1102 ml Vitals Signs Vitals VS - Last 72 Hours, by Label Date Time Temp Pulse Resp B/P (MAP) Pulse Ox O2 Delivery O2 Flow Rate FiO2 02/25/19 15:00 97.8 73 16 128/45 (72) 95 Nasal Cannula 2.0 97.8 02/25/19 11:00 97.5 73 18 119/43 (68) 95 Nasal Cannula 2.0 97.5 02/25/19 09:25 72 146/53 02/25/19 09:24 72 146/53 02/25/19 07:00 98.1 72 18 146/53 (84) 95 Nasal Cannula 2.0 98.1 02/25/19 03:00 98.6 69 18 117/51 (73) 96 Nasal Cannula 2.0 98.6 02/24/19 23:00 98.8 80 18 154/56 (88) 96 Nasal Cannula 2.0 98.8 02/24/19 20:00 Nasal Cannula 2.0 02/24/19 19:00 98.9 75 18 144/63 (90) 96 Nasal Cannula 2.0 98.9 02/24/19 15:00 97.7 84 17 132/64 (86) 93 Nasal Cannula 2.0 97.7 02/24/19 11:00 97.9 76 17 147/63 (91) 95 Nasal Cannula 2.0 97.9 02/24/19 08:33 71 172/71 02/24/19 08:32 71 172/71 02/24/19 08:24 98.2 71 17 172/71 (104) 95 Nasal Cannula 2.0 98.2 02/24/19 08:00 Nasal Cannula 2.0 02/24/19 07:00 99.3 74 17 147/70 (95) 93 99.3 Laboratory Laboratory Laboratory Tests Test 02/24/19 16:40 02/24/19 21:13 02/25/19 04:16 02/25/19 07:25 Glucose (Fingerstick) 288 mg/dL (70-99) 194 mg/dL (70-99) 110 mg/dL (70-99) White Blood Count 19.2 x10^3/uL (4.0-11.0) Red Blood Count 3.87 x10^6/uL (3.50-5.40) Hemoglobin 11.4 g/dL (12.0-15.5) Hematocrit 34.2 % (36.0-47.0) Mean Corpuscular Volume 88 fL (79-100) Mean Corpuscular Hemoglobin 29 pg (25-35) Mean Corpuscular Hemoglobin Concent 33 g/dL (31-37) Red Cell Distribution Width 13.6 % (11.5-14.5) Platelet Count 301 x10^3/uL (140-400) Neutrophils (%) (Auto) 83 % (31-73) Lymphocytes (%) (Auto) 9 % (24-48) Monocytes (%) (Auto) 6 % (0-9) Eosinophils (%) (Auto) 1 % (0-3) Basophils (%) (Auto) 0 % (0-3) Neutrophils # (Auto) 15.9 x10^3uL (1.8-7.7) Lymphocytes # (Auto) 1.8 x10^3/uL (1.0-4.8) Monocytes # (Auto) 1.2 x10^3/uL (0.0-1.1) Eosinophils # (Auto) 0.3 x10^3/uL (0.0-0.7) Basophils # (Auto) 0.1 x10^3/uL (0.0-0.2) Sodium Level 141 mmol/L (136-145) Potassium Level 2.9 mmol/L (3.5-5.1) Chloride Level 105 mmol/L (98-107) Carbon Dioxide Level 24 mmol/L (21-32) Anion Gap 12 (6-14) Blood Urea Nitrogen 12 mg/dL (7-20) Creatinine 0.6 mg/dL (0.6-1.0) Estimated GFR (Cockcroft-Gault) 100.0 Glucose Level 72 mg/dL (70-99) Calcium Level 8.3 mg/dL (8.5-10.1) Magnesium Level 2.3 mg/dL (1.8-2.4) Triglycerides Level 431 mg/dL (0-150) Cholesterol Level 164 mg/dL (0-200) LDL Cholesterol, Calculated 61 mg/dL (0-100) VLDL Cholesterol, Calculated 86 mg/dL (0-40) Non-HDL Cholesterol Calculated 147 mg/dL (0-129) HDL Cholesterol 17 mg/dL (40-60) Cholesterol/HDL Ratio 9.6 Test 02/25/19 11:38 02/25/19 14:30 02/25/19 14:35 Glucose (Fingerstick) 161 mg/dL (70-99) Urine Color Yellow Urine Clarity Clear Urine pH 5.5 Urine Specific [place] 1.015 Urine Protein Negative mg/dL (NEG-TRACE) Urine Glucose (UA) Negative mg/dL (NEG) Urine Ketones (Stick) Negative mg/dL (NEG) Urine Blood Trace (NEG) Urine Nitrite Negative (NEG) Urine Bilirubin Negative (NEG) Urine Urobilinogen Dipstick 0.2 mg/dL (0.2 mg/dL) Urine Leukocyte Esterase Negative (NEG) Urine RBC Occ /HPF (0-2) Urine WBC 1-4 /HPF (0-4) Urine Squamous Epithelial Cells Occ /LPF Urine Bacteria Few /HPF (0-FEW) Urine Mucus Slight /LPF Potassium Level 3.2 mmol/L (3.5-5.1) Medication Medications Current Medications Aspirin (Aspirin Rectal Supp) 300 mg PRN DAILY PRN UT IF UNABLE TO TAKE PO; Start 02/24/19 at 17:15 Aspirin (Paul Aspirin) 325 mg DAILYWBKFT PO Last administered on 02/25/19at 09:23; Start 02/24/19 at 17:30 Iohexol (Omnipaque 350 Mg/ml) 75 ml 1X ONCE IV Last administered on 02/24/19at 17:15; Start 02/24/19 at 17:15; Stop 02/24/19 at 17:16; Status DC Potassium Chloride/Sodium Chloride 1,000 ml @ 75 mls/hr 1X ONCE IV Last administered on 02/25/19at 07:15; Start 02/25/19 at 07:00; Stop 02/25/19 at 20:19 Potassium Chloride (Klor-Con) 40 meq 1X ONCE PO Last administered on 02/25/19at 12:15; Start 02/25/19 at 11:45; Stop 02/25/19 at 11:48; Status DC Comment Review of Relevant I have reviewed the following items katalina (where applicable) has been applied. KARON ROA MD February 25, 2019 15:53
[2019-02-25] MEDS: DEXTROSE 50% 25 GM / 50ML DISP.SYRIN. IV PRN (16:43)
--- NOTE | 2019-02-25 17:40 | CARD ---
MR#: [id number] Date of Study: 02/25/2019 Ordering Physician: KARON ROA, Referring Physician: ZAKIA PRUETT Tech: Stephanie Dalshayleesandy APPROVED REPORT EXAM: Two-dimensional and M-mode echocardiogram with Doppler and color Doppler. Other Information Quality : AverageHR: 69bpm INDICATION CVA/TIA Echo Enhancing Agent Indication: Rule Out Septal Defect Agent/Amount Used: Agitated Saline 10mL 2D DIMENSIONS RVDd2.8 (2.9-3.5cm)Left Atrium(2D)3.7 (1.6-4.0cm) IVSd1.5 (0.7-1.1cm)Aortic Root(2D)2.8 (2.0-3.7cm) LVDd4.4 (3.9-5.9cm)LVOT Diameter1.8 (1.8-2.4cm) PWd1.2 (0.7-1.1cm)LVDs2.4 (2.5-4.0cm) FS (%) 45.9 %SV66.7 ml LVEF(%)77.5 (>50%) Aortic Valve AoV Peak Timoteo.137.3cm/sAoV VTI32.2cm AO Peak GR.7.5mmHgLVOT VTI 23.24cm AO Mean GR.6mmHg Mitral Valve MV E Ogquzbrs96.9cm/sMV DECEL [id number] MV A Ogbrjemu411.2cm/sE/A Ratio0.7 TDI Lateral E' P. V7.99cm/sMedial E' P. V10.26cm/s E/Lateral E'9.1E/Medial E'7.1 Tricuspid Valve TR P. Ywiykbxn463ke/sRAP [id number] TR Peak Gr.[id number] Pulmonary Vein S1 Ljfazhpo48.6cm/sS2 Ewanhguz59.79cm/s D2 Ieekjrki63.8cm/sPVa [id number] LEFT VENTRICLE The left ventricle is normal size. There is mild to moderate concentric left ventricular hypertrophy. The left ventricular systolic function is normal. The Ejection Fraction is 60-65%. There is normal L V segmental wall motion. Transmitral Doppler flow pattern is Grade I-abnormal relaxation pattern. RIGHT VENTRICLE The right ventricle is normal size. There is normal right ventricular wall thickness. The right ventr icular systolic function is normal. ATRIA The left atrium size is normal. The right atrium size is normal. The interatrial septum is intact wit h no evidence for an atrial septal defect or patent foramen ovale as noted on 2-D or Doppler imaging. AORTIC VALVE The aortic valve is normal in structure and function. Doppler and Color Flow revealed no significant aortic regurgitation. There is no significant aortic valvular stenosis. MITRAL VALVE The mitral valve is normal in structure and function. There is no evidence of mitral valve prolapse. There is no mitral valve stenosis. Doppler and Color-flow revealed trace mitral regurgitation. TRICUSPID VALVE The tricuspid valve is normal in structure and function. Doppler and Color Flow revealed trace tricus pid regurgitation with an estimated PAP of 23 mmHg. There is no tricuspid valve stenosis. PULMONIC VALVE The pulmonic valve is not well visualized. Doppler and Color Flow revealed no pulmonic valvular regur gitation. GREAT VESSELS The aortic root is normal in size. The IVC is normal in size and collapses >50% with inspiration. PERICARDIAL EFFUSION There is no evidence of significant pericardial effusion. Critical Notification Critical Value: No <Conclusion> The left ventricular systolic function is normal. The Ejection Fraction is 60-65%. There is normal LV segmental wall motion. Transmitral Doppler flow pattern is Grade I-abnormal relaxation pattern. Trace mitral regurgitation. Trace tricuspid regurgitation with an estimated PAP of 23 mmHg. There is no evidence of significant pericardial effusion. Signed by : Rajinder Mccloud, Electronically Approved : 02/25/2019 17:39:41
[2019-02-25 19:00] VITALS: BP 146/60
[2019-02-25] MEDS: PATCH REMOVAL. MC SCH (21:00)
[2019-02-25] MEDS: ATORVASTATIN CALCIUM 40 MG TABLET. PO SCH (21:11)
[2019-02-25] MEDS: INSULIN GLARGINE 300 UNITS/3 ML INSULN.PEN. SQ SCH (21:17)
[2019-02-25 23:00] VITALS: BP 171/64
[2019-02-26] VITALS (7 sets, daily range): BP systolic 120–170; BP diastolic 56–65
[2019-02-26 05:26] LABS: BASO # 0.1 x10^3/uL (0.0-0.2); BASO % 1 % (0-3); EOS # 0.3 x10^3/uL (0.0-0.7); EOS % 2 % (0-3); HEMATOCRIT 31.7 % (36.0-47.0); HEMOGLOBIN 10.6 g/dL (12.0-15.5); LYMPH # 1.9 x10^3/uL (1.0-4.8); LYMPH % 13 % (24-48); MEAN CORPUSCULAR HEMOGLOBIN 30 pg (25-35); MEAN CORPUSCULAR HGB CONC 34 g/dL (31-37); MEAN CORPUSCULAR VOLUME 89 fL (79-100); MONO # 0.9 x10^3/uL (0.0-1.1); MONO % 6 % (0-9); NEUT # 11.8 x10^3uL (1.8-7.7); NEUT % 79 % (31-73); PLATELET COUNT 341 x10^3/uL (140-400); RED BLOOD COUNT 3.55 x10^6/uL (3.50-5.40); RED CELL DISTRIBUTION WIDTH 13.5 % (11.5-14.5)
[2019-02-26 06:19] LABS: CALCIUM 8.1 mg/dL (8.5-10.1); CREATININE 0.6 mg/dL (0.6-1.0); POTASSIUM 3.7 mmol/L (3.5-5.1)
[2019-02-26] MEDS: HEPARIN for SUB-Q USE 5,000 UNIT/ML VIAL. SQ SCH ×3 (06:28→21:54)
[2019-02-26] MEDS: INSULIN LISPRO 300 UNITS/3 ML INSULN.PEN. SQ SCH ×8 (07:30→21:00)
--- NOTE | 2019-02-26 10:36 | PDOC ---
PROGRESS NOTES Subjective Subjective No new complaints. Objective Objective Vital Signs Date Time Temp Pulse Resp B/P (MAP) Pulse Ox O2 Delivery O2 Flow Rate FiO2 02/26/19 07:00 97.7 77 20 167/56 (93) 95 Nasal Cannula 2.0 97.7 Intake and Output 02/26/19 07:00 Intake Total 420 ml Balance 420 ml Intake Oral 420 ml # Voids 1 Physical Exam Physical Exam She is awake,supine in bed and she got up to a sitting position and stood up with roller walker at bedside and when I have asked her to get to the chair,she wants to go back to bed. She is using oxygen by nasal canula and she continues with left visual field cut and no localized extremity weakness or [id number] was noted and nursing reports of her running in to things on to her left side while up walking. Post-voiding urine residual is 350 ml and nursing performing straight cath. She denies any dysuria but remains incontinent and using pads. Her physical endurance is low for her to go to acute rehab hospital at this time. I have explained to her and he agrees and wants her to be transferred to [facility] instead of [facility]. Assessment Assessment Problems Medical Problems: (1) Altered level of consciousness Status: Acute (2) Dehydration Status: Acute (3) DKA (diabetic ketoacidoses) Status: Acute (4) Hypercalcemia Status: Acute (5) Hypermagnesemia Status: Acute (6) Renal insufficiency Status: Acute (7) Sepsis Status: Acute Plan Plan of Care To [facility] SNF when medically stable. To try flomax to help with urinary retention. To keep working with her and hopefully she will be off oxygen by the time she goes home. Comment Review of Relevant I have reviewed the following items katalina (where applicable) has been applied. Labs Laboratory Tests Test 02/24/19 11:26 02/24/19 16:40 02/24/19 21:13 02/25/19 04:16 Glucose (Fingerstick) 204 mg/dL (70-99) 288 mg/dL (70-99) 194 mg/dL (70-99) White Blood Count 19.2 x10^3/uL (4.0-11.0) Red Blood Count 3.87 x10^6/uL (3.50-5.40) Hemoglobin 11.4 g/dL (12.0-15.5) Hematocrit 34.2 % (36.0-47.0) Mean Corpuscular Volume 88 fL (79-100) Mean Corpuscular Hemoglobin 29 pg (25-35) Mean Corpuscular Hemoglobin Concent 33 g/dL (31-37) Red Cell Distribution Width 13.6 % (11.5-14.5) Platelet Count 301 x10^3/uL (140-400) Neutrophils (%) (Auto) 83 % (31-73) Lymphocytes (%) (Auto) 9 % (24-48) Monocytes (%) (Auto) 6 % (0-9) Eosinophils (%) (Auto) 1 % (0-3) Basophils (%) (Auto) 0 % (0-3) Neutrophils # (Auto) 15.9 x10^3uL (1.8-7.7) Lymphocytes # (Auto) 1.8 x10^3/uL (1.0-4.8) Monocytes # (Auto) 1.2 x10^3/uL (0.0-1.1) Eosinophils # (Auto) 0.3 x10^3/uL (0.0-0.7) Basophils # (Auto) 0.1 x10^3/uL (0.0-0.2) Sodium Level 141 mmol/L (136-145) Potassium Level 2.9 mmol/L (3.5-5.1) Chloride Level 105 mmol/L (98-107) Carbon Dioxide Level 24 mmol/L (21-32) Anion Gap 12 (6-14) Blood Urea Nitrogen 12 mg/dL (7-20) Creatinine 0.6 mg/dL (0.6-1.0) Estimated GFR (Cockcroft-Gault) 100.0 Glucose Level 72 mg/dL (70-99) Calcium Level 8.3 mg/dL (8.5-10.1) Magnesium Level 2.3 mg/dL (1.8-2.4) Triglycerides Level 431 mg/dL (0-150) Cholesterol Level 164 mg/dL (0-200) LDL Cholesterol, Calculated 61 mg/dL (0-100) VLDL Cholesterol, Calculated 86 mg/dL (0-40) Non-HDL Cholesterol Calculated 147 mg/dL (0-129) HDL Cholesterol 17 mg/dL (40-60) Cholesterol/HDL Ratio 9.6 Test 02/25/19 07:25 02/25/19 11:38 02/25/19 14:30 02/25/19 14:35 Glucose (Fingerstick) 110 mg/dL (70-99) 161 mg/dL (70-99) Urine Color Yellow Urine Clarity Clear Urine pH 5.5 Urine Specific Marilla 1.015 Urine Protein Negative mg/dL (NEG-TRACE) Urine Glucose (UA) Negative mg/dL (NEG) Urine Ketones (Stick) Negative mg/dL (NEG) Urine Blood Trace (NEG) Urine Nitrite Negative (NEG) Urine Bilirubin Negative (NEG) Urine Urobilinogen Dipstick 0.2 mg/dL (0.2 mg/dL) Urine Leukocyte Esterase Negative (NEG) Urine RBC Occ /HPF (0-2) Urine WBC 1-4 /HPF (0-4) Urine Squamous Epithelial Cells Occ /LPF Urine Bacteria Few /HPF (0-FEW) Urine Mucus Slight /LPF Potassium Level 3.2 mmol/L (3.5-5.1) Test 02/25/19 16:41 02/25/19 17:00 02/25/19 19:55 02/25/19 21:07 Glucose (Fingerstick) 61 mg/dL (70-99) 121 mg/dL (70-99) 158 mg/dL (70-99) 134 mg/dL (70-99) Test 02/26/19 04:45 02/26/19 07:33 White Blood Count 15.0 x10^3/uL (4.0-11.0) Red Blood Count 3.55 x10^6/uL (3.50-5.40) Hemoglobin 10.6 g/dL (12.0-15.5) Hematocrit 31.7 % (36.0-47.0) Mean Corpuscular Volume 89 fL (79-100) Mean Corpuscular Hemoglobin 30 pg (25-35) Mean Corpuscular Hemoglobin Concent 34 g/dL (31-37) Red Cell Distribution Width 13.5 % (11.5-14.5) Platelet Count 341 x10^3/uL (140-400) Neutrophils (%) (Auto) 79 % (31-73) Lymphocytes (%) (Auto) 13 % (24-48) Monocytes (%) (Auto) 6 % (0-9) Eosinophils (%) (Auto) 2 % (0-3) Basophils (%) (Auto) 1 % (0-3) Neutrophils # (Auto) 11.8 x10^3uL (1.8-7.7) Lymphocytes # (Auto) 1.9 x10^3/uL (1.0-4.8) Monocytes # (Auto) 0.9 x10^3/uL (0.0-1.1) Eosinophils # (Auto) 0.3 x10^3/uL (0.0-0.7) Basophils # (Auto) 0.1 x10^3/uL (0.0-0.2) Sodium Level 140 mmol/L (136-145) Potassium Level 3.7 mmol/L (3.5-5.1) Chloride Level 105 mmol/L (98-107) Carbon Dioxide Level 23 mmol/L (21-32) Anion Gap 12 (6-14) Blood Urea Nitrogen 8 mg/dL (7-20) Creatinine 0.6 mg/dL (0.6-1.0) Estimated GFR (Cockcroft-Gault) 100.0 Glucose Level 141 mg/dL (70-99) Calcium Level 8.1 mg/dL (8.5-10.1) Glucose (Fingerstick) 145 mg/dL (70-99) Laboratory Tests Test 02/25/19 11:38 02/25/19 14:30 02/25/19 14:35 02/25/19 16:41 Glucose (Fingerstick) 161 mg/dL (70-99) 61 mg/dL (70-99) Urine Color Yellow Urine Clarity Clear Urine pH 5.5 Urine Specific Marilla 1.015 Urine Protein Negative mg/dL (NEG-TRACE) Urine Glucose (UA) Negative mg/dL (NEG) Urine Ketones (Stick) Negative mg/dL (NEG) Urine Blood Trace (NEG) Urine Nitrite Negative (NEG) Urine Bilirubin Negative (NEG) Urine Urobilinogen Dipstick 0.2 mg/dL (0.2 mg/dL) Urine Leukocyte Esterase Negative (NEG) Urine RBC Occ /HPF (0-2) Urine WBC 1-4 /HPF (0-4) Urine Squamous Epithelial Cells Occ /LPF Urine Bacteria Few /HPF (0-FEW) Urine Mucus Slight /LPF Potassium Level 3.2 mmol/L (3.5-5.1) Test 02/25/19 17:00 02/25/19 19:55 02/25/19 21:07 02/26/19 04:45 Glucose (Fingerstick) 121 mg/dL (70-99) 158 mg/dL (70-99) 134 mg/dL (70-99) White Blood Count 15.0 x10^3/uL (4.0-11.0) Red Blood Count 3.55 x10^6/uL (3.50-5.40) Hemoglobin 10.6 g/dL (12.0-15.5) Hematocrit 31.7 % (36.0-47.0) Mean Corpuscular Volume 89 fL (79-100) Mean Corpuscular Hemoglobin 30 pg (25-35) Mean Corpuscular Hemoglobin Concent 34 g/dL (31-37) Red Cell Distribution Width 13.5 % (11.5-14.5) Platelet Count 341 x10^3/uL (140-400) Neutrophils (%) (Auto) 79 % (31-73) Lymphocytes (%) (Auto) 13 % (24-48) Monocytes (%) (Auto) 6 % (0-9) Eosinophils (%) (Auto) 2 % (0-3) Basophils (%) (Auto) 1 % (0-3) Neutrophils # (Auto) 11.8 x10^3uL (1.8-7.7) Lymphocytes # (Auto) 1.9 x10^3/uL (1.0-4.8) Monocytes # (Auto) 0.9 x10^3/uL (0.0-1.1) Eosinophils # (Auto) 0.3 x10^3/uL (0.0-0.7) Basophils # (Auto) 0.1 x10^3/uL (0.0-0.2) Sodium Level 140 mmol/L (136-145) Potassium Level 3.7 mmol/L (3.5-5.1) Chloride Level 105 mmol/L (98-107) Carbon Dioxide Level 23 mmol/L (21-32) Anion Gap 12 (6-14) Blood Urea Nitrogen 8 mg/dL (7-20) Creatinine 0.6 mg/dL (0.6-1.0) Estimated GFR (Cockcroft-Gault) 100.0 Glucose Level 141 mg/dL (70-99) Calcium Level 8.1 mg/dL (8.5-10.1) Test 02/26/19 07:33 Glucose (Fingerstick) 145 mg/dL (70-99) Medications Current Medications Sodium Chloride 1,000 ml @ 1,000 mls/hr 1X ONCE IV Last administered on 02/19/19at 08:10; Start 02/19/19 at 08:00; Stop 02/19/19 at 08:59; Status DC Insulin Human Regular (HumuLIN R VIAL) 10 unit 1X ONCE IV Last administered on 02/19/19at 07:50; Start 02/19/19 at 08:00; Stop 02/19/19 at 08:02; Status DC Insulin Human Regular 150 ml @ 0 mls/hr 1X ONCE IV Last administered on 02/19/19at 08:34; Start 02/19/19 at 08:00; Stop 02/19/19 at 08:02; Status DC Sodium Chloride 1,000 ml @ 100 mls/hr 1X ONCE IV Last administered on 02/19/19at 08:29; Start 02/19/19 at 09:00; Stop 02/19/19 at 13:58; Status DC Sodium Chloride 1,000 ml @ 1,000 mls/hr 1X ONCE IV ; Start 02/19/19 at 09:00; Stop 02/19/19 at 10:02; Status DC Ceftriaxone Sodium (Rocephin) 1 gm 1X ONCE IVP Last administered on 02/19/19at 10:28; Start 02/19/19 at 09:00; Stop 02/19/19 at 09:01; Status DC Sodium Chloride 1,000 ml @ 200 mls/hr Q5H IV ; Start 02/19/19 at 10:00; Stop 02/20/19 at 09:59; Status Cancel Insulin Human Regular 150 unit/ Sodium Chloride 151.5 ml @ 0 mls/hr CONT PRN PRN IV PER PROTOCOL; Start 02/19/19 at 13:00; Status Cancel Dextrose/Sodium Chloride 1,000 ml @ 250 mls/hr Q4H IV Last administered on 02/19/19at 18:06; Start 02/19/19 at 15:00; Stop 02/19/19 at 21:01; Status DC Insulin Human Regular 150 unit/ Sodium Chloride 151.5 ml @ 0 mls/hr CONT PRN PRN IV PER PROTOCOL; Start 02/19/19 at 10:00; Stop 02/19/19 at 21:01; Status DC Potassium Chloride/Water 100 ml @ 100 mls/hr PRN Q1HR PRN IV SEE COMMENTS; Start 02/19/19 at 10:00; Stop 02/19/19 at 21:01; Status DC Potassium Chloride/Water 100 ml @ 100 mls/hr PRN Q1HR PRN IV SEE COMMENTS; Start 02/19/19 at 09:45; Stop 02/19/19 at 21:01; Status DC Potassium Chloride/Water 100 ml @ 100 mls/hr PRN Q1HR PRN IV SEE COMMENTS; Start 02/19/19 at 09:45; Stop 02/19/19 at 21:01; Status DC Labetalol HCl (Normodyne Iv Push) 10 mg PRN Q2HR PRN IVP HYPERTENSION, SEE CO MMENTS Last administered on 02/21/19at 14:06; Start 02/19/19 at 09:45; Stop 02/21/19 at 15:43; Status DC Acetaminophen/ Codeine Phosphate (Tylenol #3) 1 tab PRN Q6HRS PRN PO PAIN; Start 02/19/19 at 09:45 Ondansetron HCl (Zofran) 4 mg PRN Q6HRS PRN IV NAUSEA/VOMITING 1ST CHOICE Last administered on 02/20/19at 11:25; Start 02/19/19 at 09:45 Ondansetron HCl (Zofran Odt) 4 mg PRN Q6HRS PRN PO NAUSEA/VOMITING; Start 02/19/19 at 09:45 Acetaminophen/ Hydrocodone Bitart (Lortab 5/325) 1 tab PRN Q4HRS PRN PO MODE RATE PAIN; Start 02/19/19 at 09:45 Fentanyl Citrate (Fentanyl 2ml Vial) 25 mcg PRN Q2HR PRN IV PAIN; Start 02/19/19 at 09:45 Sodium Chloride 1,000 ml @ 250 mls/hr Q4H IV Last administered on 02/19/19at 10:07; Start 02/19/19 at 11:00; Stop 02/19/19 at 18:06; Status DC Lidocaine (Lidoderm) 1 patch DAILY TD Last administered on 02/24/19at 08:45; Start 02/20/19 at 09:00 Miscellaneous (Lidoderm Patch Removal) 1 ea QHS MC Last administered on 02/24/19at 21:00; Start 02/19/19 at 21:00 Heparin Sodium (Porcine) (Heparin Sodium) 5,000 unit Q8HRS SQ Last administered on 02/26/19at 06:28; Start 02/19/19 at 14:00 Lorazepam (Ativan) 2 mg PRN Q4HRS PRN IV ANXIETY / AGITATION Last administered on 02/19/19at 11:59; Start 02/19/19 at 11:45 Lorazepam (Ativan) 2 mg PRN Q4HRS PRN IV ANXIETY / AGITATION; Start 02/19/19 at 12:00; Status UNV Potassium Phosphate 13.6 mmol/Dextrose 104.5333 ml @ 52.267 m... Q2H IV Last administered on 02/19/19at 18:05; Start 02/19/19 at 14:00; Stop 02/19/19 at 19:59; Status DC Dextrose/Sodium Chloride 1,000 ml @ 250 mls/hr Q4H IV ; Start 02/19/19 at 14:00; Status UNV Potassium Chloride 40 meq/ Sodium Chloride 1,020 ml @ 75 mls/hr [id number] IV Last administered on 02/19/19at 21:07; Start 02/19/19 at 21:00; Stop 02/20/19 at 08:04; Status DC Insulin Glargine (Lantus) 30 units QHS SQ Last administered on 02/25/19at 21:17; Start 02/19/19 at 21:00 Insulin Human Lispro (HumaLOG) 0-9 UNITS TIDWMEALS SQ Last administered on 02/20/19at 16:44; Start 02/20/19 at 08:00; Stop 02/21/19 at 08:18; Status DC Dextrose (Dextrose 50%-Water Syringe) 12.5 gm PRN Q15MIN PRN IV SEE COMMENTS Last administered on 02/25/19at 16:43; Start 02/19/19 at 21:00 Insulin Human Lispro (HumaLOG) 12 units TIDWMEALS SQ Last administered on 02/20/19at 18:25; Start 02/20/19 at 08:00; Stop 02/21/19 at 08:18; Status DC Acetaminophen (Tylenol) 650 mg PRN Q6HRS PRN PO temp Last administered on 02/20/19at 11:16; Start 02/19/19 at 21:00 Acetaminophen (Tylenol Supp) 650 mg PRN Q6HRS PRN ME MILD PAIN / TEMP; Start 02/19/19 at 21:00 Insulin Human Lispro (HumaLOG) 4 units 1X ONCE SQ Last administered on 02/20/19at 02:00; Start 02/20/19 at 02:00; Stop 02/20/19 at 02:01; Status DC Insulin Human Lispro (HumaLOG) 10 units 1X ONCE SQ Last administered on 02/20/19at 05:35; Start 02/20/19 at 06:00; Stop 02/20/19 at 06:01; Status DC Sodium Chloride 38.75 meq/Sterile Water 1,009.6875 ml @ 100 mls/hr Q10H6M IV Last administered on 02/24/19at 01:56; Start 02/20/19 at 09:00; Stop 02/24/19 at 09:15; Status DC Metoclopramide HCl (Reglan Vial) 5 mg PRN Q6HRS PRN IV NAUSEA/VOMITING 2ND CHOICE; Start 02/20/19 at 14:15; Stop 02/25/19 at 11:40; Status DC Insulin Human Lispro (HumaLOG) 12 units QIDACHS SQ Last administered on 02/22/19at 12:45; Start 02/21/19 at 08:20; Stop 02/22/19 at 12:59; Status DC Insulin Human Lispro (HumaLOG) 0-9 UNITS QIDACHS SQ Last administered on 02/25/19at 12:23; Start 02/21/19 at 08:20 Pantoprazole Sodium (Protonix) 40 mg BIDAC PO Last administered on 02/25/19at 16:50; Start 02/21/19 at 11:30 Ondansetron HCl (Zofran) 4 mg PRN Q6HRS PRN IV NAUSEA/VOMITING; Start 02/22/19 at 07:00; Stop 02/23/19 at 07:00; Status DC Fentanyl Citrate (Fentanyl 2ml Vial) 25 mcg PRN Q5MIN PRN IV MILD PAIN; Start 02/22/19 at 07:00; Stop 02/23/19 at 07:00; Status DC Fentanyl Citrate (Fentanyl 2ml Vial) 50 mcg PRN Q5MIN PRN IV MODERATE TO SEVERE PAIN; Start 02/22/19 at 07:00; Stop 02/23/19 at 07:00; Status DC Morphine Sulfate (Morphine Sulfate) 1 mg PRN Q10MIN PRN IV SEVERE PAIN; Start 02/22/19 at 07:00; Stop 02/23/19 at 07:00; Status DC Ringer's Solution 1,000 ml @ 30 mls/hr Q24H IV Last administered on 02/22/19at 13:26; Start 02/22/19 at 07:00; Stop 02/22/19 at 18:59; Status DC Lidocaine HCl (Xylocaine-Mpf 1% 2ml Vial) 2 ml PRN 1X PRN ID PRIOR TO IV START; Start 02/22/19 at 07:00; Stop 02/23/19 at 07:00; Status DC Hydromorphone HCl (Dilaudid) 0.5 mg PRN Q10MIN PRN IV SEV PAIN, Second choice; Start 02/22/19 at 07:00; Stop 02/23/19 at 07:00; Status DC Clonidine HCl (Catapres) 0.2 mg PRN Q8HRS PRN PO SBP >160 Last administered on 02/21/19at 18:25; Start 02/21/19 at 15:45 Amlodipine Besylate (Norvasc) 10 mg DAILY PO Last administered on 02/25/19at 09:24; Start 02/22/19 at 09:00 Oxymetazoline HCl (Afrin) 2 spray 1X ONCE NS Last administered on 02/22/19at 16:48; Start 02/22/19 at 13:00; Stop 02/22/19 at 13:01; Status DC Oxymetazoline HCl (Afrin) 2 spray BID NS Last administered on 02/25/19at 21:11; Start 02/22/19 at 21:00 Fluticasone Propionate (Flonase) 2 spray DAILY NS Last administered on 02/25/19at 09:24; Start 02/22/19 at 13:00 Potassium Chloride (Klor-Con) 20 meq 1X ONCE PO Last administered on 02/22/19at 16:48; Start 02/22/19 at 13:30; Stop 02/22/19 at 13:31; Status DC Insulin Human Lispro (HumaLOG) 15 units QIDACHS SQ Last administered on 02/25/19at 12:24; Start 02/22/19 at 16:30 Midazolam HCl (Versed) 2 mg PRN 1X PRN IV PRIOR TO PROCEDURE; Start 02/22/19 at 13:15; Stop 02/23/19 at 13:14; Status DC Fentanyl Citrate (Fentanyl 2ml Vial) 25 mcg PRN Q5MIN PRN IV X 2 DOSES FOR PAIN; Start 02/22/19 at 13:15; Stop 02/23/19 at 13:14; Status DC Fentanyl Citrate (Fentanyl 2ml Vial) 50 mcg PRN Q5MIN PRN IV X 2 DOSES FOR PAIN; Start 02/22/19 at 13:15; Stop 02/23/19 at 13:14; Status DC Ringer's Solution 1,000 ml @ 125 mls/hr Q8H IV ; Start 02/22/19 at 13:11; Stop 02/23/19 at 01:10; Status DC Lidocaine HCl (Xylocaine-Mpf 1% 2ml Vial) 2 ml 1X PRN PRN ID IV START; Start 02/22/19 at 13:15; Stop 02/23/19 at 13:14; Status DC Propofol 20 ml @ As Directed STK-MED ONCE IV ; Start 02/22/19 at 14:20; Stop 02/22/19 at 14:21; Status DC Heparin Sodium (Porcine) 1000 unit/Sodium Chloride 1,001 ml @ 1,001 mls/hr 1X ONCE IRR ; Start 02/24/19 at 06:00; Stop 02/24/19 at 06:59; Status DC Polyethylene Glycol (miraLAX PACKET) 17 gm DAILY PO Last administered on 02/23/19at 15:43; Start 02/23/19 at 14:00 Polyethylene Glycol (miraLAX PACKET) 17 gm PRN DAILY PRN PO CONSTIPATION; Start 02/23/19 at 13:15 Ondansetron HCl (Zofran) 4 mg PRN Q6HRS PRN IV NAUSEA/VOMITING; Start 02/24/19 at 07:00; Stop 02/24/19 at 21:00; Status DC Fentanyl Citrate (Fentanyl 2ml Vial) 25 mcg PRN Q5MIN PRN IV MILD PAIN 1-3; Start 02/24/19 at 07:00; Stop 02/24/19 at 21:00; Status DC Fentanyl Citrate (Fentanyl 2ml Vial) 50 mcg PRN Q5MIN PRN IV MODERATE TO SEVERE PAIN; Start 02/24/19 at 07:00; Stop 02/24/19 at 21:00; Status DC Morphine Sulfate (Morphine Sulfate) 1 mg PRN Q10MIN PRN IV SEVERE PAIN 7-10; Start 02/24/19 at 07:00; Stop 02/24/19 at 21:00; Status DC Ringer's Solution 1,000 ml @ 30 mls/hr Q24H IV ; Start 02/24/19 at 07:00; Stop 02/24/19 at 18:59; Status DC Lidocaine HCl (Xylocaine-Mpf 1% 2ml Vial) 2 ml PRN 1X PRN ID PRIOR TO IV START; Start 02/24/19 at 07:00; Stop 02/24/19 at 21:00; Status DC Hydromorphone HCl (Dilaudid) 0.5 mg PRN Q10MIN PRN IV SEV PAIN, Second choice; Start 02/24/19 at 07:00; Stop 02/24/19 at 21:00; Status DC Prochlorperazine Edisylate (Compazine) 5 mg PACU PRN PRN IV NAUSEA, MRX1; Start 02/24/19 at 07:00; Stop 02/24/19 at 21:00; Status DC Lisinopril (Prinivil) 20 mg DAILY PO Last administered on 02/25/19at 09:25; Start 02/24/19 at 09:00 Aspirin (Paul Aspirin) 325 mg [id number] PO Last administered on 02/25/19at 09:23; Start 02/24/19 at 17:30 Aspirin (Aspirin Rectal Supp) 300 mg PRN DAILY PRN ME IF UNABLE TO TAKE PO; Start 02/24/19 at 17:15 Iohexol (Omnipaque 350 Mg/ml) 75 ml 1X ONCE IV Last administered on 02/24/19at 17:15; Start 02/24/19 at 17:15; Stop 02/24/19 at 17:16; Status DC Potassium Chloride/Sodium Chloride 1,000 ml @ 75 mls/hr 1X ONCE IV Last administered on 02/25/19at 07:15; Start 02/25/19 at 07:00; Stop 02/25/19 at 20:19; Status DC Potassium Chloride (Klor-Con) 40 meq 1X ONCE PO Last administered on 02/25/19at 12:15; Start 02/25/19 at 11:45; Stop 02/25/19 at 11:48; Status DC Atorvastatin Calcium (Lipitor) 40 mg QHS PO Last administered on 02/25/19at 21:11; Start 02/25/19 at 21:00 Vitals/I & O Vital Sign - Last 24 Hours 02/25/19 02/25/19 02/25/19 02/25/19 11:00 15:00 19:00 20:21 Temp 97.5 97.8 98.2 97.5 97.8 98.2 Pulse 73 73 69 Resp 18 16 16 B/P (MAP) 119/43 (68) 128/45 (72) 146/60 (88) Pulse Ox 95 95 O2 Delivery Nasal Cannula Nasal Cannula Nasal Cannula Nasal Cannula O2 Flow Rate 2.0 2.0 2.0 2.0 02/25/19 02/26/19 02/26/19 23:00 03:00 07:00 Temp 98.2 98.8 97.7 98.2 98.8 97.7 Pulse 70 73 77 Resp 16 18 20 B/P (MAP) 171/64 (99) 163/65 (97) 167/56 (93) Pulse Ox 95 95 95 O2 Delivery Nasal Cannula Nasal Cannula Nasal Cannula O2 Flow Rate 2.0 2.0 2.0 Intake and Output 02/25/19 02/25/19 02/26/19 15:00 23:00 07:00 Intake Total 300 ml 120 ml Balance 300 ml 120 ml MILA AUGUSTIN MD February 26, 2019 10:36
[2019-02-26] MEDS: POLYETHYLENE GLYCOL 3350 17 GM PACKET. PO SCH (13:40)
[2019-02-26] MEDS: ASPIRIN 325 MG TABLET PO SCH (13:40)
[2019-02-26] MEDS: PANTOPRAZOLE 40 MG TABLET.DR. PO SCH ×2 (13:40→17:39)
[2019-02-26] MEDS: LISINOPRIL 20 MG TABLET PO SCH (13:41)
[2019-02-26] MEDS: LIDOCAINE (700MG/PATCH) PATCH. TD SCH (13:41)
[2019-02-26] MEDS: amLODIPine BESYLATE 10 MG TABLET PO SCH (13:41)
[2019-02-26] MEDS: OXYMETAZOLINE 0.05% NASAL SPRAY 30ML BOTTLE. NS SCH ×2 (13:42→21:42)
[2019-02-26] MEDS: FLUTICASONE 50MCG/NASAL SPRAY 16GM BOTTLE. NS SCH (13:42)
--- NOTE | 2019-02-26 15:19 | PDOC ---
PROGRESS NOTES Assessment Assessment Large subacute right temporal, parietal and occipital infarct. Small right BG, thalamus and insula infarct. Right M 1 narrow? Petechial hemorrhage. Metabolic encephalopathy. Left side vague facial drooping, onset time unknown. Left side mild weakness, onset time unknown. Hyperglycemia, glucose level 747. Hypertriglyceridemia. DKA. DM. HTN. Leukocytosis. Cholelithiasis Fatty liver. Urinary and bowel incontinence. Obesity. RECOMMENDATIONS/PLAN: ASA 325 mg daily. Lipitor 40 mg HS. Control hyperglycemia. Treat medical and surgical diseases. OT/PT as needed. HISTORY OF THE PRESENT ILLNESS: This is a 68-y-old female patient who was admitted on 02/19/19 due to DKA with glucose greater then 700. She was reportedly off DM meds for several years. She still complained back pain, poor PO intake and chronic nausea. GI was consulted and she was revealed cholelithiasis. Surgery was consulted, but patient declined cholecystectomy. She was noted left side facial drooping and left side weakness on 02/24/19, but patient stated she did not realized weakness. Neurology was requested for consultation, and a large subacute right MCA territory infarct was revealed. Past Medical History Endocrine: Diabetes, obesity. HTN. Past Surgical History Injury to neck with a laceration. She denies any other surgical procedures but she is not sure. Family History Unknown ALLERGY: Unknown MEDICATIONS: Refer to [facility] SOCIAL HISTORY: Lives with her at home. Denies current smoking, drinking, and illicit drug use. REVIEW OF SYSTEMS: Constitutional: Obese. Head: No traumatic brain or head injury. Skin: No edema, or rash. Ear: No infection. Eyes: No vision loss or color blindness. Nose: No bleeding or purulent discharges. Hearing: No hearing decrease. Neck: No injury. Breast: No history of cancer, masses,or discharges. Cardiac: HTN. Pulmonary: No COPD. GI: Cholelithiasis. Urinary/genital: UTI. Endocrinologic: Diabetes Mellitus, obesity. Skeletomuscular: No muscular atrophy. Neurological: see HP. Psychiatric: Denies drug use/abuse. Otherwise, not [id number] review of systems. PHYSICAL EXAMINATION: General appearance is in subacute distress. HEENT: Normocephalic and nontraumatic. Eyes, nose, ears, and throat are unremarkable. Neck is supple. No lymphadenopathy. No crepitus. Cardiovascular: S1, S2, regular rate and rhythm. Pulmonary: mildly decreased to auscultation bilaterally. Abdomen: Bowel sounds are positive. Extremities: No rash, lesions, or edema. No restriction of range of motion NEUROLOGICAL EXAMINATION: Awake. Reactions slow. Oriented partially to time, place but knew person. PERRL. EOMI. CN: no obvious focal findings at this time. Muscle tone: within normal. Muscle strength: left side 4, right side 5. DTR: 2- Plantar reflex: Neutral response bilaterally Gait: Able to walk with a walker. Sensory exam: No significant findings.. No acute cerebellar signs elicited. F-T-N test fine. Objective Objective Vital Signs Date Time Temp Pulse Resp B/P (MAP) Pulse Ox O2 Delivery O2 Flow Rate FiO2 02/26/19 15:00 98.6 92 18 140/63 (88) 91 Nasal Cannula 2.0 98.6 Intake and Output 02/26/19 07:00 Intake Total 420 ml Balance 420 ml Intake Oral 420 ml # Voids 1 Vitals Signs Vitals VS - Last 72 Hours, by Label Date Time Temp Pulse Resp B/P (MAP) Pulse Ox O2 Delivery O2 Flow Rate FiO2 02/26/19 15:00 98.6 92 18 140/63 (88) 91 Nasal Cannula 2.0 98.6 02/26/19 13:41 74 120/56 02/26/19 13:41 74 120/56 02/26/19 11:00 98.5 74 22 120/56 (77) 96 Nasal Cannula 2.0 98.5 02/26/19 07:00 97.7 77 20 167/56 (93) 95 Nasal Cannula 2.0 97.7 02/26/19 03:00 98.8 73 18 163/65 (97) 95 Nasal Cannula 2.0 98.8 02/25/19 23:00 98.2 70 16 171/64 (99) 95 Nasal Cannula 2.0 98.2 02/25/19 20:21 Nasal Cannula 2.0 02/25/19 19:00 98.2 69 16 146/60 (88) Nasal Cannula 2.0 98.2 02/25/19 15:00 97.8 73 16 128/45 (72) 95 Nasal Cannula 2.0 97.8 02/25/19 11:00 97.5 73 18 119/43 (68) 95 Nasal Cannula 2.0 97.5 02/25/19 09:25 72 146/53 02/25/19 09:24 72 146/53 02/25/19 08:00 Nasal Cannula 2.0 02/25/19 07:00 98.1 72 18 146/53 (84) 95 Nasal Cannula 2.0 98.1 Laboratory Laboratory Laboratory Tests Test 02/25/19 16:41 02/25/19 17:00 02/25/19 19:55 02/25/19 21:07 Glucose (Fingerstick) 61 mg/dL (70-99) 121 mg/dL (70-99) 158 mg/dL (70-99) 134 mg/dL (70-99) Test 02/26/19 04:45 02/26/19 07:33 02/26/19 10:43 White Blood Count 15.0 x10^3/uL (4.0-11.0) Red Blood Count 3.55 x10^6/uL (3.50-5.40) Hemoglobin 10.6 g/dL (12.0-15.5) Hematocrit 31.7 % (36.0-47.0) Mean Corpuscular Volume 89 fL (79-100) Mean Corpuscular Hemoglobin 30 pg (25-35) Mean Corpuscular Hemoglobin Concent 34 g/dL (31-37) Red Cell Distribution Width 13.5 % (11.5-14.5) Platelet Count 341 x10^3/uL (140-400) Neutrophils (%) (Auto) 79 % (31-73) Lymphocytes (%) (Auto) 13 % (24-48) Monocytes (%) (Auto) 6 % (0-9) Eosinophils (%) (Auto) 2 % (0-3) Basophils (%) (Auto) 1 % (0-3) Neutrophils # (Auto) 11.8 x10^3uL (1.8-7.7) Lymphocytes # (Auto) 1.9 x10^3/uL (1.0-4.8) Monocytes # (Auto) 0.9 x10^3/uL (0.0-1.1) Eosinophils # (Auto) 0.3 x10^3/uL (0.0-0.7) Basophils # (Auto) 0.1 x10^3/uL (0.0-0.2) Sodium Level 140 mmol/L (136-145) Potassium Level 3.7 mmol/L (3.5-5.1) Chloride Level 105 mmol/L (98-107) Carbon Dioxide Level 23 mmol/L (21-32) Anion Gap 12 (6-14) Blood Urea Nitrogen 8 mg/dL (7-20) Creatinine 0.6 mg/dL (0.6-1.0) Estimated GFR (Cockcroft-Gault) 100.0 Glucose Level 141 mg/dL (70-99) Calcium Level 8.1 mg/dL (8.5-10.1) Glucose (Fingerstick) 145 mg/dL (70-99) 161 mg/dL (70-99) Medication Medications Current Medications Atorvastatin Calcium (Lipitor) 40 mg QHS PO Last administered on 02/25/19at 21:11; Start 02/25/19 at 21:00 Ferrous Sulfate (Feosol) 325 mg BID PO ; Start 02/26/19 at 12:00 Tamsulosin HCl (Flomax) 0.4 mg QHS PO ; Start 02/26/19 at 21:00 Comment Review of Relevant I have reviewed the following items katalina (where applicable) has been applied. KARON ROA MD February 26, 2019 15:19
[2019-02-26] MEDS: FERROUS SULFATE 325 MG TABLET. PO SCH ×2 (15:43→21:42)
--- NOTE | 2019-02-26 18:20 | PDOC ---
PROGRESS NOTES Chief Complaint Chief Complaint DKA resolved, transferred out of ICU Left sided weakness - Right middle cerebral artery CVA Symptomatic Cholelithiasis DM type 2 insulin requiring Bilious Emesis resolved AMS resolved Electrolyte abnormalities replacing Plan: Patient seen by surgery and recommended to have cholecystectomy. Patient is not interested at the present time, I have reiterated the risk of not addressing this at the present time specially given her elevated white blood cell count. Patient's wishes will be respected and will continue with medical management at this time. History of Present Illness History of Present Illness This is a 68-y-old female patient who was admitted on 02/19/19 due to DKA with glucose greater then 700. She was reportedly off DM meds for several years. She still complained back pain, poor PO intake and chronic nausea. GI was consulted and she was revealed cholelithiasis. Surgery was consulted, but patient declined cholecystectomy. She was noted left side facial drooping and left side weakness on 02/24/19, but patient stated she did not realized weakness. Neurology was requested for consultation, and a large subacute right MCA territory infarct was revealed. Patient today feeling better compared to yesterday. 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 K is 2.9 this morning and WBC is 19K, going up. No fevers or chills. She c/o dysuria as well and only wants to eat applesauce. Plan: Check UA consider cholecystectomy Rehab planning Replace K, check mag Vitals Vitals Vital Signs Date Time Temp Pulse Resp B/P (MAP) Pulse Ox O2 Delivery O2 Flow Rate FiO2 02/26/19 16:30 98.6 92 140/63 (88) 91 Nasal Cannula 2.0 98.6 02/26/19 15:00 18 Physical Exam General: Alert, Oriented X3, Cooperative, No acute distress Heart: Regular rate, Normal S1, Normal S2 Abdomen: Soft, No tenderness Extremities: No clubbing, No cyanosis Skin: Other (arm with chronic scars c/w scratching) Labs LABS Laboratory Tests Test 02/25/19 19:55 02/25/19 21:07 02/26/19 04:45 02/26/19 07:33 Glucose (Fingerstick) 158 mg/dL (70-99) 134 mg/dL (70-99) 145 mg/dL (70-99) White Blood Count 15.0 x10^3/uL (4.0-11.0) Red Blood Count 3.55 x10^6/uL (3.50-5.40) Hemoglobin 10.6 g/dL (12.0-15.5) Hematocrit 31.7 % (36.0-47.0) Mean Corpuscular Volume 89 fL (79-100) Mean Corpuscular Hemoglobin 30 pg (25-35) Mean Corpuscular Hemoglobin Concent 34 g/dL (31-37) Red Cell Distribution Width 13.5 % (11.5-14.5) Platelet Count 341 x10^3/uL (140-400) Neutrophils (%) (Auto) 79 % (31-73) Lymphocytes (%) (Auto) 13 % (24-48) Monocytes (%) (Auto) 6 % (0-9) Eosinophils (%) (Auto) 2 % (0-3) Basophils (%) (Auto) 1 % (0-3) Neutrophils # (Auto) 11.8 x10^3uL (1.8-7.7) Lymphocytes # (Auto) 1.9 x10^3/uL (1.0-4.8) Monocytes # (Auto) 0.9 x10^3/uL (0.0-1.1) Eosinophils # (Auto) 0.3 x10^3/uL (0.0-0.7) Basophils # (Auto) 0.1 x10^3/uL (0.0-0.2) Sodium Level 140 mmol/L (136-145) Potassium Level 3.7 mmol/L (3.5-5.1) Chloride Level 105 mmol/L (98-107) Carbon Dioxide Level 23 mmol/L (21-32) Anion Gap 12 (6-14) Blood Urea Nitrogen 8 mg/dL (7-20) Creatinine 0.6 mg/dL (0.6-1.0) Estimated GFR (Cockcroft-Gault) 100.0 Glucose Level 141 mg/dL (70-99) Calcium Level 8.1 mg/dL (8.5-10.1) Test 02/26/19 10:43 02/26/19 16:14 Glucose (Fingerstick) 161 mg/dL (70-99) 136 mg/dL (70-99) Review of Systems Review of Systems pertinent as per hpi otherwise 10 point review of system negative. Assessment and Plan Assessmemt and Plan Problems Medical Problems: (1) Altered level of consciousness Status: Acute (2) Dehydration Status: Acute (3) DKA (diabetic ketoacidoses) Status: Acute (4) Hypercalcemia Status: Acute (5) Hypermagnesemia Status: Acute (6) Renal insufficiency Status: Acute (7) Sepsis Status: Acute Comment Review of Relevant I have reviewed the following items katalina (where applicable) has been applied. Labs Laboratory Tests Test 02/24/19 21:13 02/25/19 04:16 02/25/19 07:25 02/25/19 11:38 Glucose (Fingerstick) 194 mg/dL (70-99) 110 mg/dL (70-99) 161 mg/dL (70-99) White Blood Count 19.2 x10^3/uL (4.0-11.0) Red Blood Count 3.87 x10^6/uL (3.50-5.40) Hemoglobin 11.4 g/dL (12.0-15.5) Hematocrit 34.2 % (36.0-47.0) Mean Corpuscular Volume 88 fL (79-100) Mean Corpuscular Hemoglobin 29 pg (25-35) Mean Corpuscular Hemoglobin Concent 33 g/dL (31-37) Red Cell Distribution Width 13.6 % (11.5-14.5) Platelet Count 301 x10^3/uL (140-400) Neutrophils (%) (Auto) 83 % (31-73) Lymphocytes (%) (Auto) 9 % (24-48) Monocytes (%) (Auto) 6 % (0-9) Eosinophils (%) (Auto) 1 % (0-3) Basophils (%) (Auto) 0 % (0-3) Neutrophils # (Auto) 15.9 x10^3uL (1.8-7.7) Lymphocytes # (Auto) 1.8 x10^3/uL (1.0-4.8) Monocytes # (Auto) 1.2 x10^3/uL (0.0-1.1) Eosinophils # (Auto) 0.3 x10^3/uL (0.0-0.7) Basophils # (Auto) 0.1 x10^3/uL (0.0-0.2) Sodium Level 141 mmol/L (136-145) Potassium Level 2.9 mmol/L (3.5-5.1) Chloride Level 105 mmol/L (98-107) Carbon Dioxide Level 24 mmol/L (21-32) Anion Gap 12 (6-14) Blood Urea Nitrogen 12 mg/dL (7-20) Creatinine 0.6 mg/dL (0.6-1.0) Estimated GFR (Cockcroft-Gault) 100.0 Glucose Level 72 mg/dL (70-99) Calcium Level 8.3 mg/dL (8.5-10.1) Magnesium Level 2.3 mg/dL (1.8-2.4) Triglycerides Level 431 mg/dL (0-150) Cholesterol Level 164 mg/dL (0-200) LDL Cholesterol, Calculated 61 mg/dL (0-100) VLDL Cholesterol, Calculated 86 mg/dL (0-40) Non-HDL Cholesterol Calculated 147 mg/dL (0-129) HDL Cholesterol 17 mg/dL (40-60) Cholesterol/HDL Ratio 9.6 Test 02/25/19 14:30 02/25/19 14:35 02/25/19 16:41 02/25/19 17:00 Urine Color Yellow Urine Clarity Clear Urine pH 5.5 Urine Specific [place] 1.015 Urine Protein Negative mg/dL (NEG-TRACE) Urine Glucose (UA) Negative mg/dL (NEG) Urine Ketones (Stick) Negative mg/dL (NEG) Urine Blood Trace (NEG) Urine Nitrite Negative (NEG) Urine Bilirubin Negative (NEG) Urine Urobilinogen Dipstick 0.2 mg/dL (0.2 mg/dL) Urine Leukocyte Esterase Negative (NEG) Urine RBC Occ /HPF (0-2) Urine WBC 1-4 /HPF (0-4) Urine Squamous Epithelial Cells Occ /LPF Urine Bacteria Few /HPF (0-FEW) Urine Mucus Slight /LPF Potassium Level 3.2 mmol/L (3.5-5.1) Glucose (Fingerstick) 61 mg/dL (70-99) 121 mg/dL (70-99) Test 02/25/19 19:55 02/25/19 21:07 02/26/19 04:45 02/26/19 07:33 Glucose (Fingerstick) 158 mg/dL (70-99) 134 mg/dL (70-99) 145 mg/dL (70-99) White Blood Count 15.0 x10^3/uL (4.0-11.0) Red Blood Count 3.55 x10^6/uL (3.50-5.40) Hemoglobin 10.6 g/dL (12.0-15.5) Hematocrit 31.7 % (36.0-47.0) Mean Corpuscular Volume 89 fL (79-100) Mean Corpuscular Hemoglobin 30 pg (25-35) Mean Corpuscular Hemoglobin Concent 34 g/dL (31-37) Red Cell Distribution Width 13.5 % (11.5-14.5) Platelet Count 341 x10^3/uL (140-400) Neutrophils (%) (Auto) 79 % (31-73) Lymphocytes (%) (Auto) 13 % (24-48) Monocytes (%) (Auto) 6 % (0-9) Eosinophils (%) (Auto) 2 % (0-3) Basophils (%) (Auto) 1 % (0-3) Neutrophils # (Auto) 11.8 x10^3uL (1.8-7.7) Lymphocytes # (Auto) 1.9 x10^3/uL (1.0-4.8) Monocytes # (Auto) 0.9 x10^3/uL (0.0-1.1) Eosinophils # (Auto) 0.3 x10^3/uL (0.0-0.7) Basophils # (Auto) 0.1 x10^3/uL (0.0-0.2) Sodium Level 140 mmol/L (136-145) Potassium Level 3.7 mmol/L (3.5-5.1) Chloride Level 105 mmol/L (98-107) Carbon Dioxide Level 23 mmol/L (21-32) Anion Gap 12 (6-14) Blood Urea Nitrogen 8 mg/dL (7-20) Creatinine 0.6 mg/dL (0.6-1.0) Estimated GFR (Cockcroft-Gault) 100.0 Glucose Level 141 mg/dL (70-99) Calcium Level 8.1 mg/dL (8.5-10.1) Test 02/26/19 10:43 02/26/19 16:14 Glucose (Fingerstick) 161 mg/dL (70-99) 136 mg/dL (70-99) Laboratory Tests Test 02/25/19 19:55 02/25/19 21:07 02/26/19 04:45 02/26/19 07:33 Glucose (Fingerstick) 158 mg/dL (70-99) 134 mg/dL (70-99) 145 mg/dL (70-99) White Blood Count 15.0 x10^3/uL (4.0-11.0) Red Blood Count 3.55 x10^6/uL (3.50-5.40) Hemoglobin 10.6 g/dL (12.0-15.5) Hematocrit 31.7 % (36.0-47.0) Mean Corpuscular Volume 89 fL (79-100) Mean Corpuscular Hemoglobin 30 pg (25-35) Mean Corpuscular Hemoglobin Concent 34 g/dL (31-37) Red Cell Distribution Width 13.5 % (11.5-14.5) Platelet Count 341 x10^3/uL (140-400) Neutrophils (%) (Auto) 79 % (31-73) Lymphocytes (%) (Auto) 13 % (24-48) Monocytes (%) (Auto) 6 % (0-9) Eosinophils (%) (Auto) 2 % (0-3) Basophils (%) (Auto) 1 % (0-3) Neutrophils # (Auto) 11.8 x10^3uL (1.8-7.7) Lymphocytes # (Auto) 1.9 x10^3/uL (1.0-4.8) Monocytes # (Auto) 0.9 x10^3/uL (0.0-1.1) Eosinophils # (Auto) 0.3 x10^3/uL (0.0-0.7) Basophils # (Auto) 0.1 x10^3/uL (0.0-0.2) Sodium Level 140 mmol/L (136-145) Potassium Level 3.7 mmol/L (3.5-5.1) Chloride Level 105 mmol/L (98-107) Carbon Dioxide Level 23 mmol/L (21-32) Anion Gap 12 (6-14) Blood Urea Nitrogen 8 mg/dL (7-20) Creatinine 0.6 mg/dL (0.6-1.0) Estimated GFR (Cockcroft-Gault) 100.0 Glucose Level 141 mg/dL (70-99) Calcium Level 8.1 mg/dL (8.5-10.1) Test 02/26/19 10:43 02/26/19 16:14 Glucose (Fingerstick) 161 mg/dL (70-99) 136 mg/dL (70-99) Medications Current Medications Sodium Chloride 1,000 ml @ 1,000 mls/hr 1X ONCE IV Last administered on 02/19/19at 08:10; Start 02/19/19 at 08:00; Stop 02/19/19 at 08:59; Status DC Insulin Human Regular (HumuLIN R VIAL) 10 unit 1X ONCE IV Last administered on 02/19/19at 07:50; Start 02/19/19 at 08:00; Stop 02/19/19 at 08:02; Status DC Insulin Human Regular 150 ml @ 0 mls/hr 1X ONCE IV Last administered on 02/19/19at 08:34; Start 02/19/19 at 08:00; Stop 02/19/19 at 08:02; Status DC Sodium Chloride 1,000 ml @ 100 mls/hr 1X ONCE IV Last administered on 02/19/19at 08:29; Start 02/19/19 at 09:00; Stop 02/19/19 at 13:58; Status DC Sodium Chloride 1,000 ml @ 1,000 mls/hr 1X ONCE IV ; Start 02/19/19 at 09:00; Stop 02/19/19 at 10:02; Status DC Ceftriaxone Sodium (Rocephin) 1 gm 1X ONCE IVP Last administered on 02/19/19at 10:28; Start 02/19/19 at 09:00; Stop 02/19/19 at 09:01; Status DC Sodium Chloride 1,000 ml @ 200 mls/hr Q5H IV ; Start 02/19/19 at 10:00; Stop 02/20/19 at 09:59; Status Cancel Insulin Human Regular 150 unit/ Sodium Chloride 151.5 ml @ 0 mls/hr CONT PRN PRN IV PER PROTOCOL; Start 02/19/19 at 13:00; Status Cancel Dextrose/Sodium Chloride 1,000 ml @ 250 mls/hr Q4H IV Last administered on 02/19/19at 18:06; Start 02/19/19 at 15:00; Stop 02/19/19 at 21:01; Status DC Insulin Human Regular 150 unit/ Sodium Chloride 151.5 ml @ 0 mls/hr CONT PRN PRN IV PER PROTOCOL; Start 02/19/19 at 10:00; Stop 02/19/19 at 21:01; Status DC Potassium Chloride/Water 100 ml @ 100 mls/hr PRN Q1HR PRN IV SEE COMMENTS; Start 02/19/19 at 10:00; Stop 02/19/19 at 21:01; Status DC Potassium Chloride/Water 100 ml @ 100 mls/hr PRN Q1HR PRN IV SEE COMMENTS; Start 02/19/19 at 09:45; Stop 02/19/19 at 21:01; Status DC Potassium Chloride/Water 100 ml @ 100 mls/hr PRN Q1HR PRN IV SEE COMMENTS; Start 02/19/19 at 09:45; Stop 02/19/19 at 21:01; Status DC Labetalol HCl (Normodyne Iv Push) 10 mg PRN Q2HR PRN IVP HYPERTENSION, SEE COMMENTS Last administered on 02/21/19at 14:06; Start 02/19/19 at 09:45; Stop 02/21/19 at 15:43; Status DC Acetaminophen/ Codeine Phosphate (Tylenol #3) 1 tab PRN Q6HRS PRN PO PAIN; Start 02/19/19 at 09:45 Ondansetron HCl (Zofran) 4 mg PRN Q6HRS PRN IV NAUSEA/VOMITING 1ST CHOICE Last administered on 02/20/19at 11:25; Start 02/19/19 at 09:45 Ondansetron HCl (Zofran Odt) 4 mg PRN Q6HRS PRN PO NAUSEA/VOMITING; Start 02/19/19 at 09:45 Acetaminophen/ Hydrocodone Bitart (Lortab 5/325) 1 tab PRN Q4HRS PRN PO MODERATE PAIN; Start 02/19/19 at 09:45 Fentanyl Citrate (Fentanyl 2ml Vial) 25 mcg PRN Q2HR PRN IV PAIN; Start 02/19/19 at 09:45 Sodium Chloride 1,000 ml @ 250 mls/hr Q4H IV Last administered on 02/19/19at 10:07; Start 02/19/19 at 11:00; Stop 02/19/19 at 18:06; Status DC Lidocaine (Lidoderm) 1 patch DAILY TD Last administered on 02/26/19at 13:41; Start 02/20/19 at 09:00 Miscellaneous (Lidoderm Patch Removal) 1 ea QHS MC Last administered on 02/24/19 21:00; Start 02/19/19 at 21:00 Heparin Sodium (Porcine) (Heparin Sodium) 5,000 unit Q8HRS SQ Last administered on 02/26/19at 15:50; Start 02/19/19 at 14:00 Lorazepam (Ativan) 2 mg PRN Q4HRS PRN IV ANXIETY / AGITATION Last administered on 02/19/19at 11:59; Start 02/19/19 at 11:45 Lorazepam (Ativan) 2 mg PRN Q4HRS PRN IV ANXIETY / AGITATION; Start 02/19/19 at 12:00; Status UNV Potassium Phosphate 13.6 mmol/Dextrose 104.5333 ml @ 52.267 m... Q2H IV Last administered on 02/19/19 18:05; Start 02/19/19 at 14:00; Stop 02/19/19 at 19:59; Status DC Dextrose/Sodium Chloride 1,000 ml @ 250 mls/hr Q4H IV ; Start 02/19/19 at 14:00; Status UNV Potassium Chloride 40 meq/ Sodium Chloride 1,020 ml @ 75 mls/hr [id number] IV Last administered on 02/19/19 21:07; Start 02/19/19 at 21:00; Stop 02/20/19 at 08:04; Status DC Insulin Glargine (Lantus) 30 units QHS SQ Last administered on 02/25/19 21:17; Start 02/19/19 at 21:00 Insulin Human Lispro (HumaLOG) 0-9 UNITS TIDWMEALS SQ Last administered on 02/20/19 16:44; Start 02/20/19 at 08:00; Stop 02/21/19 at 08:18; Status DC Dextrose (Dextrose 50%-Water Syringe) 12.5 gm PRN Q15MIN PRN IV SEE COMMENTS Last administered on 02/25/19 16:43; Start 02/19/19 at 21:00 Insulin Human Lispro (HumaLOG) 12 units TIDWMEALS SQ Last administered on 02/20/19at 18:25; Start 02/20/19 at 08:00; Stop 02/21/19 at 08:18; Status DC Acetaminophen (Tylenol) 650 mg PRN Q6HRS PRN PO temp Last administered on 02/20/19at 11:16; Start 02/19/19 at 21:00 Acetaminophen (Tylenol Supp) 650 mg PRN Q6HRS PRN NE MILD PAIN / TEMP; Start 02/19/19 at 21:00 Insulin Human Lispro (HumaLOG) 4 units 1X ONCE SQ Last administered on 02/20/19at 02:00; Start 02/20/19 at 02:00; Stop 02/20/19 at 02:01; Status DC Insulin Human Lispro (HumaLOG) 10 units 1X ONCE SQ Last administered on 02/20/19at 05:35; Start 02/20/19 at 06:00; Stop 02/20/19 at 06:01; Status DC Sodium Chloride 38.75 meq/Sterile Water 1,009.6875 ml @ 100 mls/hr Q10H6M IV Last administered on 02/24/19at 01:56; Start 02/20/19 at 09:00; Stop 02/24/19 at 09:15; Status DC Metoclopramide HCl (Reglan Vial) 5 mg PRN Q6HRS PRN IV NAUSEA/VOMITING 2ND CHOICE; Start 02/20/19 at 14:15; Stop 02/25/19 at 11:40; Status DC Insulin Human Lispro (HumaLOG) 12 units QIDACHS SQ Last administered on 02/22/19at 12:45; Start 02/21/19 at 08:20; Stop 02/22/19 at 12:59; Status DC Insulin Human Lispro (HumaLOG) 0-9 UNITS QIDACHS SQ Last administered on 02/26/19at 13:53; Start 02/21/19 at 08:20 Pantoprazole Sodium (Protonix) 40 mg BIDAC PO Last administered on 02/26/19at 17:39; Start 02/21/19 at 11:30 Ondansetron HCl (Zofran) 4 mg PRN Q6HRS PRN IV NAUSEA/VOMITING; Start 02/22/19 at 07:00; Stop 02/23/19 at 07:00; Status DC Fentanyl Citrate (Fentanyl 2ml Vial) 25 mcg PRN Q5MIN PRN IV MILD PAIN; Start 02/22/19 at 07:00; Stop 02/23/19 at 07:00; Status DC Fentanyl Citrate (Fentanyl 2ml Vial) 50 mcg PRN Q5MIN PRN IV MODERATE TO SEVERE PAIN; Start 02/22/19 at 07:00; Stop 02/23/19 at 07:00; Status DC Morphine Sulfate (Morphine Sulfate) 1 mg PRN Q10MIN PRN IV SEVERE PAIN; Start 02/22/19 at 07:00; Stop 02/23/19 at 07:00; Status DC Ringer's Solution 1,000 ml @ 30 mls/hr Q24H IV Last administered on 02/22/19at 13:26; Start 02/22/19 at 07:00; Stop 02/22/19 at 18:59; Status DC Lidocaine HCl (Xylocaine-Mpf 1% 2ml Vial) 2 ml PRN 1X PRN ID PRIOR TO IV START; Start 02/22/19 at 07:00; Stop 02/23/19 at 07:00; Status DC Hydromorphone HCl (Dilaudid) 0.5 mg PRN Q10MIN PRN IV SEV PAIN, Second choice; Start 02/22/19 at 07:00; Stop 02/23/19 at 07:00; Status DC Clonidine HCl (Catapres) 0.2 mg PRN Q8HRS PRN PO SBP >160 Last administered on 02/21/19at 18:25; Start 02/21/19 at 15:45 Amlodipine Besylate (Norvasc) 10 mg DAILY PO Last administered on 02/26/19at 13:41; Start 02/22/19 at 09:00 Oxymetazoline HCl (Afrin) 2 spray 1X ONCE NS Last administered on 02/22/19at 16:48; Start 02/22/19 at 13:00; Stop 02/22/19 at 13:01; Status DC Oxymetazoline HCl (Afrin) 2 spray BID NS Last administered on 02/26/19at 13:42; Start 02/22/19 at 21:00 Fluticasone Propionate (Flonase) 2 spray DAILY NS Last administered on 02/26/19at 13:42; Start 02/22/19 at 13:00 Potassium Chloride (Klor-Con) 20 meq 1X ONCE PO Last administered on 02/22/19at 16:48; Start 02/22/19 at 13:30; Stop 02/22/19 at 13:31; Status DC Insulin Human Lispro (HumaLOG) 15 units QIDACHS SQ Last administered on 02/26/19at 17:47; Start 02/22/19 at 16:30 Midazolam HCl (Versed) 2 mg PRN 1X PRN IV PRIOR TO PROCEDURE; Start 02/22/19 at 13:15; Stop 02/23/19 at 13:14; Status DC Fentanyl Citrate (Fentanyl 2ml Vial) 25 mcg PRN Q5MIN PRN IV X 2 DOSES FOR PAIN; Start 02/22/19 at 13:15; Stop 02/23/19 at 13:14; Status DC Fentanyl Citrate (Fentanyl 2ml Vial) 50 mcg PRN Q5MIN PRN IV X 2 DOSES FOR PAIN; Start 02/22/19 at 13:15; Stop 02/23/19 at 13:14; Status DC Ringer's Solution 1,000 ml @ 125 mls/hr Q8H IV ; Start 02/22/19 at 13:11; Stop 02/23/19 at 01:10; Status DC Lidocaine HCl (Xylocaine-Mpf 1% 2ml Vial) 2 ml 1X PRN PRN ID IV START; Start 02/22/19 at 13:15; Stop 02/23/19 at 13:14; Status DC Propofol 20 ml @ As Directed STK-MED ONCE IV ; Start 02/22/19 at 14:20; Stop 02/22/19 at 14:21; Status DC Heparin Sodium (Porcine) 1000 unit/Sodium Chloride 1,001 ml @ 1,001 mls/hr 1X ONCE IRR ; Start 02/24/19 at 06:00; Stop 02/24/19 at 06:59; Status DC Polyethylene Glycol (miraLAX PACKET) 17 gm DAILY PO Last administered on 02/26/19at 13:40; Start 02/23/19 at 14:00 Polyethylene Glycol (miraLAX PACKET) 17 gm PRN DAILY PRN PO CONSTIPATION; Start 02/23/19 at 13:15 Ondansetron HCl (Zofran) 4 mg PRN Q6HRS PRN IV NAUSEA/VOMITING; Start 02/24/19 at 07:00; Stop 02/24/19 at 21:00; Status DC Fentanyl Citrate (Fentanyl 2ml Vial) 25 mcg PRN Q5MIN PRN IV MILD PAIN 1-3; Start 02/24/19 at 07:00; Stop 02/24/19 at 21:00; Status DC Fentanyl Citrate (Fentanyl 2ml Vial) 50 mcg PRN Q5MIN PRN IV MODERATE TO SEVERE PAIN; Start 02/24/19 at 07:00; Stop 02/24/19 at 21:00; Status DC Morphine Sulfate (Morphine Sulfate) 1 mg PRN Q10MIN PRN IV SEVERE PAIN 7-10; Start 02/24/19 at 07:00; Stop 02/24/19 at 21:00; Status DC Ringer's Solution 1,000 ml @ 30 mls/hr Q24H IV ; Start 02/24/19 at 07:00; Stop 02/24/19 at 18:59; Status DC Lidocaine HCl (Xylocaine-Mpf 1% 2ml Vial) 2 ml PRN 1X PRN ID PRIOR TO IV START; Start 02/24/19 at 07:00; Stop 02/24/19 at 21:00; Status DC Hydromorphone HCl (Dilaudid) 0.5 mg PRN Q10MIN PRN IV SEV PAIN, Second choice; Start 02/24/19 at 07:00; Stop 02/24/19 at 21:00; Status DC Prochlorperazine Edisylate (Compazine) 5 mg PACU PRN PRN IV NAUSEA, MRX1; Start 02/24/19 at 07:00; Stop 02/24/19 at 21:00; Status DC Lisinopril (Prinivil) 20 mg DAILY PO Last administered on 02/26/19at 13:41; Start 02/24/19 at 09:00 Aspirin (Paul Aspirin) 325 mg [id number] PO Last administered on 02/26/19at 13:40; Start 02/24/19 at 17:30 Aspirin (Aspirin Rectal Supp) 300 mg PRN DAILY PRN NE IF UNABLE TO TAKE PO; Start 02/24/19 at 17:15 Iohexol (Omnipaque 350 Mg/ml) 75 ml 1X ONCE IV Last administered on 02/24/19at 17:15; Start 02/24/19 at 17:15; Stop 02/24/19 at 17:16; Status DC Potassium Chloride/Sodium Chloride 1,000 ml @ 75 mls/hr 1X ONCE IV Last administered on 02/25/19at 07:15; Start 02/25/19 at 07:00; Stop 02/25/19 at 20:19; Status DC Potassium Chloride (Klor-Con) 40 meq 1X ONCE PO Last administered on 02/25/19at 12:15; Start 02/25/19 at 11:45; Stop 02/25/19 at 11:48; Status DC Atorvastatin Calcium (Lipitor) 40 mg QHS PO Last administered on 02/25/19at 21:11; Start 02/25/19 at 21:00 Tamsulosin HCl (Flomax) 0.4 mg QHS PO ; Start 02/26/19 at 21:00 Ferrous Sulfate (Feosol) 325 mg BID PO Last administered on 02/26/19at 15:43; Start 02/26/19 at 12:00 Vitals/I & O Vital Sign - Last 24 Hours 02/25/19 02/25/19 02/25/19 02/26/19 19:00 20:21 23:00 03:00 Temp 98.2 98.2 98.8 98.2 98.2 98.8 Pulse 69 70 73 Resp 16 16 18 B/P (MAP) 146/60 (88) 171/64 (99) 163/65 (97) Pulse Ox 95 95 O2 Delivery Nasal Cannula Nasal Cannula Nasal Cannula Nasal Cannula O2 Flow Rate 2.0 2.0 2.0 2.0 02/26/19 02/26/19 02/26/19 02/26/19 07:00 11:00 13:41 13:41 Temp 97.7 98.5 97.7 98.5 Pulse 77 74 74 74 Resp 20 22 B/P (MAP) 167/56 (93) 120/56 (77) 120/56 120/56 Pulse Ox 95 96 O2 Delivery Nasal Cannula Nasal Cannula O2 Flow Rate 2.0 2.0 02/26/19 02/26/19 15:00 16:30 Temp 98.6 98.6 98.6 98.6 Pulse 92 92 Resp 18 B/P (MAP) 140/63 (88) 140/63 (88) Pulse Ox 91 91 O2 Delivery Nasal Cannula Nasal Cannula O2 Flow Rate 2.0 2.0 Intake and Output 02/25/19 02/25/19 02/26/19 14:59 22:59 06:59 Intake Total 300 ml 120 ml Balance 300 ml 120 ml LUIS FELIPE EDDY MD February 26, 2019 18:20
[2019-02-26] MEDS: DEXTROSE 50% 25 GM / 50ML DISP.SYRIN. IV PRN (19:28)
--- NOTE | 2019-02-26 20:47 | NUR ---
At 1747 pt received 15 units of humalog. At 1849 BS was 31 and pt was feeling hot, aid gave an [place] Juice. At 192 blood sugar was rechecked at pt was at 32, aid gave an orange juice and two apple juice. Received report and administered 50ml of dextrose per protocol at 192. Blood sugar was 1934 and patient stated "I am feeling better" Dr. Hart paged at [phone] and returned call at 2003. Ordered to hold tonight lantus dose. Will continue to monitor.
[2019-02-26] MEDS: INSULIN GLARGINE 300 UNITS/3 ML INSULN.PEN. SQ SCH (20:52)
[2019-02-26] MEDS: PATCH REMOVAL. MC SCH (21:00)
[2019-02-26] MEDS ORDERED: TAMSULOSIN 0.4 MG CAP.ER.24H. PO SCH (21:00)
[2019-02-26] MEDS: ATORVASTATIN CALCIUM 40 MG TABLET. PO SCH (21:42)
[2019-02-27 03:00] VITALS: BP 158/68
[2019-02-27 05:06] LABS: BASO # 0.1 x10^3/uL (0.0-0.2); BASO % 1 % (0-3); EOS # 0.2 x10^3/uL (0.0-0.7); EOS % 2 % (0-3); HEMOGLOBIN 11.6 g/dL (12.0-15.5); LYMPH # 1.6 x10^3/uL (1.0-4.8); LYMPH % 12 % (24-48); MEAN CORPUSCULAR HEMOGLOBIN 29 pg (25-35); MEAN CORPUSCULAR HGB CONC 33 g/dL (31-37); MEAN CORPUSCULAR VOLUME 88 fL (79-100); MONO # 0.6 x10^3/uL (0.0-1.1); MONO % 5 % (0-9); NEUT # 10.7 x10^3uL (1.8-7.7); NEUT % 81 % (31-73); PLATELET COUNT 430 x10^3/uL (140-400); RED BLOOD COUNT 3.95 x10^6/uL (3.50-5.40); RED CELL DISTRIBUTION WIDTH 13.1 % (11.5-14.5); WHITE BLOOD COUNT 13.3 x10^3/uL (4.0-11.0)
[2019-02-27 05:47] LABS: CALCIUM 8.3 mg/dL (8.5-10.1); CREATININE 0.6 mg/dL (0.6-1.0); POTASSIUM 3.1 mmol/L (3.5-5.1)
[2019-02-27] MEDS: HEPARIN for SUB-Q USE 5,000 UNIT/ML VIAL. SQ SCH ×2 (06:06→13:51)
[2019-02-27] MEDS: INSULIN LISPRO 300 UNITS/3 ML INSULN.PEN. SQ SCH ×4 (07:30→12:32)
[2019-02-27 07:31] LABS: % BANDS 6 % (0-9); % EOS 3 % (0-5); % LYMPHS 10 % (24-48); % MONOS 9 % (0-10); % MYELOS 2 % (0-0); % SEGS 70 % (35-66)
[2019-02-27 07:33] VITALS: BP 138/56
[2019-02-27 07:33] LABS: PLT ESTIMATE INCREASED (ADEQUATE)
[2019-02-27] MEDS: PANTOPRAZOLE 40 MG TABLET.DR. PO SCH (08:06)
[2019-02-27] MEDS: FERROUS SULFATE 325 MG TABLET. PO SCH (08:07)
[2019-02-27] MEDS: ASPIRIN 325 MG TABLET PO SCH (08:07)
[2019-02-27] MEDS: LISINOPRIL 20 MG TABLET PO SCH (08:07)
[2019-02-27] MEDS: amLODIPine BESYLATE 10 MG TABLET PO SCH (08:07)
[2019-02-27] MEDS: POLYETHYLENE GLYCOL 3350 17 GM PACKET. PO SCH (08:08)
[2019-02-27] MEDS: FLUTICASONE 50MCG/NASAL SPRAY 16GM BOTTLE. NS SCH (08:08)
[2019-02-27] MEDS: LIDOCAINE (700MG/PATCH) PATCH. TD SCH (08:08)
[2019-02-27] MEDS: OXYMETAZOLINE 0.05% NASAL SPRAY 30ML BOTTLE. NS SCH (08:09)
[2019-02-27 11:00] VITALS: BP 151/65
[2019-02-27] MEDS ORDERED: POTASSIUM CHLORIDE 20 MEQ TABLET.ER. PO ONE (11:45)
--- NOTE | 2019-02-27 12:00 | PDOC ---
PROGRESS NOTES Chief Complaint Chief Complaint DKA resolved, transferred out of ICU Left sided weakness - Right middle cerebral artery CVA Symptomatic Cholelithiasis DM type 2 insulin requiring Bilious Emesis resolved AMS resolved Electrolyte abnormalities replacing Plan: Awaiting transfer to [facility] Encourage activity as tolerated Continue current management Patient improved from the physical therapy standpoint of view hopefully will have a full recovery soon History of Present Illness History of Present Illness This is a 68-y-old female patient who was admitted on 02/19/19 due to DKA with glucose greater then 700. She was reportedly off DM meds for several y ears. She still complained back pain, poor PO intake and chronic nausea. GI was consulted and she was revealed cholelithiasis. Surgery was consulted, but patient declined cholecystectomy. She was noted left side facial drooping and left side weakness on 02/24/19, but patient stated she did not realized weakness. Neurology was requested for consultation, and a large subacute right MCA territory infarct was revealed. Patient today feeling better compared to yesterday. 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 K is 2.9 this morning and WBC is 19K, going up. No fevers or chills. She c/o dysuria as well and only wants to eat applesauce. Plan: Check UA consider cholecystectomy Rehab planning Replace K, check mag Vitals Vitals Vital Signs Date Time Temp Pulse Resp B/P (MAP) Pulse Ox O2 Delivery O2 Flow Rate FiO2 02/27/19 11:00 97.9 79 18 151/65 (93) 93 Room Air 97.9 02/27/19 08:00 2.0 Physical Exam General: Alert, Oriented X3, Cooperative, No acute distress Heart: Regular rate, Normal S1, Normal S2 Abdomen: Soft, No tenderness Extremities: No clubbing, No cyanosis Skin: Other (arm with chronic scars c/w scratching) Labs LABS Laboratory Tests Test 02/26/19 16:14 02/26/19 18:49 02/26/19 19:12 02/26/19 19:34 Glucose (Fingerstick) 136 mg/dL (70-99) 31 mg/dL (70-99) 32 mg/dL (70-99) 205 mg/dL (70-99) Test 02/26/19 20:40 02/26/19 21:48 02/27/19 04:35 02/27/19 07:37 Glucose (Fingerstick) 133 mg/dL (70-99) 110 mg/dL (70-99) 141 mg/dL (70-99) White Blood Count 13.3 x10^3/uL (4.0-11.0) Red Blood Count 3.95 x10^6/uL (3.50-5.40) Hemoglobin 11.6 g/dL (12.0-15.5) Hematocrit 35.0 % (36.0-47.0) Mean Corpuscular Volume 88 fL (79-100) Mean Corpuscular Hemoglobin 29 pg (25-35) Mean Corpuscular Hemoglobin Concent 33 g/dL (31-37) Red Cell Distribution Width 13.1 % (11.5-14.5) Platelet Count 430 x10^3/uL (140-400) Neutrophils (%) (Auto) 81 % (31-73) Lymphocytes (%) (Auto) 12 % (24-48) Monocytes (%) (Auto) 5 % (0-9) Eosinophils (%) (Auto) 2 % (0-3) Basophils (%) (Auto) 1 % (0-3) Neutrophils # (Auto) 10.7 x10^3uL (1.8-7.7) Lymphocytes # (Auto) 1.6 x10^3/uL (1.0-4.8) Monocytes # (Auto) 0.6 x10^3/uL (0.0-1.1) Eosinophils # (Auto) 0.2 x10^3/uL (0.0-0.7) Basophils # (Auto) 0.1 x10^3/uL (0.0-0.2) Segmented Neutrophils % 70 % (35-66) Band Neutrophils % 6 % (0-9) Lymphocytes % 10 % (24-48) Monocytes % 9 % (0-10) Eosinophils % 3 % (0-5) Myelocytes % 2 % (0-0) Platelet Estimate Increased (ADEQUATE) Large Platelets Few Sodium Level 142 mmol/L (136-145) Potassium Level 3.1 mmol/L (3.5-5.1) Chloride Level 105 mmol/L (98-107) Carbon Dioxide Level 27 mmol/L (21-32) Anion Gap 10 (6-14) Blood Urea Nitrogen 5 mg/dL (7-20) Creatinine 0.6 mg/dL (0.6-1.0) Estimated GFR (Cockcroft-Gault) 100.0 Glucose Level 114 mg/dL (70-99) Calcium Level 8.3 mg/dL (8.5-10.1) Review of Systems Review of Systems Negative for 10 point review of system Assessment and Plan Assessmemt and Plan Problems Medical Problems: (1) Altered level of consciousness Status: Acute (2) Dehydration Status: Acute (3) DKA (diabetic ketoacidoses) Status: Acute (4) Hypercalcemia Status: Acute (5) Hypermagnesemia Status: Acute (6) Renal insufficiency Status: Acute (7) Sepsis Status: Acute Comment Review of Relevant I have reviewed the following items katalina (where applicable) has been applied. Labs Laboratory Tests Test 02/25/19 14:30 02/25/19 14:35 02/25/19 16:41 02/25/19 17:00 Urine Color Yellow Urine Clarity Clear Urine pH 5.5 Urine Specific [place] 1.015 Urine Protein Negative mg/dL (NEG-TRACE) Urine Glucose (UA) Negative mg/dL (NEG) Urine Ketones (Stick) Negative mg/dL (NEG) Urine Blood Trace (NEG) Urine Nitrite Negative (NEG) Urine Bilirubin Negative (NEG) Urine Urobilinogen Dipstick 0.2 mg/dL (0.2 mg/dL) Urine Leukocyte Esterase Negative (NEG) Urine RBC Occ /HPF (0-2) Urine WBC 1-4 /HPF (0-4) Urine Squamous Epithelial Cells Occ /LPF Urine Bacteria Few /HPF (0-FEW) Urine Mucus Slight /LPF Potassium Level 3.2 mmol/L (3.5-5.1) Glucose (Fingerstick) 61 mg/dL (70-99) 121 mg/dL (70-99) Test 02/25/19 19:55 02/25/19 21:07 02/26/19 04:45 02/26/19 07:33 Glucose (Fingerstick) 158 mg/dL (70-99) 134 mg/dL (70-99) 145 mg/dL (70-99) White Blood Count 15.0 x10^3/uL (4.0-11.0) Red Blood Count 3.55 x10^6/uL (3.50-5.40) Hemoglobin 10.6 g/dL (12.0-15.5) Hematocrit 31.7 % (36.0-47.0) Mean Corpuscular Volume 89 fL (79-100) Mean Corpuscular Hemoglobin 30 pg (25-35) Mean Corpuscular Hemoglobin Concent 34 g/dL (31-37) Red Cell Distribution Width 13.5 % (11.5-14.5) Platelet Count 341 x10^3/uL (140-400) Neutrophils (%) (Auto) 79 % (31-73) Lymphocytes (%) (Auto) 13 % (24-48) Monocytes (%) (Auto) 6 % (0-9) Eosinophils (%) (Auto) 2 % (0-3) Basophils (%) (Auto) 1 % (0-3) Neutrophils # (Auto) 11.8 x10^3uL (1.8-7.7) Lymphocytes # (Auto) 1.9 x10^3/uL (1.0-4.8) Monocytes # (Auto) 0.9 x10^3/uL (0.0-1.1) Eosinophils # (Auto) 0.3 x10^3/uL (0.0-0.7) Basophils # (Auto) 0.1 x10^3/uL (0.0-0.2) Sodium Level 140 mmol/L (136-145) Potassium Level 3.7 mmol/L (3.5-5.1) Chloride Level 105 mmol/L (98-107) Carbon Dioxide Level 23 mmol/L (21-32) Anion Gap 12 (6-14) Blood Urea Nitrogen 8 mg/dL (7-20) Creatinine 0.6 mg/dL (0.6-1.0) Estimated GFR (Cockcroft-Gault) 100.0 Glucose Level 141 mg/dL (70-99) Calcium Level 8.1 mg/dL (8.5-10.1) Test 02/26/19 10:43 02/26/19 16:14 02/26/19 18:49 02/26/19 19:12 Glucose (Fingerstick) 161 mg/dL (70-99) 136 mg/dL (70-99) 31 mg/dL (70-99) 32 mg/dL (70-99) Test 02/26/19 19:34 02/26/19 20:40 02/26/19 21:48 02/27/19 04:35 Glucose (Fingerstick) 205 mg/dL (70-99) 133 mg/dL (70-99) 110 mg/dL (70-99) White Blood Count 13.3 x10^3/uL (4.0-11.0) Red Blood Count 3.95 x10^6/uL (3.50-5.40) Hemoglobin 11.6 g/dL (12.0-15.5) Hematocrit 35.0 % (36.0-47.0) Mean Corpuscular Volume 88 fL (79-100) Mean Corpuscular Hemoglobin 29 pg (25-35) Mean Corpuscular Hemoglobin Concent 33 g/dL (31-37) Red Cell Distribution Width 13.1 % (11.5-14.5) Platelet Count 430 x10^3/uL (140-400) Neutrophils (%) (Auto) 81 % (31-73) Lymphocytes (%) (Auto) 12 % (24-48) Monocytes (%) (Auto) 5 % (0-9) Eosinophils (%) (Auto) 2 % (0-3) Basophils (%) (Auto) 1 % (0-3) Neutrophils # (Auto) 10.7 x10^3uL (1.8-7.7) Lymphocytes # (Auto) 1.6 x10^3/uL (1.0-4.8) Monocytes # (Auto) 0.6 x10^3/uL (0.0-1.1) Eosinophils # (Auto) 0.2 x10^3/uL (0.0-0.7) Basophils # (Auto) 0.1 x10^3/uL (0.0-0.2) Segmented Neutrophils % 70 % (35-66) Band Neutrophils % 6 % (0-9) Lymphocytes % 10 % (24-48) Monocytes % 9 % (0-10) Eosinophils % 3 % (0-5) Myelocytes % 2 % (0-0) Platelet Estimate Increased (ADEQUATE) Large Platelets Few Sodium Level 142 mmol/L (136-145) Potassium Level 3.1 mmol/L (3.5-5.1) Chloride Level 105 mmol/L (98-107) Carbon Dioxide Level 27 mmol/L (21-32) Anion Gap 10 (6-14) Blood Urea Nitrogen 5 mg/dL (7-20) Creatinine 0.6 mg/dL (0.6-1.0) Estimated GFR (Cockcroft-Gault) 100.0 Glucose Level 114 mg/dL (70-99) Calcium Level 8.3 mg/dL (8.5-10.1) Test 02/27/19 07:37 Glucose (Fingerstick) 141 mg/dL (70-99) Laboratory Tests Test 02/26/19 16:14 02/26/19 18:49 02/26/19 19:12 02/26/19 19:34 Glucose (Fingerstick) 136 mg/dL (70-99) 31 mg/dL (70-99) 32 mg/dL (70-99) 205 mg/dL (70-99) Test 02/26/19 20:40 02/26/19 21:48 02/27/19 04:35 02/27/19 07:37 Glucose (Fingerstick) 133 mg/dL (70-99) 110 mg/dL (70-99) 141 mg/dL (70-99) White Blood Count 13.3 x10^3/uL (4.0-11.0) Red Blood Count 3.95 x10^6/uL (3.50-5.40) Hemoglobin 11.6 g/dL (12.0-15.5) Hematocrit 35.0 % (36.0-47.0) Mean Corpuscular Volume 88 fL (79-100) Mean Corpuscular Hemoglobin 29 pg (25-35) Mean Corpuscular Hemoglobin Concent 33 g/dL (31-37) Red Cell Distribution Width 13.1 % (11.5-14.5) Platelet Count 430 x10^3/uL (140-400) Neutrophils (%) (Auto) 81 % (31-73) Lymphocytes (%) (Auto) 12 % (24-48) Monocytes (%) (Auto) 5 % (0-9) Eosinophils (%) (Auto) 2 % (0-3) Basophils (%) (Auto) 1 % (0-3) Neutrophils # (Auto) 10.7 x10^3uL (1.8-7.7) Lymphocytes # (Auto) 1.6 x10^3/uL (1.0-4.8) Monocytes # (Auto) 0.6 x10^3/uL (0.0-1.1) Eosinophils # (Auto) 0.2 x10^3/uL (0.0-0.7) Basophils # (Auto) 0.1 x10^3/uL (0.0-0.2) Segmented Neutrophils % 70 % (35-66) Band Neutrophils % 6 % (0-9) Lymphocytes % 10 % (24-48) Monocytes % 9 % (0-10) Eosinophils % 3 % (0-5) Myelocytes % 2 % (0-0) Platelet Estimate Increased (ADEQUATE) Large Platelets Few Sodium Level 142 mmol/L (136-145) Potassium Level 3.1 mmol/L (3.5-5.1) Chloride Level 105 mmol/L (98-107) Carbon Dioxide Level 27 mmol/L (21-32) Anion Gap 10 (6-14) Blood Urea Nitrogen 5 mg/dL (7-20) Creatinine 0.6 mg/dL (0.6-1.0) Estimated GFR (Cockcroft-Gault) 100.0 Glucose Level 114 mg/dL (70-99) Calcium Level 8.3 mg/dL (8.5-10.1) Medications Current Medications Sodium Chloride 1,000 ml @ 1,000 mls/hr 1X ONCE IV Last administered on 02/19/19at 08:10; Start 02/19/19 at 08:00; Stop 02/19/19 at 08:59; Status DC Insulin Human Regular (HumuLIN R VIAL) 10 unit 1X ONCE IV Last administered on 02/19/19at 07:50; Start 02/19/19 at 08:00; Stop 02/19/19 at 08:02; Status DC Insulin Human Regular 150 ml @ 0 mls/hr 1X ONCE IV Last administered on 02/19/19at 08:34; Start 02/19/19 at 08:00; Stop 02/19/19 at 08:02; Status DC Sodium Chloride 1,000 ml @ 100 mls/hr 1X ONCE IV Last administered on 02/19/19at 08:29; Start 02/19/19 at 09:00; Stop 02/19/19 at 13:58; Status DC Sodium Chloride 1,000 ml @ 1,000 mls/hr 1X ONCE IV ; Start 02/19/19 at 09:00; Stop 02/19/19 at 10:02; Status DC Ceftriaxone Sodium (Rocephin) 1 gm 1X ONCE IVP Last administered on 02/19/19at 10:28; Start 02/19/19 at 09:00; Stop 02/19/19 at 09:01; Status DC Sodium Chloride 1,000 ml @ 200 mls/hr Q5H IV ; Start 02/19/19 at 10:00; Stop 02/20/19 at 09:59; Status Cancel Insulin Human Regular 150 unit/ Sodium Chloride 151.5 ml @ 0 mls/hr CONT PRN PRN IV PER PROTOCOL; Start 02/19/19 at 13:00; Status Cancel Dextrose/Sodium Chloride 1,000 ml @ 250 mls/hr Q4H IV Last administered on 02/19/19at 18:06; Start 02/19/19 at 15:00; Stop 02/19/19 at 21:01; Status DC Insulin Human Regular 150 unit/ Sodium Chloride 151.5 ml @ 0 mls/hr CONT PRN PRN IV PER PROTOCOL; Start 02/19/19 at 10:00; Stop 02/19/19 at 21:01; Status DC Potassium Chloride/Water 100 ml @ 100 mls/hr PRN Q1HR PRN IV SEE COMMENTS; Start 02/19/19 at 10:00; Stop 02/19/19 at 21:01; Status DC Potassium Chloride/Water 100 ml @ 100 mls/hr PRN Q1HR PRN IV SEE COMMENTS; Start 02/19/19 at 09:45; Stop 02/19/19 at 21:01; Status DC Potassium Chloride/Water 100 ml @ 100 mls/hr PRN Q1HR PRN IV SEE COMMENTS; Start 02/19/19 at 09:45; Stop 02/19/19 at 21:01; Status DC Labetalol HCl (Normodyne Iv Push) 10 mg PRN Q2HR PRN IVP HYPERTENSION, SEE COMMENTS Last administered on 02/21/19at 14:06; Start 02/19/19 at 09:45; Stop 02/21/19 at 15:43; Status DC Acetaminophen/ Codeine Phosphate (Tylenol #3) 1 tab PRN Q6HRS PRN PO PAIN; Start 02/19/19 at 09:45 Ondansetron HCl (Zofran) 4 mg PRN Q6HRS PRN IV NAUSEA/VOMITING 1ST CHOICE Last administered on 02/20/19at 11:25; Start 02/19/19 at 09:45 Ondansetron HCl (Zofran Odt) 4 mg PRN Q6HRS PRN PO NAUSEA/VOMITING; Start 02/19/19 at 09:45 Acetaminophen/ Hydrocodone Bitart (Lortab 5/325) 1 tab PRN Q4HRS PRN PO MODERATE PAIN; Start 02/19/19 at 09:45 Fentanyl Citrate (Fentanyl 2ml Vial) 25 mcg PRN Q2HR PRN IV PAIN; Start 02/19/19 at 09:45 Sodium Chloride 1,000 ml @ 250 mls/hr Q4H IV Last administered on 02/19/19at 10:07; Start 02/19/19 at 11:00; Stop 02/19/19 at 18:06; Status DC Lidocaine (Lidoderm) 1 patch DAILY TD Last administered on 02/27/19 08:08; Start 02/20/19 at 09:00 Miscellaneous (Lidoderm Patch Removal) 1 ea QHS MC Last administered on 02/26/19 21:00; Start 02/19/19 at 21:00 Heparin Sodium (Porcine) (Heparin Sodium) 5,000 unit Q8HRS SQ Last administered on 02/27/19 06:06; Start 02/19/19 at 14:00 Lorazepam (Ativan) 2 mg PRN Q4HRS PRN IV ANXIETY / AGITATION Last administered on 02/19/19at 11:59; Start 02/19/19 at 11:45 Lorazepam (Ativan) 2 mg PRN Q4HRS PRN IV ANXIETY / AGITATION; Start 02/19/19 at 12:00; Status UNV Potassium Phosphate 13.6 mmol/Dextrose 104.5333 ml @ 52.267 m... Q2H IV Last administered on 02/19/19at 18:05; Start 02/19/19 at 14:00; Stop 02/19/19 at 19:59; Status DC Dextrose/Sodium Chloride 1,000 ml @ 250 mls/hr Q4H IV ; Start 02/19/19 at 14:00; Status UNV Potassium Chloride 40 meq/ Sodium Chloride 1,020 ml @ 75 mls/hr [id number] IV Last administered on 02/19/19at 21:07; Start 02/19/19 at 21:00; Stop 02/20/19 at 08:04; Status DC Insulin Glargine (Lantus) 30 units QHS SQ Last administered on 02/25/19at 21:17; Start 02/19/19 at 21:00 Insulin Human Lispro (HumaLOG) 0-9 UNITS TIDWMEALS SQ Last administered on 02/20/19at 16:44; Start 02/20/19 at 08:00; Stop 02/21/19 at 08:18; Status DC Dextrose (Dextrose 50%-Water Syringe) 12.5 gm PRN Q15MIN PRN IV SEE COMMENTS Last administered on 02/26/19at 19:28; Start 02/19/19 at 21:00 Insulin Human Lispro (HumaLOG) 12 units TIDWMEALS SQ Last administered on 02/20/19at 18:25; Start 02/20/19 at 08:00; Stop 02/21/19 at 08:18; Status DC Acetaminophen (Tylenol) 650 mg PRN Q6HRS PRN PO temp Last administered on 02/20/19at 11:16; Start 02/19/19 at 21:00 Acetaminophen (Tylenol Supp) 650 mg PRN Q6HRS PRN TN MILD PAIN / TEMP; Start 02/19/19 at 21:00 Insulin Human Lispro (HumaLOG) 4 units 1X ONCE SQ Last administered on 02/20/19at 02:00; Start 02/20/19 at 02:00; Stop 02/20/19 at 02:01; Status DC Insulin Human Lispro (HumaLOG) 10 units 1X ONCE SQ Last administered on 02/20/19at 05:35; Start 02/20/19 at 06:00; Stop 02/20/19 at 06:01; Status DC Sodium Chloride 38.75 meq/Sterile Water 1,009.6875 ml @ 100 mls/hr Q10H6M IV Last administered on 02/24/19at 01:56; Start 02/20/19 at 09:00; Stop 02/24/19 at 09:15; Status DC Metoclopramide HCl (Reglan Vial) 5 mg PRN Q6HRS PRN IV NAUSEA/VOMITING 2ND CHO ICE; Start 02/20/19 at 14:15; Stop 02/25/19 at 11:40; Status DC Insulin Human Lispro (HumaLOG) 12 units QIDACHS SQ Last administered on 02/22/19at 12:45; Start 02/21/19 at 08:20; Stop 02/22/19 at 12:59; Status DC Insulin Human Lispro (HumaLOG) 0-9 UNITS QIDACHS SQ Last administered on 02/26/19at 13:53; Start 02/21/19 at 08:20 Pantoprazole Sodium (Protonix) 40 mg BIDAC PO Last administered on 02/27/19at 08:06; Start 02/21/19 at 11:30 Ondansetron HCl (Zofran) 4 mg PRN Q6HRS PRN IV NAUSEA/VOMITING; Start 02/22/19 at 07:00; Stop 02/23/19 at 07:00; Status DC Fentanyl Citrate (Fentanyl 2ml Vial) 25 mcg PRN Q5MIN PRN IV MILD PAIN; Start 02/22/19 at 07:00; Stop 02/23/19 at 07:00; Status DC Fentanyl Citrate (Fentanyl 2ml Vial) 50 mcg PRN Q5MIN PRN IV MODERATE TO SEVERE PAIN; Start 02/22/19 at 07:00; Stop 02/23/19 at 07:00; Status DC Morphine Sulfate (Morphine Sulfate) 1 mg PRN Q10MIN PRN IV SEVERE PAIN; Start 02/22/19 at 07:00; Stop 02/23/19 at 07:00; Status DC Ringer's Solution 1,000 ml @ 30 mls/hr Q24H IV Last administered on 02/22/19at 13:26; Start 02/22/19 at 07:00; Stop 02/22/19 at 18:59; Status DC Lidocaine HCl (Xylocaine-Mpf 1% 2ml Vial) 2 ml PRN 1X PRN ID PRIOR TO IV START; Start 02/22/19 at 07:00; Stop 02/23/19 at 07:00; Status DC Hydromorphone HCl (Dilaudid) 0.5 mg PRN Q10MIN PRN IV SEV PAIN, Second choice; Start 02/22/19 at 07:00; Stop 02/23/19 at 07:00; Status DC Clonidine HCl (Catapres) 0.2 mg PRN Q8HRS PRN PO SBP >160 Last administered on 02/21/19at 18:25; Start 02/21/19 at 15:45 Amlodipine Besylate (Norvasc) 10 mg DAILY PO Last administered on 02/27/19at 08:07; Start 02/22/19 at 09:00 Oxymetazoline HCl (Afrin) 2 spray 1X ONCE NS Last administered on 02/22/19at 16:48; Start 02/22/19 at 13:00; Stop 02/22/19 at 13:01; Status DC Oxymetazoline HCl (Afrin) 2 spray BID NS Last administered on 02/27/19 08:09; Start 02/22/19 at 21:00 Fluticasone Propionate (Flonase) 2 spray DAILY NS Last administered on 02/27/19 08:08; Start 02/22/19 at 13:00 Potassium Chloride (Klor-Con) 20 meq 1X ONCE PO Last administered on 02/22/19at 16:48; Start 02/22/19 at 13:30; Stop 02/22/19 at 13:31; Status DC Insulin Human Lispro (HumaLOG) 15 units QIDACHS SQ Last administered on 02/27/19 08:20; Start 02/22/19 at 16:30 Midazolam HCl (Versed) 2 mg PRN 1X PRN IV PRIOR TO PROCEDURE; Start 02/22/19 at 13:15; Stop 02/23/19 at 13:14; Status DC Fentanyl Citrate (Fentanyl 2ml Vial) 25 mcg PRN Q5MIN PRN IV X 2 DOSES FOR PAIN; Start 02/22/19 at 13:15; Stop 02/23/19 at 13:14; Status DC Fentanyl Citrate (Fentanyl 2ml Vial) 50 mcg PRN Q5MIN PRN IV X 2 DOSES FOR PAIN; Start 02/22/19 at 13:15; Stop 02/23/19 at 13:14; Status DC Ringer's Solution 1,000 ml @ 125 mls/hr Q8H IV ; Start 02/22/19 at 13:11; Stop 02/23/19 at 01:10; Status DC Lidocaine HCl (Xylocaine-Mpf 1% 2ml Vial) 2 ml 1X PRN PRN ID IV START; Start 02/22/19 at 13:15; Stop 02/23/19 at 13:14; Status DC Propofol 20 ml @ As Directed STK-MED ONCE IV ; Start 02/22/19 at 14:20; Stop 02/22/19 at 14:21; Status DC Heparin Sodium (Porcine) 1000 unit/Sodium Chloride 1,001 ml @ 1,001 mls/hr 1X ONCE IRR ; Start 02/24/19 at 06:00; Stop 02/24/19 at 06:59; Status DC Polyethylene Glycol (miraLAX PACKET) 17 gm DAILY PO Last administered on 02/27/19at 08:08; Start 02/23/19 at 14:00 Polyethylene Glycol (miraLAX PACKET) 17 gm PRN DAILY PRN PO CONSTIPATION; Start 02/23/19 at 13:15 Ondansetron HCl (Zofran) 4 mg PRN Q6HRS PRN IV NAUSEA/VOMITING; Start 02/24/19 at 07:00; Stop 02/24/19 at 21:00; Status DC Fentanyl Citrate (Fentanyl 2ml Vial) 25 mcg PRN Q5MIN PRN IV MILD PAIN 1-3; St art 02/24/19 at 07:00; Stop 02/24/19 at 21:00; Status DC Fentanyl Citrate (Fentanyl 2ml Vial) 50 mcg PRN Q5MIN PRN IV MODERATE TO SEVERE PAIN; Start 02/24/19 at 07:00; Stop 02/24/19 at 21:00; Status DC Morphine Sulfate (Morphine Sulfate) 1 mg PRN Q10MIN PRN IV SEVERE PAIN 7-10; Start 02/24/19 at 07:00; Stop 02/24/19 at 21:00; Status DC Ringer's Solution 1,000 ml @ 30 mls/hr Q24H IV ; Start 02/24/19 at 07:00; Stop 02/24/19 at 18:59; Status DC Lidocaine HCl (Xylocaine-Mpf 1% 2ml Vial) 2 ml PRN 1X PRN ID PRIOR TO IV START; Start 02/24/19 at 07:00; Stop 02/24/19 at 21:00; Status DC Hydromorphone HCl (Dilaudid) 0.5 mg PRN Q10MIN PRN IV SEV PAIN, Second choice; Start 02/24/19 at 07:00; Stop 02/24/19 at 21:00; Status DC Prochlorperazine Edisylate (Compazine) 5 mg PACU PRN PRN IV NAUSEA, MRX1; Start 02/24/19 at 07:00; Stop 02/24/19 at 21:00; Status DC Lisinopril (Prinivil) 20 mg DAILY PO Last administered on 02/27/19at 08:07; Start 02/24/19 at 09:00 Aspirin (Paul Aspirin) 325 mg [id number] PO Last administered on 02/27/19at 08:07; Start 02/24/19 at 17:30 Aspirin (Aspirin Rectal Supp) 300 mg PRN DAILY PRN TN IF UNABLE TO TAKE PO; Start 02/24/19 at 17:15 Iohexol (Omnipaque 350 Mg/ml) 75 ml 1X ONCE IV Last administered on 02/24/19at 17:15; Start 02/24/19 at 17:15; Stop 02/24/19 at 17:16; Status DC Potassium Chloride/Sodium Chloride 1,000 ml @ 75 mls/hr 1X ONCE IV Last administered on 02/25/19at 07:15; Start 02/25/19 at 07:00; Stop 02/25/19 at 20:19; Status DC Potassium Chloride (Klor-Con) 40 meq 1X ONCE PO Last administered on 02/25/19at 12:15; Start 02/25/19 at 11:45; Stop 02/25/19 at 11:48; Status DC Atorvastatin Calcium (Lipitor) 40 mg QHS PO Last administered on 02/26/19at 21:42; Start 02/25/19 at 21:00 Tamsulosin HCl (Flomax) 0.4 mg QHS PO Last administered on 02/26/19at 21:42; Start 02/26/19 at 21:00 Ferrous Sulfate (Feosol) 325 mg BID PO Last administered on 02/27/19at 08:07; Start 02/26/19 at 12:00 Potassium Chloride (Klor-Con) 40 meq 1X ONCE PO ; Start 02/27/19 at 11:45; Stop 02/27/19 at 11:46; Status DC Vitals/I & O Vital Sign - Last 24 Hours 02/26/19 02/26/19 02/26/19 02/26/19 13:41 13:41 15:00 16:30 Temp 98.6 98.6 98.6 98.6 Pulse 74 74 92 92 Resp 18 B/P (MAP) 120/56 120/56 140/63 (88) 140/63 (88) Pulse Ox 91 91 O2 Delivery Nasal Cannula Nasal Cannula O2 Flow Rate 2.0 2.0 02/26/19 02/26/19 02/26/19 02/27/19 19:00 19:50 23:00 03:00 Temp 97.4 98.0 98.1 97.4 98.0 98.1 Pulse 73 60 73 Resp 20 18 B/P (MAP) 170/64 (99) 137/59 (85) 158/68 (98) Pulse Ox 93 99 99 O2 Delivery Room Air Nasal Cannula Room Air Room Air O2 Flow Rate 2.0 02/27/19 02/27/19 02/27/19 02/27/19 07:33 08:00 08:07 08:07 Temp 98.3 98.3 Pulse 76 76 76 Resp 18 B/P (MAP) 138/56 (83) 138/56 138/56 Pulse Ox 98 O2 Delivery Nasal Cannula Nasal Cannula O2 Flow Rate 2.0 2.0 02/27/19 11:00 Temp 97.9 97.9 Pulse 79 Resp 18 B/P (MAP) 151/65 (93) Pulse Ox 93 O2 Delivery Room Air Intake and Output 02/26/19 02/26/19 02/27/19 14:59 22:59 06:59 Intake Total 200 ml 100 ml Output Total 1 ml Balance 199 ml 100 ml LUIS FELIPE EDDY MD February 27, 2019 12:00
[2019-02-27] MEDS ORDERED: CLON0.2T10 PO (14:02)
[2019-02-27] MEDS ORDERED: ATOR40TA59 PO (14:02)
[2019-02-27] MEDS ORDERED: LISI-130 PO (14:02)
[2019-02-27] MEDS ORDERED: FERR325T72 PO (14:02)
[2019-02-27] MEDS ORDERED: TAMS0.4C97 PO (14:02)
[2019-02-27] MEDS ORDERED: AMLO10TA8 PO (14:02)
[2019-02-27] MEDS ORDERED: INSU100I13 SQ (14:03)
[2019-02-27] MEDS ORDERED: Pantoprazole PO (14:03)
[2019-02-27] MEDS ORDERED: POLY17PO28 PO (14:03)
[2019-02-27] MEDS ORDERED: ASPI325T8 PO (14:03)
[2019-02-27] MEDS ORDERED: INSU100I11 SQ (14:03)
--- NOTE | 2019-02-27 14:04 | SNU/HH DC ---
DISCHARGE ORDERS DISCHARGE INFORMATION: DISCHARGE DATE: February 27, 2019 FINAL DIAGNOSIS Problems Medical Problems: (1)CVA Status: Acute (2) Dehydration Status: Acute (3) DKA (diabetic ketoacidoses) Status: Acute (4) Hypercalcemia Status: Acute (5) Hypermagnesemia Status: Acute (6) Renal insufficiency Status: Acute (7) Sepsis Status: Acute CONDITION ON DISCHARGE: Stable CODE STATUS: Code Status: Full PENITENTIARY: SNF STAY <30 DAYS: Yes POST DISCHARGE ORDERS: ACTIVITY ORDERS: Activity as tolerated DIET AFTER DISCHARGE: ADA TREATMENT/EQUIPMENT ORDERS: Physical Therapy For: Evalulation/Treatment Occupational Therapy For: Evaluation/Treatment DISCHARGE MEDICATIONS: Home Meds Active Scripts Polyethylene Glycol 3350 (POLYETHYLENE GLYCOL 3350) 17 Gm Powd.pack, 17 GM PO DAILY for constipation for 30 Days, #30 PKT Prov:LUIS FELIPE EDDY MD 02/27/19 Insulin Lispro (HUMALOG) 100 Unit/1 Ml Insuln.pen, 15 UNITS SQ QIDACHS for dm for 30 Days, EACH Prov:LUIS FELIPE EDDY MD 02/27/19 Insulin Glargine,Hum.rec.anlog (LANTUS SOLOSTAR) 100 Unit/1 Ml Insuln.pen, 30 UNITS SQ QHS for dm for 30 Days, EACH Prov:LUIS FELIPE EDDY MD 02/27/19 [Pantoprazole] [address].DR Stevens Conflict Check, 40 MG PO BIDAC for pud for 30 Days, #60 Prov:LUIS FELIPE EDDY MD 02/27/19 Aspirin (ASPIRIN) 325 Mg Tablet, 325 MG PO DAILYWBKFT for antiplatelet for 30 Days, #30 TAB Prov:LUIS FELIPE EDDY MD 02/27/19 Lisinopril (LISINOPRIL) 40 Mg Tablet, 20 MG PO DAILY for htn for 30 Days, #15 TAB Prov:LUIS FELIPE EDDY MD 02/27/19 Amlodipine Besylate (AMLODIPINE BESYLATE) 10 Mg Tablet, 10 MG PO DAILY for htn for 30 Days, #30 TAB Prov:LUIS FELIPE EDDY MD 02/27/19 Clonidine Hcl (CATAPRES) 0.2 Mg Tablet, 0.2 MG PO PRN Q8HRS PRN for SBP >160 for 30 Days, #30 TAB Prov:LUIS FELIPE EDDY MD 02/27/19 Atorvastatin Calcium (ATORVASTATIN CALCIUM) 40 Mg Tablet, 40 MG PO QHS for dyslipidemia for 30 Days, #30 TAB Prov:LUIS FELIPE EDDY MD 02/27/19 Ferrous Sulfate (FEOSOL) 325 Mg Tablet, 325 MG PO BID for WILFRIDO for 30 Days, #60 TAB Prov:LUIS FELIPE EDDY MD 02/27/19 Tamsulosin Hcl (FLOMAX) 0.4 Mg Cap.er.24h, 0.4 MG PO QHS for urinary urgency for 30 Days, #30 CAP.SR Prov:LUIS FELIPE EDDY MD 02/27/19 LUIS FELIPE EDDY MD February 27, 2019 14:04
--- NOTE | 2019-02-27 14:08 | PDOC3 ---
Discharge Summary Visit Information Date of Admission: February 19, 2019 Date of Discharge: February 27, 2019 Admitting Diagnosis: DKA Admitting Diagnosis Comment: DKA with metabolic encephalopathy Diabetes Mellitus 2, diet-controlled per 's relay-not on any meds since June 2018 Hemoconcentration Reactive leukocytosis AK IN deepthi background of DKA Increase in anion gap metabolic acidosis in the background of DKA Hypercalcemia in the background of hemoconcentration and DKA Hypermagnesemia Elevated lactate SIRS not infectious Accelerated hypertension POA Final Diagnosis Problems Medical Problems: (1) Altered level of consciousness Status: Acute (2) Dehydration Status: Acute (3) DKA (diabetic ketoacidoses) Status: Acute (4) Hypercalcemia Status: Acute (5) Hypermagnesemia Status: Acute (6) Renal insufficiency Status: Acute DKA resolved, transferred out of ICU Left sided weakness - Right middle cerebral artery CVA Symptomatic Cholelithiasis DM type 2 insulin requiring Bilious Emesis resolved AMS resolved Elecrolytes corrected Brief Hospital Course Allergies Allergies Coded Allergies Type Severity Reaction Last Updated Verified No Known Drug Allergies 02/22/19 No Vital Signs Vital Signs Date Time Temp Pulse Resp B/P (MAP) Pulse Ox O2 Delivery O2 Flow Rate FiO2 02/27/19 11:00 97.9 79 18 151/65 (93) 93 Room Air 97.9 02/27/19 08:00 2.0 Lab Results Laboratory Tests Test 02/25/19 14:30 02/25/19 14:35 02/25/19 16:41 02/25/19 17:00 Urine Color Yellow Urine Clarity Clear Urine pH 5.5 Urine Specific Sanger 1.015 Urine Protein Negative mg/dL (NEG-TRACE) Urine Glucose (UA) Negative mg/dL (NEG) Urine Ketones (Stick) Negative mg/dL (NEG) Urine Blood Trace (NEG) Urine Nitrite Negative (NEG) Urine Bilirubin Negative (NEG) Urine Urobilinogen Dipstick 0.2 mg/dL (0.2 mg/dL) Urine Leukocyte Esterase Negative (NEG) Urine RBC Occ /HPF (0-2) Urine WBC 1-4 /HPF (0-4) Urine Squamous Epithelial Cells Occ /LPF Urine Bacteria Few /HPF (0-FEW) Urine Mucus Slight /LPF Potassium Level 3.2 mmol/L (3.5-5.1) Glucose (Fingerstick) 61 mg/dL (70-99) 121 mg/dL (70-99) Test 02/25/19 19:55 02/25/19 21:07 02/26/19 04:45 02/26/19 07:33 Glucose (Fingerstick) 158 mg/dL (70-99) 134 mg/dL (70-99) 145 mg/dL (70-99) White Blood Count 15.0 x10^3/uL (4.0-11.0) Red Blood Count 3.55 x10^6/uL (3.50-5.40) Hemoglobin 10.6 g/dL (12.0-15.5) Hematocrit 31.7 % (36.0-47.0) Mean Corpuscular Volume 89 fL (79-100) Mean Corpuscular Hemoglobin 30 pg (25-35) Mean Corpuscular Hemoglobin Concent 34 g/dL (31-37) Red Cell Distribution Width 13.5 % (11.5-14.5) Platelet Count 341 x10^3/uL (140-400) Neutrophils (%) (Auto) 79 % (31-73) Lymphocytes (%) (Auto) 13 % (24-48) Monocytes (%) (Auto) 6 % (0-9) Eosinophils (%) (Auto) 2 % (0-3) Basophils (%) (Auto) 1 % (0-3) Neutrophils # (Auto) 11.8 x10^3uL (1.8-7.7) Lymphocytes # (Auto) 1.9 x10^3/uL (1.0-4.8) Monocytes # (Auto) 0.9 x10^3/uL (0.0-1.1) Eosinophils # (Auto) 0.3 x10^3/uL (0.0-0.7) Basophils # (Auto) 0.1 x10^3/uL (0.0-0.2) Sodium Level 140 mmol/L (136-145) Potassium Level 3.7 mmol/L (3.5-5.1) Chloride Level 105 mmol/L (98-107) Carbon Dioxide Level 23 mmol/L (21-32) Anion Gap 12 (6-14) Blood Urea Nitrogen 8 mg/dL (7-20) Creatinine 0.6 mg/dL (0.6-1.0) Estimated GFR (Cockcroft-Gault) 100.0 Glucose Level 141 mg/dL (70-99) Calcium Level 8.1 mg/dL (8.5-10.1) Test 02/26/19 10:43 02/26/19 16:14 02/26/19 18:49 02/26/19 19:12 Glucose (Fingerstick) 161 mg/dL (70-99) 136 mg/dL (70-99) 31 mg/dL (70-99) 32 mg/dL (70-99) Test 02/26/19 19:34 02/26/19 20:40 02/26/19 21:48 02/27/19 04:35 Glucose (Fingerstick) 205 mg/dL (70-99) 133 mg/dL (70-99) 110 mg/dL (70-99) White Blood Count 13.3 x10^3/uL (4.0-11.0) Red Blood Count 3.95 x10^6/uL (3.50-5.40) Hemoglobin 11.6 g/dL (12.0-15.5) Hematocrit 35.0 % (36.0-47.0) Mean Corpuscular Volume 88 fL (79-100) Mean Corpuscular Hemoglobin 29 pg (25-35) Mean Corpuscular Hemoglobin Concent 33 g/dL (31-37) Red Cell Distribution Width 13.1 % (11.5-14.5) Platelet Count 430 x10^3/uL (140-400) Neutrophils (%) (Auto) 81 % (31-73) Lymphocytes (%) (Auto) 12 % (24-48) Monocytes (%) (Auto) 5 % (0-9) Eosinophils (%) (Auto) 2 % (0-3) Basophils (%) (Auto) 1 % (0-3) Neutrophils # (Auto) 10.7 x10^3uL (1.8-7.7) Lymphocytes # (Auto) 1.6 x10^3/uL (1.0-4.8) Monocytes # (Auto) 0.6 x10^3/uL (0.0-1.1) Eosinophils # (Auto) 0.2 x10^3/uL (0.0-0.7) Basophils # (Auto) 0.1 x10^3/uL (0.0-0.2) Segmented Neutrophils % 70 % (35-66) Band Neutrophils % 6 % (0-9) Lymphocytes % 10 % (24-48) Monocytes % 9 % (0-10) Eosinophils % 3 % (0-5) Myelocytes % 2 % (0-0) Platelet Estimate Increased (ADEQUATE) Large Platelets Few Sodium Level 142 mmol/L (136-145) Potassium Level 3.1 mmol/L (3.5-5.1) Chloride Level 105 mmol/L (98-107) Carbon Dioxide Level 27 mmol/L (21-32) Anion Gap 10 (6-14) Blood Urea Nitrogen 5 mg/dL (7-20) Creatinine 0.6 mg/dL (0.6-1.0) Estimated GFR (Cockcroft-Gault) 100.0 Glucose Level 114 mg/dL (70-99) Calcium Level 8.3 mg/dL (8.5-10.1) Test 02/27/19 07:37 02/27/19 11:53 Glucose (Fingerstick) 141 mg/dL (70-99) 136 mg/dL (70-99) Laboratory Tests Test 02/26/19 16:14 02/26/19 18:49 02/26/19 19:12 02/26/19 19:34 Glucose (Fingerstick) 136 mg/dL (70-99) 31 mg/dL (70-99) 32 mg/dL (70-99) 205 mg/dL (70-99) Test 02/26/19 20:40 02/26/19 21:48 02/27/19 04:35 02/27/19 07:37 Glucose (Fingerstick) 133 mg/dL (70-99) 110 mg/dL (70-99) 141 mg/dL (70-99) White Blood Count 13.3 x10^3/uL (4.0-11.0) Red Blood Count 3.95 x10^6/uL (3.50-5.40) Hemoglobin 11.6 g/dL (12.0-15.5) Hematocrit 35.0 % (36.0-47.0) Mean Corpuscular Volume 88 fL (79-100) Mean Corpuscular Hemoglobin 29 pg (25-35) Mean Corpuscular Hemoglobin Concent 33 g/dL (31-37) Red Cell Distribution Width 13.1 % (11.5-14.5) Platelet Count 430 x10^3/uL (140-400) Neutrophils (%) (Auto) 81 % (31-73) Lymphocytes (%) (Auto) 12 % (24-48) Monocytes (%) (Auto) 5 % (0-9) Eosinophils (%) (Auto) 2 % (0-3) Basophils (%) (Auto) 1 % (0-3) Neutrophils # (Auto) 10.7 x10^3uL (1.8-7.7) Lymphocytes # (Auto) 1.6 x10^3/uL (1.0-4.8) Monocytes # (Auto) 0.6 x10^3/uL (0.0-1.1) Eosinophils # (Auto) 0.2 x10^3/uL (0.0-0.7) Basophils # (Auto) 0.1 x10^3/uL (0.0-0.2) Segmented Neutrophils % 70 % (35-66) Band Neutrophils % 6 % (0-9) Lymphocytes % 10 % (24-48) Monocytes % 9 % (0-10) Eosinophils % 3 % (0-5) Myelocytes % 2 % (0-0) Platelet Estimate Increased (ADEQUATE) Large Platelets Few Sodium Level 142 mmol/L (136-145) Potassium Level 3.1 mmol/L (3.5-5.1) Chloride Level 105 mmol/L (98-107) Carbon Dioxide Level 27 mmol/L (21-32) Anion Gap 10 (6-14) Blood Urea Nitrogen 5 mg/dL (7-20) Creatinine 0.6 mg/dL (0.6-1.0) Estimated GFR (Cockcroft-Gault) 100.0 Glucose Level 114 mg/dL (70-99) Calcium Level 8.3 mg/dL (8.5-10.1) Test 02/27/19 11:53 Glucose (Fingerstick) 136 mg/dL (70-99) Brief Hospital Course 68-year-old white obese female with a BMI 31, brought in by , not taking meds since June 2018. Apparently brought in because of back pain, I am unable to elicit if there was trauma etc.to the back. Again poor historian and was not at bedside during my encounter. But on labs was found to be in DKA with a blood sugar over 700, anion gap of 30. Bicarbonate 13, ABG pH 7.31. WBC 12 with hemoconcentration at 15 hemoglobin Platelets 353. Magnesium is high at 3.1, lactate elevated at 2.3 tachycardic, tachypneic, Kussmaul's respiration, hypercalcemia 10.7 with pending UA. Admitted DKA protocol ICU. She was admitted on 02/19/19 due to DKA with glucose greater then 700. She was reportedly off DM meds for several years. She still complained back pain, poor PO intake and chronic nausea. GI was consulted and she was revealed cholelithiasis. Surgery was consulted, but patient declined cholecystectomy. She was noted left side facial drooping and left side weakness on 02/24/19, but patient stated she did not realized weakness. Neurology was requested for consultation, and a large subacute right MCA territory infarct was revealed. This was after left-sided weakness was noted throughout her hospital stay unfortunately. Signs and symptoms of alarm were discussed with the patient and her at bedside prior to dismissal she will be transitioning to a senior living facility to continue with her recovery. No acute events reported on the night prior to her dismissal Patient today feeling better compared to yesterday. 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 K is 2.9 this morning and WBC is 19K, going up. No fevers or chills. She c/o dysuria as well and only wants to eat applesauce.. Discharge Information Condition at Discharge: Improved Follow Up: Weeks Disposition/Orders: D/C to Another Facility Scheduled Amlodipine Besylate (Amlodipine Besylate) 10 Mg Tablet, 10 MG PO DAILY for htn for 30 Days, #30 Prescribed by: LUIS FELIPE EDDY MD on 02/27/19 1402 Aspirin (Aspirin) 325 Mg Tablet, 325 MG PO DAILYWBKFT for antiplatelet for 30 Days, #30 Prescribed by: LUIS FELIPE EDDY MD on 02/27/19 1403 Atorvastatin Calcium (Atorvastatin Calcium) 40 Mg Tablet, 40 MG PO QHS for dyslipidemia for 30 Days, #30 Prescribed by: LUIS FELIPE EDDY MD on 02/27/19 1402 Ferrous Sulfate (Feosol) 325 Mg Tablet, 325 MG PO BID for WILFRIDO for 30 Days, #60 Prescribed by: LUIS FELIPE EDDY MD on 02/27/191401 Insulin Glargine,Hum.rec.anlog (Lantus Solostar) 100 Unit/1 Ml Insuln.pen, 30 UNITS SQ QHS for dm for 30 Days Prescribed by: LUIS FELIPE EDDY MD on 02/27/191402 Insulin Lispro (Humalog) 100 Unit/1 Ml Insuln.pen, 15 UNITS SQ QIDACHS for dm for 30 Days Prescribed by: LUIS FELIPE EDDY MD on 02/27/191402 Lisinopril (Lisinopril) 40 Mg Tablet, 20 MG PO DAILY for htn for 30 Days, #15 Prescribed by: LUIS FELIPE EDDY MD on 02/27/191401 Polyethylene Glycol 3350 (Polyethylene Glycol 3350) 17 Gm Powd.pack, 17 GM PO DAILY for constipation for 30 Days, #30 Prescribed by: LUIS FELIPE EDDY MD on 02/27/193 Tamsulosin Hcl (Flomax) 0.4 Mg Cap.er.24h, 0.4 MG PO QHS for urinary urgency for 30 Days, #30 Prescribed by: LUIS FELIPE EDDY MD on 02/27/19 1402 [Pantoprazole] 40 MG TABLET.DR, 40 MG PO BIDAC for pud for 30 Days, #60 Prescribed by: LUIS FELIPE EDDY MD on 02/27/191402 Scheduled PRN Clonidine Hcl (Catapres) 0.2 Mg Tablet, 0.2 MG PO PRN Q8HRS PRN for SBP >160 for 30 Days, #30 Prescribed by: LUIS FELIPE EDDY MD on 02/27/192 LUIS FELIPE EDDY MD February 27, 2019 14:08
[2019-02-27 15:00] VITALS: BP 129/64
--- NOTE | 2019-02-27 16:17 | NUR ---
Patient discharged to [facility] acute rehab. This RN talked to Peyton associated with [facility] regarding discharge orders needed. D/C orders and medication list faxed to [phone] per Peyton, fax completed. Last blood sugar taken was 88, juice given to patient for the road. This RN called report to Ai RN, all questions answered with call back number given in case more are to arise.Patient alert and stable. Stroke scale/stroke education completed upon d/c by 6S director furniture and charted. IV discontinued. Belongings with patient. O2 on upon discharge. Transport personnel picked patient up at 1635.
--- NOTE | 2019-02-27 16:51 | PDOC ---
PROGRESS NOTES Assessment Assessment Large subacute right temporal, parietal and occipital infarct. Small right BG, thalamus and insula infarct. Right M 1 narrow? Petechial hemorrhage. Metabolic encephalopathy. Left side vague facial drooping, onset time unknown. Left side mild weakness, onset time unknown. Hyperglycemia, glucose level 747. Hypertriglyceridemia. DKA. DM. HTN. Leukocytosis. Cholelithiasis Fatty liver. Urinary and bowel incontinence. Obesity. RECOMMENDATIONS/PLAN: ASA 325 mg daily. Lipitor 40 mg HS. Control hyperglycemia. Treat medical and surgical diseases. OT/PT. FU with PCP. FU with Neurology as needed. HISTORY OF THE PRESENT ILLNESS: This is a 68-y-old female patient who was admitted on 02/19/19 due to DKA with glucose greater then 700. She was reportedly off DM meds for several years. She still complained back pain, poor PO intake and chronic nausea. GI was consulted and she was revealed cholelithiasis. Surgery was consulted, but patient declined cholecystectomy. She was noted left side facial drooping and left side weakness on 02/24/19, but patient stated she did not realized weakness. Neurology was requested for consultation, and a large subacute right MCA territory infarct was revealed. Past Medical History Endocrine: Diabetes, obesity. HTN. Past Surgical History Injury to neck with a laceration. She denies any other surgical procedures but she is not sure. Family History Unknown ALLERGY: Unknown MEDICATIONS: Refer to MAR SOCIAL HISTORY: Lives with her at home. Denies current smoking, drinking, and illicit drug use. REVIEW OF SYSTEMS: Constitutional: Obese. Head: No traumatic brain or head injury. Skin: No edema, or rash. Ear: No infection. Eyes: No vision loss or color blindness. Nose: No bleeding or purulent discharges. Hearing: No hearing decrease. Neck: No injury. Breast: No history of cancer, masses,or discharges. Cardiac: HTN. Pulmonary: No COPD. GI: Cholelithiasis. Urinary/genital: UTI. Endocrinologic: Diabetes Mellitus, obesity. Skeletomuscular: No muscular atrophy. Neurological: see HP. Psychiatric: Denies drug use/abuse. Otherwise, not [id number] review of systems. PHYSICAL EXAMINATION: General appearance is in subacute distress. HEENT: Normocephalic and nontraumatic. Eyes, nose, ears, and throat are unremarkable. Neck is supple. No lymphadenopathy. No crepitus. Cardiovascular: S1, S2, regular rate and rhythm. Pulmonary: mildly decreased to auscultation bilaterally. Abdomen: Bowel sounds are positive. Extremities: No rash, lesions, or edema. No restriction of range of motion NEUROLOGICAL EXAMINATION: Awake. Oriented partially to time, place but knew person. PERRL. EOMI. CN: no obvious focal findings at this time. Muscle tone: within normal. Muscle strength: left side 4+, right side 5. DTR: 2- Plantar reflex: Neutral response bilaterally Gait: Able to walk with a walker. Sensory exam: No significant findings.. No acute cerebellar signs elicited. F-T-N test fine. Objective Objective Vital Signs Date Time Temp Pulse Resp B/P (MAP) Pulse Ox O2 Delivery O2 Flow Rate FiO2 02/27/19 15:00 98.7 81 18 129/64 (85) 96 Nasal Cannula 2.0 98.7 Intake and Output 02/27/19 07:00 Intake Total 300 ml Output Total 1 ml Balance 299 ml Intake Oral 300 ml Output Urine Total 1 ml # Voids 3 # Bowel Movements 1 Vitals Signs Vitals VS - Last 72 Hours, by Label Date Time Temp Pulse Resp B/P (MAP) Pulse Ox O2 Delivery O2 Flow Rate FiO2 02/27/19 15:00 98.7 81 18 129/64 (85) 96 Nasal Cannula 2.0 98.7 02/27/19 11:00 97.9 79 18 151/65 (93) 93 Room Air 97.9 02/27/19 08:07 76 138/56 02/27/19 08:07 76 138/56 02/27/19 08:00 Nasal Cannula 2.0 02/27/19 07:33 98.3 76 18 138/56 (83) 98 Nasal Cannula 2.0 98.3 02/27/19 03:00 98.1 73 18 158/68 (98) 99 Room Air 98.1 02/26/19 23:00 98.0 60 137/59 (85) 99 Room Air 98.0 02/26/19 19:50 Nasal Cannula 2.0 02/26/19 19:00 97.4 73 20 170/64 (99) 93 Room Air 97.4 02/26/19 16:30 98.6 92 140/63 (88) 91 Nasal Cannula 2.0 98.6 02/26/19 15:00 98.6 92 18 140/63 (88) 91 Nasal Cannula 2.0 98.6 02/26/19 13:41 74 120/56 02/26/19 13:41 74 120/56 02/26/19 11:00 98.5 74 22 120/56 (77) 96 Nasal Cannula 2.0 98.5 02/26/19 08:00 Nasal Cannula 2.0 02/26/19 07:00 97.7 77 20 167/56 (93) 95 Nasal Cannula 2.0 97.7 Laboratory Laboratory Laboratory Tests Test 02/26/19 18:49 02/26/19 19:12 02/26/19 19:34 02/26/19 20:40 Glucose (Fingerstick) 31 mg/dL (70-99) 32 mg/dL (70-99) 205 mg/dL (70-99) 133 mg/dL (70-99) Test 02/26/19 21:48 02/27/19 04:35 02/27/19 07:37 02/27/19 11:53 Glucose (Fingerstick) 110 mg/dL (70-99) 141 mg/dL (70-99) 136 mg/dL (70-99) White Blood Count 13.3 x10^3/uL (4.0-11.0) Red Blood Count 3.95 x10^6/uL (3.50-5.40) Hemoglobin 11.6 g/dL (12.0-15.5) Hematocrit 35.0 % (36.0-47.0) Mean Corpuscular Volume 88 fL (79-100) Mean Corpuscular Hemoglobin 29 pg (25-35) Mean Corpuscular Hemoglobin Concent 33 g/dL (31-37) Red Cell Distribution Width 13.1 % (11.5-14.5) Platelet Count 430 x10^3/uL (140-400) Neutrophils (%) (Auto) 81 % (31-73) Lymphocytes (%) (Auto) 12 % (24-48) Monocytes (%) (Auto) 5 % (0-9) Eosinophils (%) (Auto) 2 % (0-3) Basophils (%) (Auto) 1 % (0-3) Neutrophils # (Auto) 10.7 x10^3uL (1.8-7.7) Lymphocytes # (Auto) 1.6 x10^3/uL (1.0-4.8) Monocytes # (Auto) 0.6 x10^3/uL (0.0-1.1) Eosinophils # (Auto) 0.2 x10^3/uL (0.0-0.7) Basophils # (Auto) 0.1 x10^3/uL (0.0-0.2) Segmented Neutrophils % 70 % (35-66) Band Neutrophils % 6 % (0-9) Lymphocytes % 10 % (24-48) Monocytes % 9 % (0-10) Eosinophils % 3 % (0-5) Myelocytes % 2 % (0-0) Platelet Estimate Increased (ADEQUATE) Large Platelets Few Sodium Level 142 mmol/L (136-145) Potassium Level 3.1 mmol/L (3.5-5.1) Chloride Level 105 mmol/L (98-107) Carbon Dioxide Level 27 mmol/L (21-32) Anion Gap 10 (6-14) Blood Urea Nitrogen 5 mg/dL (7-20) Creatinine 0.6 mg/dL (0.6-1.0) Estimated GFR (Cockcroft-Gault) 100.0 Glucose Level 114 mg/dL (70-99) Calcium Level 8.3 mg/dL (8.5-10.1) Test 02/27/19 14:23 02/27/19 16:06 Glucose (Fingerstick) 89 mg/dL (70-99) 88 mg/dL (70-99) Medication Medications Current Medications Potassium Chloride (Klor-Con) 40 meq 1X ONCE PO Last administered on 02/27/19at 12:28; Start 02/27/19 at 11:45; Stop 02/27/19 at 11:46; Status DC Tamsulosin HCl (Flomax) 0.4 mg QHS PO Last administered on 02/26/19at 21:42; Start 02/26/19 at 21:00; Stop 02/27/19 at 16:39; Status DC Comment Review of Relevant I have reviewed the following items katalina (where applicable) has been applied. KARON ROA MD February 27, 2019 16:51
== END 2019-02-27 16:39 | DRG 871 ==
LOC: ER 07:43 → 1 WEST ICU 08:15 → 5 NORTH 02-21 15:45
PROVIDERS: ADMIT Internal Medicine; ATTEND Internal Medicine
PROC: 0DB68ZX Excision of Stomach, Via Natural or Artificial Opening Endoscopic, Diagnostic (ICD-10-PCS; 2019-02-22)
PROC: 0DB98ZX Excision of Duodenum, Via Natural or Artificial Opening Endoscopic, Diagnostic (ICD-10-PCS; principal; 2019-02-22 15:30)
DX: A41.9 Sepsis, unspecified organism (principal); E11.10 Type 2 diabetes mellitus with ketoacidosis without coma; G93.41 Metabolic encephalopathy; I63.511 Cerebral infarction due to unspecified occlusion or stenosis of right middle cerebral artery; N17.9 Acute kidney failure, unspecified; N39.0 Urinary tract infection, site not specified; E86.0 Dehydration; E66.9 Obesity, unspecified; E83.52 Hypercalcemia; E83.41 Hypermagnesemia; I10 Essential (primary) hypertension; Z91.19 Patient's noncompliance with other medical treatment and regimen; K76.0 Fatty (change of) liver, not elsewhere classified; E11.42 Type 2 diabetes mellitus with diabetic polyneuropathy; K80.20 Calculus of gallbladder without cholecystitis without obstruction; K29.60 Other gastritis without bleeding; R13.10 Dysphagia, unspecified; R23.3 Spontaneous ecchymoses; R29.810 Facial weakness; R15.9 Full incontinence of feces; E78.1 Pure hyperglyceridemia; Z68.31 Body mass index [BMI] 31.0-31.9, adult; Z79.899 Other long term (current) drug therapy; Z79.4 Long term (current) use of insulin; Z79.82 Long term (current) use of aspirin; Z86.73 Personal history of transient ischemic attack (TIA), and cerebral infarction without residual deficits
CPT/HCPCS: 36415; 36600; 43239; 70450; 70496; 70498; 70551; 71045; 72080; 76700; 78264; 80048; 80053; 80061; 80307; 81001; 82010; 82140; 82550; 82607; 82805; 82962; 83036; 83605; 83690; 83735; 83880; 84100; 84132; 84443; 84484; 85007; 85025; 85610; 85730; 87086; 87186; 87641; 88305; 88342; 93005; 93306; 96361; 96365; 96375; A9541; J0696; J1644; J1815; J2060; J2405; J2704; J3480; J3490; J7030; J7042; J7120; Q9967; 92610; 97116; 97530; 97535; 99291-25

== ENCOUNTER 2019-11-21 16:04 | Inpatient (IN) | payer MEDICARE, BC ==
[~2019-11-21] VITALS: Ht 167.6 cm; Wt 80.0 kg
[~2019-11-21 16:04] MED LIST: AMLO10TA8 PO; ASPI325T8 PO; ATOR40TA59 PO; CLON0.2T10 PO; DIPH25CA58 PO; FERR325T72 PO; INSU100I11 SQ; INSU100I13 SQ; LISI-130 PO; METF500T16 PO; POLY17PO28 PO; Pantoprazole PO; TAMS0.4C97 PO
--- NOTE | 2019-11-21 17:14 | PHYS DOC ---
Past Medical History Past Medical History: Diabetes-Type II, Hypertension, Stroke Additional Past Surgical Histo: Surgery on abcessed tooth Smoking Status: Never Smoker Alcohol Use: None Drug Use: None Adult General Chief Complaint Chief Complaint: ABDOMINAL PAIN HPI HPI Patient is a 69 year old female who reports past medical history of diabetes and is in the ER today secondary to 2 days of nausea with vomiting and some intermittent abdominal pain. She also reports decreased appetite and some weakness. No fever or chills reported. No sick contacts. She is having bowel movements and denies abdominal bloating. Review of Systems Review of Systems All other ROS is negative unless otherwise stated in HPI Current Medications Current Medications Current Medications Medications (Trade) Dose Ordered Sig/Annette Start Time Stop Time Status Last Admin Dose Admin Ondansetron HCl (Zofran) 4 mg 1X ONCE 11/21/19 17:15 11/21/19 17:16 DC 11/21/19 17:34 4 MG Sodium Chloride 1,000 ml @ 1,000 mls/hr 1X ONCE 11/21/19 17:15 11/21/19 18:14 11/21/19 17:34 1,000 MLS/HR Allergies Allergies Allergies Coded Allergies Type Severity Reaction Last Updated Verified No Known Drug Allergies 02/22/19 No Physical Exam Physical Exam See above Constitutional: Well developed, well nourished, no acute distress, non-toxic appearance, appears slightly weak. HENT: Normocephalic, atraumatic, bilateral external ears normal, oropharynx moist, no oral exudates, nose normal. [] Eyes: PERRLA, EOMI, conjunctiva normal, no discharge. [] Neck: Normal range of motion, no tenderness, supple, no stridor. [] Cardiovascular:Heart rate regular rhythm, no murmur [] Lungs & Thorax: Bilateral breath sounds clear to auscultation [] Abdomen: Bowel sounds normal, soft, mild diffuse TTP, no masses, no pulsatile masses. [] Skin: Warm, dry, no erythema, no rash. [] Back: No tenderness, no CVA tenderness. [] Extremities: No tenderness, no cyanosis, no clubbing, ROM intact, no edema. [] Neurologic: Alert and oriented X 3, normal motor function, normal sensory function, no focal deficits noted. [] Psychologic: Affect normal, judgement normal, mood normal. [] Current Patient Data Vital Signs Vital Signs Date Time Temp Pulse Resp B/P (MAP) Pulse Ox O2 Delivery O2 Flow Rate FiO2 11/21/19 17:00 98.2 19 104/52 (69) 96 Room Air 98.2 EKG EKG [] Radiology/Procedures Radiology/Procedures [] Course & Med Decision Making Course & Med Decision Making Pertinent Labs and Imaging studies reviewed. (See chart for details) 1713: C for nausea and vomiting with intermittent abdominal pain. Symptoms are consistent with gastroenteritis but we will go ahead and check labs and get an abdominal x-ray for further evaluation. Will give IV fluids and Zofran as well. 1755: Transition of care to Dr. Booker. Labs and xray pending. Dragon Disclaimer Dragon Disclaimer This electronic medical record was generated, in whole or in part, using a voice recognition dictation system. Departure Departure Referrals: JAYY WORRELL MD (PCP) SELWYN PECK DO Nov 21, 2019 17:14
[2019-11-21] MEDS ORDERED: ONDANSETRON PF 4 MG/2 ML VIAL. IVP ONE (17:15)
[2019-11-21] MEDS ORDERED: IV NORMAL SALINE 1000ML BAG 1,000 ML IV ONE ×2 (17:15→19:15)
[2019-11-21 17:47] LABS: BASO # 0.1 x10^3/uL (0.0-0.2); BASO % 0 % (0-3); EOS # 0.2 x10^3/uL (0.0-0.7); EOS % 1 % (0-3); HEMATOCRIT 37.4 % (36.0-47.0); HEMOGLOBIN 12.3 g/dL (12.0-15.5); LYMPH # 0.5 x10^3/uL (1.0-4.8); LYMPH % 2 % (24-48); MEAN CORPUSCULAR HEMOGLOBIN 30 pg (25-35); MEAN CORPUSCULAR HGB CONC 33 g/dL (31-37); MEAN CORPUSCULAR VOLUME 90 fL (79-100); MONO # 0.6 x10^3/uL (0.0-1.1); MONO % 3 % (0-9); NEUT # 21.4 x10^3/uL (1.8-7.7); NEUT % 94 % (31-73); PLATELET COUNT 148 x10^3/uL (140-400); RED BLOOD COUNT 4.15 x10^6/uL (3.50-5.40); RED CELL DISTRIBUTION WIDTH 14.7 % (11.5-14.5); WHITE BLOOD COUNT 22.8 x10^3/uL (4.0-11.0)
[2019-11-21 17:56] LABS: CALCIUM 9.8 mg/dL (8.5-10.1); CREATININE 2.2 mg/dL (0.6-1.0); GFR 22.3; POTASSIUM 3.9 mmol/L (3.5-5.1)
[2019-11-21 18:03] LABS: ALBUMIN/GLOBULIN RATIO 0.7 (1.0-1.7); TOTAL BILIRUBIN 1.2 mg/dL (0.2-1.0); TOTAL PROTEIN 7.3 g/dL (6.4-8.2)
[2019-11-21 18:05] LABS: INFLUENZA A PATIENT NEGATIVE (NEGATIVE); INFLUENZA B PATIENT NEGATIVE (NEGATIVE)
[2019-11-21 18:31] LABS: % LYMPHS 5 % (24-48); % MONOS 1 % (0-10); % SEGS 94 % (35-66)
[2019-11-21 18:32] LABS: ANISOCYTOSIS SLIGHT; PLT ESTIMATE ADEQUATE (ADEQUATE)
--- NOTE | 2019-11-21 19:06 | RAD ---
Three-view acute abdominal series. HISTORY: Abdominal pain 3 views were taken for an acute abdominal series. There is atelectasis or infiltrate in the left lower lobe. There is mild linear atelectasis in the right lung base. There is no free air on the upright view although the upright view may have been semiupright. There are calcified gallstones on the right. There are bilateral renal calculi. Bowel pattern is normal without bowel obstruction. IMPRESSION: 1. Basilar atelectasis or infiltrates mainly on the left. 2. Cholelithiasis. 3. Renal calculi. Electronically signed by: Gui Correia MD (11/21/2019 7:03 PM) [id number]
[2019-11-21] MEDS ORDERED: PIPERACILLIN/TAZOBACTAM 3.375 GM in IV NORMAL SALINE 50ML 50 ML IV ONE (19:30)
[2019-11-21 19:59] LABS: BILIRUBIN,URINE NEGATIVE (NEG); CLARITY,URINE CLOUDY; COLOR,URINE YELLOW; NITRITE,URINE NEGATIVE (NEG); PH,URINE 5.5; PROTEIN,URINE 100 mg/dL (NEG-TRACE); UROBILINOGEN,URINE 0.2 mg/dL (0.2 mg/dL)
[2019-11-21 20:09] LABS: BACTERIA,URINE MANY /HPF (0-FEW); RBC,URINE 20-40 /HPF (0-2); SQUAMOUS EPITHELIAL CELL,UR MANY /LPF; WBC,URINE >40 /HPF (0-4)
--- NOTE | 2019-11-21 20:14 | RAD ---
CT abdomen pelvis without contrast. HISTORY: Abdominal pain CT scan the abdomen pelvis was done without contrast. There are bibasilar infiltrates or atelectasis more prominent in the left lung base. Liver was normal in appearance. The gallbladder is distended with large calcified gallstones. There is calcification of the gallbladder wall. Spleen and adrenal glands are normal. Pancreas is normal. There are bilateral intrarenal calculi. There is mild bilateral hydronephrosis. A right ureteral calculus is not definitively identified. There is a phlebolith versus a ureteral calculus on the left. There is an abnormal fluid collection behind the right kidney lateral to the psoas muscle measuring 2.8 x 4.7 x 8.5 cm. An abscess is possible, a seroma could have this pattern, hematoma would be possible. Appendix is not definitively abnormal. There is no bowel obstruction. IMPRESSION: 1. Multiple bilateral intrarenal calculi. 2. Phlebolith versus ureteral calculus on the left. 3. Retroperitoneal fluid collection on the right. 4. Cholelithiasis with distended gallbladder. 5. Calcifications in the gallbladder wall. 6. Appendix within normal limits in size. PQRS Compliance Statement: One or more of the following individualized dose reduction techniques were utilized for this examination: 1. Automated exposure control 2. Adjustment of the mA and/or kV according to patient size 3. Use of iterative reconstruction technique Electronically signed by: Gui Correia MD (11/21/2019 8:11 PM) [id number]
[2019-11-21] MEDS ORDERED: PIP/TAZO PER PHARMACY MC PRN (21:00)
[2019-11-21] MEDS ORDERED: ONDANSETRON PF 4 MG/2 ML VIAL. IV PRN (21:00)
[2019-11-21] MEDS ORDERED: MORPHINE SULFATE 2 MG/ML VIAL. IV PRN (21:00)
[2019-11-21 21:21] LABS: PROTHROMBIN TIME PATIENT 14.6 SEC (11.7-14.0)
[2019-11-21 23:43] VITALS: BP 126/54
[2019-11-22] VITALS (9 sets, daily range): BP systolic 114–153; BP diastolic 49–80
[2019-11-22] MEDS ORDERED: ALBU2.5V8 INH (00:01)
[2019-11-22] MEDS ORDERED: CELE-20 PO (00:01)
[2019-11-22] MEDS ORDERED: ICOS1CAP PO (00:01)
[2019-11-22] MEDS ORDERED: MONT10TA11 PO (00:01)
[2019-11-22] MEDS ORDERED: INSU100I27 SQ (00:16)
[2019-11-22] MEDS ORDERED: FLUO20CA20 PO (00:16)
[2019-11-22] MEDS ORDERED: LISI-334 PO (00:16)
[2019-11-22] MEDS ORDERED: ATOR20TA58 PO (00:16)
[2019-11-22] MEDS ORDERED: METF500T11 PO (00:16)
[2019-11-22] MEDS ORDERED: AMLO5TAB10 PO (00:16)
[2019-11-22] MEDS ORDERED: TAMS0.4C97 PO (00:16)
[2019-11-22] MEDS: PIPERACILLIN/TAZOBACTAM 2.25 GM in IV NORMAL SALINE 50ML 50 ML IV SCH ×2 (00:28→06:07)
[2019-11-22] MEDS: IV NORMAL SALINE 1000ML BAG 1,000 ML IV SCH ×3 (00:29→22:18)
[2019-11-22] MEDS ORDERED: diphenhydrAMINE HCL 25 MG CAPSULE PO PRN (01:15)
[2019-11-22] MEDS ORDERED: ALBUTEROL SULFATE 2.5 MG/3 ML NEBU. INH PRN (01:15)
[2019-11-22] MEDS: INSULIN GLARGINE SYRINGE. SQ SCH ×2 (02:04→21:04)
[2019-11-22 03:56] LABS: BASO # 0.1 x10^3/uL (0.0-0.2); BASO % 0 % (0-3); EOS % 0 % (0-3); HEMATOCRIT 37.5 % (36.0-47.0); HEMOGLOBIN 12.3 g/dL (12.0-15.5); LYMPH # 0.5 x10^3/uL (1.0-4.8); LYMPH % 3 % (24-48); MEAN CORPUSCULAR HEMOGLOBIN 30 pg (25-35); MEAN CORPUSCULAR HGB CONC 33 g/dL (31-37); MEAN CORPUSCULAR VOLUME 91 fL (79-100); MONO # 0.5 x10^3/uL (0.0-1.1); MONO % 3 % (0-9); NEUT # 18.2 x10^3/uL (1.8-7.7); NEUT % 94 % (31-73); PLATELET COUNT 132 x10^3/uL (140-400); RED BLOOD COUNT 4.13 x10^6/uL (3.50-5.40); RED CELL DISTRIBUTION WIDTH 14.3 % (11.5-14.5); WHITE BLOOD COUNT 19.3 x10^3/uL (4.0-11.0)
[2019-11-22 04:10] LABS: CALCIUM 9.2 mg/dL (8.5-10.1); CREATININE 1.7 mg/dL (0.6-1.0); POTASSIUM 3.8 mmol/L (3.5-5.1)
[2019-11-22] MEDS: PANTOPRAZOLE 40 MG TABLET.DR. PO SCH ×2 (07:30→17:52)
[2019-11-22] MEDS: FERROUS SULFATE 325 MG TABLET. PO SCH ×2 (08:00→17:52)
--- NOTE | 2019-11-22 08:48 | PDOC ---
Infectious Disease Note Vital Sign Vital Signs Vital Signs Date Time Temp Pulse Resp B/P (MAP) Pulse Ox O2 Delivery O2 Flow Rate FiO2 11/22/19 07:32 98.4 75 16 116/51 (72) 94 Room Air 98.4 Labs Lab Laboratory Tests Test 11/21/19 17:37 11/21/19 17:40 11/21/19 19:47 11/22/19 01:56 Influenza Type A Antigen Negative (NEGATIVE) Influenza Type B Antigen Negative (NEGATIVE) White Blood Count 22.8 x10^3/uL (4.0-11.0) Red Blood Count 4.15 x10^6/uL (3.50-5.40) Hemoglobin 12.3 g/dL (12.0-15.5) Hematocrit 37.4 % (36.0-47.0) Mean Corpuscular Volume 90 fL (79-100) Mean Corpuscular Hemoglobin 30 pg (25-35) Mean Corpuscular Hemoglobin Concent 33 g/dL (31-37) Red Cell Distribution Width 14.7 % (11.5-14.5) Platelet Count 148 x10^3/uL (140-400) Neutrophils (%) (Auto) 94 % (31-73) Lymphocytes (%) (Auto) 2 % (24-48) Monocytes (%) (Auto) 3 % (0-9) Eosinophils (%) (Auto) 1 % (0-3) Basophils (%) (Auto) 0 % (0-3) Neutrophils # (Auto) 21.4 x10^3/uL (1.8-7.7) Lymphocytes # (Auto) 0.5 x10^3/uL (1.0-4.8) Monocytes # (Auto) 0.6 x10^3/uL (0.0-1.1) Eosinophils # (Auto) 0.2 x10^3/uL (0.0-0.7) Basophils # (Auto) 0.1 x10^3/uL (0.0-0.2) Segmented Neutrophils % 94 % (35-66) Lymphocytes % 5 % (24-48) Monocytes % 1 % (0-10) Platelet Estimate Adequate (ADEQUATE) Anisocytosis Slight Prothrombin Time 14.6 SEC (11.7-14.0) Prothromb Time International Ratio 1.2 (0.8-1.1) Activated Partial Thromboplast Time 32 SEC (24-38) Sodium Level 138 mmol/L (136-145) Potassium Level 3.9 mmol/L (3.5-5.1) Chloride Level 100 mmol/L (98-107) Carbon Dioxide Level 26 mmol/L (21-32) Anion Gap 12 (6-14) Blood Urea Nitrogen 72 mg/dL (7-20) Creatinine 2.2 mg/dL (0.6-1.0) Estimated GFR (Cockcroft-Gault) 22.3 BUN/Creatinine Ratio 33 (6-20) Glucose Level 238 mg/dL (70-99) Lactic Acid Level 1.6 mmol/L (0.4-2.0) Calcium Level 9.8 mg/dL (8.5-10.1) Total Bilirubin 1.2 mg/dL (0.2-1.0) Aspartate Amino Transf (AST/SGOT) 24 U/L (15-37) Alanine Aminotransferase (ALT/SGPT) 26 U/L (14-59) Alkaline Phosphatase 137 U/L (46-116) Total Protein 7.3 g/dL (6.4-8.2) Albumin 3.0 g/dL (3.4-5.0) Albumin/Globulin Ratio 0.7 (1.0-1.7) Lipase 80 U/L (73-393) Urine Collection Type U cath Urine Color Yellow Urine Clarity Cloudy Urine pH 5.5 Urine Specific [place] 1.015 Urine Protein 100 mg/dL (NEG-TRACE) Urine Glucose (UA) Negative mg/dL (NEG) Urine Ketones (Stick) Negative mg/dL (NEG) Urine Blood Small (NEG) Urine Nitrite Negative (NEG) Urine Bilirubin Negative (NEG) Urine Urobilinogen Dipstick 0.2 mg/dL (0.2 mg/dL) Urine Leukocyte Esterase Moderate (NEG) Urine RBC 20-40 /HPF (0-2) Urine WBC >40 /HPF (0-4) Urine Squamous Epithelial Cells Many /LPF Urine Bacteria Many /HPF (0-FEW) Glucose (Fingerstick) 167 mg/dL (70-99) Test 11/22/19 03:40 11/22/19 07:35 White Blood Count 19.3 x10^3/uL (4.0-11.0) Red Blood Count 4.13 x10^6/uL (3.50-5.40) Hemoglobin 12.3 g/dL (12.0-15.5) Hematocrit 37.5 % (36.0-47.0) Mean Corpuscular Volume 91 fL (79-100) Mean Corpuscular Hemoglobin 30 pg (25-35) Mean Corpuscular Hemoglobin Concent 33 g/dL (31-37) Red Cell Distribution Width 14.3 % (11.5-14.5) Platelet Count 132 x10^3/uL (140-400) Neutrophils (%) (Auto) 94 % (31-73) Lymphocytes (%) (Auto) 3 % (24-48) Monocytes (%) (Auto) 3 % (0-9) Eosinophils (%) (Auto) 0 % (0-3) Basophils (%) (Auto) 0 % (0-3) Neutrophils # (Auto) 18.2 x10^3/uL (1.8-7.7) Lymphocytes # (Auto) 0.5 x10^3/uL (1.0-4.8) Monocytes # (Auto) 0.5 x10^3/uL (0.0-1.1) Eosinophils # (Auto) 0.0 x10^3/uL (0.0-0.7) Basophils # (Auto) 0.1 x10^3/uL (0.0-0.2) Sodium Level 146 mmol/L (136-145) Potassium Level 3.8 mmol/L (3.5-5.1) Chloride Level 109 mmol/L (98-107) Carbon Dioxide Level 26 mmol/L (21-32) Anion Gap 11 (6-14) Blood Urea Nitrogen 59 mg/dL (7-20) Creatinine 1.7 mg/dL (0.6-1.0) Estimated GFR (Cockcroft-Gault) 30.0 Glucose Level 176 mg/dL (70-99) Calcium Level 9.2 mg/dL (8.5-10.1) Glucose (Fingerstick) 149 mg/dL (70-99) Micro IMPRESSION: 1. Multiple bilateral intrarenal calculi. 2. Phlebolith versus ureteral calculus on the left. 3. Retroperitoneal fluid collection on the right. 4. Cholelithiasis with distended gallbladder. 5. Calcifications in the gallbladder wall. 6. Appendix within normal limits in size. Objective Assessment Leukocytosis GENARO ? UTI- h/o Enterococcus February 2019 ? Abd abscess ? Ureteral stone on left H/o Large subacute right temporal, parietal and occipital infarct. Small right BG, thalamus and insula infarct. Plan Plan of Care cont Zosyn but increase to 3.375 q 6 Renal US r/o stone on Left in the ureter and if present may need transfer to facility with Urology - [facility] Await surgical eval IR also consulted also F/u labs and cults D/w nursing Thank you # [id number] SAVI MAYNARD MD Nov 22, 2019 08:48
[2019-11-22] MEDS ORDERED: LISINOPRIL 20 MG TABLET PO SCH (09:00)
[2019-11-22] MEDS ORDERED: CELECOXIB 100 MG CAPSULE. PO SCH (09:00)
[2019-11-22] MEDS: NON FORMULARY ITEM (Icosapent Ethyl (Vascepa) 2 GM) PO SCH ×2 (09:00→21:00)
[2019-11-22] MEDS: POLYETHYLENE GLYCOL 3350 17 GM PACKET. PO SCH (09:00)
--- NOTE | 2019-11-22 09:28 | PDOC2 ---
RAMON CONTRERAS EGG SMELLER 11/22/19 0927: CONSULT Date of Consult Date of Consult DATE: 11/22/19 TIME: 09:21 Reason for Consult Reason for Consult: ? cholecystitis Referring Physician Referring Physician: Dr Ardon Identification/Chief Complaint Chief Complaint n/v Source Source: Chart review, Patient History of Present Illness Reason for Visit: comes in with n/v and abd pain x 2-3 days. Low appetite. Denies constipation or diarrhea. She has known gallstones and was recommended to have cholecystectomy in past due to DM, however was not interested in surgery Past Medical History Cardiovascular: HTN, Hyperlipidemia Pulmonary: Asthma Psych: Anxiety, Depression Endocrine: Diabetes Past Surgical History Past Surgical History: No pertinent history Family History Family History: Family History Unknown Social History No ALCOHOL: none Drugs: None, Other Lives: Alone Current Medications Current Medications Current Medications Sodium Chloride 1,000 ml @ 1,000 mls/hr 1X ONCE IV Last administered on 07/31at 17:34; Start 11/21/19 at 17:15; Stop 11/21/19 at 18:14; Status DC Ondansetron HCl (Zofran) 4 mg 1X ONCE IVP Last administered on 11/21/19at 17:34; Start 11/21/19 at 17:15; Stop 11/21/19 at 17:16; Status DC Sodium Chloride 1,000 ml @ 1,000 mls/hr 1X ONCE IV Last administered on 11/21/19at 19:20; Start 11/21/19 at 19:15; Stop 11/21/19 at 20:14; Status DC Piperacillin Sod/ Tazobactam Sod 3.375 gm/Sodium Chloride 50 ml @ 100 mls/hr 1X ONCE IV Last administered on 11/21/19at 19:51; Start 11/21/19 at 19:30; Stop 11/21/19 at 19:59; Status DC Ondansetron HCl (Zofran) 4 mg PRN Q8HRS PRN IV NAUSEA/VOMITING Last administered on 11/22/19at 04:54; Start 11/21/19 at 21:00; Stop 11/22/19 at 20:59 Morphine Sulfate (Morphine Sulfate) 2 mg PRN Q2HR PRN IV PAIN; Start 11/21/19 at 21:00; Stop 11/22/19 at 20:59 Sodium Chloride 1,000 ml @ 125 mls/hr Q8H IV Last administered on 11/22/19at 00:29; Start 11/21/19 at 20:55; Stop 11/22/19 at 20:54 Piperacillin Sod/ Tazobactam Sod (Zosyn Per Pharmacy) 1 each PRN DAILY PRN MC SEE COMMENTS; Start 11/21/19 at 21:00 Piperacillin Sod/ Tazobactam Sod 2.25 gm/Sodium Chloride 50 ml @ 100 mls/hr Q6HRS IV Last administered on 11/22/19at 06:07; Start 11/22/19 at 00:00; Stop 11/22/19 at 08:31; Status DC Albuterol Sulfate (Ventolin Neb Soln) 2.5 mg PRN Q4HRS PRN INH SHORTNESS OF BREATH; Start 11/22/19 at 01:15 Amlodipine Besylate (Norvasc) 5 mg DAILY PO ; Start 11/22/19 at 09:00 Aspirin (Paul Aspirin) 325 mg DAILYWBKFT PO ; Start 11/22/19 at 08:00 Atorvastatin Calcium (Lipitor) 20 mg HS PO ; Start 11/22/19 at 21:00 Diphenhydramine HCl (Benadryl) 25 mg PRN Q6HRS PRN PO ITCHING; Start 11/22/19 at 01:15 Ferrous Sulfate (Feosol) 325 mg BIDWMEALS PO ; Start 11/22/19 at 08:00 Fluoxetine HCl (PROzac) 20 mg DAILY PO ; Start 11/22/19 at 09:00 Lisinopril (Prinivil) 10 mg BID PO ; Start 11/22/19 at 09:00 Montelukast Sodium (Singulair) 10 mg DAILY PO ; Start 11/22/19 at 09:00 Polyethylene Glycol (miraLAX PACKET) 17 gm DAILY PO ; Start 11/22/19 at 09:00 Tamsulosin HCl (Flomax) 0.4 mg QHS PO ; Start 11/22/19 at 21:00 Celecoxib (CeleBREX) 200 mg BID PO ; Start 11/22/19 at 09:00 Non-Formulary Medication (Icosapent Ethyl (Vascepa)) 2 gm BID PO ; Start 11/22/19 at 09:00; Status UNV Non-Formulary Medication (Insulin Detemir (Levemir Flextouch)) 23 units QHS SQ ; Start 11/22/19 at 21:00; Status UNV Pantoprazole Sodium (Protonix) 40 mg BIDAC PO ; Start 11/22/19 at 07:30 Insulin Glargine (Lantus Syringe) 23 unit QHS SQ Last administered on 11/22/19at 02:04; Start 11/22/19 at 01:15 Piperacillin Sod/ Tazobactam Sod 3.375 gm/Sodium Chloride 50 ml @ 100 mls/hr Q6HRS IV ; Start 11/22/19 at 12:00 Active Scripts Active Polyethylene Glycol 3350 17 Gm Powd.pack 17 Gm PO DAILY 30 Days [Pantoprazole] 40 MG Tablet.dr 40 Mg PO BIDAC 30 Days Aspirin 325 Mg Tablet 325 Mg PO DAILYWBKFT 30 Days Feosol (Ferrous Sulfate) 325 Mg Tablet 325 Mg PO BID 30 Days Flomax (Tamsulosin Hcl) 0.4 Mg Cap.er.24h 0.4 Mg PO QHS 30 Days Reported Metformin Hcl Er (Metformin Hcl) 500 Mg Tab.er.24h 250 Mg PO BID Levemir Flextouch (Insulin Detemir) 100 Unit/1 Ml Insuln.pen 23 Units SQ QHS Fluoxetine Hcl 20 Mg Capsule 20 Mg PO DAILY Amlodipine Besylate 5 Mg Tablet 5 Mg PO DAILY Lisinopril 20 Mg Tablet 10 Mg PO BID Atorvastatin Calcium 20 Mg Tablet 20 Mg PO DAILY Proair Hfa (Albuterol Sulfate) 8.5 Gm Hfa.aer.ad 8.5 Gm INH PRN Q4HRS PRN Vascepa (Icosapent Ethyl) 1 Gm Capsule 2 Gm PO BID Celecoxib 200 Mg Capsule 200 Mg PO BID Montelukast Sodium 10 Mg Tablet 10 Mg PO DAILY Benadryl (Diphenhydramine Hcl) 25 Mg Capsule 1 Cap PO PRN Q6HRS PRN Allergies Allergies: Coded Allergies: No Known Drug Allergies (Unverified , 02/22/19) ROS General: YES: Fatigue, Malaise; No: Chills PSYCHOLOGICAL ROS: No: Anxiety, Depression Eyes: No Blurry vision, No Double vision HEENT: No: Heacaches, Sore Throat Respiratory: No: Cough, Shortness of breath Cardiovascular: No Chest Pain, No Palpitations Gastrointestinal: Yes Other (see hpi) Genitourinary: No Dysuria Musculoskeletal: Yes Muscular Weakness; No Joint Pain Neurological: No Impaired Coord/balance, No Numbness/Tingling Skin: No Pruritus, No Rash Physical Exam General: Alert, Oriented X3, Cooperative, Other (acutely ill ) HEENT: PERRLA, Mucous membr. moist/pink Lungs: Clear to auscultation, Normal air movement Heart: Regular rate, Normal S1, Normal S2 Abdomen: Soft, Other (diffusely TTP, no guarding ) Extremities: No clubbing, No cyanosis Skin: No rashes, No breakdown Neuro: Normal gait, Sensation intact Psych/Mental Status: Mental status NL, Mood NL MUSCULOSKELETAL: No deformity, No swelling Vitals VITALS Vital Signs Date Time Temp Pulse Resp B/P (MAP) Pulse Ox O2 Delivery O2 Flow Rate FiO2 11/22/19 07:32 98.4 75 16 116/51 (72) 94 Room Air 98.4 Labs Labs Laboratory Tests Test 11/21/19 17:37 11/21/19 17:40 11/21/19 19:47 11/22/19 01:56 Influenza Type A Antigen Negative (NEGATIVE) Influenza Type B Antigen Negative (NEGATIVE) White Blood Count 22.8 x10^3/uL (4.0-11.0) Red Blood Count 4.15 x10^6/uL (3.50-5.40) Hemoglobin 12.3 g/dL (12.0-15.5) Hematocrit 37.4 % (36.0-47.0) Mean Corpuscular Volume 90 fL (79-100) Mean Corpuscular Hemoglobin 30 pg (25-35) Mean Corpuscular Hemoglobin Concent 33 g/dL (31-37) Red Cell Distribution Width 14.7 % (11.5-14.5) Platelet Count 148 x10^3/uL (140-400) Neutrophils (%) (Auto) 94 % (31-73) Lymphocytes (%) (Auto) 2 % (24-48) Monocytes (%) (Auto) 3 % (0-9) Eosinophils (%) (Auto) 1 % (0-3) Basophils (%) (Auto) 0 % (0-3) Neutrophils # (Auto) 21.4 x10^3/uL (1.8-7.7) Lymphocytes # (Auto) 0.5 x10^3/uL (1.0-4.8) Monocytes # (Auto) 0.6 x10^3/uL (0.0-1.1) Eosinophils # (Auto) 0.2 x10^3/uL (0.0-0.7) Basophils # (Auto) 0.1 x10^3/uL (0.0-0.2) Segmented Neutrophils % 94 % (35-66) Lymphocytes % 5 % (24-48) Monocytes % 1 % (0-10) Platelet Estimate Adequate (ADEQUATE) Anisocytosis Slight Prothrombin Time 14.6 SEC (11.7-14.0) Prothromb Time International Ratio 1.2 (0.8-1.1) Activated Partial Thromboplast Time 32 SEC (24-38) Sodium Level 138 mmol/L (136-145) Potassium Level 3.9 mmol/L (3.5-5.1) Chloride Level 100 mmol/L (98-107) Carbon Dioxide Level 26 mmol/L (21-32) Anion Gap 12 (6-14) Blood Urea Nitrogen 72 mg/dL (7-20) Creatinine 2.2 mg/dL (0.6-1.0) Estimated GFR (Cockcroft-Gault) 22.3 BUN/Creatinine Ratio 33 (6-20) Glucose Level 238 mg/dL (70-99) Lactic Acid Level 1.6 mmol/L (0.4-2.0) Calcium Level 9.8 mg/dL (8.5-10.1) Total Bilirubin 1.2 mg/dL (0.2-1.0) Aspartate Amino Transf (AST/SGOT) 24 U/L (15-37) Alanine Aminotransferase (ALT/SGPT) 26 U/L (14-59) Alkaline Phosphatase 137 U/L (46-116) Total Protein 7.3 g/dL (6.4-8.2) Albumin 3.0 g/dL (3.4-5.0) Albumin/Globulin Ratio 0.7 (1.0-1.7) Lipase 80 U/L (73-393) Urine Collection Type U cath Urine Color Yellow Urine Clarity Cloudy Urine pH 5.5 Urine Specific [place] 1.015 Urine Protein 100 mg/dL (NEG-TRACE) Urine Glucose (UA) Negative mg/dL (NEG) Urine Ketones (Stick) Negative mg/dL (NEG) Urine Blood Small (NEG) Urine Nitrite Negative (NEG) Urine Bilirubin Negative (NEG) Urine Urobilinogen Dipstick 0.2 mg/dL (0.2 mg/dL) Urine Leukocyte Esterase Moderate (NEG) Urine RBC 20-40 /HPF (0-2) Urine WBC >40 /HPF (0-4) Urine Squamous Epithelial Cells Many /LPF Urine Bacteria Many /HPF (0-FEW) Glucose (Fingerstick) 167 mg/dL (70-99) Test 11/22/19 03:40 11/22/19 07:35 White Blood Count 19.3 x10^3/uL (4.0-11.0) Red Blood Count 4.13 x10^6/uL (3.50-5.40) Hemoglobin 12.3 g/dL (12.0-15.5) Hematocrit 37.5 % (36.0-47.0) Mean Corpuscular Volume 91 fL (79-100) Mean Corpuscular Hemoglobin 30 pg (25-35) Mean Corpuscular Hemoglobin Concent 33 g/dL (31-37) Red Cell Distribution Width 14.3 % (11.5-14.5) Platelet Count 132 x10^3/uL (140-400) Neutrophils (%) (Auto) 94 % (31-73) Lymphocytes (%) (Auto) 3 % (24-48) Monocytes (%) (Auto) 3 % (0-9) Eosinophils (%) (Auto) 0 % (0-3) Basophils (%) (Auto) 0 % (0-3) Neutrophils # (Auto) 18.2 x10^3/uL (1.8-7.7) Lymphocytes # (Auto) 0.5 x10^3/uL (1.0-4.8) Monocytes # (Auto) 0.5 x10^3/uL (0.0-1.1) Eosinophils # (Auto) 0.0 x10^3/uL (0.0-0.7) Basophils # (Auto) 0.1 x10^3/uL (0.0-0.2) Sodium Level 146 mmol/L (136-145) Potassium Level 3.8 mmol/L (3.5-5.1) Chloride Level 109 mmol/L (98-107) Carbon Dioxide Level 26 mmol/L (21-32) Anion Gap 11 (6-14) Blood Urea Nitrogen 59 mg/dL (7-20) Creatinine 1.7 mg/dL (0.6-1.0) Estimated GFR (Cockcroft-Gault) 30.0 Glucose Level 176 mg/dL (70-99) Calcium Level 9.2 mg/dL (8.5-10.1) Glucose (Fingerstick) 149 mg/dL (70-99) Laboratory Tests Test 11/21/19 17:37 11/21/19 17:40 11/21/19 19:47 11/22/19 01:56 Influenza Type A Antigen Negative (NEGATIVE) Influenza Type B Antigen Negative (NEGATIVE) White Blood Count 22.8 x10^3/uL (4.0-11.0) Red Blood Count 4.15 x10^6/uL (3.50-5.40) Hemoglobin 12.3 g/dL (12.0-15.5) Hematocrit 37.4 % (36.0-47.0) Mean Corpuscular Volume 90 fL (79-100) Mean Corpuscular Hemoglobin 30 pg (25-35) Mean Corpuscular Hemoglobin Concent 33 g/dL (31-37) Red Cell Distribution Width 14.7 % (11.5-14.5) Platelet Count 148 x10^3/uL (140-400) Neutrophils (%) (Auto) 94 % (31-73) Lymphocytes (%) (Auto) 2 % (24-48) Monocytes (%) (Auto) 3 % (0-9) Eosinophils (%) (Auto) 1 % (0-3) Basophils (%) (Auto) 0 % (0-3) Neutrophils # (Auto) 21.4 x10^3/uL (1.8-7.7) Lymphocytes # (Auto) 0.5 x10^3/uL (1.0-4.8) Monocytes # (Auto) 0.6 x10^3/uL (0.0-1.1) Eosinophils # (Auto) 0.2 x10^3/uL (0.0-0.7) Basophils # (Auto) 0.1 x10^3/uL (0.0-0.2) Segmented Neutrophils % 94 % (35-66) Lymphocytes % 5 % (24-48) Monocytes % 1 % (0-10) Platelet Estimate Adequate (ADEQUATE) Anisocytosis Slight Prothrombin Time 14.6 SEC (11.7-14.0) Prothromb Time International Ratio 1.2 (0.8-1.1) Activated Partial Thromboplast Time 32 SEC (24-38) Sodium Level 138 mmol/L (136-145) Potassium Level 3.9 mmol/L (3.5-5.1) Chloride Level 100 mmol/L (98-107) Carbon Dioxide Level 26 mmol/L (21-32) Anion Gap 12 (6-14) Blood Urea Nitrogen 72 mg/dL (7-20) Creatinine 2.2 mg/dL (0.6-1.0) Estimated GFR (Cockcroft-Gault) 22.3 BUN/Creatinine Ratio 33 (6-20) Glucose Level 238 mg/dL (70-99) Lactic Acid Level 1.6 mmol/L (0.4-2.0) Calcium Level 9.8 mg/dL (8.5-10.1) Total Bilirubin 1.2 mg/dL (0.2-1.0) Aspartate Amino Transf (AST/SGOT) 24 U/L (15-37) Alanine Aminotransferase (ALT/SGPT) 26 U/L (14-59) Alkaline Phosphatase 137 U/L (46-116) Total Protein 7.3 g/dL (6.4-8.2) Albumin 3.0 g/dL (3.4-5.0) Albumin/Globulin Ratio 0.7 (1.0-1.7) Lipase 80 U/L (73-393) Urine Collection Type U cath Urine Color Yellow Urine Clarity Cloudy Urine pH 5.5 Urine Specific [place] 1.015 Urine Protein 100 mg/dL (NEG-TRACE) Urine Glucose (UA) Negative mg/dL (NEG) Urine Ketones (Stick) Negative mg/dL (NEG) Urine Blood Small (NEG) Urine Nitrite Negative (NEG) Urine Bilirubin Negative (NEG) Urine Urobilinogen Dipstick 0.2 mg/dL (0.2 mg/dL) Urine Leukocyte Esterase Moderate (NEG) Urine RBC 20-40 /HPF (0-2) Urine WBC >40 /HPF (0-4) Urine Squamous Epithelial Cells Many /LPF Urine Bacteria Many /HPF (0-FEW) Glucose (Fingerstick) 167 mg/dL (70-99) Test 11/22/19 03:40 11/22/19 07:35 White Blood Count 19.3 x10^3/uL (4.0-11.0) Red Blood Count 4.13 x10^6/uL (3.50-5.40) Hemoglobin 12.3 g/dL (12.0-15.5) Hematocrit 37.5 % (36.0-47.0) Mean Corpuscular Volume 91 fL (79-100) Mean Corpuscular Hemoglobin 30 pg (25-35) Mean Corpuscular Hemoglobin Concent 33 g/dL (31-37) Red Cell Distribution Width 14.3 % (11.5-14.5) Platelet Count 132 x10^3/uL (140-400) Neutrophils (%) (Auto) 94 % (31-73) Lymphocytes (%) (Auto) 3 % (24-48) Monocytes (%) (Auto) 3 % (0-9) Eosinophils (%) (Auto) 0 % (0-3) Basophils (%) (Auto) 0 % (0-3) Neutrophils # (Auto) 18.2 x10^3/uL (1.8-7.7) Lymphocytes # (Auto) 0.5 x10^3/uL (1.0-4.8) Monocytes # (Auto) 0.5 x10^3/uL (0.0-1.1) Eosinophils # (Auto) 0.0 x10^3/uL (0.0-0.7) Basophils # (Auto) 0.1 x10^3/uL (0.0-0.2) Sodium Level 146 mmol/L (136-145) Potassium Level 3.8 mmol/L (3.5-5.1) Chloride Level 109 mmol/L (98-107) Carbon Dioxide Level 26 mmol/L (21-32) Anion Gap 11 (6-14) Blood Urea Nitrogen 59 mg/dL (7-20) Creatinine 1.7 mg/dL (0.6-1.0) Estimated GFR (Cockcroft-Gault) 30.0 Glucose Level 176 mg/dL (70-99) Calcium Level 9.2 mg/dL (8.5-10.1) Glucose (Fingerstick) 149 mg/dL (70-99) Assessment/Plan Assessment/Plan cholelithiasis , distended GB renal calculi --? abscess behind kidney, hydronpehrosis renal sono pending--may need tx to facility with urology available will have Dr Moreno review KRYSTIN MORENO MD 11/22/19 1014: CONSULT Assessment/Plan Assessment/Plan Pt seen and examined. Agree with Sandi's note Pt presented secondary to N/V some RUQ abd pain abd TTP RUQ pt minimally engaged with interview d/w ID an nephrology favor asking IR to drain suspected abscess (fluid collection and elevated WBC) pending this, consider cholecystectomy. Pt accepting of this plan Thanks for consult! RAMON CONTRERAS APRN Nov 22, 2019 09:27 KRYSTIN MORENO MD Nov 22, 2019 10:14
--- NOTE | 2019-11-22 10:34 | RAD ---
Renal sonography Clinical indications: Bilateral renal calculi. Possible left ureteral calculus seen on CT study dated July 21, 2020. Abdominal pain. FINDINGS: The longitudinal and AP and transverse dimensions of the right kidney are 11.7 cm and 5.2 cm and 5.3 cm respectively. No hydronephrosis or renal mass or perinephric fluid collection is seen on this side. However, there is a fluid collection seen within the retroperitoneum on the right side posteriorly which is located inferior to the right kidney and measures 6.6 cm x 8.2 cm x 2.2 cm in size. This corresponds to the CT finding. The longitudinal and AP and transverse dimensions of the left kidney are 13.7 cm and 8.0 cm and 5.0 cm respectively. There is mild hydronephrosis on the left side and comparison to the right side. The left renal pelvis measures 14 mm in diameter. No renal mass or perinephric fluid collection is seen on the left side. The urinary bladder wall is smooth and no intraluminal echodensities or masses are seen. Bilateral ureteral jets are seen. IMPRESSION: Mild hydronephrosis on the left side. 8.2 cm retroperitoneal fluid collection on the right side. Electronically signed by: Esau Zavala MD (11/22/2019 10:31 AM) [facility]
--- NOTE | 2019-11-22 10:54 | CONS ---
DATE OF CONSULTATION: 11/22/2019 INFECTIOUS DISEASE CONSULTATION LOCATION: The patient is in room 208. REQUESTING PHYSICIAN: Dr. Booker. REASON FOR CONSULTATION: Abdominal abscess. HISTORY OF PRESENT ILLNESS: The patient is a 69-year-old with a known history of diabetes, cholelithiasis and urinary tract infections. She states her last urinary tract infection was about 2 months ago and she treated herself with cranberry juice, no antibiotics. She does have a history of a pansensitive Enterococcus back in 02/2019. Two to three days ago, she began to have some discomfort in her abdomen followed by nausea, vomiting. No gross fevers, chills or sweats. She has not had any change in color, odor or complications with her urine. She has not had any bloating or diarrhea. She reported to [facility] on the and was found to have a creatinine of 2.2, total bilirubin was mildly elevated at 1.2, alk phos was 137. AST and ALT were normal. Her white blood cell count was elevated at 22.8 with 94% segs. Urinalysis was collected. Apparently, she was unable to get a cathed specimen, so she did urinate into a hat. It is concerning for possible urinary tract infection based on urinalysis; however, she does have many squamous cells. Influenza screen was negative. She underwent acute abdominal series, showed some atelectasis or infiltrates mainly in the left, some cholelithiasis and some renal calculi. A CT scan of the abdomen and pelvis performed without contrast showed phlebolith versus ureteral calculus on the left, retroperitoneal fluid collection on the right that measured 2.8 x 4.7 x 8.5 cm, cholelithiasis with distended gallbladder calcifications in the gallbladder wall. She was placed on Zosyn and admitted to the hospital. She had received some morphine. Currently, she is lying in bed. She is fairly comfortable. No headaches. No sore throat. No cough or chest pain. No generalized rash. She does have healing scratches from a cath. PAST MEDICAL HISTORY: Positive for diabetes, history of urinary tract infection, history of DKA, history of cataracts, again history of gallstones. 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 Hypertension, obesity. Also, has a history of tooth abscess. PAST SURGICAL HISTORY: Positive for previous cataract surgery. REVIEW OF SYSTEMS: Otherwise negative except for mentioned above. ALLERGIES: No known drug allergies. SOCIAL HISTORY: No tobacco or alcohol. She does have cats at home. No sick contacts. FAMILY HISTORY: Positive for hypertension. CURRENT MEDICATIONS: Include Zosyn 2.25 IV q. 6, albuterol, Norvasc, aspirin, Lipitor, Celebrex, ferrous sulfate, Prozac, insulin, Prinivil, Singulair, Protonix, Flomax, ____. PHYSICAL EXAMINATION: VITAL SIGNS: She has been afebrile, temperature currently 98.4, pulse 75, respirations 16, blood pressure 116/51, satting 94% on room air. CONSTITUTIONAL: She is sleeping, but awakens, follows simple commands, but does appear comfortable. HEENT: Pupils are status post cataract surgery. She had normal conjunctivae. Oral cavity, pharynx was clear. NECK: Supple, no JVD. LUNGS: Clear to auscultation bilaterally. HEART: S1, S2. ABDOMEN: Soft, no guarding, no rebound. Little tender on the right side. She has no pain with passive range of motion of her hips. A little bit of pain with striking of her heel, but mainly in her knees. EXTREMITIES: Without clubbing, cyanosis or gross edema. SKIN: Warm to touch without generalized signs of rash. She has some healed scars small on her left upper extremity. NEUROLOGICAL: She follows simple commands. Moves all extremities. Affect is flat. LABORATORY DATA: White count 19.3, hemoglobin 12.3, platelets of 132, neutrophils 94. Creatinine of 1.7, glucose of 176. Lipase was 80. LFTs as mentioned in history of present illness as well as urinalysis and influenza negative. RADIOLOGY: Reviewed in history of present illness. IMPRESSION: 1. Leukocytosis. 2. Acute kidney injury. 3. Questionable urinary tract infection with history of Enterococcus in 02/2019. 4. Questionable abdominal abscess. 5. Questionable ureteral stone on the left. 6. History of large subacute right temporoparietal occipital infarct and small right basal ganglia, thalamus and insular infarct. RECOMMENDATIONS: We will continue Zosyn, but increased to 3.375 IV q. 6, obtain a renal ultrasound to rule out stone on the left in the ureter and if present, may need transfer to a facility with Urology at [facility]. Await surgical evaluation. IR has also been consulted. Follow up labs and cultures. This was discussed with nursing. Thanks for the patient's care. Should you have any questions, please do not hesitate to contact me. SAVI MAYNARD MD DR: KEVIN/christina JOB#: [id number] / [id number]
--- NOTE | 2019-11-22 11:58 | PDOC1 ---
History and Physical Date of Admission: Date of Admission DATE: 11/22/19 TIME: 11:57 Chief Complaint: Problems: (1) Hypokalemia (2) Anemia (3) Near syncope (4) UTI (urinary tract infection) (5) Retroperitoneal abscess (6) Abdominal pain (7) Vomiting and diarrhea (8) Dyslipidemia Chief Complain: Abdominal pain and bloating History of Present Illness: HPI: This is a pleasant 69-year-old female who presented to the ER last night with 2 days of nausea vomiting abdominal pain and some bloating Rates her symptoms at 7 out of 10 Has associated anxiety about this Describes her symptoms as very irritating Food makes it worse sitting still makes it better She took some overtime as that didn't seem to help I discussed the case with the ER physician it appears she has a retroperitoneal abscess and UTI We are going to admit the patient and consult infectious disease and general surgery Past Medical/Surgical History: PMH/PSH: Past Medical History: Diabetes-Type II, Hypertension, Stroke Additional Past Surgical Histo: Surgery on abcessed tooth Smoking Status: Never Smoker Alcohol Use: None Drug Use: None Allergies: Allergies: Coded Allergies: No Known Drug Allergies (Unverified , 02/22/19) Family History: Family History: Hypertension and UTIs Social History: Social Hisoty: She does not drink smoke or take drugs Current Medications: Current Medications Current Medications Sodium Chloride 1,000 ml @ 1,000 mls/hr 1X ONCE IV Last administered on 11/21/19at 17:34; Start 11/21/19 at 17:15; Stop 11/21/19 at 18:14; Status DC Ondansetron HCl (Zofran) 4 mg 1X ONCE IVP Last administered on 11/21/19at 17:34; Start 11/21/19 at 17:15; Stop 11/21/19 at 17:16; Status DC Sodium Chloride 1,000 ml @ 1,000 mls/hr 1X ONCE IV Last administered on 11/21/19at 19:20; Start 11/21/19 at 19:15; Stop 11/21/19 at 20:14; Status DC Piperacillin Sod/ Tazobactam Sod 3.375 gm/Sodium Chloride 50 ml @ 100 mls/hr 1X ONCE IV Last administered on 11/21/19at 19:51; Start 11/21/19 at 19:30; Stop 11/21/19 at 19:59; Status DC Ondansetron HCl (Zofran) 4 mg PRN Q8HRS PRN IV NAUSEA/VOMITING Last administered on 11/22/19at 04:54; Start 11/21/19 at 21:00; Stop 11/22/19 at 20:59 Morphine Sulfate (Morphine Sulfate) 2 mg PRN Q2HR PRN IV PAIN; Start 11/21/19 at 21:00; Stop 11/22/19 at 20:59 Sodium Chloride 1,000 ml @ 125 mls/hr Q8H IV Last administered on 11/22/19at 10:20; Start 11/21/19 at 20:55; Stop 11/22/19 at 20:54 Piperacillin Sod/ Tazobactam Sod (Zosyn Per Pharmacy) 1 each PRN DAILY PRN MC SEE COMMENTS; Start 11/21/19 at 21:00 Piperacillin Sod/ Tazobactam Sod 2.25 gm/Sodium Chloride 50 ml @ 100 mls/hr Q6HRS IV Last administered on 11/22/19at 06:07; Start 11/22/19 at 00:00; Stop 11/22/19 at 08:31; Status DC Albuterol Sulfate (Ventolin Neb Soln) 2.5 mg PRN Q4HRS PRN INH SHORTNESS OF BREATH; Start 11/22/19 at 01:15 Amlodipine Besylate (Norvasc) 5 mg DAILY PO ; Start 11/22/19 at 09:00 Aspirin (Paul Aspirin) 325 mg DAILYWBKFT PO ; Start 11/22/19 at 08:00 Atorvastatin Calcium (Lipitor) 20 mg HS PO ; Start 11/22/19 at 21:00 Diphenhydramine HCl (Benadryl) 25 mg PRN Q6HRS PRN PO ITCHING; Start 11/22/19 at 01:15 Ferrous Sulfate (Feosol) 325 mg BIDWMEALS PO ; Start 11/22/19 at 08:00 Fluoxetine HCl (PROzac) 20 mg DAILY PO ; Start 11/22/19 at 09:00 Lisinopril (Prinivil) 10 mg BID PO ; Start 11/22/19 at 09:00 Montelukast Sodium (Singulair) 10 mg DAILY PO ; Start 11/22/19 at 09:00 Polyethylene Glycol (miraLAX PACKET) 17 gm DAILY PO ; Start 11/22/19 at 09:00 Tamsulosin HCl (Flomax) 0.4 mg QHS PO ; Start 11/22/19 at 21:00 Celecoxib (CeleBREX) 200 mg BID PO ; Start 11/22/19 at 09:00 Non-Formulary Medication (Icosapent Ethyl (Vascepa)) 2 gm BID PO ; Start 11/22/19 at 09:00; Status UNV Non-Formulary Medication (Insulin Detemir (Levemir Flextouch)) 23 units QHS SQ ; Start 11/22/19 at 21:00; Status UNV Pantoprazole Sodium (Protonix) 40 mg BIDAC PO ; Start 11/22/19 at 07:30 Insulin Glargine (Lantus Syringe) 23 unit QHS SQ Last administered on 11/22/19at 02:04; Start 11/22/19 at 01:15 Piperacillin Sod/ Tazobactam Sod 3.375 gm/Sodium Chloride 50 ml @ 100 mls/hr Q6HRS IV ; Start 11/22/19 at 12:00 Active Scripts Active Polyethylene Glycol 3350 17 Gm Powd.pack 17 Gm PO DAILY 30 Days [Pantoprazole] 40 MG Tablet.dr 40 Mg PO BIDAC 30 Days Aspirin 325 Mg Tablet 325 Mg PO DAILYWBKFT 30 Days Feosol (Ferrous Sulfate) 325 Mg Tablet 325 Mg PO BID 30 Days Flomax (Tamsulosin Hcl) 0.4 Mg Cap.er.24h 0.4 Mg PO QHS 30 Days Reported Metformin Hcl Er (Metformin Hcl) 500 Mg Tab.er.24h 250 Mg PO BID Levemir Flextouch (Insulin Detemir) 100 Unit/1 Ml Insuln.pen 23 Units SQ QHS Fluoxetine Hcl 20 Mg Capsule 20 Mg PO DAILY Amlodipine Besylate 5 Mg Tablet 5 Mg PO DAILY Lisinopril 20 Mg Tablet 10 Mg PO BID Atorvastatin Calcium 20 Mg Tablet 20 Mg PO DAILY Proair Hfa (Albuterol Sulfate) 8.5 Gm Hfa.aer.ad 8.5 Gm INH PRN Q4HRS PRN Vascepa (Icosapent Ethyl) 1 Gm Capsule 2 Gm PO BID Celecoxib 200 Mg Capsule 200 Mg PO BID Montelukast Sodium 10 Mg Tablet 10 Mg PO DAILY Benadryl (Diphenhydramine Hcl) 25 Mg Capsule 1 Cap PO PRN Q6HRS PRN ROS: Review of Systems Review of System REVIEW OF SYSTEMS: GENERAL: Denies weakness SKIN: No bruising, hair changes or rashes. EYES: No blurred, double or loss of vision. NOSE AND THROAT: No history of nosebleeds, hoarseness or sore throat. HEART: No history of palpitations, chest pain or shortness of breath on exertion. LUNGS: Denies cough, hemoptysis, wheezing or shortness of breath. GASTROINTESTINAL: Complains of abdominal pain and bloating nausea vomiting GENITOURINARY: No history of frequency, urgency, hesitancy or nocturia. NEUROLOGIC: Denies history of numbness, tingling, or tremor. PSYCHIATRIC: Complains of anxiety ENDOCRINE: No history of heat or cold intolerance, polyuria or polydipsia. EXTREMITIES: Denies joint pain, pain on walking or stiffness. Physical Exam: Vital Signs: Vital Signs Date Time Temp Pulse Resp B/P (MAP) Pulse Ox O2 Delivery O2 Flow Rate FiO2 11/22/19 10:38 98.4 77 16 132/51 (78) 98 Room Air 98.4 Physcial Exam: GEN: No apparent distress. Alert and oriented HEENT: Normal cephalic, atraumatic, external auditory canals are patent EYES: Extraocular muscles are intact, pupil are equally round and reactive to light and accommodation MUSCULOSKELETAL: Well developed , well nourished, good range of motion ENDOCRINE: No thyromegaly was palpated LYMPHATICS: No cervical chain or axillary nodes were noted HEMATOPOIETIC: No bruising NECK: Supple, no JVD, no thyromegaly was noted LUNGS: Clear to auscultation in all lung ortiz without rhonchi or wheezing HEART: RRR, S!, S2 present. Peripheral pulses intact, no obvious murmurs noted ABDOMEN: Decreased bowel sounds tender EXTREMITIES: Without clubbing, cyanosis, or edema. Pedal pulses intact. Negative Homans sign NEUROLOGIC: Normal speech and tone. A&O x 3, moves all extremities, no obvious focal deficits PSYCHIATRIC: Normal affect, normal mood. Stable SKIN: No ulcerations or rashes, good skin turgor, no jaundice VASCULAR: Good capillary refill, neurovascular bundle appears to be intact Labs: Labs: Laboratory Tests Test 11/21/19 17:37 11/21/19 17:40 11/21/19 19:47 11/22/19 01:56 Influenza Type A Antigen Negative (NEGATIVE) Influenza Type B Antigen Negative (NEGATIVE) White Blood Count 22.8 x10^3/uL (4.0-11.0) Red Blood Count 4.15 x10^6/uL (3.50-5.40) Hemoglobin 12.3 g/dL (12.0-15.5) Hematocrit 37.4 % (36.0-47.0) Mean Corpuscular Volume 90 fL (79-100) Mean Corpuscular Hemoglobin 30 pg (25-35) Mean Corpuscular Hemoglobin Concent 33 g/dL (31-37) Red Cell Distribution Width 14.7 % (11.5-14.5) Platelet Count 148 x10^3/uL (140-400) Neutrophils (%) (Auto) 94 % (31-73) Lymphocytes (%) (Auto) 2 % (24-48) Monocytes (%) (Auto) 3 % (0-9) Eosinophils (%) (Auto) 1 % (0-3) Basophils (%) (Auto) 0 % (0-3) Neutrophils # (Auto) 21.4 x10^3/uL (1.8-7.7) Lymphocytes # (Auto) 0.5 x10^3/uL (1.0-4.8) Monocytes # (Auto) 0.6 x10^3/uL (0.0-1.1) Eosinophils # (Auto) 0.2 x10^3/uL (0.0-0.7) Basophils # (Auto) 0.1 x10^3/uL (0.0-0.2) Segmented Neutrophils % 94 % (35-66) Lymphocytes % 5 % (24-48) Monocytes % 1 % (0-10) Platelet Estimate Adequate (ADEQUATE) Anisocytosis Slight Prothrombin Time 14.6 SEC (11.7-14.0) Prothromb Time International Ratio 1.2 (0.8-1.1) Activated Partial Thromboplast Time 32 SEC (24-38) Sodium Level 138 mmol/L (136-145) Potassium Level 3.9 mmol/L (3.5-5.1) Chloride Level 100 mmol/L (98-107) Carbon Dioxide Level 26 mmol/L (21-32) Anion Gap 12 (6-14) Blood Urea Nitrogen 72 mg/dL (7-20) Creatinine 2.2 mg/dL (0.6-1.0) Estimated GFR (Cockcroft-Gault) 22.3 BUN/Creatinine Ratio 33 (6-20) Glucose Level 238 mg/dL (70-99) Lactic Acid Level 1.6 mmol/L (0.4-2.0) Calcium Level 9.8 mg/dL (8.5-10.1) Total Bilirubin 1.2 mg/dL (0.2-1.0) Aspartate Amino Transf (AST/SGOT) 24 U/L (15-37) Alanine Aminotransferase (ALT/SGPT) 26 U/L (14-59) Alkaline Phosphatase 137 U/L (46-116) Total Protein 7.3 g/dL (6.4-8.2) Albumin 3.0 g/dL (3.4-5.0) Albumin/Globulin Ratio 0.7 (1.0-1.7) Lipase 80 U/L (73-393) Urine Collection Type U cath Urine Color Yellow Urine Clarity Cloudy Urine pH 5.5 Urine Specific [place] 1.015 Urine Protein 100 mg/dL (NEG-TRACE) Urine Glucose (UA) Negative mg/dL (NEG) Urine Ketones (Stick) Negative mg/dL (NEG) Urine Blood Small (NEG) Urine Nitrite Negative (NEG) Urine Bilirubin Negative (NEG) Urine Urobilinogen Dipstick 0.2 mg/dL (0.2 mg/dL) Urine Leukocyte Esterase Moderate (NEG) Urine RBC 20-40 /HPF (0-2) Urine WBC >40 /HPF (0-4) Urine Squamous Epithelial Cells Many /LPF Urine Bacteria Many /HPF (0-FEW) Glucose (Fingerstick) 167 mg/dL (70-99) Test 11/22/19 03:40 11/22/19 07:35 11/22/19 11:26 White Blood Count 19.3 x10^3/uL (4.0-11.0) Red Blood Count 4.13 x10^6/uL (3.50-5.40) Hemoglobin 12.3 g/dL (12.0-15.5) Hematocrit 37.5 % (36.0-47.0) Mean Corpuscular Volume 91 fL (79-100) Mean Corpuscular Hemoglobin 30 pg (25-35) Mean Corpuscular Hemoglobin Concent 33 g/dL (31-37) Red Cell Distribution Width 14.3 % (11.5-14.5) Platelet Count 132 x10^3/uL (140-400) Neutrophils (%) (Auto) 94 % (31-73) Lymphocytes (%) (Auto) 3 % (24-48) Monocytes (%) (Auto) 3 % (0-9) Eosinophils (%) (Auto) 0 % (0-3) Basophils (%) (Auto) 0 % (0-3) Neutrophils # (Auto) 18.2 x10^3/uL (1.8-7.7) Lymphocytes # (Auto) 0.5 x10^3/uL (1.0-4.8) Monocytes # (Auto) 0.5 x10^3/uL (0.0-1.1) Eosinophils # (Auto) 0.0 x10^3/uL (0.0-0.7) Basophils # (Auto) 0.1 x10^3/uL (0.0-0.2) Sodium Level 146 mmol/L (136-145) Potassium Level 3.8 mmol/L (3.5-5.1) Chloride Level 109 mmol/L (98-107) Carbon Dioxide Level 26 mmol/L (21-32) Anion Gap 11 (6-14) Blood Urea Nitrogen 59 mg/dL (7-20) Creatinine 1.7 mg/dL (0.6-1.0) Estimated GFR (Cockcroft-Gault) 30.0 Glucose Level 176 mg/dL (70-99) Calcium Level 9.2 mg/dL (8.5-10.1) Glucose (Fingerstick) 149 mg/dL (70-99) 165 mg/dL (70-99) Laboratory Tests Test 11/21/19 17:37 11/21/19 17:40 11/21/19 19:47 11/22/19 01:56 Influenza Type A Antigen Negative (NEGATIVE) Influenza Type B Antigen Negative (NEGATIVE) White Blood Count 22.8 x10^3/uL (4.0-11.0) Red Blood Count 4.15 x10^6/uL (3.50-5.40) Hemoglobin 12.3 g/dL (12.0-15.5) Hematocrit 37.4 % (36.0-47.0) Mean Corpuscular Volume 90 fL (79-100) Mean Corpuscular Hemoglobin 30 pg (25-35) Mean Corpuscular Hemoglobin Concent 33 g/dL (31-37) Red Cell Distribution Width 14.7 % (11.5-14.5) Platelet Count 148 x10^3/uL (140-400) Neutrophils (%) (Auto) 94 % (31-73) Lymphocytes (%) (Auto) 2 % (24-48) Monocytes (%) (Auto) 3 % (0-9) Eosinophils (%) (Auto) 1 % (0-3) Basophils (%) (Auto) 0 % (0-3) Neutrophils # (Auto) 21.4 x10^3/uL (1.8-7.7) Lymphocytes # (Auto) 0.5 x10^3/uL (1.0-4.8) Monocytes # (Auto) 0.6 x10^3/uL (0.0-1.1) Eosinophils # (Auto) 0.2 x10^3/uL (0.0-0.7) Basophils # (Auto) 0.1 x10^3/uL (0.0-0.2) Segmented Neutrophils % 94 % (35-66) Lymphocytes % 5 % (24-48) Monocytes % 1 % (0-10) Platelet Estimate Adequate (ADEQUATE) Anisocytosis Slight Prothrombin Time 14.6 SEC (11.7-14.0) Prothromb Time International Ratio 1.2 (0.8-1.1) Activated Partial Thromboplast Time 32 SEC (24-38) Sodium Level 138 mmol/L (136-145) Potassium Level 3.9 mmol/L (3.5-5.1) Chloride Level 100 mmol/L (98-107) Carbon Dioxide Level 26 mmol/L (21-32) Anion Gap 12 (6-14) Blood Urea Nitrogen 72 mg/dL (7-20) Creatinine 2.2 mg/dL (0.6-1.0) Estimated GFR (Cockcroft-Gault) 22.3 BUN/Creatinine Ratio 33 (6-20) Glucose Level 238 mg/dL (70-99) Lactic Acid Level 1.6 mmol/L (0.4-2.0) Calcium Level 9.8 mg/dL (8.5-10.1) Total Bilirubin 1.2 mg/dL (0.2-1.0) Aspartate Amino Transf (AST/SGOT) 24 U/L (15-37) Alanine Aminotransferase (ALT/SGPT) 26 U/L (14-59) Alkaline Phosphatase 137 U/L (46-116) Total Protein 7.3 g/dL (6.4-8.2) Albumin 3.0 g/dL (3.4-5.0) Albumin/Globulin Ratio 0.7 (1.0-1.7) Lipase 80 U/L (73-393) Urine Collection Type U cath Urine Color Yellow Urine Clarity Cloudy Urine pH 5.5 Urine Specific [place] 1.015 Urine Protein 100 mg/dL (NEG-TRACE) Urine Glucose (UA) Negative mg/dL (NEG) Urine Ketones (Stick) Negative mg/dL (NEG) Urine Blood Small (NEG) Urine Nitrite Negative (NEG) Urine Bilirubin Negative (NEG) Urine Urobilinogen Dipstick 0.2 mg/dL (0.2 mg/dL) Urine Leukocyte Esterase Moderate (NEG) Urine RBC 20-40 /HPF (0-2) Urine WBC >40 /HPF (0-4) Urine Squamous Epithelial Cells Many /LPF Urine Bacteria Many /HPF (0-FEW) Glucose (Fingerstick) 167 mg/dL (70-99) Test 11/22/19 03:40 11/22/19 07:35 11/22/19 11:26 White Blood Count 19.3 x10^3/uL (4.0-11.0) Red Blood Count 4.13 x10^6/uL (3.50-5.40) Hemoglobin 12.3 g/dL (12.0-15.5) Hematocrit 37.5 % (36.0-47.0) Mean Corpuscular Volume 91 fL (79-100) Mean Corpuscular Hemoglobin 30 pg (25-35) Mean Corpuscular Hemoglobin Concent 33 g/dL (31-37) Red Cell Distribution Width 14.3 % (11.5-14.5) Platelet Count 132 x10^3/uL (140-400) Neutrophils (%) (Auto) 94 % (31-73) Lymphocytes (%) (Auto) 3 % (24-48) Monocytes (%) (Auto) 3 % (0-9) Eosinophils (%) (Auto) 0 % (0-3) Basophils (%) (Auto) 0 % (0-3) Neutrophils # (Auto) 18.2 x10^3/uL (1.8-7.7) Lymphocytes # (Auto) 0.5 x10^3/uL (1.0-4.8) Monocytes # (Auto) 0.5 x10^3/uL (0.0-1.1) Eosinophils # (Auto) 0.0 x10^3/uL (0.0-0.7) Basophils # (Auto) 0.1 x10^3/uL (0.0-0.2) Sodium Level 146 mmol/L (136-145) Potassium Level 3.8 mmol/L (3.5-5.1) Chloride Level 109 mmol/L (98-107) Carbon Dioxide Level 26 mmol/L (21-32) Anion Gap 11 (6-14) Blood Urea Nitrogen 59 mg/dL (7-20) Creatinine 1.7 mg/dL (0.6-1.0) Estimated GFR (Cockcroft-Gault) 30.0 Glucose Level 176 mg/dL (70-99) Calcium Level 9.2 mg/dL (8.5-10.1) Glucose (Fingerstick) 149 mg/dL (70-99) 165 mg/dL (70-99) Images: Images IMPRESSION: 1. Multiple bilateral intrarenal calculi. 2. Phlebolith versus ureteral calculus on the left. 3. Retroperitoneal fluid collection on the right. 4. Cholelithiasis with distended gallbladder. 5. Calcifications in the gallbladder wall. 6. Appendix within normal limits in size. Assessment/Plan Assessment/Plan Abdominal pain Nausea vomiting Leukocytosis GENARO UTI- h/o Enterococcus February 2019 Abd abscess? Ureteral stone on left? H/o Large subacute right temporal, parietal and occipital infarct. Small right BG, thalamus and insula infarct. Plan Zosyn Renal US r/o stone on Left in the ureter and if present may need transfer to facility with Urology [facility] Consult surgery IR also consulted also F/u labs and cults Home meds DVT prophylaxis Full code Appreciate subspecialist input KERI MAE III DO Nov 22, 2019 11:58
[2019-11-22] MEDS: PIPERACILLIN/TAZOBACTAM 3.375 GM in IV NORMAL SALINE 50ML 50 ML IV SCH ×2 (12:16→17:53)
--- NOTE | 2019-11-22 12:47 | NUR ---
SS following for discharge planning. SS reviewed pt chart. Pt is from home with spouse and is currently on room air. SS will continue to follow for discharge planning.
--- NOTE | 2019-11-22 13:00 | PDOC2 ---
CONSULT Date of Consult Date of Consult DATE: 11/22/19 TIME: 12:53 Reason for Consult Reason for Consult: GENARO Referring Physician Referring Physician: TU Identification/Chief Complaint Chief Complaint N/V Source Source: Chart review, Patient History of Present Illness Reason for Visit: THIS IS A 64 YR OLD WITH N/V AND ABD PAIN FOR A FEW DAYS. NO DIARRHEA. NON CONTRAST IMAGING POS FOR MILD HYDRONEPHROSIS BILATERALLY AND BILATERAL INTRINSIC RENAL STONES. ALSO POSSIBLE RETROPERITONEAL ABSCESS AND AN UTI. HX ALSO NOTABLE FOR GB STONES. NOTED TO HAVE GENARO WITH CR OF 2.2. DENIED ANY HX. HAS BEEN ON CELEBREX AND AND MEENAKSHI-I. NO CKD NOTED. ATTENDING NOTE BELOW REVIEWED This is a pleasant 69-year-old female who presented to the ER last night with 2 days of nausea vomiting abdominal pain and some bloating Rates her symptoms at 7 out of 10 Has associated anxiety about this Describes her symptoms as very irritating Food makes it worse sitting still makes it better She took some overtime as that didn't seem to help I discussed the case with the ER physician it appears she has a retroperitoneal abscess and UTI We are going to admit the patient and consult infectious disease and general surgery Past Medical History Cardiovascular: HTN, Hyperlipidemia Pulmonary: Asthma Psych: Anxiety, Depression Renal/: No pertinent hx Endocrine: Diabetes Past Surgical History Past Surgical History: No pertinent history Family History Family History: Family History Unknown Social History No ALCOHOL: none Drugs: None, Other Lives: Alone Current Medications Current Medications Current Medications Sodium Chloride 1,000 ml @ 1,000 mls/hr 1X ONCE IV Last administered on 11/21/19at 17:34; Start 11/21/19 at 17:15; Stop 11/21/19 at 18:14; Status DC Ondansetron HCl (Zofran) 4 mg 1X ONCE IVP Last administered on 11/21/19at 17:34; Start 11/21/19 at 17:15; Stop 11/21/19 at 17:16; Status DC Sodium Chloride 1,000 ml @ 1,000 mls/hr 1X ONCE IV Last administered on 11/21/19at 19:20; Start 11/21/19 at 19:15; Stop 11/21/19 at 20:14; Status DC Piperacillin Sod/ Tazobactam Sod 3.375 gm/Sodium Chloride 50 ml @ 100 mls/hr 1X ONCE IV Last administered on 11/21/19at 19:51; Start 11/21/19 at 19:30; Stop 11/21/19 at 19:59; Status DC Ondansetron HCl (Zofran) 4 mg PRN Q8HRS PRN IV NAUSEA/VOMITING Last administered on 11/22/19at 04:54; Start 11/21/19 at 21:00; Stop 11/22/19 at 20:59 Morphine Sulfate (Morphine Sulfate) 2 mg PRN Q2HR PRN IV PAIN; Start 11/21/19 at 21:00; Stop 11/22/19 at 20:59 Sodium Chloride 1,000 ml @ 125 mls/hr Q8H IV Last administered on 11/22/19at 10:20; Start 11/21/19 at 20:55; Stop 11/22/19 at 20:54 Piperacillin Sod/ Tazobactam Sod (Zosyn Per Pharmacy) 1 each PRN DAILY PRN MC SEE COMMENTS; Start 11/21/19 at 21:00 Piperacillin Sod/ Tazobactam Sod 2.25 gm/Sodium Chloride 50 ml @ 100 mls/hr Q6HRS IV Last administered on 11/22/19at 06:07; Start 11/22/19 at 00:00; Stop 11/22/19 at 08:31; Status DC Albuterol Sulfate (Ventolin Neb Soln) 2.5 mg PRN Q4HRS PRN INH SHORTNESS OF BREATH; Start 11/22/19 at 01:15 Amlodipine Besylate (Norvasc) 5 mg DAILY PO ; Start 11/22/19 at 09:00 Aspirin (Paul Aspirin) 325 mg DAILYWBKFT PO ; Start 11/22/19 at 08:00 Atorvastatin Calcium (Lipitor) 20 mg HS PO ; Start 11/22/19 at 21:00 Diphenhydramine HCl (Benadryl) 25 mg PRN Q6HRS PRN PO ITCHING; Start 11/22/19 at 01:15 Ferrous Sulfate (Feosol) 325 mg BIDWMEALS PO ; Start 11/22/19 at 08:00 Fluoxetine HCl (PROzac) 20 mg DAILY PO ; Start 11/22/19 at 09:00 Lisinopril (Prinivil) 10 mg BID PO ; Start 11/22/19 at 09:00 Montelukast Sodium (Singulair) 10 mg DAILY PO ; Start 11/22/19 at 09:00 Polyethylene Glycol (miraLAX PACKET) 17 gm DAILY PO ; Start 11/22/19 at 09:00 Tamsulosin HCl (Flomax) 0.4 mg QHS PO ; Start 11/22/19 at 21:00 Celecoxib (CeleBREX) 200 mg BID PO ; Start 11/22/19 at 09:00 Non-Formulary Medication (Icosapent Ethyl (Vascepa)) 2 gm BID PO ; Start 11/22/19 at 09:00; Status UNV Non-Formulary Medication (Insulin Detemir (Levemir Flextouch)) 23 units QHS SQ ; Start 11/22/19 at 21:00; Status UNV Pantoprazole Sodium (Protonix) 40 mg BIDAC PO ; Start 11/22/19 at 07:30 Insulin Glargine (Lantus Syringe) 23 unit QHS SQ Last administered on 11/22/19at 02:04; Start 11/22/19 at 01:15 Piperacillin Sod/ Tazobactam Sod 3.375 gm/Sodium Chloride 50 ml @ 100 mls/hr Q6HRS IV Last administered on 11/22/19at 12:16; Start 11/22/19 at 12:00 Active Scripts Active Polyethylene Glycol 3350 17 Gm Powd.pack 17 Gm PO DAILY 30 Days [Pantoprazole] 40 MG Tablet.dr 40 Mg PO BIDAC 30 Days Aspirin 325 Mg Tablet 325 Mg PO DAILYWBKFT 30 Days Feosol (Ferrous Sulfate) 325 Mg Tablet 325 Mg PO BID 30 Days Flomax (Tamsulosin Hcl) 0.4 Mg Cap.er.24h 0.4 Mg PO QHS 30 Days Reported Metformin Hcl Er (Metformin Hcl) 500 Mg Tab.er.24h 250 Mg PO BID Levemir Flextouch (Insulin Detemir) 100 Unit/1 Ml Insuln.pen 23 Units SQ QHS Fluoxetine Hcl 20 Mg Capsule 20 Mg PO DAILY Amlodipine Besylate 5 Mg Tablet 5 Mg PO DAILY Lisinopril 20 Mg Tablet 10 Mg PO BID Atorvastatin Calcium 20 Mg Tablet 20 Mg PO DAILY Proair Hfa (Albuterol Sulfate) 8.5 Gm Hfa.aer.ad 8.5 Gm INH PRN Q4HRS PRN Vascepa (Icosapent Ethyl) 1 Gm Capsule 2 Gm PO BID Celecoxib 200 Mg Capsule 200 Mg PO BID Montelukast Sodium 10 Mg Tablet 10 Mg PO DAILY Benadryl (Diphenhydramine Hcl) 25 Mg Capsule 1 Cap PO PRN Q6HRS PRN Allergies Allergies: Coded Allergies: No Known Drug Allergies (Unverified , 02/22/19) ROS General: YES: Fatigue, Appetite PSYCHOLOGICAL ROS: YES: Anxiety, Depression Eyes: Yes Decreased vision ALLERGY AND IMMUNOLOGY: YES: Seasonal Allergies Respiratory: YES: Cough Gastrointestinal: Yes Nausea, Yes Vomiting, Yes Abdominal Pain Genitourinary: YES Other (NOCTURIA) Musculoskeletal: Yes Muscular Weakness Neurological: Yes Weakness Skin: Yes Dry Skin Physical Exam General: Alert, Oriented X3, Cooperative, No acute distress HEENT: EOMI, Other (DRY MUCOSA) Heart: Regular rate Abdomen: Normal bowel sounds, Soft, No tenderness Skin: No rashes Neuro: Normal speech Psych/Mental Status: Mental status NL, Mood NL MUSCULOSKELETAL: No joint tenderness, No deformity, No muscular tenderness noted Vitals VITALS Vital Signs Date Time Temp Pulse Resp B/P (MAP) Pulse Ox O2 Delivery O2 Flow Rate FiO2 11/22/19 10:38 98.4 77 16 132/51 (78) 98 Room Air 98.4 Labs Labs Laboratory Tests Test 11/21/19 17:37 11/21/19 17:40 11/21/19 19:47 11/22/19 01:56 Influenza Type A Antigen Negative (NEGATIVE) Influenza Type B Antigen Negative (NEGATIVE) White Blood Count 22.8 x10^3/uL (4.0-11.0) Red Blood Count 4.15 x10^6/uL (3.50-5.40) Hemoglobin 12.3 g/dL (12.0-15.5) Hematocrit 37.4 % (36.0-47.0) Mean Corpuscular Volume 90 fL (79-100) Mean Corpuscular Hemoglobin 30 pg (25-35) Mean Corpuscular Hemoglobin Concent 33 g/dL (31-37) Red Cell Distribution Width 14.7 % (11.5-14.5) Platelet Count 148 x10^3/uL (140-400) Neutrophils (%) (Auto) 94 % (31-73) Lymphocytes (%) (Auto) 2 % (24-48) Monocytes (%) (Auto) 3 % (0-9) Eosinophils (%) (Auto) 1 % (0-3) Basophils (%) (Auto) 0 % (0-3) Neutrophils # (Auto) 21.4 x10^3/uL (1.8-7.7) Lymphocytes # (Auto) 0.5 x10^3/uL (1.0-4.8) Monocytes # (Auto) 0.6 x10^3/uL (0.0-1.1) Eosinophils # (Auto) 0.2 x10^3/uL (0.0-0.7) Basophils # (Auto) 0.1 x10^3/uL (0.0-0.2) Segmented Neutrophils % 94 % (35-66) Lymphocytes % 5 % (24-48) Monocytes % 1 % (0-10) Platelet Estimate Adequate (ADEQUATE) Anisocytosis Slight Prothrombin Time 14.6 SEC (11.7-14.0) Prothromb Time International Ratio 1.2 (0.8-1.1) Activated Partial Thromboplast Time 32 SEC (24-38) Sodium Level 138 mmol/L (136-145) Potassium Level 3.9 mmol/L (3.5-5.1) Chloride Level 100 mmol/L (98-107) Carbon Dioxide Level 26 mmol/L (21-32) Anion Gap 12 (6-14) Blood Urea Nitrogen 72 mg/dL (7-20) Creatinine 2.2 mg/dL (0.6-1.0) Estimated GFR (Cockcroft-Gault) 22.3 BUN/Creatinine Ratio 33 (6-20) Glucose Level 238 mg/dL (70-99) Lactic Acid Level 1.6 mmol/L (0.4-2.0) Calcium Level 9.8 mg/dL (8.5-10.1) Total Bilirubin 1.2 mg/dL (0.2-1.0) Aspartate Amino Transf (AST/SGOT) 24 U/L (15-37) Alanine Aminotransferase (ALT/SGPT) 26 U/L (14-59) Alkaline Phosphatase 137 U/L (46-116) Total Protein 7.3 g/dL (6.4-8.2) Albumin 3.0 g/dL (3.4-5.0) Albumin/Globulin Ratio 0.7 (1.0-1.7) Lipase 80 U/L (73-393) Urine Collection Type U cath Urine Color Yellow Urine Clarity Cloudy Urine pH 5.5 Urine Specific [place] 1.015 Urine Protein 100 mg/dL (NEG-TRACE) Urine Glucose (UA) Negative mg/dL (NEG) Urine Ketones (Stick) Negative mg/dL (NEG) Urine Blood Small (NEG) Urine Nitrite Negative (NEG) Urine Bilirubin Negative (NEG) Urine Urobilinogen Dipstick 0.2 mg/dL (0.2 mg/dL) Urine Leukocyte Esterase Moderate (NEG) Urine RBC 20-40 /HPF (0-2) Urine WBC >40 /HPF (0-4) Urine Squamous Epithelial Cells Many /LPF Urine Bacteria Many /HPF (0-FEW) Glucose (Fingerstick) 167 mg/dL (70-99) Test 11/22/19 03:40 11/22/19 07:35 11/22/19 11:26 White Blood Count 19.3 x10^3/uL (4.0-11.0) Red Blood Count 4.13 x10^6/uL (3.50-5.40) Hemoglobin 12.3 g/dL (12.0-15.5) Hematocrit 37.5 % (36.0-47.0) Mean Corpuscular Volume 91 fL (79-100) Mean Corpuscular Hemoglobin 30 pg (25-35) Mean Corpuscular Hemoglobin Concent 33 g/dL (31-37) Red Cell Distribution Width 14.3 % (11.5-14.5) Platelet Count 132 x10^3/uL (140-400) Neutrophils (%) (Auto) 94 % (31-73) Lymphocytes (%) (Auto) 3 % (24-48) Monocytes (%) (Auto) 3 % (0-9) Eosinophils (%) (Auto) 0 % (0-3) Basophils (%) (Auto) 0 % (0-3) Neutrophils # (Auto) 18.2 x10^3/uL (1.8-7.7) Lymphocytes # (Auto) 0.5 x10^3/uL (1.0-4.8) Monocytes # (Auto) 0.5 x10^3/uL (0.0-1.1) Eosinophils # (Auto) 0.0 x10^3/uL (0.0-0.7) Basophils # (Auto) 0.1 x10^3/uL (0.0-0.2) Sodium Level 146 mmol/L (136-145) Potassium Level 3.8 mmol/L (3.5-5.1) Chloride Level 109 mmol/L (98-107) Carbon Dioxide Level 26 mmol/L (21-32) Anion Gap 11 (6-14) Blood Urea Nitrogen 59 mg/dL (7-20) Creatinine 1.7 mg/dL (0.6-1.0) Estimated GFR (Cockcroft-Gault) 30.0 Glucose Level 176 mg/dL (70-99) Calcium Level 9.2 mg/dL (8.5-10.1) Glucose (Fingerstick) 149 mg/dL (70-99) 165 mg/dL (70-99) Laboratory Tests Test 11/21/19 17:37 11/21/19 17:40 11/21/19 19:47 11/22/19 01:56 Influenza Type A Antigen Negative (NEGATIVE) Influenza Type B Antigen Negative (NEGATIVE) White Blood Count 22.8 x10^3/uL (4.0-11.0) Red Blood Count 4.15 x10^6/uL (3.50-5.40) Hemoglobin 12.3 g/dL (12.0-15.5) Hematocrit 37.4 % (36.0-47.0) Mean Corpuscular Volume 90 fL (79-100) Mean Corpuscular Hemoglobin 30 pg (25-35) Mean Corpuscular Hemoglobin Concent 33 g/dL (31-37) Red Cell Distribution Width 14.7 % (11.5-14.5) Platelet Count 148 x10^3/uL (140-400) Neutrophils (%) (Auto) 94 % (31-73) Lymphocytes (%) (Auto) 2 % (24-48) Monocytes (%) (Auto) 3 % (0-9) Eosinophils (%) (Auto) 1 % (0-3) Basophils (%) (Auto) 0 % (0-3) Neutrophils # (Auto) 21.4 x10^3/uL (1.8-7.7) Lymphocytes # (Auto) 0.5 x10^3/uL (1.0-4.8) Monocytes # (Auto) 0.6 x10^3/uL (0.0-1.1) Eosinophils # (Auto) 0.2 x10^3/uL (0.0-0.7) Basophils # (Auto) 0.1 x10^3/uL (0.0-0.2) Segmented Neutrophils % 94 % (35-66) Lymphocytes % 5 % (24-48) Monocytes % 1 % (0-10) Platelet Estimate Adequate (ADEQUATE) Anisocytosis Slight Prothrombin Time 14.6 SEC (11.7-14.0) Prothromb Time International Ratio 1.2 (0.8-1.1) Activated Partial Thromboplast Time 32 SEC (24-38) Sodium Level 138 mmol/L (136-145) Potassium Level 3.9 mmol/L (3.5-5.1) Chloride Level 100 mmol/L (98-107) Carbon Dioxide Level 26 mmol/L (21-32) Anion Gap 12 (6-14) Blood Urea Nitrogen 72 mg/dL (7-20) Creatinine 2.2 mg/dL (0.6-1.0) Estimated GFR (Cockcroft-Gault) 22.3 BUN/Creatinine Ratio 33 (6-20) Glucose Level 238 mg/dL (70-99) Lactic Acid Level 1.6 mmol/L (0.4-2.0) Calcium Level 9.8 mg/dL (8.5-10.1) Total Bilirubin 1.2 mg/dL (0.2-1.0) Aspartate Amino Transf (AST/SGOT) 24 U/L (15-37) Alanine Aminotransferase (ALT/SGPT) 26 U/L (14-59) Alkaline Phosphatase 137 U/L (46-116) Total Protein 7.3 g/dL (6.4-8.2) Albumin 3.0 g/dL (3.4-5.0) Albumin/Globulin Ratio 0.7 (1.0-1.7) Lipase 80 U/L (73-393) Urine Collection Type U cath Urine Color Yellow Urine Clarity Cloudy Urine pH 5.5 Urine Specific [place] 1.015 Urine Protein 100 mg/dL (NEG-TRACE) Urine Glucose (UA) Negative mg/dL (NEG) Urine Ketones (Stick) Negative mg/dL (NEG) Urine Blood Small (NEG) Urine Nitrite Negative (NEG) Urine Bilirubin Negative (NEG) Urine Urobilinogen Dipstick 0.2 mg/dL (0.2 mg/dL) Urine Leukocyte Esterase Moderate (NEG) Urine RBC 20-40 /HPF (0-2) Urine WBC >40 /HPF (0-4) Urine Squamous Epithelial Cells Many /LPF Urine Bacteria Many /HPF (0-FEW) Glucose (Fingerstick) 167 mg/dL (70-99) Test 11/22/19 03:40 11/22/19 07:35 11/22/19 11:26 White Blood Count 19.3 x10^3/uL (4.0-11.0) Red Blood Count 4.13 x10^6/uL (3.50-5.40) Hemoglobin 12.3 g/dL (12.0-15.5) Hematocrit 37.5 % (36.0-47.0) Mean Corpuscular Volume 91 fL (79-100) Mean Corpuscular Hemoglobin 30 pg (25-35) Mean Corpuscular Hemoglobin Concent 33 g/dL (31-37) Red Cell Distribution Width 14.3 % (11.5-14.5) Platelet Count 132 x10^3/uL (140-400) Neutrophils (%) (Auto) 94 % (31-73) Lymphocytes (%) (Auto) 3 % (24-48) Monocytes (%) (Auto) 3 % (0-9) Eosinophils (%) (Auto) 0 % (0-3) Basophils (%) (Auto) 0 % (0-3) Neutrophils # (Auto) 18.2 x10^3/uL (1.8-7.7) Lymphocytes # (Auto) 0.5 x10^3/uL (1.0-4.8) Monocytes # (Auto) 0.5 x10^3/uL (0.0-1.1) Eosinophils # (Auto) 0.0 x10^3/uL (0.0-0.7) Basophils # (Auto) 0.1 x10^3/uL (0.0-0.2) Sodium Level 146 mmol/L (136-145) Potassium Level 3.8 mmol/L (3.5-5.1) Chloride Level 109 mmol/L (98-107) Carbon Dioxide Level 26 mmol/L (21-32) Anion Gap 11 (6-14) Blood Urea Nitrogen 59 mg/dL (7-20) Creatinine 1.7 mg/dL (0.6-1.0) Estimated GFR (Cockcroft-Gault) 30.0 Glucose Level 176 mg/dL (70-99) Calcium Level 9.2 mg/dL (8.5-10.1) Glucose (Fingerstick) 149 mg/dL (70-99) 165 mg/dL (70-99) Assessment/Plan Assessment/Plan IMP GENARO WITH CR OF 2.2 DEHYDRATION RETROPERITONEAL ABSCESS BILATERAL NEPHROCALCINOSIS ? BILATERAL HYDRONEPHROSIS PLAN HYDRATION RENAL SCAN WITH LASIX WASHOUT ANTIBIOTICS MAY NEED TO HAVE ABSCESS DRAINED HOLD HER MEENAKSHI-I AND INGRAM-2 INHIBITOR LUNA SIMS MD Nov 22, 2019 13:00
[2019-11-22] MEDS ORDERED: FUROSEMIDE 40 MG/4 ML VIAL. IVP ONE (13:15)
[2019-11-22] MEDS ORDERED: MIDAZOLAM HCL/PF 2 MG/2 ML VIAL. ONE (15:25)
[2019-11-22] MEDS ORDERED: fentaNYL PF VIAL 100 MCG/2 ML VIAL ONE (15:25)
[2019-11-22] MEDS ORDERED: LIDOCAINE WITH 8.4% SOD BICARB 3 ML DISP.SYRIN. ONE (15:25)
[2019-11-22] MEDS ORDERED: LIDOCAINE WITH 8.4% SOD BICARB 3 ML DISP.SYRIN. IJ ONE (16:15)
[2019-11-22] MEDS ORDERED: MIDAZOLAM HCL/PF 2 MG/2 ML VIAL. IV ONE (16:15)
[2019-11-22] MEDS ORDERED: fentaNYL PF VIAL 100 MCG/2 ML VIAL IV ONE (16:15)
--- NOTE | 2019-11-22 17:21 | RAD ---
Renal nuclear medicine study with flow and Lasix. Clinical indications: Hydronephrosis on the left side. COMPARISON: CT study of the abdomen and pelvis dated 01/20/2020 and renal sonogram dated November 22, 2019. TECHNIQUE: After IV infusion of 5.5 mCi of technetium 99m MAG3, posterior planar images of both kidneys were performed and time/activity curve was generated. Total 40 mg of IV Lasix was given. FINDINGS: Split perfusion is 61 percent on the left and 39 percent on the right. Time to peak is 9 minutes on the left and 10 minutes on the right. Normal is 4 to 6 minutes. Half time clearance is never reached on either side. Bilateral ureteral and urinary bladder activity is seen. IMPRESSION: There is a moderate increase in time to peak on both sides. In addition, half time clearance is never reached. Findings are consistent with moderate decrease in renal function bilaterally leg may be due to medical renal disease.. Recent ultrasound study demonstrated mild left-sided hydronephrosis but no right-sided hydronephrosis. The hydronephrosis on the left side is considered questionable therefore. Electronically signed by: Esau Zavala MD (11/22/2019 5:18 PM) [facility]
[2019-11-22] MEDS: MONTELUKAST SODIUM 10 MG TABLET. PO SCH (17:52)
[2019-11-22] MEDS: FLUoxetine HCL 20 MG CAPSULE PO SCH (17:52)
[2019-11-22] MEDS: ASPIRIN 325 MG TABLET PO SCH (17:52)
[2019-11-22] MEDS: amLODIPine BESYLATE 5 MG TABLET PO SCH (17:53)
[2019-11-22] MEDS ORDERED: INSULIN DETEMIR 23 UNIT SQ SCH (21:00)
[2019-11-22] MEDS: LACTOBACILLUS RHAMNOSUS GG 1 CAPSULE. PO SCH (21:03)
[2019-11-22] MEDS: TAMSULOSIN 0.4 MG CAP.ER.24H. PO SCH (21:03)
[2019-11-22] MEDS: ATORVASTATIN CALCIUM 20 MG TABLET PO SCH (21:03)
[2019-11-23] MEDS: PIPERACILLIN/TAZOBACTAM 3.375 GM in IV NORMAL SALINE 50ML 50 ML IV SCH ×4 (01:15→17:39)
[2019-11-23 03:36] VITALS: BP 110/46
[2019-11-23 03:48] LABS: BASO % 0 % (0-3); EOS % 0 % (0-3); HEMATOCRIT 31.4 % (36.0-47.0); HEMOGLOBIN 10.5 g/dL (12.0-15.5); LYMPH # 0.8 x10^3/uL (1.0-4.8); LYMPH % 6 % (24-48); MEAN CORPUSCULAR HEMOGLOBIN 30 pg (25-35); MEAN CORPUSCULAR HGB CONC 33 g/dL (31-37); MEAN CORPUSCULAR VOLUME 91 fL (79-100); MONO # 0.6 x10^3/uL (0.0-1.1); MONO % 5 % (0-9); NEUT # 11.3 x10^3/uL (1.8-7.7); NEUT % 89 % (31-73); PLATELET COUNT 119 x10^3/uL (140-400); RED BLOOD COUNT 3.46 x10^6/uL (3.50-5.40); RED CELL DISTRIBUTION WIDTH 14.7 % (11.5-14.5); WHITE BLOOD COUNT 12.7 x10^3/uL (4.0-11.0)
[2019-11-23 03:54] LABS: CALCIUM 8.4 mg/dL (8.5-10.1); CREATININE 1.4 mg/dL (0.6-1.0); GFR 37.5; POTASSIUM 3.4 mmol/L (3.5-5.1)
[2019-11-23] MEDS: PANTOPRAZOLE 40 MG TABLET.DR. PO SCH ×2 (06:23→17:38)
[2019-11-23 07:00] VITALS: BP 109/53
--- NOTE | 2019-11-23 08:23 | PDOC ---
Infectious Disease Note Subjective Subjective Much better today. Little pain. Hungry No F/C/S/N/V/D/SOA ROS ROS o/w neg Vital Sign Vital Signs Vital Signs Date Time Temp Pulse Resp B/P (MAP) Pulse Ox O2 Delivery O2 Flow Rate FiO2 11/23/19 07:00 98.6 67 16 109/53 (71) 92 Room Air 98.6 11/22/19 16:29 2.0 Physical Exam PHYSICAL EXAM CONSTITUTIONAL: Alert and coop looks well and appears comfortable. HEENT: Pupils are status post cataract surgery. She had normal conjunctivae. Oral cavity, pharynx was clear. NECK: Supple, no JVD. LUNGS: Clear to auscultation bilaterally. HEART: S1, S2. ABDOMEN: Soft, no guarding, no rebound. Less tender on the right side. Travon with puruluent material EXTREMITIES: Without clubbing, cyanosis or gross edema. SKIN: Warm to touch without generalized signs of rash. She has some healed scars small on her left upper extremity. NEUROLOGICAL: She follows simple commands. Moves all extremities. PSYCH: Affect is appropriate Labs Lab Laboratory Tests Test 11/22/19 11:26 11/22/19 17:10 11/22/19 20:56 11/23/19 03:00 Glucose (Fingerstick) 165 mg/dL (70-99) 169 mg/dL (70-99) 230 mg/dL (70-99) White Blood Count 12.7 x10^3/uL (4.0-11.0) Red Blood Count 3.46 x10^6/uL (3.50-5.40) Hemoglobin 10.5 g/dL (12.0-15.5) Hematocrit 31.4 % (36.0-47.0) Mean Corpuscular Volume 91 fL (79-100) Mean Corpuscular Hemoglobin 30 pg (25-35) Mean Corpuscular Hemoglobin Concent 33 g/dL (31-37) Red Cell Distribution Width 14.7 % (11.5-14.5) Platelet Count 119 x10^3/uL (140-400) Neutrophils (%) (Auto) 89 % (31-73) Lymphocytes (%) (Auto) 6 % (24-48) Monocytes (%) (Auto) 5 % (0-9) Eosinophils (%) (Auto) 0 % (0-3) Basophils (%) (Auto) 0 % (0-3) Neutrophils # (Auto) 11.3 x10^3/uL (1.8-7.7) Lymphocytes # (Auto) 0.8 x10^3/uL (1.0-4.8) Monocytes # (Auto) 0.6 x10^3/uL (0.0-1.1) Eosinophils # (Auto) 0.0 x10^3/uL (0.0-0.7) Basophils # (Auto) 0.0 x10^3/uL (0.0-0.2) Sodium Level 145 mmol/L (136-145) Potassium Level 3.4 mmol/L (3.5-5.1) Chloride Level 109 mmol/L (98-107) Carbon Dioxide Level 26 mmol/L (21-32) Anion Gap 10 (6-14) Blood Urea Nitrogen 47 mg/dL (7-20) Creatinine 1.4 mg/dL (0.6-1.0) Estimated GFR (Cockcroft-Gault) 37.5 Glucose Level 137 mg/dL (70-99) Calcium Level 8.4 mg/dL (8.5-10.1) Test 11/23/19 07:55 Glucose (Fingerstick) 143 mg/dL (70-99) Micro U/S IMPRESSION: Mild hydronephrosis on the left side. 8.2 cm retroperitoneal fluid collection on the right side. IMPRESSION: 1. Multiple bilateral intrarenal calculi. 2. Phlebolith versus ureteral calculus on the left. 3. Retroperitoneal fluid collection on the right. 4. Cholelithiasis with distended gallbladder. 5. Calcifications in the gallbladder wall. 6. Appendix within normal limits in size. Objective Assessment Leukocytosis - better GENARO - better ? UTI- h/o Enterococcus February 2019 ? Abd abscess ? Ureteral stone on left U/S neg H/o Large subacute right temporal, parietal and occipital infarct. Small right BG, thalamus and insula infarct. Plan Plan of Care cont Zosyn 3.375 q 6 F/u labs and cults D/w nursing SAVI MAYNARD MD Nov 23, 2019 08:22
[2019-11-23] MEDS: FLUoxetine HCL 20 MG CAPSULE PO SCH (08:52)
[2019-11-23] MEDS: LACTOBACILLUS RHAMNOSUS GG 1 CAPSULE. PO SCH ×2 (08:54→21:06)
[2019-11-23] MEDS: amLODIPine BESYLATE 5 MG TABLET PO SCH (08:54)
[2019-11-23] MEDS: FERROUS SULFATE 325 MG TABLET. PO SCH ×2 (08:54→17:38)
[2019-11-23] MEDS: POLYETHYLENE GLYCOL 3350 17 GM PACKET. PO SCH (08:54)
[2019-11-23] MEDS: MONTELUKAST SODIUM 10 MG TABLET. PO SCH (08:54)
[2019-11-23] MEDS: ASPIRIN 325 MG TABLET PO SCH (08:54)
[2019-11-23] MEDS: NON FORMULARY ITEM (Icosapent Ethyl (Vascepa) 2 GM) PO SCH ×2 (08:57→21:00)
--- NOTE | 2019-11-23 10:55 | PDOC ---
Renal-Progress Notes Subjective Notes Notes FEELING BETTER History of Present Illness Hx of present illness STABLE Vitals Vitals Vital Signs Date Time Temp Pulse Resp B/P (MAP) Pulse Ox O2 Delivery O2 Flow Rate FiO2 11/23/19 08:54 67 109/53 11/23/19 07:00 98.6 16 92 Room Air 98.6 11/22/19 16:29 2.0 Weight Weight [ ] I.O. Intake and Output Intake and Output 11/23/19 07:00 Intake Total 740 ml Output Total 510 ml Balance 230 ml Intake Oral 740 ml Output Urine Total 500 ml Drainage Total 10 ml # Voids 3 Labs Labs Laboratory Tests Test 11/22/19 11:26 11/22/19 17:10 11/22/19 20:56 11/23/19 03:00 Glucose (Fingerstick) 165 mg/dL (70-99) 169 mg/dL (70-99) 230 mg/dL (70-99) White Blood Count 12.7 x10^3/uL (4.0-11.0) Red Blood Count 3.46 x10^6/uL (3.50-5.40) Hemoglobin 10.5 g/dL (12.0-15.5) Hematocrit 31.4 % (36.0-47.0) Mean Corpuscular Volume 91 fL (79-100) Mean Corpuscular Hemoglobin 30 pg (25-35) Mean Corpuscular Hemoglobin Concent 33 g/dL (31-37) Red Cell Distribution Width 14.7 % (11.5-14.5) Platelet Count 119 x10^3/uL (140-400) Neutrophils (%) (Auto) 89 % (31-73) Lymphocytes (%) (Auto) 6 % (24-48) Monocytes (%) (Auto) 5 % (0-9) Eosinophils (%) (Auto) 0 % (0-3) Basophils (%) (Auto) 0 % (0-3) Neutrophils # (Auto) 11.3 x10^3/uL (1.8-7.7) Lymphocytes # (Auto) 0.8 x10^3/uL (1.0-4.8) Monocytes # (Auto) 0.6 x10^3/uL (0.0-1.1) Eosinophils # (Auto) 0.0 x10^3/uL (0.0-0.7) Basophils # (Auto) 0.0 x10^3/uL (0.0-0.2) Sodium Level 145 mmol/L (136-145) Potassium Level 3.4 mmol/L (3.5-5.1) Chloride Level 109 mmol/L (98-107) Carbon Dioxide Level 26 mmol/L (21-32) Anion Gap 10 (6-14) Blood Urea Nitrogen 47 mg/dL (7-20) Creatinine 1.4 mg/dL (0.6-1.0) Estimated GFR (Cockcroft-Gault) 37.5 Glucose Level 137 mg/dL (70-99) Calcium Level 8.4 mg/dL (8.5-10.1) Test 11/23/19 07:55 Glucose (Fingerstick) 143 mg/dL (70-99) Review of Systems Constitutional: yes: alert, oriented Ears/Nose/Throat: Yes: no symptom reported Eyes: Yes: no symptom reported Pulmonary: Yes no symptom reported Cardiovascular: Yes no symptom reported Gastrointestional: Yes: nausea, vomiting Genitourinary: Yes: no symptom reported Musculoskeletal: Yes: no symptom reported Skin: Yes no symptom reported Psychiatric/Neurological: Yes: no symptom reported Endocrine: Yes: no symptom reported Physical Exam General Appearance: no apparent distress Skin: warm Respiratory: decreased breath sounds Heart: S1S2 Abdomen: soft, bowel sounds present Genitourinary: bladder flat Extremities: pulses present Neurology: alert Assessment Assessment IMP GENARO-CR OF 2.2 TO 1.4 LOW K DEHYDRATION URINARY TRACT INFECTION LEUCOCYTOSIS ABD ABSCESS/FLUID COLLECTION DM II PLAN REPLACE K SALINE INFUSION ANTIBIOTICS SURGICAL EVAL ONGOING WILL FOLLOW LUNA SIMS MD Nov 23, 2019 10:55
[2019-11-23 11:00] VITALS: BP 111/50
[2019-11-23] MEDS ORDERED: POTASSIUM CHLORIDE 20 MEQ TABLET.ER. PO ONE (11:00)
--- NOTE | 2019-11-23 11:09 | RAD ---
CT-guided drainage, right retroperitoneal fluid collection/abscess 11/22/2019 INDICATION: Retroperitoneal fluid collection, possible abscess, elevated white blood cell count, fever Discussion: The risks and benefits of the procedure, including but not limited to, bleeding and infection were discussed patient. Informed consent was obtained. The patient was brought to the CT scanner and placed in the prone position. A timeout procedure was performed. CT imaging redemonstrates a small fluid collection in the right retroperitoneum adjacent to the psoas muscle. The overlying skin was prepped and draped using maximum sterile barrier technique. 1% lidocaine was administered for local anesthesia. Under intermittent CT guidance a 17-gauge needles advanced into this collection. Purulent aspirate was obtained. A guidewire was advanced into the collection, over which, following dilatation a 8 Monegasque drain was placed. Approximately 15 cc of purulent aspirate was obtained. The catheter was connected to a MELODY bulb. Catheter secured in place. Sterile dressings were applied. No immediate complications were identified. The procedures performed under conscious sedation including continuous cardiopulmonary monitoring via dedicated sedation nurse. [id number] sedation time: 20 minutes IMPRESSION: CT-guided drainage, right retroperitoneal abscess
[2019-11-23] MEDS: IV NORMAL SALINE 1000ML BAG 1,000 ML IV SCH (12:27)
--- NOTE | 2019-11-23 14:35 | PDOC ---
[employer] PROGRESS NOTE Chief Complaint Chief Complaint Sepsis ATN (Acute tubular necrosis) Hypokalemia Anemia Near syncope UTI (urinary tract infection) Retroperitoneal abscess Abdominal pain Vomiting and diarrhea Dyslipidemia History of Present Illness History of Present Illness Patient seen and examined. Chart reviewed and care discussed with nursing staff. No acute distress. Patient resting comfortably in bed. TRAVON drain in place with exudative fluid collecting. No new complaints at this time. Vitals/I&O Vitals/I&O: Vital Signs Date Time Temp Pulse Resp B/P (MAP) Pulse Ox O2 Delivery O2 Flow Rate FiO2 11/23/19 11:00 97.6 63 16 111/50 (70) 94 Room Air 97.6 11/22/19 16:29 2.0 I & O 11/22/19 11/22/19 11/23/19 15:00 23:00 07:00 Intake Total 240 ml 500 ml Output Total 500 ml 10 ml Balance -260 ml 490 ml Physical Exam Physical Exam: CONSTITUTIONAL: NAD. Appears comfortable HEENT: EOMI. She had non injected conjunctivae. Oral cavity, pharynx was clear. NECK: Supple, no JVD. LUNGS: Clear to auscultation bilaterally. HEART: RRR, no murmur ABDOMEN: Soft, no guarding, no rebound. Less tender on the right side. Travon with puruluent drainage material noted EXTREMITIES: Without clubbing, cyanosis or edema. General: Alert, Oriented X3, Cooperative, No acute distress Heart: Regular rate Lungs: Clear, Wheezing Abdomen: Normal bowel sounds, Soft, No tenderness Extremities: No clubbing, No cyanosis Skin: No rashes Labs Labs: Laboratory Tests Test 11/22/19 17:10 11/22/19 20:56 11/23/19 03:00 11/23/19 07:55 Glucose (Fingerstick) 169 mg/dL (70-99) 230 mg/dL (70-99) 143 mg/dL (70-99) White Blood Count 12.7 x10^3/uL (4.0-11.0) Red Blood Count 3.46 x10^6/uL (3.50-5.40) Hemoglobin 10.5 g/dL (12.0-15.5) Hematocrit 31.4 % (36.0-47.0) Mean Corpuscular Volume 91 fL (79-100) Mean Corpuscular Hemoglobin 30 pg (25-35) Mean Corpuscular Hemoglobin Concent 33 g/dL (31-37) Red Cell Distribution Width 14.7 % (11.5-14.5) Platelet Count 119 x10^3/uL (140-400) Neutrophils (%) (Auto) 89 % (31-73) Lymphocytes (%) (Auto) 6 % (24-48) Monocytes (%) (Auto) 5 % (0-9) Eosinophils (%) (Auto) 0 % (0-3) Basophils (%) (Auto) 0 % (0-3) Neutrophils # (Auto) 11.3 x10^3/uL (1.8-7.7) Lymphocytes # (Auto) 0.8 x10^3/uL (1.0-4.8) Monocytes # (Auto) 0.6 x10^3/uL (0.0-1.1) Eosinophils # (Auto) 0.0 x10^3/uL (0.0-0.7) Basophils # (Auto) 0.0 x10^3/uL (0.0-0.2) Sodium Level 145 mmol/L (136-145) Potassium Level 3.4 mmol/L (3.5-5.1) Chloride Level 109 mmol/L (98-107) Carbon Dioxide Level 26 mmol/L (21-32) Anion Gap 10 (6-14) Blood Urea Nitrogen 47 mg/dL (7-20) Creatinine 1.4 mg/dL (0.6-1.0) Estimated GFR (Cockcroft-Gault) 37.5 Glucose Level 137 mg/dL (70-99) Calcium Level 8.4 mg/dL (8.5-10.1) Test 11/23/19 11:26 Glucose (Fingerstick) 185 mg/dL (70-99) Review of Systems Review of Systems: denies chest pain denies SOA Assessment and Plan Assessmemt and Plan Sepsis ATN (Acute tubular necrosis) Hypokalemia Anemia Near syncope UTI (urinary tract infection) Retroperitoneal abscess Abdominal pain Vomiting and diarrhea Dyslipidemia Plan: -continue IV Abx -cardiac monitoring -Monitor TRAVON drain -continue home medications -DVT ppx -Full code Comment Review of Relevant I have reviewed the following items katalina (where applicable) has been applied. Medications: Current Medications Medications (Trade) Dose Ordered Sig/Annette Route PRN Reason Start Time Stop Time Status Last Admin Dose Admin Atorvastatin Calcium (Lipitor) 20 mg HS PO 11/22/19 21:00 11/22/19 21:03 Tamsulosin HCl (Flomax) 0.4 mg QHS PO 11/22/19 21:00 11/22/19 21:03 Lactobacillus Rhamnosus (Culturelle) 1 cap BID PO 11/22/19 21:00 11/23/19 08:54 Lidocaine HCl (Buffered Lidocaine 1%) 3 ml 1X ONCE IJ 11/22/19 16:15 11/22/19 16:16 DC 11/22/19 16:15 Midazolam HCl (Versed) 2 mg 1X ONCE IV 11/22/19 16:15 11/22/19 16:16 DC 11/22/19 16:15 Fentanyl Citrate (Fentanyl 2ml Vial) 100 mcg 1X ONCE IV 11/22/19 16:15 11/22/19 16:16 DC 11/22/19 16:15 Potassium Chloride (Klor-Con) 20 meq 1X ONCE PO 11/23/19 11:00 11/23/19 11:01 DC 11/23/19 12:25 Sodium Chloride 1,000 ml @ 75 mls/hr [id number] IV 11/23/19 11:00 11/23/19 12:27 KERI MAE III DO Nov 23, 2019 14:35
[2019-11-23 15:00] VITALS: BP 117/51
--- NOTE | 2019-11-23 16:08 | PDOC ---
SURGICAL PROGRESS NOTE Subjective Pt feels better, s/p drain, passing stools Vital Signs Vital Signs Date Time Temp Pulse Resp B/P (MAP) Pulse Ox O2 Delivery O2 Flow Rate FiO2 11/23/19 15:00 97.1 66 18 117/51 (73) 94 Room Air 97.1 11/22/19 16:29 2.0 I&O Intake and Output 11/23/19 07:00 Intake Total 740 ml Output Total 510 ml Balance 230 ml Intake Oral 740 ml Output Urine Total 500 ml Drainage Total 10 ml # Voids 3 General: Alert, Oriented X3, Cooperative, No acute distress Abdomen: Soft, No tenderness, Other (drain with purulent output) Labs Laboratory Tests Test 11/21/19 17:37 11/21/19 17:40 11/21/19 19:47 11/22/19 01:56 Influenza Type A Antigen Negative (NEGATIVE) Influenza Type B Antigen Negative (NEGATIVE) White Blood Count 22.8 x10^3/uL (4.0-11.0) Red Blood Count 4.15 x10^6/uL (3.50-5.40) Hemoglobin 12.3 g/dL (12.0-15.5) Hematocrit 37.4 % (36.0-47.0) Mean Corpuscular Volume 90 fL (79-100) Mean Corpuscular Hemoglobin 30 pg (25-35) Mean Corpuscular Hemoglobin Concent 33 g/dL (31-37) Red Cell Distribution Width 14.7 % (11.5-14.5) Platelet Count 148 x10^3/uL (140-400) Neutrophils (%) (Auto) 94 % (31-73) Lymphocytes (%) (Auto) 2 % (24-48) Monocytes (%) (Auto) 3 % (0-9) Eosinophils (%) (Auto) 1 % (0-3) Basophils (%) (Auto) 0 % (0-3) Neutrophils # (Auto) 21.4 x10^3/uL (1.8-7.7) Lymphocytes # (Auto) 0.5 x10^3/uL (1.0-4.8) Monocytes # (Auto) 0.6 x10^3/uL (0.0-1.1) Eosinophils # (Auto) 0.2 x10^3/uL (0.0-0.7) Basophils # (Auto) 0.1 x10^3/uL (0.0-0.2) Segmented Neutrophils % 94 % (35-66) Lymphocytes % 5 % (24-48) Monocytes % 1 % (0-10) Platelet Estimate Adequate (ADEQUATE) Anisocytosis Slight Prothrombin Time 14.6 SEC (11.7-14.0) Prothromb Time International Ratio 1.2 (0.8-1.1) Activated Partial Thromboplast Time 32 SEC (24-38) Sodium Level 138 mmol/L (136-145) Potassium Level 3.9 mmol/L (3.5-5.1) Chloride Level 100 mmol/L (98-107) Carbon Dioxide Level 26 mmol/L (21-32) Anion Gap 12 (6-14) Blood Urea Nitrogen 72 mg/dL (7-20) Creatinine 2.2 mg/dL (0.6-1.0) Estimated GFR (Cockcroft-Gault) 22.3 BUN/Creatinine Ratio 33 (6-20) Glucose Level 238 mg/dL (70-99) Lactic Acid Level 1.6 mmol/L (0.4-2.0) Calcium Level 9.8 mg/dL (8.5-10.1) Total Bilirubin 1.2 mg/dL (0.2-1.0) Aspartate Amino Transf (AST/SGOT) 24 U/L (15-37) Alanine Aminotransferase (ALT/SGPT) 26 U/L (14-59) Alkaline Phosphatase 137 U/L (46-116) Total Protein 7.3 g/dL (6.4-8.2) Albumin 3.0 g/dL (3.4-5.0) Albumin/Globulin Ratio 0.7 (1.0-1.7) Lipase 80 U/L (73-393) Urine Collection Type U cath Urine Color Yellow Urine Clarity Cloudy Urine pH 5.5 Urine Specific [place] 1.015 Urine Protein 100 mg/dL (NEG-TRACE) Urine Glucose (UA) Negative mg/dL (NEG) Urine Ketones (Stick) Negative mg/dL (NEG) Urine Blood Small (NEG) Urine Nitrite Negative (NEG) Urine Bilirubin Negative (NEG) Urine Urobilinogen Dipstick 0.2 mg/dL (0.2 mg/dL) Urine Leukocyte Esterase Moderate (NEG) Urine RBC 20-40 /HPF (0-2) Urine WBC >40 /HPF (0-4) Urine Squamous Epithelial Cells Many /LPF Urine Bacteria Many /HPF (0-FEW) Glucose (Fingerstick) 167 mg/dL (70-99) Test 11/22/19 03:40 11/22/19 07:35 11/22/19 11:26 11/22/19 17:10 White Blood Count 19.3 x10^3/uL (4.0-11.0) Red Blood Count 4.13 x10^6/uL (3.50-5.40) Hemoglobin 12.3 g/dL (12.0-15.5) Hematocrit 37.5 % (36.0-47.0) Mean Corpuscular Volume 91 fL (79-100) Mean Corpuscular Hemoglobin 30 pg (25-35) Mean Corpuscular Hemoglobin Concent 33 g/dL (31-37) Red Cell Distribution Width 14.3 % (11.5-14.5) Platelet Count 132 x10^3/uL (140-400) Neutrophils (%) (Auto) 94 % (31-73) Lymphocytes (%) (Auto) 3 % (24-48) Monocytes (%) (Auto) 3 % (0-9) Eosinophils (%) (Auto) 0 % (0-3) Basophils (%) (Auto) 0 % (0-3) Neutrophils # (Auto) 18.2 x10^3/uL (1.8-7.7) Lymphocytes # (Auto) 0.5 x10^3/uL (1.0-4.8) Monocytes # (Auto) 0.5 x10^3/uL (0.0-1.1) Eosinophils # (Auto) 0.0 x10^3/uL (0.0-0.7) Basophils # (Auto) 0.1 x10^3/uL (0.0-0.2) Sodium Level 146 mmol/L (136-145) Potassium Level 3.8 mmol/L (3.5-5.1) Chloride Level 109 mmol/L (98-107) Carbon Dioxide Level 26 mmol/L (21-32) Anion Gap 11 (6-14) Blood Urea Nitrogen 59 mg/dL (7-20) Creatinine 1.7 mg/dL (0.6-1.0) Estimated GFR (Cockcroft-Gault) 30.0 Glucose Level 176 mg/dL (70-99) Calcium Level 9.2 mg/dL (8.5-10.1) Glucose (Fingerstick) 149 mg/dL (70-99) 165 mg/dL (70-99) 169 mg/dL (70-99) Test 11/22/19 20:56 11/23/19 03:00 11/23/19 07:55 11/23/19 11:26 Glucose (Fingerstick) 230 mg/dL (70-99) 143 mg/dL (70-99) 185 mg/dL (70-99) White Blood Count 12.7 x10^3/uL (4.0-11.0) Red Blood Count 3.46 x10^6/uL (3.50-5.40) Hemoglobin 10.5 g/dL (12.0-15.5) Hematocrit 31.4 % (36.0-47.0) Mean Corpuscular Volume 91 fL (79-100) Mean Corpuscular Hemoglobin 30 pg (25-35) Mean Corpuscular Hemoglobin Concent 33 g/dL (31-37) Red Cell Distribution Width 14.7 % (11.5-14.5) Platelet Count 119 x10^3/uL (140-400) Neutrophils (%) (Auto) 89 % (31-73) Lymphocytes (%) (Auto) 6 % (24-48) Monocytes (%) (Auto) 5 % (0-9) Eosinophils (%) (Auto) 0 % (0-3) Basophils (%) (Auto) 0 % (0-3) Neutrophils # (Auto) 11.3 x10^3/uL (1.8-7.7) Lymphocytes # (Auto) 0.8 x10^3/uL (1.0-4.8) Monocytes # (Auto) 0.6 x10^3/uL (0.0-1.1) Eosinophils # (Auto) 0.0 x10^3/uL (0.0-0.7) Basophils # (Auto) 0.0 x10^3/uL (0.0-0.2) Sodium Level 145 mmol/L (136-145) Potassium Level 3.4 mmol/L (3.5-5.1) Chloride Level 109 mmol/L (98-107) Carbon Dioxide Level 26 mmol/L (21-32) Anion Gap 10 (6-14) Blood Urea Nitrogen 47 mg/dL (7-20) Creatinine 1.4 mg/dL (0.6-1.0) Estimated GFR (Cockcroft-Gault) 37.5 Glucose Level 137 mg/dL (70-99) Calcium Level 8.4 mg/dL (8.5-10.1) Laboratory Tests Test 11/22/19 17:10 11/22/19 20:56 11/23/19 03:00 11/23/19 07:55 Glucose (Fingerstick) 169 mg/dL (70-99) 230 mg/dL (70-99) 143 mg/dL (70-99) White Blood Count 12.7 x10^3/uL (4.0-11.0) Red Blood Count 3.46 x10^6/uL (3.50-5.40) Hemoglobin 10.5 g/dL (12.0-15.5) Hematocrit 31.4 % (36.0-47.0) Mean Corpuscular Volume 91 fL (79-100) Mean Corpuscular Hemoglobin 30 pg (25-35) Mean Corpuscular Hemoglobin Concent 33 g/dL (31-37) Red Cell Distribution Width 14.7 % (11.5-14.5) Platelet Count 119 x10^3/uL (140-400) Neutrophils (%) (Auto) 89 % (31-73) Lymphocytes (%) (Auto) 6 % (24-48) Monocytes (%) (Auto) 5 % (0-9) Eosinophils (%) (Auto) 0 % (0-3) Basophils (%) (Auto) 0 % (0-3) Neutrophils # (Auto) 11.3 x10^3/uL (1.8-7.7) Lymphocytes # (Auto) 0.8 x10^3/uL (1.0-4.8) Monocytes # (Auto) 0.6 x10^3/uL (0.0-1.1) Eosinophils # (Auto) 0.0 x10^3/uL (0.0-0.7) Basophils # (Auto) 0.0 x10^3/uL (0.0-0.2) Sodium Level 145 mmol/L (136-145) Potassium Level 3.4 mmol/L (3.5-5.1) Chloride Level 109 mmol/L (98-107) Carbon Dioxide Level 26 mmol/L (21-32) Anion Gap 10 (6-14) Blood Urea Nitrogen 47 mg/dL (7-20) Creatinine 1.4 mg/dL (0.6-1.0) Estimated GFR (Cockcroft-Gault) 37.5 Glucose Level 137 mg/dL (70-99) Calcium Level 8.4 mg/dL (8.5-10.1) Test 11/23/19 11:26 Glucose (Fingerstick) 185 mg/dL (70-99) Problem List abscess appreciate IR will ADAT plan elective cholecystectomy KRYSTIN EDWARDS MD Nov 23, 2019 16:08
[2019-11-23 18:41] VITALS: BP 118/55
[2019-11-23] MEDS: ATORVASTATIN CALCIUM 20 MG TABLET PO SCH (21:06)
[2019-11-23] MEDS: TAMSULOSIN 0.4 MG CAP.ER.24H. PO SCH (21:06)
[2019-11-23] MEDS: INSULIN GLARGINE SYRINGE. SQ SCH (21:13)
[2019-11-23 22:48] VITALS: BP 124/57
[2019-11-24] MEDS: PIPERACILLIN/TAZOBACTAM 3.375 GM in IV NORMAL SALINE 50ML 50 ML IV SCH ×4 (00:07→18:13)
[2019-11-24] MEDS: IV NORMAL SALINE 1000ML BAG 1,000 ML IV SCH ×2 (02:50→18:13)
[2019-11-24 02:55] VITALS: BP 140/65
[2019-11-24] MEDS: PANTOPRAZOLE 40 MG TABLET.DR. PO SCH ×2 (05:59→18:11)
[2019-11-24 06:16] LABS: CALCIUM 8.2 mg/dL (8.5-10.1); CREATININE 1.1 mg/dL (0.6-1.0); GFR 49.5; PHOSPHORUS 3.2 mg/dL (2.6-4.7)
--- NOTE | 2019-11-24 06:57 | PDOC ---
Infectious Disease Note Subjective Subjective Vomited yesterday am. "Too much too fast" Better this am No F/C/S/N/V/D/SOA ROS ROS o/w neg Vital Sign Vital Signs Vital Signs Date Time Temp Pulse Resp B/P (MAP) Pulse Ox O2 Delivery O2 Flow Rate FiO2 11/24/19 02:55 99.3 69 16 140/65 (90) 95 Room Air 99.3 Physical Exam PHYSICAL EXAM CONSTITUTIONAL: NAD. Appears comfortable HEENT: EOMI. She had non injected conjunctivae. Oral cavity, pharynx was clear. NECK: Supple, no JVD. LUNGS: Clear to auscultation bilaterally. HEART: RRR, no murmur ABDOMEN: Soft, no guarding, no rebound. Less tender on the right side. Travon without purulent drainage material EXTREMITIES: Without clubbing, cyanosis or edema. SKIN: No rash Labs Lab Laboratory Tests Test 11/23/19 07:55 11/23/19 11:26 11/23/19 16:53 11/23/19 21:05 Glucose (Fingerstick) 143 mg/dL (70-99) 185 mg/dL (70-99) 158 mg/dL (70-99) 143 mg/dL (70-99) Test 11/24/19 05:15 Sodium Level 145 mmol/L (136-145) Potassium Level 3.0 mmol/L (3.5-5.1) Chloride Level 110 mmol/L (98-107) Carbon Dioxide Level 22 mmol/L (21-32) Anion Gap 13 (6-14) Blood Urea Nitrogen 29 mg/dL (7-20) Creatinine 1.1 mg/dL (0.6-1.0) Estimated GFR (Cockcroft-Gault) 49.5 Glucose Level 135 mg/dL (70-99) Calcium Level 8.2 mg/dL (8.5-10.1) Phosphorus Level 3.2 mg/dL (2.6-4.7) Magnesium Level 2.0 mg/dL (1.8-2.4) Micro U/S IMPRESSION: Mild hydronephrosis on the left side. 8.2 cm retroperitoneal fluid collection on the right side. IMPRESSION: 1. Multiple bilateral intrarenal calculi. 2. Phlebolith versus ureteral calculus on the left. 3. Retroperitoneal fluid collection on the right. 4. Cholelithiasis with distended gallbladder. 5. Calcifications in the gallbladder wall. 6. Appendix within normal limits in size. Objective Assessment Leukocytosis - better GENARO - better GNR UTI- POA 11/21 ? Abd abscess - s/p Drain placement 11/22 ? Ureteral stone on left - U/S neg H/o Large subacute right temporal, parietal and occipital infarct. Small right BG, thalamus and insula infarct. Plan Plan of Care cont Zosyn 3.375 q 6 F/u labs in am and cults D/w nursing SAVI MAYNARD MD Nov 24, 2019 06:57
[2019-11-24 07:00] VITALS: BP 132/60
[2019-11-24] MEDS: POLYETHYLENE GLYCOL 3350 17 GM PACKET. PO SCH (09:00)
--- NOTE | 2019-11-24 09:12 | PDOC ---
RAMON CONTRERAS [employer] 11/24/19 0912: SURGICAL PROGRESS NOTE Subjective no abdominal pain emesis with breakfast this AM Vital Signs Vital Signs Date Time Temp Pulse Resp B/P (MAP) Pulse Ox O2 Delivery O2 Flow Rate FiO2 11/24/19 07:00 98.4 67 16 132/60 (84) 96 Room Air 98.4 I&O Intake and Output 11/24/19 07:00 Intake Total 1340 ml Output Total 927 ml Balance 413 ml Intake Oral 1340 ml Output Urine Total 900 ml Drainage Total 27 ml # Voids 4 # Bowel Movements 1 General: Alert, Oriented X3, Cooperative Abdomen: Soft, Other (drain in place, no drainage currently ) Labs Laboratory Tests Test 11/22/19 11:26 11/22/19 17:10 11/22/19 20:56 11/23/19 03:00 Glucose (Fingerstick) 165 mg/dL (70-99) 169 mg/dL (70-99) 230 mg/dL (70-99) White Blood Count 12.7 x10^3/uL (4.0-11.0) Red Blood Count 3.46 x10^6/uL (3.50-5.40) Hemoglobin 10.5 g/dL (12.0-15.5) Hematocrit 31.4 % (36.0-47.0) Mean Corpuscular Volume 91 fL (79-100) Mean Corpuscular Hemoglobin 30 pg (25-35) Mean Corpuscular Hemoglobin Concent 33 g/dL (31-37) Red Cell Distribution Width 14.7 % (11.5-14.5) Platelet Count 119 x10^3/uL (140-400) Neutrophils (%) (Auto) 89 % (31-73) Lymphocytes (%) (Auto) 6 % (24-48) Monocytes (%) (Auto) 5 % (0-9) Eosinophils (%) (Auto) 0 % (0-3) Basophils (%) (Auto) 0 % (0-3) Neutrophils # (Auto) 11.3 x10^3/uL (1.8-7.7) Lymphocytes # (Auto) 0.8 x10^3/uL (1.0-4.8) Monocytes # (Auto) 0.6 x10^3/uL (0.0-1.1) Eosinophils # (Auto) 0.0 x10^3/uL (0.0-0.7) Basophils # (Auto) 0.0 x10^3/uL (0.0-0.2) Sodium Level 145 mmol/L (136-145) Potassium Level 3.4 mmol/L (3.5-5.1) Chloride Level 109 mmol/L (98-107) Carbon Dioxide Level 26 mmol/L (21-32) Anion Gap 10 (6-14) Blood Urea Nitrogen 47 mg/dL (7-20) Creatinine 1.4 mg/dL (0.6-1.0) Estimated GFR (Cockcroft-Gault) 37.5 Glucose Level 137 mg/dL (70-99) Calcium Level 8.4 mg/dL (8.5-10.1) Test 11/23/19 07:55 11/23/19 11:26 11/23/19 16:53 11/23/19 21:05 Glucose (Fingerstick) 143 mg/dL (70-99) 185 mg/dL (70-99) 158 mg/dL (70-99) 143 mg/dL (70-99) Test 11/24/19 05:15 11/24/19 07:48 Sodium Level 145 mmol/L (136-145) Potassium Level 3.0 mmol/L (3.5-5.1) Chloride Level 110 mmol/L (98-107) Carbon Dioxide Level 22 mmol/L (21-32) Anion Gap 13 (6-14) Blood Urea Nitrogen 29 mg/dL (7-20) Creatinine 1.1 mg/dL (0.6-1.0) Estimated GFR (Cockcroft-Gault) 49.5 Glucose Level 135 mg/dL (70-99) Calcium Level 8.2 mg/dL (8.5-10.1) Phosphorus Level 3.2 mg/dL (2.6-4.7) Magnesium Level 2.0 mg/dL (1.8-2.4) Glucose (Fingerstick) 122 mg/dL (70-99) Laboratory Tests Test 11/23/19 11:26 11/23/19 16:53 11/23/19 21:05 11/24/19 05:15 Glucose (Fingerstick) 185 mg/dL (70-99) 158 mg/dL (70-99) 143 mg/dL (70-99) Sodium Level 145 mmol/L (136-145) Potassium Level 3.0 mmol/L (3.5-5.1) Chloride Level 110 mmol/L (98-107) Carbon Dioxide Level 22 mmol/L (21-32) Anion Gap 13 (6-14) Blood Urea Nitrogen 29 mg/dL (7-20) Creatinine 1.1 mg/dL (0.6-1.0) Estimated GFR (Cockcroft-Gault) 49.5 Glucose Level 135 mg/dL (70-99) Calcium Level 8.2 mg/dL (8.5-10.1) Phosphorus Level 3.2 mg/dL (2.6-4.7) Magnesium Level 2.0 mg/dL (1.8-2.4) Test 11/24/19 07:48 Glucose (Fingerstick) 122 mg/dL (70-99) Problem List supportive care elective jaun KRYSTIN EDWARDS MD 11/24/19 1324: SURGICAL PROGRESS NOTE Assessment/Plan Pt seen and examined. Agree with Ms. Contreras's note Pt feels better, no further N/V abd soft, NTTP cont abx and drain RAMON CONTRERAS APRN Nov 24, 2019 09:12 KRYSTIN EDWARDS MD Nov 24, 2019 13:24
[2019-11-24] MEDS: MONTELUKAST SODIUM 10 MG TABLET. PO SCH (09:39)
[2019-11-24] MEDS: ASPIRIN 325 MG TABLET PO SCH (09:39)
[2019-11-24] MEDS: LACTOBACILLUS RHAMNOSUS GG 1 CAPSULE. PO SCH ×2 (09:39→21:17)
[2019-11-24] MEDS: FLUoxetine HCL 20 MG CAPSULE PO SCH (09:39)
[2019-11-24] MEDS: amLODIPine BESYLATE 5 MG TABLET PO SCH (09:39)
[2019-11-24] MEDS: NON FORMULARY ITEM (Icosapent Ethyl (Vascepa) 2 GM) PO SCH ×2 (09:39→21:00)
[2019-11-24] MEDS: FERROUS SULFATE 325 MG TABLET. PO SCH ×2 (09:39→18:11)
[2019-11-24 11:00] VITALS: BP 137/55
--- NOTE | 2019-11-24 11:05 | PDOC ---
Renal-Progress Notes Subjective Notes Notes NO NEW COMPLAINTS History of Present Illness Hx of present illness STABLE Vitals Vitals Vital Signs Date Time Temp Pulse Resp B/P (MAP) Pulse Ox O2 Delivery O2 Flow Rate FiO2 11/24/19 09:39 67 132/60 11/24/19 07:00 98.4 16 96 Room Air 98.4 Weight Weight [ ] I.O. Intake and Output Intake and Output 11/24/19 07:00 Intake Total 1340 ml Output Total 927 ml Balance 413 ml Intake Oral 1340 ml Output Urine Total 900 ml Drainage Total 27 ml # Voids 4 # Bowel Movements 1 Labs Labs Laboratory Tests Test 11/23/19 11:26 11/23/19 16:53 11/23/19 21:05 11/24/19 05:15 Glucose (Fingerstick) 185 mg/dL (70-99) 158 mg/dL (70-99) 143 mg/dL (70-99) Sodium Level 145 mmol/L (136-145) Potassium Level 3.0 mmol/L (3.5-5.1) Chloride Level 110 mmol/L (98-107) Carbon Dioxide Level 22 mmol/L (21-32) Anion Gap 13 (6-14) Blood Urea Nitrogen 29 mg/dL (7-20) Creatinine 1.1 mg/dL (0.6-1.0) Estimated GFR (Cockcroft-Gault) 49.5 Glucose Level 135 mg/dL (70-99) Calcium Level 8.2 mg/dL (8.5-10.1) Phosphorus Level 3.2 mg/dL (2.6-4.7) Magnesium Level 2.0 mg/dL (1.8-2.4) Test 11/24/19 07:48 Glucose (Fingerstick) 122 mg/dL (70-99) Micro Micro Microbiology 11/21/19 Urine Culture - Preliminary, Resulted 11/21/19 Urine Culture Result 1 (ASAEL) - Preliminary, Resulted Review of Systems Constitutional: yes: alert, oriented Ears/Nose/Throat: Yes: no symptom reported Eyes: Yes: no symptom reported Pulmonary: Yes no symptom reported Cardiovascular: Yes no symptom reported Gastrointestional: Yes: nausea, vomiting Genitourinary: Yes: no symptom reported Musculoskeletal: Yes: no symptom reported Skin: Yes no symptom reported Psychiatric/Neurological: Yes: no symptom reported Endocrine: Yes: no symptom reported Physical Exam General Appearance: no apparent distress Skin: warm Respiratory: decreased breath sounds Heart: S1S2 Abdomen: soft, bowel sounds present Genitourinary: bladder flat Extremities: pulses present Neurology: alert Assessment Assessment IMP GENARO-CR OF 2.2 TO 1.1 LOW K DEHYDRATION URINARY TRACT INFECTION LEUCOCYTOSIS ABD ABSCESS/FLUID COLLECTION DM II PLAN REPLACE K SALINE INFUSION ANTIBIOTICS SURGICAL EVAL ONGOING WILL FOLLOW LUNA SIMS MD Nov 24, 2019 11:04
[2019-11-24] MEDS ORDERED: POTASSIUM CHLORIDE 20 MEQ TABLET.ER. PO ONE (11:15)
--- NOTE | 2019-11-24 12:22 | PDOC ---
[employer] PROGRESS NOTE Chief Complaint Chief Complaint Sepsis ATN (Acute tubular necrosis) Hypokalemia Anemia Near syncope UTI (urinary tract infection) Retroperitoneal abscess Abdominal pain Vomiting and diarrhea Dyslipidemia History of Present Illness History of Present Illness Patient seen and examined. Chart reviewed and care discussed with nursing staff. No acute distress. Patient resting comfortably in bed. MELODY drain in place. Continues to drain milky yellow/white fluid. No new complaints at this time. She reports that she is beginning to feel better each day slowly. Vitals/I&O Vitals/I&O: Vital Signs Date Time Temp Pulse Resp B/P (MAP) Pulse Ox O2 Delivery O2 Flow Rate FiO2 11/24/19 11:00 98.3 62 16 137/55 (82) 97 Room Air 98.3 I & O 11/23/19 11/23/19 11/24/19 15:00 23:00 07:00 Intake Total 860 ml 360 ml 120 ml Output Total 600 ml 15 ml 312 ml Balance 260 ml 345 ml -192 ml Physical Exam Physical Exam: CONSTITUTIONAL: NAD. Appears comfortable HEENT: EOMI. She had non injected conjunctivae. Oral cavity, pharynx was clear. NECK: Supple, no JVD. LUNGS: Clear to auscultation bilaterally. HEART: RRR, no murmur ABDOMEN: Soft, no guarding, no rebound. Less tender on the right side. MELODY drain with purulent drainage material visible EXTREMITIES: Without clubbing, cyanosis or edema. SKIN: No rash General: Alert, Oriented X3, Cooperative Heart: Regular rate Lungs: Clear, Wheezing Abdomen: Soft, Other (drain in place, no drainage currently ) Extremities: No clubbing, No cyanosis Skin: No rashes Labs Labs: Laboratory Tests Test 11/23/19 16:53 11/23/19 21:05 11/24/19 05:15 11/24/19 07:48 Glucose (Fingerstick) 158 mg/dL (70-99) 143 mg/dL (70-99) 122 mg/dL (70-99) Sodium Level 145 mmol/L (136-145) Potassium Level 3.0 mmol/L (3.5-5.1) Chloride Level 110 mmol/L (98-107) Carbon Dioxide Level 22 mmol/L (21-32) Anion Gap 13 (6-14) Blood Urea Nitrogen 29 mg/dL (7-20) Creatinine 1.1 mg/dL (0.6-1.0) Estimated GFR (Cockcroft-Gault) 49.5 Glucose Level 135 mg/dL (70-99) Calcium Level 8.2 mg/dL (8.5-10.1) Phosphorus Level 3.2 mg/dL (2.6-4.7) Magnesium Level 2.0 mg/dL (1.8-2.4) Review of Systems Review of Systems: denies chest pain Denies swelling Assessment and Plan Assessmemt and Plan Assesment: Sepsis ATN (Acute tubular necrosis) Hypokalemia Anemia Near syncope UTI (urinary tract infection) Retroperitoneal abscess Abdominal pain Vomiting and diarrhea Dyslipidemia Plan: -Potassium 40meq 1 PO -Continue to trend labs -Continue IV abx -Cardiac monitoring -Monitor MELODY drain tube -Continue home meds -Await subspecialists input -PT/OT -DVT ppx -Full code Comment Review of Relevant I have reviewed the following items katalina (where applicable) has been applied. Medications: Current Medications Medications (Trade) Dose Ordered Sig/Annette Route PRN Reason Start Time Stop Time Status Last Admin Dose Admin Potassium Chloride (Klor-Con) 40 meq 1X ONCE PO 11/24/19 11:15 11/24/19 11:16 DC 11/24/19 11:58 KERI MAE III DO Nov 24, 2019 12:22
[2019-11-24 15:00] VITALS: BP 135/52
[2019-11-24 19:00] VITALS: BP 134/59
[2019-11-24] MEDS: TAMSULOSIN 0.4 MG CAP.ER.24H. PO SCH (21:17)
[2019-11-24] MEDS: ATORVASTATIN CALCIUM 20 MG TABLET PO SCH (21:17)
[2019-11-24] MEDS: INSULIN GLARGINE SYRINGE. SQ SCH (21:18)
[2019-11-24 23:00] VITALS: BP 140/63
[2019-11-25] MEDS: PIPERACILLIN/TAZOBACTAM 3.375 GM in IV NORMAL SALINE 50ML 50 ML IV SCH ×4 (01:17→17:40)
[2019-11-25 03:00] VITALS: BP 153/58
[2019-11-25] MEDS: IV NORMAL SALINE 1000ML BAG 1,000 ML IV SCH (03:00)
[2019-11-25 07:00] VITALS: BP 140/59
[2019-11-25] MEDS: LACTOBACILLUS RHAMNOSUS GG 1 CAPSULE. PO SCH ×2 (08:10→21:55)
[2019-11-25] MEDS: FERROUS SULFATE 325 MG TABLET. PO SCH ×2 (08:10→17:40)
[2019-11-25] MEDS: MONTELUKAST SODIUM 10 MG TABLET. PO SCH (08:10)
[2019-11-25] MEDS: PANTOPRAZOLE 40 MG TABLET.DR. PO SCH ×2 (08:10→17:40)
[2019-11-25] MEDS: ASPIRIN 325 MG TABLET PO SCH (08:10)
[2019-11-25] MEDS: FLUoxetine HCL 20 MG CAPSULE PO SCH (08:11)
[2019-11-25] MEDS: amLODIPine BESYLATE 5 MG TABLET PO SCH (08:11)
[2019-11-25] MEDS: POLYETHYLENE GLYCOL 3350 17 GM PACKET. PO SCH (08:12)
--- NOTE | 2019-11-25 08:23 | PDOC ---
Infectious Disease Note Subjective Subjective Better and eating well Min pain No F/C/S/N/V/D/SOA ROS ROS o/w neg Vital Sign Vital Signs Vital Signs Date Time Temp Pulse Resp B/P (MAP) Pulse Ox O2 Delivery O2 Flow Rate FiO2 11/25/19 08:11 67 140/59 11/25/19 03:00 98.6 20 95 Room Air 98.6 Physical Exam PHYSICAL EXAM CONSTITUTIONAL: NAD. Appears comfortable - eating and looks well HEENT: EOMI. She had non injected conjunctivae. Oral cavity, pharynx was clear. NECK: Supple, no JVD. LUNGS: Clear to auscultation bilaterally. HEART: RRR, no murmur ABDOMEN: Soft, no guarding, no rebound. Less tender on the right side. MELODY drain with clearing drainage EXTREMITIES: Without clubbing, cyanosis or edema. SKIN: No rash Labs Lab Laboratory Tests Test 11/24/19 12:14 11/24/19 17:46 11/24/19 20:35 11/25/19 08:00 Glucose (Fingerstick) 184 mg/dL (70-99) 189 mg/dL (70-99) 176 mg/dL (70-99) 168 mg/dL (70-99) Micro Urine Klebsiella pneumoniae Greater than 100,000 colony forming units per mL Performed at: - [facility] [address], [place], [place] [id number] Athletic Trainer: CARLENE Richards MD, Phone: [phone] Greater than 100,000 colony forming units per mL Cefazolin <=4 ug/mL Cefazolin with an ASAEL <=16 predicts susceptibility to the oral agents cefaclor, cefdinir, cefpodoxime, cefprozil, cefuroxime, cephalexin, and loracarbef when used for therapy of uncomplicated urinary tract infections due to E. coli, Klebsiella pneumoniae, and Proteus mirabilis. ANTIMICROBIAL SUSCEPTIBILITY Final Comment S = Susceptible; I = Intermediate; R = Resistant P = Positive; N = Negative MICS are expressed in micrograms per mL Antibiotic RSLT#1 RSLT#2 RSLT#3 RSLT#4 Amoxicillin/Clavulanic Acid S<=2 Ampicillin R>=32 Cefepime S<=0.12 Ceftriaxone S<=0.25 Cefuroxime I =16 Ciprofloxacin S<=0.25 Ertapenem S<=0.12 Gentamicin S<=1 Imipenem S<=0.25 Levofloxacin S<=0.12 Meropenem S<=0.25 Nitrofurantoin I =64 Piperacillin/Tazobactam S =16 Tetracycline S<=1 Tobramycin S<=1 Trimethoprim/Sulfa S<=20 Abscess fluid ANAEROBIC-AEROBIC CULTURE PENDING ANAEROBIC RES 1 PENDING AEROBIC CULT PENDING AEROBIC RES 1 PENDING GRAM STAIN Final Final report GRAM STAIN RES 1 Final Comment Few gram positive rods. GRAM STAIN RES 2 Final Comment Rare gram positive cocci GRAM STAIN RES 3 Final Comment No white blood cells seen. Performed at: DA - [facility] [address] [facility] [address], [place], [place] [id number] Athletic Trainer: CARLENE Richards MD, Phone: [phone] U/S IMPRESSION: Mild hydronephrosis on the left side. 8.2 cm retroperitoneal fluid collection on the right side. IMPRESSION: 1. Multiple bilateral intrarenal calculi. 2. Phlebolith versus ureteral calculus on the left. 3. Retroperitoneal fluid collection on the right. 4. Cholelithiasis with distended gallbladder. 5. Calcifications in the gallbladder wall. 6. Appendix within normal limits in size. Objective Assessment Leukocytosis - better GENARO - better Klebsiella UTI- POA 11/21 ? Abd abscess - s/p Drain placement 11/22 ? Ureteral stone on left - U/S neg H/o Large subacute right temporal, parietal and occipital infarct. Small right BG, thalamus and insula infarct. Plan Plan of Care cont Zosyn 3.375 q 6 F/u labs in am and cults from MELODY drain D/w nursing SAVI MAYNARD MD Nov 25, 2019 08:23
[2019-11-25] MEDS: NON FORMULARY ITEM (Icosapent Ethyl (Vascepa) 2 GM) PO SCH ×2 (09:00→21:00)
[2019-11-25 09:09] LABS: BASO % 0 % (0-3); EOS # 0.1 x10^3/uL (0.0-0.7); EOS % 1 % (0-3); HEMATOCRIT 32.8 % (36.0-47.0); HEMOGLOBIN 10.9 g/dL (12.0-15.5); LYMPH % 9 % (24-48); MEAN CORPUSCULAR HEMOGLOBIN 30 pg (25-35); MEAN CORPUSCULAR HGB CONC 33 g/dL (31-37); MEAN CORPUSCULAR VOLUME 90 fL (79-100); MONO # 0.6 x10^3/uL (0.0-1.1); MONO % 5 % (0-9); NEUT % 86 % (31-73); PLATELET COUNT 210 x10^3/uL (140-400); RED BLOOD COUNT 3.65 x10^6/uL (3.50-5.40); RED CELL DISTRIBUTION WIDTH 14.3 % (11.5-14.5); WHITE BLOOD COUNT 11.6 x10^3/uL (4.0-11.0)
[2019-11-25 09:24] LABS: CALCIUM 8.7 mg/dL (8.5-10.1); GFR 55.3; POTASSIUM 3.4 mmol/L (3.5-5.1)
--- NOTE | 2019-11-25 09:43 | PDOC ---
RAMON CONTRERAS SET UP / OPERATOR 11/25/19 0943: SURGICAL PROGRESS NOTE Subjective gradual improvement no pain, no n/v Vital Signs Vital Signs Date Time Temp Pulse Resp B/P (MAP) Pulse Ox O2 Delivery O2 Flow Rate FiO2 11/25/19 08:11 67 140/59 11/25/19 08:00 Room Air 11/25/19 07:00 99.2 20 94 99.2 I&O Intake and Output 11/25/19 07:00 Intake Total 1107 ml Output Total 550 ml Balance 557 ml Intake Oral 1057 ml IV Total 50 ml Output Urine Total 550 ml # Voids 1 General: Alert, Oriented X3, Cooperative Abdomen: Soft, No tenderness, Other (drain in place, no drainage currently ) Labs Laboratory Tests Test 11/23/19 11:26 11/23/19 16:53 11/23/19 21:05 11/24/19 05:15 Glucose (Fingerstick) 185 mg/dL (70-99) 158 mg/dL (70-99) 143 mg/dL (70-99) Sodium Level 145 mmol/L (136-145) Potassium Level 3.0 mmol/L (3.5-5.1) Chloride Level 110 mmol/L (98-107) Carbon Dioxide Level 22 mmol/L (21-32) Anion Gap 13 (6-14) Blood Urea Nitrogen 29 mg/dL (7-20) Creatinine 1.1 mg/dL (0.6-1.0) Estimated GFR (Cockcroft-Gault) 49.5 Glucose Level 135 mg/dL (70-99) Calcium Level 8.2 mg/dL (8.5-10.1) Phosphorus Level 3.2 mg/dL (2.6-4.7) Magnesium Level 2.0 mg/dL (1.8-2.4) Test 11/24/19 07:48 11/24/19 12:14 11/24/19 17:46 11/24/19 20:35 Glucose (Fingerstick) 122 mg/dL (70-99) 184 mg/dL (70-99) 189 mg/dL (70-99) 176 mg/dL (70-99) Test 11/25/19 08:00 11/25/19 08:45 Glucose (Fingerstick) 168 mg/dL (70-99) White Blood Count 11.6 x10^3/uL (4.0-11.0) Red Blood Count 3.65 x10^6/uL (3.50-5.40) Hemoglobin 10.9 g/dL (12.0-15.5) Hematocrit 32.8 % (36.0-47.0) Mean Corpuscular Volume 90 fL (79-100) Mean Corpuscular Hemoglobin 30 pg (25-35) Mean Corpuscular Hemoglobin Concent 33 g/dL (31-37) Red Cell Distribution Width 14.3 % (11.5-14.5) Platelet Count 210 x10^3/uL (140-400) Neutrophils (%) (Auto) 86 % (31-73) Lymphocytes (%) (Auto) 9 % (24-48) Monocytes (%) (Auto) 5 % (0-9) Eosinophils (%) (Auto) 1 % (0-3) Basophils (%) (Auto) 0 % (0-3) Neutrophils # (Auto) 10.0 x10^3/uL (1.8-7.7) Lymphocytes # (Auto) 1.0 x10^3/uL (1.0-4.8) Monocytes # (Auto) 0.6 x10^3/uL (0.0-1.1) Eosinophils # (Auto) 0.1 x10^3/uL (0.0-0.7) Basophils # (Auto) 0.0 x10^3/uL (0.0-0.2) Sodium Level 142 mmol/L (136-145) Potassium Level 3.4 mmol/L (3.5-5.1) Chloride Level 106 mmol/L (98-107) Carbon Dioxide Level 25 mmol/L (21-32) Anion Gap 11 (6-14) Blood Urea Nitrogen 16 mg/dL (7-20) Creatinine 1.0 mg/dL (0.6-1.0) Estimated GFR (Cockcroft-Gault) 55.3 Glucose Level 175 mg/dL (70-99) Calcium Level 8.7 mg/dL (8.5-10.1) Magnesium Level 1.8 mg/dL (1.8-2.4) Laboratory Tests Test 11/24/19 12:14 11/24/19 17:46 2/13/20 20:35 11/25/19 08:00 Glucose (Fingerstick) 184 mg/dL (70-99) 189 mg/dL (70-99) 176 mg/dL (70-99) 168 mg/dL (70-99) Test 11/25/19 08:45 White Blood Count 11.6 x10^3/uL (4.0-11.0) Red Blood Count 3.65 x10^6/uL (3.50-5.40) Hemoglobin 10.9 g/dL (12.0-15.5) Hematocrit 32.8 % (36.0-47.0) Mean Corpuscular Volume 90 fL (79-100) Mean Corpuscular Hemoglobin 30 pg (25-35) Mean Corpuscular Hemoglobin Concent 33 g/dL (31-37) Red Cell Distribution Width 14.3 % (11.5-14.5) Platelet Count 210 x10^3/uL (140-400) Neutrophils (%) (Auto) 86 % (31-73) Lymphocytes (%) (Auto) 9 % (24-48) Monocytes (%) (Auto) 5 % (0-9) Eosinophils (%) (Auto) 1 % (0-3) Basophils (%) (Auto) 0 % (0-3) Neutrophils # (Auto) 10.0 x10^3/uL (1.8-7.7) Lymphocytes # (Auto) 1.0 x10^3/uL (1.0-4.8) Monocytes # (Auto) 0.6 x10^3/uL (0.0-1.1) Eosinophils # (Auto) 0.1 x10^3/uL (0.0-0.7) Basophils # (Auto) 0.0 x10^3/uL (0.0-0.2) Sodium Level 142 mmol/L (136-145) Potassium Level 3.4 mmol/L (3.5-5.1) Chloride Level 106 mmol/L (98-107) Carbon Dioxide Level 25 mmol/L (21-32) Anion Gap 11 (6-14) Blood Urea Nitrogen 16 mg/dL (7-20) Creatinine 1.0 mg/dL (0.6-1.0) Estimated GFR (Cockcroft-Gault) 55.3 Glucose Level 175 mg/dL (70-99) Calcium Level 8.7 mg/dL (8.5-10.1) Magnesium Level 1.8 mg/dL (1.8-2.4) Assessment/Plan drain, abx supportive care KRYSTIN EDWARDS MD 11/25/19 1159: SURGICAL PROGRESS NOTE Assessment/Plan Pt seen and examined. Agree with Ms. Contreras's note Pt feels better, chon diet abd soft, ND, NTTP, min drain purulence OK to work on d/c home and elect cholecystectomy. RAMON CONTRERAS APRN Nov 25, 2019 09:43 KRYSTIN EDWARDS MD Nov 25, 2019 11:59
[2019-11-25 11:00] VITALS: BP 141/63
--- NOTE | 2019-11-25 11:12 | PDOC ---
Renal-Progress Notes Subjective Notes Notes FEELING BETTER History of Present Illness Hx of present illness STABLE Vitals Vitals Vital Signs Date Time Temp Pulse Resp B/P (MAP) Pulse Ox O2 Delivery O2 Flow Rate FiO2 11/25/19 08:11 67 140/59 11/25/19 08:00 Room Air 11/25/19 07:00 99.2 20 94 99.2 Weight Weight [ ] I.O. Intake and Output Intake and Output 11/25/19 07:00 Intake Total 1107 ml Output Total 550 ml Balance 557 ml Intake Oral 1057 ml IV Total 50 ml Output Urine Total 550 ml # Voids 1 Labs Labs Laboratory Tests Test 11/24/19 12:14 11/24/19 17:46 11/24/19 20:35 11/25/19 08:00 Glucose (Fingerstick) 184 mg/dL (70-99) 189 mg/dL (70-99) 176 mg/dL (70-99) 168 mg/dL (70-99) Test 11/25/19 08:45 White Blood Count 11.6 x10^3/uL (4.0-11.0) Red Blood Count 3.65 x10^6/uL (3.50-5.40) Hemoglobin 10.9 g/dL (12.0-15.5) Hematocrit 32.8 % (36.0-47.0) Mean Corpuscular Volume 90 fL (79-100) Mean Corpuscular Hemoglobin 30 pg (25-35) Mean Corpuscular Hemoglobin Concent 33 g/dL (31-37) Red Cell Distribution Width 14.3 % (11.5-14.5) Platelet Count 210 x10^3/uL (140-400) Neutrophils (%) (Auto) 86 % (31-73) Lymphocytes (%) (Auto) 9 % (24-48) Monocytes (%) (Auto) 5 % (0-9) Eosinophils (%) (Auto) 1 % (0-3) Basophils (%) (Auto) 0 % (0-3) Neutrophils # (Auto) 10.0 x10^3/uL (1.8-7.7) Lymphocytes # (Auto) 1.0 x10^3/uL (1.0-4.8) Monocytes # (Auto) 0.6 x10^3/uL (0.0-1.1) Eosinophils # (Auto) 0.1 x10^3/uL (0.0-0.7) Basophils # (Auto) 0.0 x10^3/uL (0.0-0.2) Sodium Level 142 mmol/L (136-145) Potassium Level 3.4 mmol/L (3.5-5.1) Chloride Level 106 mmol/L (98-107) Carbon Dioxide Level 25 mmol/L (21-32) Anion Gap 11 (6-14) Blood Urea Nitrogen 16 mg/dL (7-20) Creatinine 1.0 mg/dL (0.6-1.0) Estimated GFR (Cockcroft-Gault) 55.3 Glucose Level 175 mg/dL (70-99) Calcium Level 8.7 mg/dL (8.5-10.1) Magnesium Level 1.8 mg/dL (1.8-2.4) Micro Micro Microbiology 11/22/19 Anaerobic/Aerobic Culture, Resulted Pending 11/22/19 Anaerobic Culture Result 1 (ASAEL), Resulted Pending 11/22/19 Aerobic Culture, Resulted Pending 11/22/19 Aerobic Culture Result 1 (ASAEL), Resulted Pending 11/22/19 Gram Stain - Final, Resulted 11/22/19 Gram Stain Result 1 (ASAEL) - Final, Resulted 11/22/19 Gram Stain Result 2 (ASAEL) - Final, Resulted 11/22/19 Gram Stain Result 3 (ASAEL) - Final, Resulted 11/21/19 Urine Culture - Final, Complete 11/21/19 Urine Culture Result 1 (ASAEL) - Final, Complete 11/21/19 Antimicrobic Susceptibility - Final, Complete Review of Systems Constitutional: yes: alert, oriented Ears/Nose/Throat: Yes: no symptom reported Eyes: Yes: no symptom reported Pulmonary: Yes no symptom reported Cardiovascular: Yes no symptom reported Gastrointestional: Yes: nausea, vomiting Genitourinary: Yes: no symptom reported Musculoskeletal: Yes: no symptom reported Skin: Yes no symptom reported Psychiatric/Neurological: Yes: no symptom reported Endocrine: Yes: no symptom reported Physical Exam General Appearance: no apparent distress Skin: warm Respiratory: decreased breath sounds Heart: S1S2 Abdomen: soft, bowel sounds present Genitourinary: bladder flat Extremities: pulses present Neurology: alert Assessment Assessment IMP GENARO-RESOLVED LOW K DEHYDRATION URINARY TRACT INFECTION LEUCOCYTOSIS ABD ABSCESS/FLUID COLLECTION DM II PLAN REPLACE K SALINE INFUSION ANTIBIOTICS WILL SIGN OFF LUNA SIMS MD Nov 25, 2019 11:12
[2019-11-25] MEDS ORDERED: POTASSIUM CHLORIDE 20 MEQ TABLET.ER. PO ONE (11:30)
--- NOTE | 2019-11-25 11:31 | PDOC ---
[employer] [facility] PROGRESS NOTE Chief Complaint Chief Complaint Sepsis ATN (Acute tubular necrosis) Hypokalemia Anemia Near syncope UTI (urinary tract infection) Retroperitoneal abscess Abdominal pain Vomiting and diarrhea Dyslipidemia History of Present Illness History of Present Illness Patient seen and examined. Chart reviewed and care discussed with nursing staff. No acute distress. Patient resting comfortably in bed. MELODY drain in place. Continues to drain milky yellow/white fluid. No new complaints at this time. She reports that she is beginning to feel better each day slowly. 11/25/2019 - pt seen and examined - chart reviewed - discussed pt with RN - cardiac monitoring - discussed possible discharge with pt - pt appears well with no acute events overnight - MELODY drain is still draining properly, yellow/white fluid - current IV abx Vitals/I&O Vitals/I&O: Vital Signs Date Time Temp Pulse Resp B/P (MAP) Pulse Ox O2 Delivery O2 Flow Rate FiO2 11/25/19 08:11 67 140/59 11/25/19 08:00 Room Air 11/25/19 07:00 99.2 20 94 99.2 I & O 11/24/19 11/24/19 11/25/19 15:00 23:00 07:00 Intake Total 270 ml 837 ml Output Total 300 ml 100 ml 150 ml Balance -300 ml 170 ml 687 ml Physical Exam Physical Exam: CONSTITUTIONAL: NAD. Appears comfortable - eating and looks well HEENT: EOMI. She had non injected conjunctivae. Oral cavity, pharynx was clear. NECK: Supple, no JVD. LUNGS: Clear to auscultation bilaterally. HEART: RRR, no murmur ABDOMEN: Soft, no guarding, no rebound. Less tender on the right side. MELODY drain with clearing drainage EXTREMITIES: Without clubbing, cyanosis or edema. SKIN: No rash General: Alert, Oriented X3, Cooperative Heart: Regular rate Lungs: Clear, Wheezing Abdomen: Soft, No tenderness, Other (drain in place, no drainage currently ) Extremities: No clubbing, No cyanosis Skin: No rashes Labs Labs: Laboratory Tests Test 11/24/19 12:14 11/24/19 17:46 11/24/19 20:35 11/25/19 08:00 Glucose (Fingerstick) 184 mg/dL (70-99) 189 mg/dL (70-99) 176 mg/dL (70-99) 168 mg/dL (70-99) Test 11/25/19 08:45 White Blood Count 11.6 x10^3/uL (4.0-11.0) Red Blood Count 3.65 x10^6/uL (3.50-5.40) Hemoglobin 10.9 g/dL (12.0-15.5) Hematocrit 32.8 % (36.0-47.0) Mean Corpuscular Volume 90 fL (79-100) Mean Corpuscular Hemoglobin 30 pg (25-35) Mean Corpuscular Hemoglobin Concent 33 g/dL (31-37) Red Cell Distribution Width 14.3 % (11.5-14.5) Platelet Count 210 x10^3/uL (140-400) Neutrophils (%) (Auto) 86 % (31-73) Lymphocytes (%) (Auto) 9 % (24-48) Monocytes (%) (Auto) 5 % (0-9) Eosinophils (%) (Auto) 1 % (0-3) Basophils (%) (Auto) 0 % (0-3) Neutrophils # (Auto) 10.0 x10^3/uL (1.8-7.7) Lymphocytes # (Auto) 1.0 x10^3/uL (1.0-4.8) Monocytes # (Auto) 0.6 x10^3/uL (0.0-1.1) Eosinophils # (Auto) 0.1 x10^3/uL (0.0-0.7) Basophils # (Auto) 0.0 x10^3/uL (0.0-0.2) Sodium Level 142 mmol/L (136-145) Potassium Level 3.4 mmol/L (3.5-5.1) Chloride Level 106 mmol/L (98-107) Carbon Dioxide Level 25 mmol/L (21-32) Anion Gap 11 (6-14) Blood Urea Nitrogen 16 mg/dL (7-20) Creatinine 1.0 mg/dL (0.6-1.0) Estimated GFR (Cockcroft-Gault) 55.3 Glucose Level 175 mg/dL (70-99) Calcium Level 8.7 mg/dL (8.5-10.1) Magnesium Level 1.8 mg/dL (1.8-2.4) Review of Systems Review of Systems: GI: pt denies NV, abdominal pain, tube in place Neuro: pt denies JARAMILLO, changes in vision Assessment and Plan Assessmemt and Plan 11/25/2019 - pt seen and examined - chart reviewed - discussed pt with RN - cardiac monitoring - discussed possible discharge with pt - pt appears well with no acute events overnight - drain is still draining properly Plan - d/c pending approval of subspecialists - IV abx - wound care - cardiac monitoring - dvt prophylaxis - pt/ot Comment Review of Relevant I have reviewed the following items katalina (where applicable) has been applied. KERI MAE III DO Nov 25, 2019 11:31
--- NOTE | 2019-11-25 12:23 | NUR ---
SS following up with discharge planning. PT/OT ordered. OT recommending home with home healthcare. SS will continue to follow for discharge planning.
[2019-11-25 15:00] VITALS: BP 144/62
[2019-11-25 19:40] VITALS: BP 159/70
[2019-11-25] MEDS: ATORVASTATIN CALCIUM 20 MG TABLET PO SCH (21:55)
[2019-11-25] MEDS: TAMSULOSIN 0.4 MG CAP.ER.24H. PO SCH (21:55)
[2019-11-25] MEDS: INSULIN GLARGINE SYRINGE. SQ SCH (22:02)
[2019-11-25 23:00] VITALS: BP 140/55
[2019-11-26] MEDS: PIPERACILLIN/TAZOBACTAM 3.375 GM in IV NORMAL SALINE 50ML 50 ML IV SCH ×4 (00:12→17:46)
[2019-11-26] MEDS: IV NORMAL SALINE 1000ML BAG 1,000 ML IV SCH ×3 (00:12→21:03)
[2019-11-26 03:20] VITALS: BP 170/74
[2019-11-26 07:00] VITALS: BP 146/68
[2019-11-26] MEDS: MONTELUKAST SODIUM 10 MG TABLET. PO SCH (08:49)
[2019-11-26] MEDS: amLODIPine BESYLATE 5 MG TABLET PO SCH (08:49)
[2019-11-26] MEDS: ASPIRIN 325 MG TABLET PO SCH (08:49)
[2019-11-26] MEDS: POLYETHYLENE GLYCOL 3350 17 GM PACKET. PO SCH (08:49)
[2019-11-26] MEDS: PANTOPRAZOLE 40 MG TABLET.DR. PO SCH ×2 (08:49→17:10)
[2019-11-26] MEDS: LACTOBACILLUS RHAMNOSUS GG 1 CAPSULE. PO SCH ×2 (08:49→21:05)
[2019-11-26] MEDS: FERROUS SULFATE 325 MG TABLET. PO SCH ×2 (08:49→17:10)
[2019-11-26] MEDS: FLUoxetine HCL 20 MG CAPSULE PO SCH (08:49)
[2019-11-26] MEDS: NON FORMULARY ITEM (Icosapent Ethyl (Vascepa) 2 GM) PO SCH ×2 (09:00→20:20)
[2019-11-26 11:00] VITALS: BP 127/56
--- NOTE | 2019-11-26 11:06 | PDOC ---
SURGICAL PROGRESS NOTE Subjective Pt without c/o, feels well Vital Signs Vital Signs Date Time Temp Pulse Resp B/P (MAP) Pulse Ox O2 Delivery O2 Flow Rate FiO2 11/26/19 08:49 75 170/74 11/26/19 08:05 Room Air 11/26/19 07:00 99.4 18 93 2.0 99.4 I&O Intake and Output 11/26/19 07:00 Intake Total 500 ml Output Total 840 ml Balance -340 ml Intake Oral 500 ml Output Urine Total 820 ml Drainage Total 20 ml # Voids 1 General: Alert, Oriented X3, Cooperative, No acute distress Abdomen: Soft, No tenderness, Other (drain clear) Labs Laboratory Tests Test 11/24/19 12:14 11/24/19 17:46 11/24/19 20:35 11/25/19 08:00 Glucose (Fingerstick) 184 mg/dL (70-99) 189 mg/dL (70-99) 176 mg/dL (70-99) 168 mg/dL (70-99) Test 11/25/19 08:45 11/25/19 11:44 11/25/19 17:31 11/25/19 21:54 White Blood Count 11.6 x10^3/uL (4.0-11.0) Red Blood Count 3.65 x10^6/uL (3.50-5.40) Hemoglobin 10.9 g/dL (12.0-15.5) Hematocrit 32.8 % (36.0-47.0) Mean Corpuscular Volume 90 fL (79-100) Mean Corpuscular Hemoglobin 30 pg (25-35) Mean Corpuscular Hemoglobin Concent 33 g/dL (31-37) Red Cell Distribution Width 14.3 % (11.5-14.5) Platelet Count 210 x10^3/uL (140-400) Neutrophils (%) (Auto) 86 % (31-73) Lymphocytes (%) (Auto) 9 % (24-48) Monocytes (%) (Auto) 5 % (0-9) Eosinophils (%) (Auto) 1 % (0-3) Basophils (%) (Auto) 0 % (0-3) Neutrophils # (Auto) 10.0 x10^3/uL (1.8-7.7) Lymphocytes # (Auto) 1.0 x10^3/uL (1.0-4.8) Monocytes # (Auto) 0.6 x10^3/uL (0.0-1.1) Eosinophils # (Auto) 0.1 x10^3/uL (0.0-0.7) Basophils # (Auto) 0.0 x10^3/uL (0.0-0.2) Sodium Level 142 mmol/L (136-145) Potassium Level 3.4 mmol/L (3.5-5.1) Chloride Level 106 mmol/L (98-107) Carbon Dioxide Level 25 mmol/L (21-32) Anion Gap 11 (6-14) Blood Urea Nitrogen 16 mg/dL (7-20) Creatinine 1.0 mg/dL (0.6-1.0) Estimated GFR (Cockcroft-Gault) 55.3 Glucose Level 175 mg/dL (70-99) Calcium Level 8.7 mg/dL (8.5-10.1) Magnesium Level 1.8 mg/dL (1.8-2.4) Glucose (Fingerstick) 191 mg/dL (70-99) 165 mg/dL (70-99) 182 mg/dL (70-99) Test 11/26/19 07:49 Glucose (Fingerstick) 100 mg/dL (70-99) Laboratory Tests Test 11/25/19 11:44 11/25/19 17:31 11/25/19 21:54 11/26/19 07:49 Glucose (Fingerstick) 191 mg/dL (70-99) 165 mg/dL (70-99) 182 mg/dL (70-99) 100 mg/dL (70-99) Problem List abd abscess OK to discuss drain removal and d/c planning consider elective cholecystectomy will check drain fluid for lipase KRYSTIN EDWARDS MD Nov 26, 2019 11:06
--- NOTE | 2019-11-26 12:08 | PDOC ---
[employer] [facility] PROGRESS NOTE Chief Complaint Chief Complaint Sepsis ATN (Acute tubular necrosis) Hypokalemia Anemia Near syncope UTI (urinary tract infection) Retroperitoneal abscess Abdominal pain Vomiting and diarrhea Dyslipidemia History of Present Illness History of Present Illness Patient seen and examined. Chart reviewed and care discussed with nursing staff. No acute distress. Patient resting comfortably in bed. MELODY drain in place. Continues to drain milky yellow/white fluid. No new complaints at this time. She reports that she is beginning to feel better each day slowly. 11/25/2019 - pt seen and examined - chart reviewed - discussed pt with RN - cardiac monitoring - discussed possible discharge with pt - pt appears well with no acute events overnight - MELODY drain is still draining properly, yellow/white fluid - current IV abx 11/26/2019 -Pt seen and examined. -Chart reviewed and care discussed with nursing staff. -Pt sitting comfortably in bed. She has no new complaints at this time. Vitals/I&O Vitals/I&O: Vital Signs Date Time Temp Pulse Resp B/P (MAP) Pulse Ox O2 Delivery O2 Flow Rate FiO2 11/26/19 11:00 98.9 78 18 127/56 (79) 94 Room Air 2.0 98.9 I & O 11/25/19 11/25/19 11/26/19 15:00 23:00 07:00 Intake Total 500 ml Output Total 70 ml 20 ml 750 ml Balance -70 ml -20 ml -250 ml Physical Exam Physical Exam: CONSTITUTIONAL: NAD. Appears comfortable HEENT: EOMI. She had non injected conjunctivae. Oral cavity, pharynx was clear. NECK: Supple, no JVD. LUNGS: CTAB, no wheezes HEART: RRR, no murmur ABDOMEN: Soft, no guarding, no rebound.. MELODY drain with trace white semi- purulent drainage. EXTREMITIES: Without clubbing, cyanosis or edema. SKIN: No rash General: Alert, Oriented X3, Cooperative, No acute distress Heart: Regular rate Lungs: Clear, Wheezing Abdomen: Soft, No tenderness, Other (drain clear) Extremities: No clubbing, No cyanosis Skin: No rashes Labs Labs: Laboratory Tests Test 11/25/19 17:31 11/25/19 21:54 11/26/19 07:49 11/26/19 11:45 Glucose (Fingerstick) 165 mg/dL (70-99) 182 mg/dL (70-99) 100 mg/dL (70-99) 112 mg/dL (70-99) Review of Systems Review of Systems: Denies Chest pain or SOA Assessment and Plan Assessmemt and Plan Assessment: Sepsis ATN (Acute tubular necrosis) Hypokalemia Anemia Near syncope UTI (urinary tract infection) Retroperitoneal abscess Abdominal pain Vomiting and diarrhea Dyslipidemia Plan - Hope to d/c MELODY drain when ok with subspecialists - Continue IV abx - Wound care - Cardiac monitoring - PT/OT -DVT ppx - Discharge pending approval of subspecialists - Probable SNU next week. Comment Review of Relevant I have reviewed the following items katalina (where applicable) has been applied. KERI MAE III DO Nov 26, 2019 12:08
--- NOTE | 2019-11-26 13:55 | PDOC ---
Infectious Disease Note Subjective Subjective Doing well Denies pain/F/C/N/V/D/SOA ROS ROS per HPI Vital Sign Vital Signs Vital Signs Date Time Temp Pulse Resp B/P (MAP) Pulse Ox O2 Delivery O2 Flow Rate FiO2 11/26/19 11:00 98.9 78 18 127/56 (79) 94 Room Air 2.0 98.9 Physical Exam PHYSICAL EXAM GENERAL: Propped up in bed, alert in NAD HEENT: Oral cavity, pharynx was clear. NECK: Supple, no JVD. LUNGS: CTAB, no wheezes HEART: S1 S2, regular ABDOMEN: Soft, no guarding, no rebound.. Right-sided posterior MELODY drain with trace white semi-purulent drainage. EXTREMITIES: Without clubbing, cyanosis or edema. SKIN: No rash DIRECTOR OF COMPLIANCE: Alert and answering questions appropriately PIV ok Labs Lab Laboratory Tests Test 11/25/19 17:31 11/25/19 21:54 11/26/19 07:49 11/26/19 11:45 Glucose (Fingerstick) 165 mg/dL (70-99) 182 mg/dL (70-99) 100 mg/dL (70-99) 112 mg/dL (70-99) Micro ANAEROBIC-AEROBIC CULTURE PENDING ANAEROBIC RES 1 PENDING AEROBIC CULT Preliminary Preliminary report AEROBIC RES 1 Preliminary Comment No growth in 36 - 48 hours. GRAM STAIN Final Final report GRAM STAIN RES 1 Final Comment Few gram positive rods. GRAM STAIN RES 2 Final Comment Rare gram positive cocci Objective Assessment Klebsiella UTI- POA 11/21 Abd abscess - s/p drain placement 11/22. GPR & GPC Leukocytosis - improving GENARO - better ? Ureteral stone on left - U/S neg H/o Large subacute right temporal, parietal and occipital infarct. Small right BG, thalamus and insula infarct. Plan Plan of Care cont Zosyn Probiotics Monitor MELODY output f/u cultures D/w nursing Patient seen and examined. Chart reviewed in detail, Case discussed with INVESTMENT ANALYST. I agree with above plan ISA SAMUELS APRN Nov 26, 2019 13:55 JACINTA DEMPSEY MD Nov 26, 2019 23:10
[2019-11-26 15:00] VITALS: BP 139/57
--- NOTE | 2019-11-26 19:12 | NUR ---
PATIENT TRANSFERRED BY BED TO ROOM 648. PATIENTS BELONGINGS WITH PATIENT AT TIME OF TRANSFER. PATIENT STABLE AT THIS TIME. PATIENTS CHART PLACED IN CHART SLOT. ERNESTO NOTIFIED OF PATIENT ARRIVING TO ROOM.
[2019-11-26 19:15] VITALS: BP 153/63
[2019-11-26] MEDS: TAMSULOSIN 0.4 MG CAP.ER.24H. PO SCH (21:06)
[2019-11-26] MEDS: ATORVASTATIN CALCIUM 20 MG TABLET PO SCH (21:06)
[2019-11-26] MEDS: INSULIN GLARGINE SYRINGE. SQ SCH (21:20)
[2019-11-26 23:20] VITALS: BP 144/54
[2019-11-27] MEDS: PIPERACILLIN/TAZOBACTAM 3.375 GM in IV NORMAL SALINE 50ML 50 ML IV SCH ×4 (00:40→17:26)
[2019-11-27 03:30] VITALS: BP 146/45
[2019-11-27 07:14] VITALS: BP 145/55
[2019-11-27 07:22] LABS: BASO % 0 % (0-3); EOS # 0.2 x10^3/uL (0.0-0.7); EOS % 1 % (0-3); HEMATOCRIT 28.2 % (36.0-47.0); HEMOGLOBIN 9.6 g/dL (12.0-15.5); LYMPH # 1.3 x10^3/uL (1.0-4.8); LYMPH % 9 % (24-48); MEAN CORPUSCULAR HEMOGLOBIN 30 pg (25-35); MEAN CORPUSCULAR HGB CONC 34 g/dL (31-37); MEAN CORPUSCULAR VOLUME 88 fL (79-100); MONO # 0.6 x10^3/uL (0.0-1.1); MONO % 4 % (0-9); NEUT # 13.2 x10^3/uL (1.8-7.7); NEUT % 86 % (31-73); PLATELET COUNT 275 x10^3/uL (140-400); RED CELL DISTRIBUTION WIDTH 13.9 % (11.5-14.5); WHITE BLOOD COUNT 15.4 x10^3/uL (4.0-11.0)
[2019-11-27 07:41] LABS: CALCIUM 7.9 mg/dL (8.5-10.1); CREATININE 0.7 mg/dL (0.6-1.0); GFR 83.5
[2019-11-27 07:44] LABS: POTASSIUM 2.7 mmol/L (3.5-5.1)
[2019-11-27] MEDS: POLYETHYLENE GLYCOL 3350 17 GM PACKET. PO SCH (09:00)
[2019-11-27] MEDS: NON FORMULARY ITEM (Icosapent Ethyl (Vascepa) 2 GM) PO SCH ×2 (09:00→21:47)
[2019-11-27] MEDS: PANTOPRAZOLE 40 MG TABLET.DR. PO SCH ×2 (09:02→17:26)
[2019-11-27] MEDS: ASPIRIN 325 MG TABLET PO SCH (09:02)
[2019-11-27] MEDS: MONTELUKAST SODIUM 10 MG TABLET. PO SCH (09:02)
[2019-11-27] MEDS: LACTOBACILLUS RHAMNOSUS GG 1 CAPSULE. PO SCH ×2 (09:02→21:58)
[2019-11-27] MEDS: FERROUS SULFATE 325 MG TABLET. PO SCH ×2 (09:03→17:26)
[2019-11-27] MEDS: amLODIPine BESYLATE 5 MG TABLET PO SCH (09:03)
[2019-11-27] MEDS: FLUoxetine HCL 20 MG CAPSULE PO SCH (09:03)
[2019-11-27] MEDS: IV NORMAL SALINE 1000ML BAG 1,000 ML IV SCH ×2 (09:04→21:59)
[2019-11-27] MEDS ORDERED: POTASSIUM CHLORIDE 20 MEQ TABLET.ER. PO ONE (09:30)
[2019-11-27] MEDS: POTASSIUM CHLORIDE 10MEQ 100 ML IV SCH ×2 (09:45→11:14)
[2019-11-27 11:12] VITALS: BP 152/49
--- NOTE | 2019-11-27 11:25 | PDOC ---
Infectious Disease Note Subjective Subjective PIV burning some with potassium infusing Otherwise doing alight 20 ml MELODY output No fevers/chills/SOA/N/V/D Vital Sign Vital Signs Vital Signs Date Time Temp Pulse Resp B/P (MAP) Pulse Ox O2 Delivery O2 Flow Rate FiO2 11/27/19 09:03 75 145/55 11/27/19 07:14 99.0 16 95 Room Air 99.0 11/26/19 15:00 2.0 Physical Exam PHYSICAL EXAM GENERAL: Propped up in bed, alert, reading HEENT: Oral cavity, pharynx was clear. NECK: Supple, no JVD. LUNGS: CTAB, no wheezes HEART: S1 S2, regular ABDOMEN: Soft, no guarding, no rebound.. Right-sided posterior MELODY drain with trace white semi-purulent drainage. EXTREMITIES: Without clubbing, cyanosis or edema. SKIN: No rash QUALITATIVE FIELD COORDINATOR: Alert and answering questions appropriately PIV ok Labs Lab Laboratory Tests Test 11/26/19 11:45 11/26/19 16:54 11/26/19 21:07 11/27/19 06:15 Glucose (Fingerstick) 112 mg/dL (70-99) 123 mg/dL (70-99) 135 mg/dL (70-99) White Blood Count 15.4 x10^3/uL (4.0-11.0) Red Blood Count 3.20 x10^6/uL (3.50-5.40) Hemoglobin 9.6 g/dL (12.0-15.5) Hematocrit 28.2 % (36.0-47.0) Mean Corpuscular Volume 88 fL (79-100) Mean Corpuscular Hemoglobin 30 pg (25-35) Mean Corpuscular Hemoglobin Concent 34 g/dL (31-37) Red Cell Distribution Width 13.9 % (11.5-14.5) Platelet Count 275 x10^3/uL (140-400) Neutrophils (%) (Auto) 86 % (31-73) Lymphocytes (%) (Auto) 9 % (24-48) Monocytes (%) (Auto) 4 % (0-9) Eosinophils (%) (Auto) 1 % (0-3) Basophils (%) (Auto) 0 % (0-3) Neutrophils # (Auto) 13.2 x10^3/uL (1.8-7.7) Lymphocytes # (Auto) 1.3 x10^3/uL (1.0-4.8) Monocytes # (Auto) 0.6 x10^3/uL (0.0-1.1) Eosinophils # (Auto) 0.2 x10^3/uL (0.0-0.7) Basophils # (Auto) 0.0 x10^3/uL (0.0-0.2) Sodium Level 141 mmol/L (136-145) Potassium Level 2.7 mmol/L (3.5-5.1) Chloride Level 106 mmol/L (98-107) Carbon Dioxide Level 24 mmol/L (21-32) Anion Gap 11 (6-14) Blood Urea Nitrogen 6 mg/dL (7-20) Creatinine 0.7 mg/dL (0.6-1.0) Estimated GFR (Cockcroft-Gault) 83.5 Glucose Level 62 mg/dL (70-99) Calcium Level 7.9 mg/dL (8.5-10.1) Test 11/27/19 07:13 11/27/19 08:31 11/27/19 10:27 Glucose (Fingerstick) 62 mg/dL (70-99) 129 mg/dL (70-99) 106 mg/dL (70-99) Micro ANAEROBIC RES 1 PENDING AEROBIC RES 1 Final Comment No growth in 36 - 48 hours. No growth in 56 - 72 hours. GRAM STAIN RES 1 Final Few gram positive rods. GRAM STAIN RES 2 Final Rare gram positive cocci Objective Assessment Klebsiella UTI- POA 11/21 Abd abscess - s/p drain placement 11/22. GPR & GPC. no growth so far Leukocytosis GENARO - better ? Ureteral stone on left - U/S neg H/o Large subacute right temporal, parietal and occipital infarct. Small right BG, thalamus and insula infarct. Plan Plan of Care cont Zosyn Probiotics Monitor MELODY output f/u cultures Monitor WBC Patient seen and examined. Chart reviewed in detail. Case discussed with LION TAMER. I agree with above plan. ISA SAMUELS APRN Nov 27, 2019 11:25 JACINTA DEMPSEY MD Nov 27, 2019 19:29
--- NOTE | 2019-11-27 11:49 | PDOC ---
PROGRESS NOTES Chief Complaint Chief Complaint IMPRESSION Sepsis ATN (Acute tubular necrosis) Hypokalemia Anemia Near syncope UTI (urinary tract infection) Retroperitoneal abscess ct reviewed Abnormal fluid collection behind the right kidney lateral to the psoas muscle measuring 2.8 x 4.7 x 8.5 cm. An abscess is possible, a seroma could have this pattern, hematoma would be possible. Abdominal pain, improving Vomiting and diarrhea, improved Dyslipidemia Abd abscess - s/p drain placement 11/22. GPR & GPC. no growth so far Leukocytosis GENARO Ureteral stone on left - U/S neg//8.2 cm retroperitoneal fluid collection on the right side. Large subacute right temporal, parietal and occipital infarct. severe hypokalemia, on replacement History of Present Illness History of Present Illness Patient seen and examined. Chart reviewed and care discussed with nursing staff. No acute distress. Patient resting comfortably in bed. MELODY drain in place. Continues to drain milky yellow/white fluid. No new complaints at this time. She reports that she is beginning to feel better each day slowly. 11/25/2019 - pt seen and examined - chart reviewed - discussed pt with RN - cardiac monitoring - discussed possible discharge with pt - pt appears well with no acute events overnight - MELODY drain is still draining properly, yellow/white fluid - current IV abx 11/27/2019 -Pt seen and examined. -Chart reviewed and care discussed with nursing staff. -Pt sitting comfortably in bed. meds reviewed -on tele 37 min pt exam, chart review, > 50% of time spent with exam, chart review, pt care coordination Vitals Vitals Vital Signs Date Time Temp Pulse Resp B/P (MAP) Pulse Ox O2 Delivery O2 Flow Rate FiO2 11/27/19 11:12 98.9 82 14 152/49 (83) 95 Room Air 98.9 11/26/19 15:00 2.0 Physical Exam Physical Exam GENERAL: Propped up in bed, alert, reading HEENT: Oral cavity, pharynx was clear. NECK: Supple, no JVD. LUNGS: CTAB, no wheezes HEART: S1 S2, regular ABDOMEN: Soft, no guarding, no rebound.. Right-sided posterior MELODY drain with trace white semi-purulent drainage. EXTREMITIES: Without clubbing, cyanosis or edema. SKIN: No rash SUPERVISOR TESTING: Alert and answering questions appropriately PIV ok General: Alert, Oriented X3, Cooperative, No acute distress Heart: Regular rate, No murmurs Lungs: Clear, Wheezing Abdomen: Soft, No tenderness, Other (drain clear) Extremities: No clubbing, No cyanosis Skin: No rashes Labs LABS MITRAL VALVE The mitral valve is normal in structure and function. There is no evidence of mitral valve prolapse. There is no mitral valve stenosis. Doppler and Color-flow revealed trace mitral regurgitation. TRICUSPID VALVE The tricuspid valve is normal in structure and function. Doppler and Color Flow revealed trace tricuspid regurgitation with an estimated PAP of 23 mmHg. There is no tricuspid valve stenosis. PULMONIC VALVE The pulmonic valve is not well visualized. Doppler and Color Flow revealed no pulmonic valvular regurgitation. GREAT VESSELS The aortic root is normal in size. The IVC is normal in size and collapses >50% with inspiration. PERICARDIAL EFFUSION There is no evidence of significant pericardial effusion. Critical Notification Critical Value: No <Conclusion> The left ventricular systolic function is normal. The Ejection Fraction is 60-65%. There is normal LV segmental wall motion. Transmitral Doppler flow pattern is Grade I-abnormal relaxation pattern. Trace mitral regurgitation. Trace tricuspid regurgitation with an estimated PAP of 23 mmHg. There is no evidence of significant pericardial effusion. Bubble study negative for interatrial shunt. Signed by : Migdalia Malik, Electronically Approved : 02/25/2019 17:40:28 DICTATED AND SIGNED BY: MIGDALIA MALIK MD DATE: 02/25/19 1740 CC: NO PCP; MIGDALIA MALIK MD; KARON ROA MD; ZAKIA PRUETT MD ~ MR#: [id number] Date of Study: 02/25/2019 Ordering Physician: KARON ROA, Referring Physician: ZAKIA PRUETT, Tech: Stephanie Hodansandy APPROVED REPORT EXAM: Two-dimensional and M-mode echocardiogram with Doppler and color Doppler. Other Information Quality : Average HR: 69bpm PATIENT: MATHIEU ORTIZ ACCOUNT: [id number] : 1950 LOCATION: [address] [place] [address] AGE: 69 SEX: F EXAM STATUS: ADM IN ORD. PHYSICIAN: SAVI MAYNARD MD REASON: Abnormal CT scan; ? Left ureteral stone and hydro bilateral PROCEDURE: RENAL COMPLETE BILATERAL Renal sonography Clinical indications: Bilateral renal calculi. Possible left ureteral calculus seen on CT study dated July 21, 2020. Abdominal pain. FINDINGS: The longitudinal and AP and transverse dimensions of the right kidney are 11.7 cm and 5.2 cm and 5.3 cm respectively. No hydronephrosis or renal mass or perinephric fluid collection is seen on this side. However, there is a fluid collection seen within the retroperitoneum on the right side posteriorly which is located inferior to the right kidney and measures 6.6 cm x 8.2 cm x 2.2 cm in size. This corresponds to the CT finding. The longitudinal and AP and transverse dimensions of the left kidney are 13.7 cm and 8.0 cm and 5.0 cm respectively. There is mild hydronephrosis on the left side and comparison to the right side. The left renal pelvis measures 14 mm in diameter. No renal mass or perinephric fluid collection is seen on the left side. The urinary bladder wall is smooth and no intraluminal echodensities or masses are seen. Bilateral ureteral jets are seen. IMPRESSION: Mild hydronephrosis on the left side. 8.2 cm retroperitoneal fluid collection on the right side. Electronically signed by: Esau Zavala MD (11/22/2019 10:31 AM) [facility] DICTATED and SIGNED BY: ESAU ZAVALA MD DATE: 11/22/19 1031 Renal nuclear medicine study with flow and Lasix. Clinical indications: Hydronephrosis on the left side. COMPARISON: CT study of the abdomen and pelvis dated 01/20/2020 and renal sonogram dated November 22, 2019. TECHNIQUE: After IV infusion of 5.5 mCi of technetium 99m MAG3, posterior planar images of both kidneys were performed and time/activity curve was generated. Total 40 mg of IV Lasix was given. FINDINGS: Split perfusion is 61 percent on the left and 39 percent on the right. Time to peak is 9 minutes on the left and 10 minutes on the right. Normal is 4 to 6 minutes. Half time clearance is never reached on either side. Bilateral ureteral and urinary bladder activity is seen. IMPRESSION: There is a moderate increase in time to peak on both sides. In addition, half time clearance is never reached. Findings are consistent with moderate decrease in renal function bilaterally leg may be due to medical renal disease.. Recent ultrasound study demonstrated mild left-sided hydronephrosis but no right-sided hydronephrosis. The hydronephrosis on the left side is considered questionable therefore. Electronically signed by: Esau Zavala MD (11/22/2019 5:18 PM) [facility] DICTATED and SIGNED BY: ESAU ZAVALA MD DATE: 11/22/191717 SEX: F EXAM STATUS: REG ER ORD. PHYSICIAN: RAJENDRA BOLAND DO REASON: abdominal pain PROCEDURE: CT ABDOMEN PELVIS WO CONTRAST CT abdomen pelvis without contrast. HISTORY: Abdominal pain CT scan the abdomen pelvis was done without contrast. There are bibasilar infiltrates or atelectasis more prominent in the left lung base. Liver was normal in appearance. The gallbladder is distended with large calcified gallstones. There is calcification of the gallbladder wall. Spleen and adrenal glands are normal. Pancreas is normal. There are bilateral intrarenal calculi. There is mild bilateral hydronephrosis. A right ureteral calculus is not definitively identified. There is a phlebolith versus a ureteral calculus on the left. There is an abnormal fluid collection behind the right kidney lateral to the psoas muscle measuring 2.8 x 4.7 x 8.5 cm. An abscess is possible, a seroma could have this pattern, hematoma would be possible. Appendix is not definitively abnormal. There is no bowel obstruction. IMPRESSION: 1. Multiple bilateral intrarenal calculi. 2. Phlebolith versus ureteral calculus on the left. 3. Retroperitoneal fluid collection on the right. 4. Cholelithiasis with distended gallbladder. 5. Calcifications in the gallbladder wall. 6. Appendix within normal limits in size. Laboratory Tests Test 11/26/19 16:54 11/26/19 21:07 11/27/19 06:15 11/27/19 07:13 Glucose (Fingerstick) 123 mg/dL (70-99) 135 mg/dL (70-99) 62 mg/dL (70-99) White Blood Count 15.4 x10^3/uL (4.0-11.0) Red Blood Count 3.20 x10^6/uL (3.50-5.40) Hemoglobin 9.6 g/dL (12.0-15.5) Hematocrit 28.2 % (36.0-47.0) Mean Corpuscular Volume 88 fL (79-100) Mean Corpuscular Hemoglobin 30 pg (25-35) Mean Corpuscular Hemoglobin Concent 34 g/dL (31-37) Red Cell Distribution Width 13.9 % (11.5-14.5) Platelet Count 275 x10^3/uL (140-400) Neutrophils (%) (Auto) 86 % (31-73) Lymphocytes (%) (Auto) 9 % (24-48) Monocytes (%) (Auto) 4 % (0-9) Eosinophils (%) (Auto) 1 % (0-3) Basophils (%) (Auto) 0 % (0-3) Neutrophils # (Auto) 13.2 x10^3/uL (1.8-7.7) Lymphocytes # (Auto) 1.3 x10^3/uL (1.0-4.8) Monocytes # (Auto) 0.6 x10^3/uL (0.0-1.1) Eosinophils # (Auto) 0.2 x10^3/uL (0.0-0.7) Basophils # (Auto) 0.0 x10^3/uL (0.0-0.2) Sodium Level 141 mmol/L (136-145) Potassium Level 2.7 mmol/L (3.5-5.1) Chloride Level 106 mmol/L (98-107) Carbon Dioxide Level 24 mmol/L (21-32) Anion Gap 11 (6-14) Blood Urea Nitrogen 6 mg/dL (7-20) Creatinine 0.7 mg/dL (0.6-1.0) Estimated GFR (Cockcroft-Gault) 83.5 Glucose Level 62 mg/dL (70-99) Calcium Level 7.9 mg/dL (8.5-10.1) Test 11/27/19 08:31 11/27/19 10:27 Glucose (Fingerstick) 129 mg/dL (70-99) 106 mg/dL (70-99) Comment Review of Relevant I have reviewed the following items katalina (where applicable) has been applied. Labs Laboratory Tests Test 11/25/19 17:31 11/25/19 21:54 11/26/19 07:49 11/26/19 11:45 Glucose (Fingerstick) 165 mg/dL (70-99) 182 mg/dL (70-99) 100 mg/dL (70-99) 112 mg/dL (70-99) Test 11/26/19 16:54 11/26/19 21:07 11/27/19 06:15 11/27/19 07:13 Glucose (Fingerstick) 123 mg/dL (70-99) 135 mg/dL (70-99) 62 mg/dL (70-99) White Blood Count 15.4 x10^3/uL (4.0-11.0) Red Blood Count 3.20 x10^6/uL (3.50-5.40) Hemoglobin 9.6 g/dL (12.0-15.5) Hematocrit 28.2 % (36.0-47.0) Mean Corpuscular Volume 88 fL (79-100) Mean Corpuscular Hemoglobin 30 pg (25-35) Mean Corpuscular Hemoglobin Concent 34 g/dL (31-37) Red Cell Distribution Width 13.9 % (11.5-14.5) Platelet Count 275 x10^3/uL (140-400) Neutrophils (%) (Auto) 86 % (31-73) Lymphocytes (%) (Auto) 9 % (24-48) Monocytes (%) (Auto) 4 % (0-9) Eosinophils (%) (Auto) 1 % (0-3) Basophils (%) (Auto) 0 % (0-3) Neutrophils # (Auto) 13.2 x10^3/uL (1.8-7.7) Lymphocytes # (Auto) 1.3 x10^3/uL (1.0-4.8) Monocytes # (Auto) 0.6 x10^3/uL (0.0-1.1) Eosinophils # (Auto) 0.2 x10^3/uL (0.0-0.7) Basophils # (Auto) 0.0 x10^3/uL (0.0-0.2) Sodium Level 141 mmol/L (136-145) Potassium Level 2.7 mmol/L (3.5-5.1) Chloride Level 106 mmol/L (98-107) Carbon Dioxide Level 24 mmol/L (21-32) Anion Gap 11 (6-14) Blood Urea Nitrogen 6 mg/dL (7-20) Creatinine 0.7 mg/dL (0.6-1.0) Estimated GFR (Cockcroft-Gault) 83.5 Glucose Level 62 mg/dL (70-99) Calcium Level 7.9 mg/dL (8.5-10.1) Test 11/27/19 08:31 11/27/19 10:27 Glucose (Fingerstick) 129 mg/dL (70-99) 106 mg/dL (70-99) Laboratory Tests Test 11/26/19 16:54 11/26/19 21:07 11/27/19 06:15 11/27/19 07:13 Glucose (Fingerstick) 123 mg/dL (70-99) 135 mg/dL (70-99) 62 mg/dL (70-99) White Blood Count 15.4 x10^3/uL (4.0-11.0) Red Blood Count 3.20 x10^6/uL (3.50-5.40) Hemoglobin 9.6 g/dL (12.0-15.5) Hematocrit 28.2 % (36.0-47.0) Mean Corpuscular Volume 88 fL (79-100) Mean Corpuscular Hemoglobin 30 pg (25-35) Mean Corpuscular Hemoglobin Concent 34 g/dL (31-37) Red Cell Distribution Width 13.9 % (11.5-14.5) Platelet Count 275 x10^3/uL (140-400) Neutrophils (%) (Auto) 86 % (31-73) Lymphocytes (%) (Auto) 9 % (24-48) Monocytes (%) (Auto) 4 % (0-9) Eosinophils (%) (Auto) 1 % (0-3) Basophils (%) (Auto) 0 % (0-3) Neutrophils # (Auto) 13.2 x10^3/uL (1.8-7.7) Lymphocytes # (Auto) 1.3 x10^3/uL (1.0-4.8) Monocytes # (Auto) 0.6 x10^3/uL (0.0-1.1) Eosinophils # (Auto) 0.2 x10^3/uL (0.0-0.7) Basophils # (Auto) 0.0 x10^3/uL (0.0-0.2) Sodium Level 141 mmol/L (136-145) Potassium Level 2.7 mmol/L (3.5-5.1) Chloride Level 106 mmol/L (98-107) Carbon Dioxide Level 24 mmol/L (21-32) Anion Gap 11 (6-14) Blood Urea Nitrogen 6 mg/dL (7-20) Creatinine 0.7 mg/dL (0.6-1.0) Estimated GFR (Cockcroft-Gault) 83.5 Glucose Level 62 mg/dL (70-99) Calcium Level 7.9 mg/dL (8.5-10.1) Test 11/27/19 08:31 11/27/19 10:27 Glucose (Fingerstick) 129 mg/dL (70-99) 106 mg/dL (70-99) Microbiology 11/22/19 Anaerobic/Aerobic Culture, Resulted Pending 11/22/19 Anaerobic Culture Result 1 (ASAEL), Resulted Pending 11/22/19 Aerobic Culture - Final, Resulted 11/22/19 Aerobic Culture Result 1 (ASAEL) - Final, Resulted 11/22/19 Gram Stain - Final, Resulted 11/22/19 Gram Stain Result 1 (ASAEL) - Final, Resulted 11/22/19 Gram Stain Result 2 (ASAEL) - Final, Resulted 11/22/19 Gram Stain Result 3 (ASAEL) - Final, Resulted 11/21/19 Urine Culture - Final, Complete 11/21/19 Urine Culture Result 1 (ASAEL) - Final, Complete 11/21/19 Antimicrobic Susceptibility - Final, Complete Medications Current Medications Sodium Chloride 1,000 ml @ 1,000 mls/hr 1X ONCE IV Last administered on 11/21/19at 17:34; Start 11/21/19 at 17:15; Stop 11/21/19 at 18:14; Status DC Ondansetron HCl (Zofran) 4 mg 1X ONCE IVP Last administered on 11/21/19at 17:34; Start 11/21/19 at 17:15; Stop 11/21/19 at 17:16; Status DC Sodium Chloride 1,000 ml @ 1,000 mls/hr 1X ONCE IV Last administered on 11/21/19at 19:20; Start 11/21/19 at 19:15; Stop 11/21/19 at 20:14; Status DC Piperacillin Sod/ Tazobactam Sod 3.375 gm/Sodium Chloride 50 ml @ 100 mls/hr 1X ONCE IV Last administered on 11/21/19at 19:51; Start 11/21/19 at 19:30; Stop 11/21/19 at 19:59; Status DC Ondansetron HCl (Zofran) 4 mg PRN Q8HRS PRN IV NAUSEA/VOMITING Last administered on 11/22/19at 04:54; Start 11/21/19 at 21:00; Stop 11/22/19 at 20:59; Status DC Morphine Sulfate (Morphine Sulfate) 2 mg PRN Q2HR PRN IV PAIN; Start 11/21/19 at 21:00; Stop 11/22/19 at 20:59; Status DC Sodium Chloride 1,000 ml @ 125 mls/hr Q8H IV Last administered on 11/22/19at 22:18; Start 11/21/19 at 20:55; Stop 11/22/19 at 20:54; Status DC Piperacillin Sod/ Tazobactam Sod (Zosyn Per Pharmacy) 1 each PRN DAILY PRN MC SEE COMMENTS; Start 11/21/19 at 21:00 Piperacillin Sod/ Tazobactam Sod 2.25 gm/Sodium Chloride 50 ml @ 100 mls/hr Q6HRS IV Last administered on 11/22/19at 06:07; Start 11/22/19 at 00:00; Stop 11/22/19 at 08:31; Status DC Albuterol Sulfate (Ventolin Neb Soln) 2.5 mg PRN Q4HRS PRN INH SHORTNESS OF BREATH; Start 11/22/19 at 01:15 Amlodipine Besylate (Norvasc) 5 mg DAILY PO Last administered on 11/27/19at 09:03; Start 11/22/19 at 09:00 Aspirin (Paul Aspirin) 325 mg DAILYWBKFT PO Last administered on 11/27/19at 09:02; Start 11/22/19 at 08:00 Atorvastatin Calcium (Lipitor) 20 mg HS PO Last administered on 11/26/19at 21:06; Start 11/22/19 at 21:00 Diphenhydramine HCl (Benadryl) 25 mg PRN Q6HRS PRN PO ITCHING; Start 11/22/19 at 01:15 Ferrous Sulfate (Feosol) 325 mg BIDWMEALS PO Last administered on 11/27/19at 09:03; Start 11/22/19 at 08:00 Fluoxetine HCl (PROzac) 20 mg DAILY PO Last administered on 11/27/19at 09:03; Start 11/22/19 at 09:00 Lisinopril (Prinivil) 10 mg BID PO ; Start 11/22/19 at 09:00; Stop 11/22/19 at 13:02; Status DC Montelukast Sodium (Singulair) 10 mg DAILY PO Last administered on 11/27/19 09:02; Start 11/22/19 at 09:00 Polyethylene Glycol (miraLAX PACKET) 17 gm DAILY PO Last administered on 11/23/19at 08:54; Start 11/22/19 at 09:00 Tamsulosin HCl (Flomax) 0.4 mg QHS PO Last administered on 11/26/19at 21:06; Start 11/22/19 at 21:00 Celecoxib (CeleBREX) 200 mg BID PO ; Start 11/22/19 at 09:00; Stop 11/22/19 at 13:02; Status DC Non-Formulary Medication (Icosapent Ethyl (Vascepa)) 2 gm BID PO ; Start 11/22/19 at 09:00; Status UNV Non-Formulary Medication (Insulin Detemir (Levemir Flextouch)) 23 units QHS SQ ; Start 11/22/19 at 21:00; Status UNV Pantoprazole Sodium (Protonix) 40 mg BIDAC PO Last administered on 11/27/19at 09:02; Start 11/22/19 at 07:30 Insulin Glargine (Lantus Syringe) 23 unit QHS SQ Last administered on 11/26/19 21:20; Start 11/22/19 at 01:15 Piperacillin Sod/ Tazobactam Sod 3.375 gm/Sodium Chloride 50 ml @ 100 mls/hr Q6HRS IV Last administered on 11/27/19at 06:11; Start 11/22/19 at 12:00 Furosemide (Lasix) 40 mg 1X ONCE IVP Last administered on 11/22/19at 14:39; Start 11/22/19 at 13:15; Stop 11/22/19 at 13:16; Status DC Lactobacillus Rhamnosus (Culturelle) 1 cap BID PO Last administered on 11/27/19at 09:02; Start 11/22/19 at 21:00 Lidocaine HCl (Buffered Lidocaine 1%) 3 ml STK-MED ONCE .ROUTE ; Start 11/22/19 at 15:25; Stop 11/22/19 at 15:25; Status DC Midazolam HCl (Versed) 2 mg STK-MED ONCE .ROUTE ; Start 11/22/19 at 15:25; Stop 11/22/19 at 15:25; Status DC Fentanyl Citrate (Fentanyl 2ml Vial) 100 mcg STK-MED ONCE .ROUTE ; Start 08/31 at 15:25; Stop 11/22/19 at 15:26; Status DC Lidocaine HCl (Buffered Lidocaine 1%) 3 ml 1X ONCE IJ Last administered on 11/22/19at 16:15; Start 11/22/19 at 16:15; Stop 11/22/19 at 16:16; Status DC Midazolam HCl (Versed) 2 mg 1X ONCE IV Last administered on 11/22/19at 16:15; Start 11/22/19 at 16:15; Stop 11/22/19 at 16:16; Status DC Fentanyl Citrate (Fentanyl 2ml Vial) 100 mcg 1X ONCE IV Last administered on 11/22/19at 16:15; Start 11/22/19 at 16:15; Stop 11/22/19 at 16:16; Status DC Potassium Chloride (Klor-Con) 20 meq 1X ONCE PO Last administered on 11/23/19at 12:25; Start 11/23/19 at 11:00; Stop 11/23/19 at 11:01; Status DC Sodium Chloride 1,000 ml @ 75 mls/hr [id number] IV Last administered on 11/27/19at 09:04; Start 11/23/19 at 11:00 Potassium Chloride (Klor-Con) 40 meq 1X ONCE PO Last administered on 11/24/19at 11:58; Start 11/24/19 at 11:15; Stop 11/24/19 at 11:16; Status DC Potassium Chloride (Klor-Con) 20 meq 1X ONCE PO Last administered on 11/25/19at 12:00; Start 11/25/19 at 11:30; Stop 11/25/19 at 11:31; Status DC Potassium Chloride/Water 100 ml @ 100 mls/hr Q1H IV Last administered on 11/27/19at 11:14; Start 11/27/19 at 10:00; Stop 11/27/19 at 11:59 Potassium Chloride (Klor-Con) 40 meq 1X ONCE PO Last administered on 11/27/19at 09:44; Start 11/27/19 at 09:30; Stop 11/27/19 at 09:31; Status DC Potassium Chloride (Klor-Con) 20 meq DAILYWBKFT PO ; Start 11/28/19 at 08:00 Active Scripts Active Polyethylene Glycol 3350 17 Gm Powd.pack 17 Gm PO DAILY 30 Days [Pantoprazole] 40 MG Tablet.dr 40 Mg PO BIDAC 30 Days Aspirin 325 Mg Tablet 325 Mg PO DAILYWBKFT 30 Days Feosol (Ferrous Sulfate) 325 Mg Tablet 325 Mg PO BID 30 Days Flomax (Tamsulosin Hcl) 0.4 Mg Cap.er.24h 0.4 Mg PO QHS 30 Days Reported Metformin Hcl Er (Metformin Hcl) 500 Mg Tab.er.24h 250 Mg PO BID Levemir Flextouch (Insulin Detemir) 100 Unit/1 Ml Insuln.pen 23 Units SQ QHS Fluoxetine Hcl 20 Mg Capsule 20 Mg PO DAILY Amlodipine Besylate 5 Mg Tablet 5 Mg PO DAILY Lisinopril 20 Mg Tablet 10 Mg PO BID Atorvastatin Calcium 20 Mg Tablet 20 Mg PO DAILY Proair Hfa (Albuterol Sulfate) 8.5 Gm Hfa.aer.ad 8.5 Gm INH PRN Q4HRS PRN Vascepa (Icosapent Ethyl) 1 Gm Capsule 2 Gm PO BID Celecoxib 200 Mg Capsule 200 Mg PO BID Montelukast Sodium 10 Mg Tablet 10 Mg PO DAILY Benadryl (Diphenhydramine Hcl) 25 Mg Capsule 1 Cap PO PRN Q6HRS PRN Vitals/I & O Vital Sign - Last 24 Hours 11/26/19 11/26/19 11/26/19 11/26/19 15:00 19:15 20:00 23:20 Temp 98.6 98.3 98.5 98.6 98.3 98.5 Pulse 68 76 81 Resp 18 18 18 B/P (MAP) 139/57 (84) 153/63 (93) 144/54 (84) Pulse Ox 94 95 93 O2 Delivery Room Air Room Air Room Air Room Air O2 Flow Rate 2.0 11/27/19 11/27/19 11/27/19 11/27/19 03:30 07:14 09:03 11:12 Temp 98.6 99.0 98.9 98.6 99.0 98.9 Pulse 84 75 75 82 Resp 18 16 14 B/P (MAP) 146/45 (78) 145/55 (85) 145/55 152/49 (83) Pulse Ox 95 95 95 O2 Delivery Room Air Room Air Room Air Intake and Output 11/26/19 11/26/19 11/27/19 15:00 23:00 07:00 Intake Total 480 ml 750 ml 300 ml Output Total 200 ml Balance 480 ml 550 ml 300 ml EDUARDO CORBIN MD Nov 27, 2019 11:48
--- NOTE | 2019-11-27 14:02 | NUR ---
Critical K 2.7 result noted this morning, paged Dr. Garrison at 0749, no orders received. Paged overhead, message sent to [place],and attempted to contact Dr. Hart regarding result. At 0915, noted orders for potassium replacement on EMR by Dr. Ferrell.
--- NOTE | 2019-11-27 15:16 | PDOC ---
SURGICAL PROGRESS NOTE Subjective Pt without c/o except K Vital Signs Vital Signs Date Time Temp Pulse Resp B/P (MAP) Pulse Ox O2 Delivery O2 Flow Rate FiO2 11/27/19 11:12 98.9 82 14 152/49 (83) 95 Room Air 98.9 11/26/19 15:00 2.0 I&O Intake and Output 11/27/19 07:00 Intake Total 1530 ml Output Total 200 ml Balance 1330 ml Intake Oral 1530 ml Output Urine Total 200 ml # Voids 4 # Bowel Movements 1 General: Alert, Oriented X3, Cooperative, No acute distress Abdomen: Soft, No tenderness, Other (MELODY serous) Labs Laboratory Tests Test 11/25/19 17:31 11/25/19 21:54 11/26/19 07:49 11/26/19 11:45 Glucose (Fingerstick) 165 mg/dL (70-99) 182 mg/dL (70-99) 100 mg/dL (70-99) 112 mg/dL (70-99) Test 11/26/19 16:54 11/26/19 21:07 11/27/19 06:15 11/27/19 07:13 Glucose (Fingerstick) 123 mg/dL (70-99) 135 mg/dL (70-99) 62 mg/dL (70-99) White Blood Count 15.4 x10^3/uL (4.0-11.0) Red Blood Count 3.20 x10^6/uL (3.50-5.40) Hemoglobin 9.6 g/dL (12.0-15.5) Hematocrit 28.2 % (36.0-47.0) Mean Corpuscular Volume 88 fL (79-100) Mean Corpuscular Hemoglobin 30 pg (25-35) Mean Corpuscular Hemoglobin Concent 34 g/dL (31-37) Red Cell Distribution Width 13.9 % (11.5-14.5) Platelet Count 275 x10^3/uL (140-400) Neutrophils (%) (Auto) 86 % (31-73) Lymphocytes (%) (Auto) 9 % (24-48) Monocytes (%) (Auto) 4 % (0-9) Eosinophils (%) (Auto) 1 % (0-3) Basophils (%) (Auto) 0 % (0-3) Neutrophils # (Auto) 13.2 x10^3/uL (1.8-7.7) Lymphocytes # (Auto) 1.3 x10^3/uL (1.0-4.8) Monocytes # (Auto) 0.6 x10^3/uL (0.0-1.1) Eosinophils # (Auto) 0.2 x10^3/uL (0.0-0.7) Basophils # (Auto) 0.0 x10^3/uL (0.0-0.2) Sodium Level 141 mmol/L (136-145) Potassium Level 2.7 mmol/L (3.5-5.1) Chloride Level 106 mmol/L (98-107) Carbon Dioxide Level 24 mmol/L (21-32) Anion Gap 11 (6-14) Blood Urea Nitrogen 6 mg/dL (7-20) Creatinine 0.7 mg/dL (0.6-1.0) Estimated GFR (Cockcroft-Gault) 83.5 Glucose Level 62 mg/dL (70-99) Calcium Level 7.9 mg/dL (8.5-10.1) Test 11/27/19 08:31 11/27/19 10:27 Glucose (Fingerstick) 129 mg/dL (70-99) 106 mg/dL (70-99) Laboratory Tests Test 11/26/19 16:54 11/26/19 21:07 11/27/19 06:15 11/27/19 07:13 Glucose (Fingerstick) 123 mg/dL (70-99) 135 mg/dL (70-99) 62 mg/dL (70-99) White Blood Count 15.4 x10^3/uL (4.0-11.0) Red Blood Count 3.20 x10^6/uL (3.50-5.40) Hemoglobin 9.6 g/dL (12.0-15.5) Hematocrit 28.2 % (36.0-47.0) Mean Corpuscular Volume 88 fL (79-100) Mean Corpuscular Hemoglobin 30 pg (25-35) Mean Corpuscular Hemoglobin Concent 34 g/dL (31-37) Red Cell Distribution Width 13.9 % (11.5-14.5) Platelet Count 275 x10^3/uL (140-400) Neutrophils (%) (Auto) 86 % (31-73) Lymphocytes (%) (Auto) 9 % (24-48) Monocytes (%) (Auto) 4 % (0-9) Eosinophils (%) (Auto) 1 % (0-3) Basophils (%) (Auto) 0 % (0-3) Neutrophils # (Auto) 13.2 x10^3/uL (1.8-7.7) Lymphocytes # (Auto) 1.3 x10^3/uL (1.0-4.8) Monocytes # (Auto) 0.6 x10^3/uL (0.0-1.1) Eosinophils # (Auto) 0.2 x10^3/uL (0.0-0.7) Basophils # (Auto) 0.0 x10^3/uL (0.0-0.2) Sodium Level 141 mmol/L (136-145) Potassium Level 2.7 mmol/L (3.5-5.1) Chloride Level 106 mmol/L (98-107) Carbon Dioxide Level 24 mmol/L (21-32) Anion Gap 11 (6-14) Blood Urea Nitrogen 6 mg/dL (7-20) Creatinine 0.7 mg/dL (0.6-1.0) Estimated GFR (Cockcroft-Gault) 83.5 Glucose Level 62 mg/dL (70-99) Calcium Level 7.9 mg/dL (8.5-10.1) Test 11/27/19 08:31 11/27/19 10:27 Glucose (Fingerstick) 129 mg/dL (70-99) 106 mg/dL (70-99) Problem List abd abscess cont drain elective cholecystectomy KRYSTIN EDWARDS MD Nov 27, 2019 15:16
[2019-11-27 15:18] VITALS: BP 129/64
[2019-11-27 19:10] VITALS: BP 148/62
[2019-11-27] MEDS: TAMSULOSIN 0.4 MG CAP.ER.24H. PO SCH (21:58)
[2019-11-27] MEDS: ATORVASTATIN CALCIUM 20 MG TABLET PO SCH (21:58)
[2019-11-27] MEDS: INSULIN GLARGINE SYRINGE. SQ SCH (22:14)
[2019-11-27 23:05] VITALS: BP 145/61
[2019-11-28] MEDS: PIPERACILLIN/TAZOBACTAM 3.375 GM in IV NORMAL SALINE 50ML 50 ML IV SCH ×5 (00:15→23:18)
[2019-11-28 03:10] VITALS: BP 140/56
[2019-11-28 04:11] LABS: BASO % 0 % (0-3); EOS # 0.2 x10^3/uL (0.0-0.7); EOS % 1 % (0-3); HEMATOCRIT 27.6 % (36.0-47.0); HEMOGLOBIN 9.4 g/dL (12.0-15.5); LYMPH # 1.4 x10^3/uL (1.0-4.8); LYMPH % 10 % (24-48); MEAN CORPUSCULAR HEMOGLOBIN 30 pg (25-35); MEAN CORPUSCULAR HGB CONC 34 g/dL (31-37); MEAN CORPUSCULAR VOLUME 88 fL (79-100); MONO # 0.6 x10^3/uL (0.0-1.1); MONO % 4 % (0-9); NEUT # 12.2 x10^3/uL (1.8-7.7); NEUT % 85 % (31-73); PLATELET COUNT 311 x10^3/uL (140-400); RED BLOOD COUNT 3.15 x10^6/uL (3.50-5.40); WHITE BLOOD COUNT 14.4 x10^3/uL (4.0-11.0)
[2019-11-28 04:59] LABS: ALBUMIN 1.9 g/dL (3.4-5.0); ALBUMIN/GLOBULIN RATIO 0.5 (1.0-1.7); CALCIUM 7.7 mg/dL (8.5-10.1); CREATININE 0.7 mg/dL (0.6-1.0); GFR 83.5; POTASSIUM 3.3 mmol/L (3.5-5.1); TOTAL BILIRUBIN 0.3 mg/dL (0.2-1.0); TOTAL PROTEIN 5.7 g/dL (6.4-8.2)
[2019-11-28 07:00] VITALS: BP 144/57
[2019-11-28] MEDS: FERROUS SULFATE 325 MG TABLET. PO SCH ×2 (08:18→18:50)
[2019-11-28] MEDS: ASPIRIN 325 MG TABLET PO SCH (08:18)
[2019-11-28] MEDS: FLUoxetine HCL 20 MG CAPSULE PO SCH (08:18)
[2019-11-28] MEDS: LACTOBACILLUS RHAMNOSUS GG 1 CAPSULE. PO SCH ×2 (08:18→21:37)
[2019-11-28] MEDS: MONTELUKAST SODIUM 10 MG TABLET. PO SCH (08:18)
[2019-11-28] MEDS: POTASSIUM CHLORIDE 20 MEQ TABLET.ER. PO SCH (08:18)
[2019-11-28] MEDS: PANTOPRAZOLE 40 MG TABLET.DR. PO SCH ×2 (08:18→18:50)
[2019-11-28] MEDS: amLODIPine BESYLATE 5 MG TABLET PO SCH (08:19)
[2019-11-28] MEDS: NON FORMULARY ITEM (Icosapent Ethyl (Vascepa) 2 GM) PO SCH (09:00)
[2019-11-28] MEDS: POLYETHYLENE GLYCOL 3350 17 GM PACKET. PO SCH (09:00)
--- NOTE | 2019-11-28 09:28 | PDOC ---
SURGICAL PROGRESS NOTE Subjective no complaints tolerating dietw Vital Signs Vital Signs Date Time Temp Pulse Resp B/P (MAP) Pulse Ox O2 Delivery O2 Flow Rate FiO2 11/28/19 08:19 70 144/57 11/28/19 03:10 98.2 18 95 Room Air 98.2 I&O Intake and Output 11/28/19 07:00 Intake Total 310 ml Output Total 752 ml Balance -442 ml Intake Oral 310 ml Output Urine Total 500 ml Stool Total 250 ml Drainage Total 2 ml # Voids 3 # Bowel Movements 5 General: Alert, Oriented X3, Cooperative Abdomen: Soft, Other (scant drainage in drain) Labs Laboratory Tests Test 11/26/19 11:45 11/26/19 16:54 11/26/19 17:15 11/26/19 21:07 Glucose (Fingerstick) 112 mg/dL (70-99) 123 mg/dL (70-99) 135 mg/dL (70-99) Body Fluid Amylase <3 U/L (.) Test 11/27/19 06:15 11/27/19 07:13 11/27/19 08:31 11/27/19 10:27 White Blood Count 15.4 x10^3/uL (4.0-11.0) Red Blood Count 3.20 x10^6/uL (3.50-5.40) Hemoglobin 9.6 g/dL (12.0-15.5) Hematocrit 28.2 % (36.0-47.0) Mean Corpuscular Volume 88 fL (79-100) Mean Corpuscular Hemoglobin 30 pg (25-35) Mean Corpuscular Hemoglobin Concent 34 g/dL (31-37) Red Cell Distribution Width 13.9 % (11.5-14.5) Platelet Count 275 x10^3/uL (140-400) Neutrophils (%) (Auto) 86 % (31-73) Lymphocytes (%) (Auto) 9 % (24-48) Monocytes (%) (Auto) 4 % (0-9) Eosinophils (%) (Auto) 1 % (0-3) Basophils (%) (Auto) 0 % (0-3) Neutrophils # (Auto) 13.2 x10^3/uL (1.8-7.7) Lymphocytes # (Auto) 1.3 x10^3/uL (1.0-4.8) Monocytes # (Auto) 0.6 x10^3/uL (0.0-1.1) Eosinophils # (Auto) 0.2 x10^3/uL (0.0-0.7) Basophils # (Auto) 0.0 x10^3/uL (0.0-0.2) Sodium Level 141 mmol/L (136-145) Potassium Level 2.7 mmol/L (3.5-5.1) Chloride Level 106 mmol/L (98-107) Carbon Dioxide Level 24 mmol/L (21-32) Anion Gap 11 (6-14) Blood Urea Nitrogen 6 mg/dL (7-20) Creatinine 0.7 mg/dL (0.6-1.0) Estimated GFR (Cockcroft-Gault) 83.5 Glucose Level 62 mg/dL (70-99) Calcium Level 7.9 mg/dL (8.5-10.1) Glucose (Fingerstick) 62 mg/dL (70-99) 129 mg/dL (70-99) 106 mg/dL (70-99) Test 11/27/19 16:35 11/27/19 21:15 11/28/19 02:50 11/28/19 08:03 Glucose (Fingerstick) 103 mg/dL (70-99) 152 mg/dL (70-99) 67 mg/dL (70-99) White Blood Count 14.4 x10^3/uL (4.0-11.0) Red Blood Count 3.15 x10^6/uL (3.50-5.40) Hemoglobin 9.4 g/dL (12.0-15.5) Hematocrit 27.6 % (36.0-47.0) Mean Corpuscular Volume 88 fL (79-100) Mean Corpuscular Hemoglobin 30 pg (25-35) Mean Corpuscular Hemoglobin Concent 34 g/dL (31-37) Red Cell Distribution Width 14.0 % (11.5-14.5) Platelet Count 311 x10^3/uL (140-400) Neutrophils (%) (Auto) 85 % (31-73) Lymphocytes (%) (Auto) 10 % (24-48) Monocytes (%) (Auto) 4 % (0-9) Eosinophils (%) (Auto) 1 % (0-3) Basophils (%) (Auto) 0 % (0-3) Neutrophils # (Auto) 12.2 x10^3/uL (1.8-7.7) Lymphocytes # (Auto) 1.4 x10^3/uL (1.0-4.8) Monocytes # (Auto) 0.6 x10^3/uL (0.0-1.1) Eosinophils # (Auto) 0.2 x10^3/uL (0.0-0.7) Basophils # (Auto) 0.0 x10^3/uL (0.0-0.2) Sodium Level 141 mmol/L (136-145) Potassium Level 3.3 mmol/L (3.5-5.1) Chloride Level 106 mmol/L (98-107) Carbon Dioxide Level 23 mmol/L (21-32) Anion Gap 12 (6-14) Blood Urea Nitrogen 6 mg/dL (7-20) Creatinine 0.7 mg/dL (0.6-1.0) Estimated GFR (Cockcroft-Gault) 83.5 BUN/Creatinine Ratio 9 (6-20) Glucose Level 129 mg/dL (70-99) Calcium Level 7.7 mg/dL (8.5-10.1) Total Bilirubin 0.3 mg/dL (0.2-1.0) Aspartate Amino Transf (AST/SGOT) 12 U/L (15-37) Alanine Aminotransferase (ALT/SGPT) 8 U/L (14-59) Alkaline Phosphatase 92 U/L (46-116) Total Protein 5.7 g/dL (6.4-8.2) Albumin 1.9 g/dL (3.4-5.0) Albumin/Globulin Ratio 0.5 (1.0-1.7) Laboratory Tests Test 11/27/19 10:27 11/27/19 16:35 11/27/19 21:15 11/28/19 02:50 Glucose (Fingerstick) 106 mg/dL (70-99) 103 mg/dL (70-99) 152 mg/dL (70-99) White Blood Count 14.4 x10^3/uL (4.0-11.0) Red Blood Count 3.15 x10^6/uL (3.50-5.40) Hemoglobin 9.4 g/dL (12.0-15.5) Hematocrit 27.6 % (36.0-47.0) Mean Corpuscular Volume 88 fL (79-100) Mean Corpuscular Hemoglobin 30 pg (25-35) Mean Corpuscular Hemoglobin Concent 34 g/dL (31-37) Red Cell Distribution Width 14.0 % (11.5-14.5) Platelet Count 311 x10^3/uL (140-400) Neutrophils (%) (Auto) 85 % (31-73) Lymphocytes (%) (Auto) 10 % (24-48) Monocytes (%) (Auto) 4 % (0-9) Eosinophils (%) (Auto) 1 % (0-3) Basophils (%) (Auto) 0 % (0-3) Neutrophils # (Auto) 12.2 x10^3/uL (1.8-7.7) Lymphocytes # (Auto) 1.4 x10^3/uL (1.0-4.8) Monocytes # (Auto) 0.6 x10^3/uL (0.0-1.1) Eosinophils # (Auto) 0.2 x10^3/uL (0.0-0.7) Basophils # (Auto) 0.0 x10^3/uL (0.0-0.2) Sodium Level 141 mmol/L (136-145) Potassium Level 3.3 mmol/L (3.5-5.1) Chloride Level 106 mmol/L (98-107) Carbon Dioxide Level 23 mmol/L (21-32) Anion Gap 12 (6-14) Blood Urea Nitrogen 6 mg/dL (7-20) Creatinine 0.7 mg/dL (0.6-1.0) Estimated GFR (Cockcroft-Gault) 83.5 BUN/Creatinine Ratio 9 (6-20) Glucose Level 129 mg/dL (70-99) Calcium Level 7.7 mg/dL (8.5-10.1) Total Bilirubin 0.3 mg/dL (0.2-1.0) Aspartate Amino Transf (AST/SGOT) 12 U/L (15-37) Alanine Aminotransferase (ALT/SGPT) 8 U/L (14-59) Alkaline Phosphatase 92 U/L (46-116) Total Protein 5.7 g/dL (6.4-8.2) Albumin 1.9 g/dL (3.4-5.0) Albumin/Globulin Ratio 0.5 (1.0-1.7) Test 11/28/19 08:03 Glucose (Fingerstick) 67 mg/dL (70-99) Assessment/Plan amylase fluid was <3 scant drainage--will ask IR to eval if needs repeat CT with low drain output RAMON CONTRERAS APRN Nov 28, 2019 09:28
[2019-11-28 11:00] VITALS: BP 151/57
[2019-11-28] MEDS: IV NORMAL SALINE 1000ML BAG 1,000 ML IV SCH (12:24)
--- NOTE | 2019-11-28 12:27 | PDOC ---
Infectious Disease Note Subjective Subjective PIV burning some with potassium infusing Otherwise doing alight 20 ml MELODY output No fevers/chills/SOA/N/V/D Vital Sign Vital Signs Vital Signs Date Time Temp Pulse Resp B/P (MAP) Pulse Ox O2 Delivery O2 Flow Rate FiO2 11/28/19 11:00 97.5 78 20 151/57 (88) 99 Room Air 97.5 Physical Exam PHYSICAL EXAM GENERAL: Propped up in bed, alert, reading HEENT: Oral cavity, pharynx was clear. NECK: Supple, no JVD. LUNGS: CTAB, no wheezes HEART: S1 S2, regular ABDOMEN: Soft, no guarding, no rebound.. Right-sided posterior MELODY drain with trace white semi-purulent drainage. EXTREMITIES: Without clubbing, cyanosis or edema. SKIN: No rash HEAD BOOKKEEPER: Alert and answering questions appropriately PIV ok Labs Lab Laboratory Tests Test 11/27/19 16:35 11/27/19 21:15 11/28/19 02:50 11/28/19 08:03 Glucose (Fingerstick) 103 mg/dL (70-99) 152 mg/dL (70-99) 67 mg/dL (70-99) White Blood Count 14.4 x10^3/uL (4.0-11.0) Red Blood Count 3.15 x10^6/uL (3.50-5.40) Hemoglobin 9.4 g/dL (12.0-15.5) Hematocrit 27.6 % (36.0-47.0) Mean Corpuscular Volume 88 fL (79-100) Mean Corpuscular Hemoglobin 30 pg (25-35) Mean Corpuscular Hemoglobin Concent 34 g/dL (31-37) Red Cell Distribution Width 14.0 % (11.5-14.5) Platelet Count 311 x10^3/uL (140-400) Neutrophils (%) (Auto) 85 % (31-73) Lymphocytes (%) (Auto) 10 % (24-48) Monocytes (%) (Auto) 4 % (0-9) Eosinophils (%) (Auto) 1 % (0-3) Basophils (%) (Auto) 0 % (0-3) Neutrophils # (Auto) 12.2 x10^3/uL (1.8-7.7) Lymphocytes # (Auto) 1.4 x10^3/uL (1.0-4.8) Monocytes # (Auto) 0.6 x10^3/uL (0.0-1.1) Eosinophils # (Auto) 0.2 x10^3/uL (0.0-0.7) Basophils # (Auto) 0.0 x10^3/uL (0.0-0.2) Sodium Level 141 mmol/L (136-145) Potassium Level 3.3 mmol/L (3.5-5.1) Chloride Level 106 mmol/L (98-107) Carbon Dioxide Level 23 mmol/L (21-32) Anion Gap 12 (6-14) Blood Urea Nitrogen 6 mg/dL (7-20) Creatinine 0.7 mg/dL (0.6-1.0) Estimated GFR (Cockcroft-Gault) 83.5 BUN/Creatinine Ratio 9 (6-20) Glucose Level 129 mg/dL (70-99) Calcium Level 7.7 mg/dL (8.5-10.1) Total Bilirubin 0.3 mg/dL (0.2-1.0) Aspartate Amino Transf (AST/SGOT) 12 U/L (15-37) Alanine Aminotransferase (ALT/SGPT) 8 U/L (14-59) Alkaline Phosphatase 92 U/L (46-116) Total Protein 5.7 g/dL (6.4-8.2) Albumin 1.9 g/dL (3.4-5.0) Albumin/Globulin Ratio 0.5 (1.0-1.7) Test 11/28/19 11:38 Glucose (Fingerstick) 109 mg/dL (70-99) Micro Microbiology 11/22/19 Anaerobic/Aerobic Culture, Resulted Pending 11/22/19 Anaerobic Culture Result 1 (ASAEL), Resulted Pending 11/22/19 Aerobic Culture - Final, Resulted 11/22/19 Aerobic Culture Result 1 (ASAEL) - Final, Resulted 11/22/19 Gram Stain - Final, Resulted 11/22/19 Gram Stain Result 1 (ASAEL) - Final, Resulted 11/22/19 Gram Stain Result 2 (ASAEL) - Final, Resulted 11/22/19 Gram Stain Result 3 (ASAEL) - Final, Resulted 11/21/19 Urine Culture - Final, Complete 11/21/19 Urine Culture Result 1 (ASAEL) - Final, Complete 11/21/19 Antimicrobic Susceptibility - Final, Complete Objective Assessment Klebsiella UTI- POA 11/21 Abd abscess - s/p drain placement 11/22. GPR & GPC. no growth so far Leukocytosis GENARO - better ? Ureteral stone on left - U/S neg H/o Large subacute right temporal, parietal and occipital infarct. Small right BG, thalamus and insula infarct. Plan Plan of Care cont Zosyn Probiotics Monitor MELODY output f/u cultures Monitor WBC JENNIFER LOMBARDI MD Nov 28, 2019 12:26
[2019-11-28 15:00] VITALS: BP 158/63
--- NOTE | 2019-11-28 15:27 | RAD ---
Examination: CT ABDOMEN PELVIS WO CONTRAST History: Low drain output. Retroperitoneal abscess. Comparison/Correlation: None Findings: Axial images of the abdomen and pelvis were obtained without contrast. Sagittal and coronal reformatted images were provided. Small left pleural effusion is present with adjacent atelectasis. Very small right costophrenic sulcus pleural effusion is present. Linear atelectasis involving the right middle lobe and the basilar aspect is present. Liver, spleen, pancreas, and adrenal glands are normal. Calculus of the gallbladder neck measuring 2.5 cm diameter is present. There are 2 additional calculi present within the gallbladder and also are of larger size measuring 2 cm diameter. Distention of the gallbladder is present. Wall calcification involving the gallbladder is present at multiple sites. The gallbladder is mildly distended. Right renal inferior pole calyceal calculus measuring 0.4 cm diameter is present. There are a few left renal calculi in the calyces measuring up to 0.55 cm diameter without associated obstruction. The left renal lateral interpolar region, there is a complex collection or mass measuring 3.9 cm x 2.9 cm x 4.3 cm longitudinal. Slight increase in perinephric edema is noted. Slight thickening of the pararenal fascia bilaterally is seen. This is somewhat greater on the left as compared to the previous exam. Minimal fluid medial to the left lateral conal fascia in the dependent location. A pigtail drainage catheter is present within the right posterior pararenal space.. Seating decrease in size of the fluid collection at this site is noted to measure 4.5 cm transverse by 1.3 cm anteroposterior. Lateral to this on the colon noted. Uterus is unremarkable. The bladder is mostly decompressed. Small amount of presacral fluid is present. Subcutaneous edema involving the abdomen and pelvis is noted. Significant L2-3 disc space narrowing is present. T11 vertebral body compression deformity is present. Impression: Notable decrease in size of the collection in the right posterior pararenal space. Complex left renal lateral interpolar mass or cystic structure is noted compared to the previous exam. Underlying infectious etiology may come for this finding. Contrast-enhanced CT of the kidneys is recommended for more definitive assessment. Minimal ascites along the lateral conal fascia on the left in the interval. Cholelithiasis. Gallbladder wall calcification. PQRS Compliance Statement: One or more of the following individualized dose reduction techniques were utilized for this examination: 1. Automated exposure control 2. Adjustment of the mA and/or kV according to patient size 3. Use of iterative reconstruction technique Electronically signed by: Juan Francisco Vargas MD (11/28/2019 3:24 PM) [facility]
--- NOTE | 2019-11-28 15:49 | NUR ---
SS following up with discharge planning. PT/OT recommending home healthcare. Pt has previously been on services with [facility], ; fax [phone]. SS will continue to follow for discharge planning.
--- NOTE | 2019-11-28 18:33 | NUR ---
Patient has no complaints throughout the shift, VS stable.
--- NOTE | 2019-11-28 18:35 | NUR ---
Blood sugar prebreakfast was 67, patient denies hypoglycemic symptoms, gave carbohydrates PO per protocol.
[2019-11-28 19:55] VITALS: BP 145/59
[2019-11-28] MEDS: ATORVASTATIN CALCIUM 20 MG TABLET PO SCH (21:37)
[2019-11-28] MEDS: TAMSULOSIN 0.4 MG CAP.ER.24H. PO SCH (21:37)
[2019-11-28] MEDS: INSULIN GLARGINE SYRINGE. SQ SCH (21:46)
--- NOTE | 2019-11-28 22:35 | PDOC ---
PROGRESS NOTES Chief Complaint Chief Complaint IMPRESSION: Sepsis ATN (Acute tubular necrosis) Hypokalemia Anemia Near syncope UTI (urinary tract infection) Retroperitoneal abscess ct reviewed Abnormal fluid collection behind the right kidney lateral to the psoas muscle measuring 2.8 x 4.7 x 8.5 cm. An abscess is possible, a seroma could have this pattern, hematoma would be possible. Abdominal pain, improving Vomiting and diarrhea, improved Dyslipidemia Abd abscess - s/p drain placement 11/22. GPR & GPC. no growth so far Leukocytosis GENARO Urethral stone on left - U/S neg//8.2 cm retroperitoneal fluid collection on the right side. Large subacute right temporal, parietal and occipital infarct. Severe hypokalemia, on replacement CT abdomen and pelvis Impression: Notable decrease in size of the collection in the right posterior pararenal space. Complex left renal lateral interpolar mass or cystic structure is noted compared to the previous exam. Underlying infectious etiology may come for this finding. Contrast-enhanced CT of the kidneys is recommended for more definitive assessment. Minimal ascites along the lateral conal fascia on the left in the interval. Cholelithiasis. Gallbladder wall calcification. History of Present Illness History of Present Illness Patient seen and examined. Chart reviewed and care discussed with nursing staff. No acute distress. Patient resting comfortably in bed. MELODY drain in place. Continues to drain milky yellow/white fluid. No new complaints at this time. She reports that she is beginning to feel better each day slowly. 11/26/2019 Patient today wanting privacy and does not seem to be in a good mood, no complaints voiced during my interview. says she wants to be left alone. Going for CT today 11/25/2019 - pt seen and examined - chart reviewed - discussed pt with RN - cardiac monitoring - discussed possible discharge with pt - pt appears well with no acute events overnight - MELODY drain is still draining properly, yellow/white fluid - current IV abx 11/27/2019 -Pt seen and examined. -Chart reviewed and care discussed with nursing staff. -Pt sitting comfortably in bed. meds reviewed -on tele 37 min pt exam, chart review, > 50% of time spent with exam, chart review, pt care coordination Vitals Vitals Vital Signs Date Time Temp Pulse Resp B/P (MAP) Pulse Ox O2 Delivery O2 Flow Rate FiO2 11/28/19 19:55 99.2 75 18 145/59 (87) 94 Room Air 99.2 Physical Exam Physical Exam GENERAL: Propped up in bed, alert, reading HEENT: Oral cavity, pharynx was clear. NECK: Supple, no JVD. LUNGS: CTAB, no wheezes HEART: S1 S2, regular ABDOMEN: Soft, no guarding, no rebound.. Right-sided posterior MELODY drain with trace white semi-purulent drainage. EXTREMITIES: Without clubbing, cyanosis or edema. SKIN: No rash [employer]: Alert and answering questions appropriately PIV ok General: Alert, Oriented X3, Cooperative Heart: Regular rate, No murmurs Lungs: Clear, Wheezing Abdomen: Soft, Other (scant drainage in drain) Extremities: No clubbing, No cyanosis Skin: No rashes Labs LABS Laboratory Tests Test 11/28/19 02:50 11/28/19 08:03 11/28/19 11:38 11/28/19 16:52 White Blood Count 14.4 x10^3/uL (4.0-11.0) Red Blood Count 3.15 x10^6/uL (3.50-5.40) Hemoglobin 9.4 g/dL (12.0-15.5) Hematocrit 27.6 % (36.0-47.0) Mean Corpuscular Volume 88 fL (79-100) Mean Corpuscular Hemoglobin 30 pg (25-35) Mean Corpuscular Hemoglobin Concent 34 g/dL (31-37) Red Cell Distribution Width 14.0 % (11.5-14.5) Platelet Count 311 x10^3/uL (140-400) Neutrophils (%) (Auto) 85 % (31-73) Lymphocytes (%) (Auto) 10 % (24-48) Monocytes (%) (Auto) 4 % (0-9) Eosinophils (%) (Auto) 1 % (0-3) Basophils (%) (Auto) 0 % (0-3) Neutrophils # (Auto) 12.2 x10^3/uL (1.8-7.7) Lymphocytes # (Auto) 1.4 x10^3/uL (1.0-4.8) Monocytes # (Auto) 0.6 x10^3/uL (0.0-1.1) Eosinophils # (Auto) 0.2 x10^3/uL (0.0-0.7) Basophils # (Auto) 0.0 x10^3/uL (0.0-0.2) Sodium Level 141 mmol/L (136-145) Potassium Level 3.3 mmol/L (3.5-5.1) Chloride Level 106 mmol/L (98-107) Carbon Dioxide Level 23 mmol/L (21-32) Anion Gap 12 (6-14) Blood Urea Nitrogen 6 mg/dL (7-20) Creatinine 0.7 mg/dL (0.6-1.0) Estimated GFR (Cockcroft-Gault) 83.5 BUN/Creatinine Ratio 9 (6-20) Glucose Level 129 mg/dL (70-99) Calcium Level 7.7 mg/dL (8.5-10.1) Total Bilirubin 0.3 mg/dL (0.2-1.0) Aspartate Amino Transf (AST/SGOT) 12 U/L (15-37) Alanine Aminotransferase (ALT/SGPT) 8 U/L (14-59) Alkaline Phosphatase 92 U/L (46-116) Total Protein 5.7 g/dL (6.4-8.2) Albumin 1.9 g/dL (3.4-5.0) Albumin/Globulin Ratio 0.5 (1.0-1.7) Glucose (Fingerstick) 67 mg/dL (70-99) 109 mg/dL (70-99) 144 mg/dL (70-99) Test 11/28/19 20:50 Glucose (Fingerstick) 160 mg/dL (70-99) Comment Review of Relevant I have reviewed the following items katalina (where applicable) has been applied. Labs Laboratory Tests Test 11/27/19 06:15 11/27/19 07:13 11/27/19 08:31 11/27/19 10:27 White Blood Count 15.4 x10^3/uL (4.0-11.0) Red Blood Count 3.20 x10^6/uL (3.50-5.40) Hemoglobin 9.6 g/dL (12.0-15.5) Hematocrit 28.2 % (36.0-47.0) Mean Corpuscular Volume 88 fL (79-100) Mean Corpuscular Hemoglobin 30 pg (25-35) Mean Corpuscular Hemoglobin Concent 34 g/dL (31-37) Red Cell Distribution Width 13.9 % (11.5-14.5) Platelet Count 275 x10^3/uL (140-400) Neutrophils (%) (Auto) 86 % (31-73) Lymphocytes (%) (Auto) 9 % (24-48) Monocytes (%) (Auto) 4 % (0-9) Eosinophils (%) (Auto) 1 % (0-3) Basophils (%) (Auto) 0 % (0-3) Neutrophils # (Auto) 13.2 x10^3/uL (1.8-7.7) Lymphocytes # (Auto) 1.3 x10^3/uL (1.0-4.8) Monocytes # (Auto) 0.6 x10^3/uL (0.0-1.1) Eosinophils # (Auto) 0.2 x10^3/uL (0.0-0.7) Basophils # (Auto) 0.0 x10^3/uL (0.0-0.2) Sodium Level 141 mmol/L (136-145) Potassium Level 2.7 mmol/L (3.5-5.1) Chloride Level 106 mmol/L (98-107) Carbon Dioxide Level 24 mmol/L (21-32) Anion Gap 11 (6-14) Blood Urea Nitrogen 6 mg/dL (7-20) Creatinine 0.7 mg/dL (0.6-1.0) Estimated GFR (Cockcroft-Gault) 83.5 Glucose Level 62 mg/dL (70-99) Calcium Level 7.9 mg/dL (8.5-10.1) Glucose (Fingerstick) 62 mg/dL (70-99) 129 mg/dL (70-99) 106 mg/dL (70-99) Test 11/27/19 16:35 11/27/19 21:15 11/28/19 02:50 11/28/19 08:03 Glucose (Fingerstick) 103 mg/dL (70-99) 152 mg/dL (70-99) 67 mg/dL (70-99) White Blood Count 14.4 x10^3/uL (4.0-11.0) Red Blood Count 3.15 x10^6/uL (3.50-5.40) Hemoglobin 9.4 g/dL (12.0-15.5) Hematocrit 27.6 % (36.0-47.0) Mean Corpuscular Volume 88 fL (79-100) Mean Corpuscular Hemoglobin 30 pg (25-35) Mean Corpuscular Hemoglobin Concent 34 g/dL (31-37) Red Cell Distribution Width 14.0 % (11.5-14.5) Platelet Count 311 x10^3/uL (140-400) Neutrophils (%) (Auto) 85 % (31-73) Lymphocytes (%) (Auto) 10 % (24-48) Monocytes (%) (Auto) 4 % (0-9) Eosinophils (%) (Auto) 1 % (0-3) Basophils (%) (Auto) 0 % (0-3) Neutrophils # (Auto) 12.2 x10^3/uL (1.8-7.7) Lymphocytes # (Auto) 1.4 x10^3/uL (1.0-4.8) Monocytes # (Auto) 0.6 x10^3/uL (0.0-1.1) Eosinophils # (Auto) 0.2 x10^3/uL (0.0-0.7) Basophils # (Auto) 0.0 x10^3/uL (0.0-0.2) Sodium Level 141 mmol/L (136-145) Potassium Level 3.3 mmol/L (3.5-5.1) Chloride Level 106 mmol/L (98-107) Carbon Dioxide Level 23 mmol/L (21-32) Anion Gap 12 (6-14) Blood Urea Nitrogen 6 mg/dL (7-20) Creatinine 0.7 mg/dL (0.6-1.0) Estimated GFR (Cockcroft-Gault) 83.5 BUN/Creatinine Ratio 9 (6-20) Glucose Level 129 mg/dL (70-99) Calcium Level 7.7 mg/dL (8.5-10.1) Total Bilirubin 0.3 mg/dL (0.2-1.0) Aspartate Amino Transf (AST/SGOT) 12 U/L (15-37) Alanine Aminotransferase (ALT/SGPT) 8 U/L (14-59) Alkaline Phosphatase 92 U/L (46-116) Total Protein 5.7 g/dL (6.4-8.2) Albumin 1.9 g/dL (3.4-5.0) Albumin/Globulin Ratio 0.5 (1.0-1.7) Test 11/28/19 11:38 11/28/19 16:52 11/28/19 20:50 Glucose (Fingerstick) 109 mg/dL (70-99) 144 mg/dL (70-99) 160 mg/dL (70-99) Laboratory Tests Test 11/28/19 02:50 11/28/19 08:03 11/28/19 11:38 11/28/19 16:52 White Blood Count 14.4 x10^3/uL (4.0-11.0) Red Blood Count 3.15 x10^6/uL (3.50-5.40) Hemoglobin 9.4 g/dL (12.0-15.5) Hematocrit 27.6 % (36.0-47.0) Mean Corpuscular Volume 88 fL (79-100) Mean Corpuscular Hemoglobin 30 pg (25-35) Mean Corpuscular Hemoglobin Concent 34 g/dL (31-37) Red Cell Distribution Width 14.0 % (11.5-14.5) Platelet Count 311 x10^3/uL (140-400) Neutrophils (%) (Auto) 85 % (31-73) Lymphocytes (%) (Auto) 10 % (24-48) Monocytes (%) (Auto) 4 % (0-9) Eosinophils (%) (Auto) 1 % (0-3) Basophils (%) (Auto) 0 % (0-3) Neutrophils # (Auto) 12.2 x10^3/uL (1.8-7.7) Lymphocytes # (Auto) 1.4 x10^3/uL (1.0-4.8) Monocytes # (Auto) 0.6 x10^3/uL (0.0-1.1) Eosinophils # (Auto) 0.2 x10^3/uL (0.0-0.7) Basophils # (Auto) 0.0 x10^3/uL (0.0-0.2) Sodium Level 141 mmol/L (136-145) Potassium Level 3.3 mmol/L (3.5-5.1) Chloride Level 106 mmol/L (98-107) Carbon Dioxide Level 23 mmol/L (21-32) Anion Gap 12 (6-14) Blood Urea Nitrogen 6 mg/dL (7-20) Creatinine 0.7 mg/dL (0.6-1.0) Estimated GFR (Cockcroft-Gault) 83.5 BUN/Creatinine Ratio 9 (6-20) Glucose Level 129 mg/dL (70-99) Calcium Level 7.7 mg/dL (8.5-10.1) Total Bilirubin 0.3 mg/dL (0.2-1.0) Aspartate Amino Transf (AST/SGOT) 12 U/L (15-37) Alanine Aminotransferase (ALT/SGPT) 8 U/L (14-59) Alkaline Phosphatase 92 U/L (46-116) Total Protein 5.7 g/dL (6.4-8.2) Albumin 1.9 g/dL (3.4-5.0) Albumin/Globulin Ratio 0.5 (1.0-1.7) Glucose (Fingerstick) 67 mg/dL (70-99) 109 mg/dL (70-99) 144 mg/dL (70-99) Test 11/28/19 20:50 Glucose (Fingerstick) 160 mg/dL (70-99) Microbiology 11/22/19 Anaerobic/Aerobic Culture - Final, Complete 11/22/19 Anaerobic Culture Result 1 (ASAEL) - Final, Complete 11/22/19 Aerobic Culture - Final, Complete 11/22/19 Aerobic Culture Result 1 (ASAEL) - Final, Complete 11/22/19 Gram Stain - Final, Complete 11/22/19 Gram Stain Result 1 (ASAEL) - Final, Complete 11/22/19 Gram Stain Result 2 (ASAEL) - Final, Complete 11/22/19 Gram Stain Result 3 (ASAEL) - Final, Complete 11/21/19 Urine Culture - Final, Complete 11/21/19 Urine Culture Result 1 (ASAEL) - Final, Complete 11/21/19 Antimicrobic Susceptibility - Final, Complete Medications Current Medications Sodium Chloride 1,000 ml @ 1,000 mls/hr 1X ONCE IV Last administered on 11/21/19at 17:34; Start 11/21/19 at 17:15; Stop 11/21/19 at 18:14; Status DC Ondansetron HCl (Zofran) 4 mg 1X ONCE IVP Last administered on 11/21/19at 17:34; Start 11/21/19 at 17:15; Stop 11/21/19 at 17:16; Status DC Sodium Chloride 1,000 ml @ 1,000 mls/hr 1X ONCE IV Last administered on 11/21/19at 19:20; Start 11/21/19 at 19:15; Stop 11/21/19 at 20:14; Status DC Piperacillin Sod/ Tazobactam Sod 3.375 gm/Sodium Chloride 50 ml @ 100 mls/hr 1X ONCE IV Last administered on 11/21/19at 19:51; Start 11/21/19 at 19:30; Stop 11/21/19 at 19:59; Status DC Ondansetron HCl (Zofran) 4 mg PRN Q8HRS PRN IV NAUSEA/VOMITING Last administered on 11/22/19at 04:54; Start 11/21/19 at 21:00; Stop 11/22/19 at 20:59; Status DC Morphine Sulfate (Morphine Sulfate) 2 mg PRN Q2HR PRN IV PAIN; Start 11/21/19 at 21:00; Stop 11/22/19 at 20:59; Status DC Sodium Chloride 1,000 ml @ 125 mls/hr Q8H IV Last administered on 11/22/19at 22:18; Start 11/21/19 at 20:55; Stop 11/22/19 at 20:54; Status DC Piperacillin Sod/ Tazobactam Sod (Zosyn Per Pharmacy) 1 each PRN DAILY PRN MC SEE COMMENTS; Start 11/21/19 at 21:00 Piperacillin Sod/ Tazobactam Sod 2.25 gm/Sodium Chloride 50 ml @ 100 mls/hr Q6HRS IV Last administered on 11/22/19at 06:07; Start 11/22/19 at 00:00; Stop 11/22/19 at 08:31; Status DC Albuterol Sulfate (Ventolin Neb Soln) 2.5 mg PRN Q4HRS PRN INH SHORTNESS OF BREATH; Start 11/22/19 at 01:15 Amlodipine Besylate (Norvasc) 5 mg DAILY PO Last administered on 11/28/19at 08:19; Start 11/22/19 at 09:00 Aspirin (Paul Aspirin) 325 mg DAILYWBKFT PO Last administered on 11/28/19at 08:18; Start 11/22/19 at 08:00 Atorvastatin Calcium (Lipitor) 20 mg HS PO Last administered on 11/28/19at 21:37; Start 11/22/19 at 21:00 Diphenhydramine HCl (Benadryl) 25 mg PRN Q6HRS PRN PO ITCHING; Start 11/22/19 at 01:15 Ferrous Sulfate (Feosol) 325 mg BIDWMEALS PO Last administered on 11/28/19at 1 8:50; Start 11/22/19 at 08:00 Fluoxetine HCl (PROzac) 20 mg DAILY PO Last administered on 11/28/19at 08:18; Start 11/22/19 at 09:00 Lisinopril (Prinivil) 10 mg BID PO ; Start 11/22/19 at 09:00; Stop 11/22/19 at 13:02; Status DC Montelukast Sodium (Singulair) 10 mg DAILY PO Last administered on 11/28/19at 08:18; Start 11/22/19 at 09:00 Polyethylene Glycol (miraLAX PACKET) 17 gm DAILY PO Last administered on 11/23/19at 08:54; Start 11/22/19 at 09:00 Tamsulosin HCl (Flomax) 0.4 mg QHS PO Last administered on 11/28/19at 21:37; Start 11/22/19 at 21:00 Celecoxib (CeleBREX) 200 mg BID PO ; Start 11/22/19 at 09:00; Stop 11/22/19 at 13:02; Status DC Non-Formulary Medication (Icosapent Ethyl (Vascepa)) 2 gm BID PO ; Start 11/22/19 at 09:00; Stop 11/28/19 at 10:58; Status DC Non-Formulary Medication (Insulin Detemir (Levemir Flextouch)) 23 units QHS SQ ; Start 11/22/19 at 21:00; Status UNV Pantoprazole Sodium (Protonix) 40 mg BIDAC PO Last administered on 11/28/19at 18:50; Start 11/22/19 at 07:30 Insulin Glargine (Lantus Syringe) 23 unit QHS SQ Last administered on 11/28/19at 21:46; Start 11/22/19 at 01:15 Piperacillin Sod/ Tazobactam Sod 3.375 gm/Sodium Chloride 50 ml @ 100 mls/hr Q6HRS IV Last administered on 11/28/19at 17:57; Start 11/22/19 at 12:00 Furosemide (Lasix) 40 mg 1X ONCE IVP Last administered on 11/22/19at 14:39; Start 11/22/19 at 13:15; Stop 11/22/19 at 13:16; Status DC Lactobacillus Rhamnosus (Culturelle) 1 cap BID PO Last administered on 11/28/19at 21:37; Start 11/22/19 at 21:00 Lidocaine HCl (Buffered Lidocaine 1%) 3 ml STK-MED ONCE .ROUTE ; Start 11/22/19 at 15:25; Stop 11/22/19 at 15:25; Status DC Midazolam HCl (Versed) 2 mg STK-MED ONCE .ROUTE ; Start 11/22/19 at 15:25; Stop 11/22/19 at 15:25; Status DC Fentanyl Citrate (Fentanyl 2ml Vial) 100 mcg STK-MED ONCE .ROUTE ; Start 11/22/19 at 15:25; Stop 11/22/19 at 15:26; Status DC Lidocaine HCl (Buffered Lidocaine 1%) 3 ml 1X ONCE IJ Last administered on 11/22/19at 16:15; Start 11/22/19 at 16:15; Stop 11/22/19 at 16:16; Status DC Midazolam HCl (Versed) 2 mg 1X ONCE IV Last administered on 11/22/19at 16:15; Start 11/22/19 at 16:15; Stop 11/22/19 at 16:16; Status DC Fentanyl Citrate (Fentanyl 2ml Vial) 100 mcg 1X ONCE IV Last administered on 11/22/19at 16:15; Start 11/22/19 at 16:15; Stop 11/22/19 at 16:16; Status DC Potassium Chloride (Klor-Con) 20 meq 1X ONCE PO Last administered on 11/23/19at 12:25; Start 11/23/19 at 11:00; Stop 11/23/19 at 11:01; Status DC Sodium Chloride 1,000 ml @ 75 mls/hr [id number] IV Last administered on 11/28/19at 12:24; Start 11/23/19 at 11:00 Potassium Chloride (Klor-Con) 40 meq 1X ONCE PO Last administered on 11/24/19at 11:58; Start 11/24/19 at 11:15; Stop 11/24/19 at 11:16; Status DC Potassium Chloride (Klor-Con) 20 meq 1X ONCE PO Last administered on 11/25/19at 12:00; Start 11/25/19 at 11:30; Stop 11/25/19 at 11:31; Status DC Potassium Chloride/Water 100 ml @ 100 mls/hr Q1H IV Last administered on 11/27/19at 11:14; Start 11/27/19 at 10:00; Stop 11/27/19 at 11:59; Status DC Potassium Chloride (Klor-Con) 40 meq 1X ONCE PO Last administered on 11/27/19at 09:44; Start 11/27/19 at 09:30; Stop 11/27/19 at 09:31; Status DC Potassium Chloride (Klor-Con) 20 meq DAILYWBKFT PO Last administered on 11/28/19at 08:18; Start 11/28/19 at 08:00 Active Scripts Active Polyethylene Glycol 3350 17 Gm Powd.pack 17 Gm PO DAILY 30 Days [Pantoprazole] 40 MG Tablet.dr 40 Mg PO BIDAC 30 Days Aspirin 325 Mg Tablet 325 Mg PO DAILYWBKFT 30 Days Feosol (Ferrous Sulfate) 325 Mg Tablet 325 Mg PO BID 30 Days Flomax (Tamsulosin Hcl) 0.4 Mg Cap.er.24h 0.4 Mg PO QHS 30 Days Reported Metformin Hcl Er (Metformin Hcl) 500 Mg Tab.er.24h 250 Mg PO BID Levemir Flextouch (Insulin Detemir) 100 Unit/1 Ml Insuln.pen 23 Units SQ QHS Fluoxetine Hcl 20 Mg Capsule 20 Mg PO DAILY Amlodipine Besylate 5 Mg Tablet 5 Mg PO DAILY Lisinopril 20 Mg Tablet 10 Mg PO BID Atorvastatin Calcium 20 Mg Tablet 20 Mg PO DAILY Proair Hfa (Albuterol Sulfate) 8.5 Gm Hfa.aer.ad 8.5 Gm INH PRN Q4HRS PRN Vascepa (Icosapent Ethyl) 1 Gm Capsule 2 Gm PO BID Celecoxib 200 Mg Capsule 200 Mg PO BID Montelukast Sodium 10 Mg Tablet 10 Mg PO DAILY Benadryl (Diphenhydramine Hcl) 25 Mg Capsule 1 Cap PO PRN Q6HRS PRN Vitals/I & O Vital Sign - Last 24 Hours 11/27/19 11/28/19 11/28/19 11/28/19 23:05 03:10 07:00 08:00 Temp 98.2 98.2 98.4 98.2 98.2 98.4 Pulse 77 68 70 Resp 18 18 18 B/P (MAP) 145/61 (89) 140/56 (84) 144/57 (86) Pulse Ox 98 95 96 O2 Delivery Room Air Room Air Room Air Room Air 11/28/19 11/28/19 11/28/19 11/28/19 08:19 11:00 15:00 19:55 Temp 97.5 98.4 99.2 97.5 98.4 99.2 Pulse 70 78 79 75 Resp 20 20 18 B/P (MAP) 144/57 151/57 (88) 158/63 (94) 145/59 (87) Pulse Ox 99 96 94 O2 Delivery Room Air Room Air Room Air Intake and Output 11/27/19 11/27/19 11/28/19 15:00 23:00 07:00 Intake Total 210 ml 0 ml 100 ml Output Total 752 ml Balance 210 ml -752 ml 100 ml LUIS FELIPE EDDY MD Nov 28, 2019 22:35
[2019-11-28 23:12] VITALS: BP 140/66
[2019-11-29] MEDS: IV NORMAL SALINE 1000ML BAG 1,000 ML IV SCH (00:35)
[2019-11-29 03:41] VITALS: BP 146/56
[2019-11-29 05:24] LABS: BASO % 0 % (0-3); EOS # 0.4 x10^3/uL (0.0-0.7); EOS % 3 % (0-3); HEMATOCRIT 28.8 % (36.0-47.0); HEMOGLOBIN 9.8 g/dL (12.0-15.5); LYMPH # 1.3 x10^3/uL (1.0-4.8); LYMPH % 9 % (24-48); MEAN CORPUSCULAR HEMOGLOBIN 30 pg (25-35); MEAN CORPUSCULAR HGB CONC 34 g/dL (31-37); MEAN CORPUSCULAR VOLUME 88 fL (79-100); MONO # 0.5 x10^3/uL (0.0-1.1); MONO % 3 % (0-9); NEUT # 12.1 x10^3/uL (1.8-7.7); NEUT % 84 % (31-73); PLATELET COUNT 429 x10^3/uL (140-400); RED BLOOD COUNT 3.29 x10^6/uL (3.50-5.40); WHITE BLOOD COUNT 14.3 x10^3/uL (4.0-11.0)
[2019-11-29 05:36] LABS: CALCIUM 8.2 mg/dL (8.5-10.1); CREATININE 0.8 mg/dL (0.6-1.0); GFR 71.5; POTASSIUM 3.1 mmol/L (3.5-5.1)
[2019-11-29] MEDS: PIPERACILLIN/TAZOBACTAM 3.375 GM in IV NORMAL SALINE 50ML 50 ML IV SCH ×2 (06:01→12:55)
[2019-11-29 07:00] VITALS: BP 137/64
[2019-11-29] MEDS: ASPIRIN 325 MG TABLET PO SCH (08:13)
[2019-11-29] MEDS: amLODIPine BESYLATE 5 MG TABLET PO SCH (08:14)
[2019-11-29] MEDS: MONTELUKAST SODIUM 10 MG TABLET. PO SCH (08:14)
[2019-11-29] MEDS: LACTOBACILLUS RHAMNOSUS GG 1 CAPSULE. PO SCH (08:14)
[2019-11-29] MEDS: PANTOPRAZOLE 40 MG TABLET.DR. PO SCH (08:14)
[2019-11-29] MEDS: FLUoxetine HCL 20 MG CAPSULE PO SCH (08:14)
[2019-11-29] MEDS: POTASSIUM CHLORIDE 20 MEQ TABLET.ER. PO SCH (08:15)
[2019-11-29] MEDS: POLYETHYLENE GLYCOL 3350 17 GM PACKET. PO SCH (08:15)
[2019-11-29] MEDS: FERROUS SULFATE 325 MG TABLET. PO SCH (08:15)
--- NOTE | 2019-11-29 09:47 | PDOC ---
RAMON CONTRERAS [employer]NAGEMENT ANALYST 11/29/19 0947: SURGICAL PROGRESS NOTE Subjective doing well no complaints Vital Signs Vital Signs Date Time Temp Pulse Resp B/P (MAP) Pulse Ox O2 Delivery O2 Flow Rate FiO2 11/29/19 08:14 75 146/56 11/29/19 07:00 98.9 18 94 Room Air 98.9 I&O Intake and Output 11/29/19 07:00 Intake Total 210 ml Output Total 5 ml Balance 205 ml Intake Oral 210 ml Drainage Total 5 ml # Voids 7 # Bowel Movements 1 General: Alert, Oriented X3, Cooperative Abdomen: Soft, Other (no drain output ) Labs Laboratory Tests Test 11/27/19 10:27 11/27/19 16:35 11/27/19 21:15 11/28/19 02:50 Glucose (Fingerstick) 106 mg/dL (70-99) 103 mg/dL (70-99) 152 mg/dL (70-99) White Blood Count 14.4 x10^3/uL (4.0-11.0) Red Blood Count 3.15 x10^6/uL (3.50-5.40) Hemoglobin 9.4 g/dL (12.0-15.5) Hematocrit 27.6 % (36.0-47.0) Mean Corpuscular Volume 88 fL (79-100) Mean Corpuscular Hemoglobin 30 pg (25-35) Mean Corpuscular Hemoglobin Concent 34 g/dL (31-37) Red Cell Distribution Width 14.0 % (11.5-14.5) Platelet Count 311 x10^3/uL (140-400) Neutrophils (%) (Auto) 85 % (31-73) Lymphocytes (%) (Auto) 10 % (24-48) Monocytes (%) (Auto) 4 % (0-9) Eosinophils (%) (Auto) 1 % (0-3) Basophils (%) (Auto) 0 % (0-3) Neutrophils # (Auto) 12.2 x10^3/uL (1.8-7.7) Lymphocytes # (Auto) 1.4 x10^3/uL (1.0-4.8) Monocytes # (Auto) 0.6 x10^3/uL (0.0-1.1) Eosinophils # (Auto) 0.2 x10^3/uL (0.0-0.7) Basophils # (Auto) 0.0 x10^3/uL (0.0-0.2) Sodium Level 141 mmol/L (136-145) Potassium Level 3.3 mmol/L (3.5-5.1) Chloride Level 106 mmol/L (98-107) Carbon Dioxide Level 23 mmol/L (21-32) Anion Gap 12 (6-14) Blood Urea Nitrogen 6 mg/dL (7-20) Creatinine 0.7 mg/dL (0.6-1.0) Estimated GFR (Cockcroft-Gault) 83.5 BUN/Creatinine Ratio 9 (6-20) Glucose Level 129 mg/dL (70-99) Calcium Level 7.7 mg/dL (8.5-10.1) Total Bilirubin 0.3 mg/dL (0.2-1.0) Aspartate Amino Transf (AST/SGOT) 12 U/L (15-37) Alanine Aminotransferase (ALT/SGPT) 8 U/L (14-59) Alkaline Phosphatase 92 U/L (46-116) Total Protein 5.7 g/dL (6.4-8.2) Albumin 1.9 g/dL (3.4-5.0) Albumin/Globulin Ratio 0.5 (1.0-1.7) Test 11/28/19 08:03 11/28/19 11:38 11/28/19 16:52 11/28/19 20:50 Glucose (Fingerstick) 67 mg/dL (70-99) 109 mg/dL (70-99) 144 mg/dL (70-99) 160 mg/dL (70-99) Test 11/29/19 04:30 11/29/19 08:11 White Blood Count 14.3 x10^3/uL (4.0-11.0) Red Blood Count 3.29 x10^6/uL (3.50-5.40) Hemoglobin 9.8 g/dL (12.0-15.5) Hematocrit 28.8 % (36.0-47.0) Mean Corpuscular Volume 88 fL (79-100) Mean Corpuscular Hemoglobin 30 pg (25-35) Mean Corpuscular Hemoglobin Concent 34 g/dL (31-37) Red Cell Distribution Width 14.0 % (11.5-14.5) Platelet Count 429 x10^3/uL (140-400) Neutrophils (%) (Auto) 84 % (31-73) Lymphocytes (%) (Auto) 9 % (24-48) Monocytes (%) (Auto) 3 % (0-9) Eosinophils (%) (Auto) 3 % (0-3) Basophils (%) (Auto) 0 % (0-3) Neutrophils # (Auto) 12.1 x10^3/uL (1.8-7.7) Lymphocytes # (Auto) 1.3 x10^3/uL (1.0-4.8) Monocytes # (Auto) 0.5 x10^3/uL (0.0-1.1) Eosinophils # (Auto) 0.4 x10^3/uL (0.0-0.7) Basophils # (Auto) 0.0 x10^3/uL (0.0-0.2) Sodium Level 141 mmol/L (136-145) Potassium Level 3.1 mmol/L (3.5-5.1) Chloride Level 106 mmol/L (98-107) Carbon Dioxide Level 23 mmol/L (21-32) Anion Gap 12 (6-14) Blood Urea Nitrogen 7 mg/dL (7-20) Creatinine 0.8 mg/dL (0.6-1.0) Estimated GFR (Cockcroft-Gault) 71.5 Glucose Level 76 mg/dL (70-99) Calcium Level 8.2 mg/dL (8.5-10.1) Glucose (Fingerstick) 66 mg/dL (70-99) Laboratory Tests Test 11/28/19 11:38 11/28/19 16:52 11/28/19 20:50 11/29/19 04:30 Glucose (Fingerstick) 109 mg/dL (70-99) 144 mg/dL (70-99) 160 mg/dL (70-99) White Blood Count 14.3 x10^3/uL (4.0-11.0) Red Blood Count 3.29 x10^6/uL (3.50-5.40) Hemoglobin 9.8 g/dL (12.0-15.5) Hematocrit 28.8 % (36.0-47.0) Mean Corpuscular Volume 88 fL (79-100) Mean Corpuscular Hemoglobin 30 pg (25-35) Mean Corpuscular Hemoglobin Concent 34 g/dL (31-37) Red Cell Distribution Width 14.0 % (11.5-14.5) Platelet Count 429 x10^3/uL (140-400) Neutrophils (%) (Auto) 84 % (31-73) Lymphocytes (%) (Auto) 9 % (24-48) Monocytes (%) (Auto) 3 % (0-9) Eosinophils (%) (Auto) 3 % (0-3) Basophils (%) (Auto) 0 % (0-3) Neutrophils # (Auto) 12.1 x10^3/uL (1.8-7.7) Lymphocytes # (Auto) 1.3 x10^3/uL (1.0-4.8) Monocytes # (Auto) 0.5 x10^3/uL (0.0-1.1) Eosinophils # (Auto) 0.4 x10^3/uL (0.0-0.7) Basophils # (Auto) 0.0 x10^3/uL (0.0-0.2) Sodium Level 141 mmol/L (136-145) Potassium Level 3.1 mmol/L (3.5-5.1) Chloride Level 106 mmol/L (98-107) Carbon Dioxide Level 23 mmol/L (21-32) Anion Gap 12 (6-14) Blood Urea Nitrogen 7 mg/dL (7-20) Creatinine 0.8 mg/dL (0.6-1.0) Estimated GFR (Cockcroft-Gault) 71.5 Glucose Level 76 mg/dL (70-99) Calcium Level 8.2 mg/dL (8.5-10.1) Test 11/29/19 08:11 Glucose (Fingerstick) 66 mg/dL (70-99) Assessment/Plan d/w Dr Rod--Ct reviewed, abscess resolved--removed perc drain can FU in office with KRYSTIN Lucas MD 11/29/19 1102: RAMON CONTRERAS APRN Nov 29, 2019 09:47 KRYSTIN EDWARDS MD Nov 29, 2019 11:02
[2019-11-29 11:00] VITALS: BP 141/64
--- NOTE | 2019-11-29 13:13 | PDOC ---
Infectious Disease Note Subjective Subjective feeling good ROS ROS no n/v/d/ Vital Sign Vital Signs Vital Signs Date Time Temp Pulse Resp B/P (MAP) Pulse Ox O2 Delivery O2 Flow Rate FiO2 11/29/19 11:00 99.0 80 18 141/64 (89) 95 Room Air 99.0 Physical Exam PHYSICAL EXAM GENERAL: Propped up in bed, alert, reading HEENT: Oral cavity, pharynx was clear. NECK: Supple, no JVD. LUNGS: CTAB, no wheezes HEART: S1 S2, regular ABDOMEN: Soft, no guarding, no rebound.. Right-sided posterior MELODY drain with trace white semi-purulent drainage. EXTREMITIES: Without clubbing, cyanosis or edema. SKIN: No rash PRESSER HAND: Alert and answering questions appropriately PIV ok Labs Lab Laboratory Tests Test 11/28/19 16:52 11/28/19 20:50 11/29/19 04:30 11/29/19 08:11 Glucose (Fingerstick) 144 mg/dL (70-99) 160 mg/dL (70-99) 66 mg/dL (70-99) White Blood Count 14.3 x10^3/uL (4.0-11.0) Red Blood Count 3.29 x10^6/uL (3.50-5.40) Hemoglobin 9.8 g/dL (12.0-15.5) Hematocrit 28.8 % (36.0-47.0) Mean Corpuscular Volume 88 fL (79-100) Mean Corpuscular Hemoglobin 30 pg (25-35) Mean Corpuscular Hemoglobin Concent 34 g/dL (31-37) Red Cell Distribution Width 14.0 % (11.5-14.5) Platelet Count 429 x10^3/uL (140-400) Neutrophils (%) (Auto) 84 % (31-73) Lymphocytes (%) (Auto) 9 % (24-48) Monocytes (%) (Auto) 3 % (0-9) Eosinophils (%) (Auto) 3 % (0-3) Basophils (%) (Auto) 0 % (0-3) Neutrophils # (Auto) 12.1 x10^3/uL (1.8-7.7) Lymphocytes # (Auto) 1.3 x10^3/uL (1.0-4.8) Monocytes # (Auto) 0.5 x10^3/uL (0.0-1.1) Eosinophils # (Auto) 0.4 x10^3/uL (0.0-0.7) Basophils # (Auto) 0.0 x10^3/uL (0.0-0.2) Sodium Level 141 mmol/L (136-145) Potassium Level 3.1 mmol/L (3.5-5.1) Chloride Level 106 mmol/L (98-107) Carbon Dioxide Level 23 mmol/L (21-32) Anion Gap 12 (6-14) Blood Urea Nitrogen 7 mg/dL (7-20) Creatinine 0.8 mg/dL (0.6-1.0) Estimated GFR (Cockcroft-Gault) 71.5 Glucose Level 76 mg/dL (70-99) Calcium Level 8.2 mg/dL (8.5-10.1) Test 11/29/19 11:43 Glucose (Fingerstick) 97 mg/dL (70-99) Micro Microbiology 11/22/19 Anaerobic/Aerobic Culture, Resulted Pending 11/22/19 Anaerobic Culture Result 1 (ASAEL), Resulted Pending 11/22/19 Aerobic Culture - Final, Resulted 11/22/19 Aerobic Culture Result 1 (ASAEL) - Final, Resulted 11/22/19 Gram Stain - Final, Resulted 11/22/19 Gram Stain Result 1 (ASAEL) - Final, Resulted 11/22/19 Gram Stain Result 2 (ASAEL) - Final, Resulted 11/22/19 Gram Stain Result 3 (ASAEL) - Final, Resulted 11/21/19 Urine Culture - Final, Complete 11/21/19 Urine Culture Result 1 (ASAEL) - Final, Complete 11/21/19 Antimicrobic Susceptibility - Final, Complete Objective Assessment Klebsiella UTI- POA 11/21 Abd abscess - s/p drain placement 11/22. GPR & GPC. no growth so far Leukocytosis GENARO - better ? Ureteral stone on left - U/S neg H/o Large subacute right temporal, parietal and occipital infarct. Small right BG, thalamus and insula infarct. Plan Plan of Care repeat ct noted, ok to d/c on po cefdinir d/w dr Rohan LOMBARDI,JENNIFER Pedroza MD Nov 29, 2019 13:13
[2019-11-29] MEDS ORDERED: CEFD300C PO (13:14)
--- NOTE | 2019-11-29 14:58 | NUR ---
Discharge Note: [facility] Discharge instructions and discharge home medications reviewed with Patient and a copy given. All questions have been answered and understanding verbalized. The following instructions and handouts were given: UTI Discontinued lines and drains: MELODY drain removed, IV catheter removed intact. Patient discharged to Home with Home Health via wheelchair
--- NOTE | 2019-11-29 15:47 | SNU/HH DC ---
DISCHARGE WITH HOME HEALTH DISCHARGE INFORMATION: Discharge Date: Nov 29, 2019 Final Diagnosis: Abdominal abscess Condition on Discharge: Stable CODE STATUS: Code Status: Full HOME HEALTH: Face to Face: I certify this patient is under my care and that I, or a nurse practitioner or physician's anesthesiologist assistant certified working with me, had a face to face encounter that meets the physician face to face encounter requirements with this patient on 11/29/2019. Medical Complications: HTN Long-Term For: Medication Management RN For Eval/Treatment: Yes Physical Therapy For: Evalulation/Treatment Occupational Therapy For: Evaluation/Treatment PSYCHIATRY PHYSICIAN For: Community Resources Pt Meets Homebound Status: Limited distance walking POST DISCHARGE ORDERS: Activity Instructions for Disc: Activity as tolerated Weight Bearing Status after Di: As tolerated DIET AFTER DISCHARGE: ADA Wound/Incision Care: No wound care needed CHECKS AFTER DISCHARGE: Checks after discharge: Check blood press - daily, Check your Temp as needed Comment: back (MELODY drain for abscess) FOLLOW-UP: Follow up with: Primary Care Physican in a week Follow Up With: Dr. Moreno in office TREATMENT/EQUIPMENT ORDERS: Adaptive Equipment Issued: None Discharge Respiratory Equipmen: Oxygen CERTIFICATION STATEMENT: Certification Statement: Certification Statement: Based on the above finding, I certify that this patient is confined to the home and needs intermittent alf care, physical therapy and/or speech therapy, or continues to need occupational therapy.~ This patient is under my care, and I have initiated the establishment of the plan of care.~ This patient will be followed by myself or a community physician who will periodically review the plan of care. Home Meds Active Scripts Cefdinir (CEFDINIR) 300 Mg Capsule, 1 CAP PO BID for abscess, #14 CAP Prov:LUIS FELIPE EDDY MD 11/29/19 Polyethylene Glycol 3350 (POLYETHYLENE GLYCOL 3350) 17 Gm Powd.pack, 17 GM PO DAILY for constipation for 30 Days, #30 PKT Prov:LUIS FELIPE EDDY MD 02/27/19 [Pantoprazole] [address] Stevens Conflict Check, 40 MG PO BIDAC for pud for 30 Days, #60 Prov:LUIS FELIPE EDDY MD 02/27/19 Aspirin (ASPIRIN) 325 Mg Tablet, 325 MG PO DAILYWBKFT for antiplatelet for 30 Days, #30 TAB Prov:LUIS FELIPE EDDY MD 02/27/19 Ferrous Sulfate (FEOSOL) 325 Mg Tablet, 325 MG PO BID for WILFRIDO for 30 Days, #60 TAB Prov:LUIS FELIPE EDDY MD 02/27/19 Tamsulosin Hcl (FLOMAX) 0.4 Mg Cap.er.24h, 0.4 MG PO QHS for urinary urgency for 30 Days, #30 CAP.SR Prov:LUIS FELIPE EDDY MD 02/27/19 Reported Medications Metformin Hcl (METFORMIN HCL ER) 500 Mg Tab.er.24h, 250 MG PO BID for 11/22/19 Insulin Detemir (Levemir Flextouch) 100 Unit/1 Ml Insuln.pen, 23 UNITS SQ QHS for 11/22/19 Fluoxetine Hcl (FLUOXETINE HCL) 20 Mg Capsule, 20 MG PO DAILY for 11/22/19 Amlodipine Besylate (AMLODIPINE BESYLATE) 5 Mg Tablet, 5 MG PO DAILY for 11/22/19 Lisinopril (LISINOPRIL) 20 Mg Tablet, 10 MG PO BID for 11/22/19 Atorvastatin Calcium (ATORVASTATIN CALCIUM) 20 Mg Tablet, 20 MG PO DAILY for 11/22/19 Albuterol Sulfate (Proair Hfa) 8.5 Gm Hfa.aer.ad, 8.5 GM INH PRN Q4HRS PRN for 11/22/19 Icosapent Ethyl (VASCEPA) 1 Gm Capsule, 2 GM PO BID for 11/22/19 Celecoxib (Celecoxib) 200 Mg Capsule, 200 MG PO BID for 11/22/19 Montelukast Sodium (Montelukast Sodium) 10 Mg Tablet, 10 MG PO DAILY for 11/22/19 Diphenhydramine Hcl (BENADRYL) 25 Mg Capsule, 1 CAP PO PRN Q6HRS PRN for ITCHING, #30 CAP 1 Refill 04/08/19 Discontinued Reported Medications Metformin Hcl (METFORMIN HCL) 500 Mg Tablet, 500 MG PO BIDWMEALS for ANTI- DIABETIC, TAB 0 Refills 04/08/19 Insulin Glargine,Hum.rec.anlog (LANTUS SOLOSTAR) 100 Unit/1 Ml Insuln.pen, 20 UNIT SQ QHS for Hyperglycemia, #15 ML 5 Refills 04/08/19 GABRIELLE DAY MD Nov 29, 2019 15:47
--- NOTE | 2019-11-29 16:03 | PDOC3 ---
Discharge Summary Visit Information Date of Admission: Nov 22, 2019 Date of Discharge: Nov 29, 2019 Admitting Diagnosis Comment: Abdominal pain Nausea vomiting Leukocytosis GENARO UTI- h/o Enterococcus February 2019 Abd abscess? Ureteral stone on left? H/o Large subacute right temporal, parietal and occipital infarct. Small right BG, thalamus and insula infarct. Final Diagnosis Sepsis secondary to retroperitoneal abscess resolved. ATN (Acute tubular necrosis) Hypokalemia replaced Anemia UTI (urinary tract infection) with Klebsiella Retroperitoneal abscess ct reviewed cultures negative to date Abdominal pain, improving Vomiting and diarrhea, resolved Dyslipidemia Abd abscess - s/p drain placement 11/22. GPR & GPC. no growth so far Leukocytosis improved GENARO Improved vasomotor etiology likely Urethral stone on left - U/S neg//8.2 cm retroperitoneal fluid collection on the right side. Large subacute right temporal, parietal and occipital infarct. Brief Hospital Course Allergies Allergies Coded Allergies Type Severity Reaction Last Updated Verified No Known Drug Allergies 02/22/19 No Vital Signs Vital Signs Date Time Temp Pulse Resp B/P (MAP) Pulse Ox O2 Delivery O2 Flow Rate FiO2 11/29/19 11:00 99.0 80 18 141/64 (89) 95 Room Air 99.0 Lab Results Laboratory Tests Test 11/27/19 16:35 11/27/19 21:15 11/28/19 02:50 11/28/19 08:03 Glucose (Fingerstick) 103 mg/dL (70-99) 152 mg/dL (70-99) 67 mg/dL (70-99) White Blood Count 14.4 x10^3/uL (4.0-11.0) Red Blood Count 3.15 x10^6/uL (3.50-5.40) Hemoglobin 9.4 g/dL (12.0-15.5) Hematocrit 27.6 % (36.0-47.0) Mean Corpuscular Volume 88 fL (79-100) Mean Corpuscular Hemoglobin 30 pg (25-35) Mean Corpuscular Hemoglobin Concent 34 g/dL (31-37) Red Cell Distribution Width 14.0 % (11.5-14.5) Platelet Count 311 x10^3/uL (140-400) Neutrophils (%) (Auto) 85 % (31-73) Lymphocytes (%) (Auto) 10 % (24-48) Monocytes (%) (Auto) 4 % (0-9) Eosinophils (%) (Auto) 1 % (0-3) Basophils (%) (Auto) 0 % (0-3) Neutrophils # (Auto) 12.2 x10^3/uL (1.8-7.7) Lymphocytes # (Auto) 1.4 x10^3/uL (1.0-4.8) Monocytes # (Auto) 0.6 x10^3/uL (0.0-1.1) Eosinophils # (Auto) 0.2 x10^3/uL (0.0-0.7) Basophils # (Auto) 0.0 x10^3/uL (0.0-0.2) Sodium Level 141 mmol/L (136-145) Potassium Level 3.3 mmol/L (3.5-5.1) Chloride Level 106 mmol/L (98-107) Carbon Dioxide Level 23 mmol/L (21-32) Anion Gap 12 (6-14) Blood Urea Nitrogen 6 mg/dL (7-20) Creatinine 0.7 mg/dL (0.6-1.0) Estimated GFR (Cockcroft-Gault) 83.5 BUN/Creatinine Ratio 9 (6-20) Glucose Level 129 mg/dL (70-99) Calcium Level 7.7 mg/dL (8.5-10.1) Total Bilirubin 0.3 mg/dL (0.2-1.0) Aspartate Amino Transf (AST/SGOT) 12 U/L (15-37) Alanine Aminotransferase (ALT/SGPT) 8 U/L (14-59) Alkaline Phosphatase 92 U/L (46-116) Total Protein 5.7 g/dL (6.4-8.2) Albumin 1.9 g/dL (3.4-5.0) Albumin/Globulin Ratio 0.5 (1.0-1.7) Test 11/28/19 11:38 11/28/19 16:52 11/28/19 20:50 11/29/19 04:30 Glucose (Fingerstick) 109 mg/dL (70-99) 144 mg/dL (70-99) 160 mg/dL (70-99) White Blood Count 14.3 x10^3/uL (4.0-11.0) Red Blood Count 3.29 x10^6/uL (3.50-5.40) Hemoglobin 9.8 g/dL (12.0-15.5) Hematocrit 28.8 % (36.0-47.0) Mean Corpuscular Volume 88 fL (79-100) Mean Corpuscular Hemoglobin 30 pg (25-35) Mean Corpuscular Hemoglobin Concent 34 g/dL (31-37) Red Cell Distribution Width 14.0 % (11.5-14.5) Platelet Count 429 x10^3/uL (140-400) Neutrophils (%) (Auto) 84 % (31-73) Lymphocytes (%) (Auto) 9 % (24-48) Monocytes (%) (Auto) 3 % (0-9) Eosinophils (%) (Auto) 3 % (0-3) Basophils (%) (Auto) 0 % (0-3) Neutrophils # (Auto) 12.1 x10^3/uL (1.8-7.7) Lymphocytes # (Auto) 1.3 x10^3/uL (1.0-4.8) Monocytes # (Auto) 0.5 x10^3/uL (0.0-1.1) Eosinophils # (Auto) 0.4 x10^3/uL (0.0-0.7) Basophils # (Auto) 0.0 x10^3/uL (0.0-0.2) Sodium Level 141 mmol/L (136-145) Potassium Level 3.1 mmol/L (3.5-5.1) Chloride Level 106 mmol/L (98-107) Carbon Dioxide Level 23 mmol/L (21-32) Anion Gap 12 (6-14) Blood Urea Nitrogen 7 mg/dL (7-20) Creatinine 0.8 mg/dL (0.6-1.0) Estimated GFR (Cockcroft-Gault) 71.5 Glucose Level 76 mg/dL (70-99) Calcium Level 8.2 mg/dL (8.5-10.1) Test 11/29/19 08:11 11/29/19 11:43 Glucose (Fingerstick) 66 mg/dL (70-99) 97 mg/dL (70-99) Laboratory Tests Test 11/28/19 16:52 11/28/19 20:50 11/29/19 04:30 11/29/19 08:11 Glucose (Fingerstick) 144 mg/dL (70-99) 160 mg/dL (70-99) 66 mg/dL (70-99) White Blood Count 14.3 x10^3/uL (4.0-11.0) Red Blood Count 3.29 x10^6/uL (3.50-5.40) Hemoglobin 9.8 g/dL (12.0-15.5) Hematocrit 28.8 % (36.0-47.0) Mean Corpuscular Volume 88 fL (79-100) Mean Corpuscular Hemoglobin 30 pg (25-35) Mean Corpuscular Hemoglobin Concent 34 g/dL (31-37) Red Cell Distribution Width 14.0 % (11.5-14.5) Platelet Count 429 x10^3/uL (140-400) Neutrophils (%) (Auto) 84 % (31-73) Lymphocytes (%) (Auto) 9 % (24-48) Monocytes (%) (Auto) 3 % (0-9) Eosinophils (%) (Auto) 3 % (0-3) Basophils (%) (Auto) 0 % (0-3) Neutrophils # (Auto) 12.1 x10^3/uL (1.8-7.7) Lymphocytes # (Auto) 1.3 x10^3/uL (1.0-4.8) Monocytes # (Auto) 0.5 x10^3/uL (0.0-1.1) Eosinophils # (Auto) 0.4 x10^3/uL (0.0-0.7) Basophils # (Auto) 0.0 x10^3/uL (0.0-0.2) Sodium Level 141 mmol/L (136-145) Potassium Level 3.1 mmol/L (3.5-5.1) Chloride Level 106 mmol/L (98-107) Carbon Dioxide Level 23 mmol/L (21-32) Anion Gap 12 (6-14) Blood Urea Nitrogen 7 mg/dL (7-20) Creatinine 0.8 mg/dL (0.6-1.0) Estimated GFR (Cockcroft-Gault) 71.5 Glucose Level 76 mg/dL (70-99) Calcium Level 8.2 mg/dL (8.5-10.1) Test 11/29/19 11:43 Glucose (Fingerstick) 97 mg/dL (70-99) Brief Hospital Course Patient with past medical history of hypertension dyslipidemia who came to the emergency department with abdominal discomfort and found to have a retroperitoneal abscess that required drainage. The patient was admitted to the medical floor were she received broad spectrum antibiotics. Initially she also had an acute renal failure which was felt to be vasomotor etiology. Patient is a 69-year-old female with past medical history of hypertension diabetes who was in her usual state of health until the day of her admission when she presented abdominal discomfort. The patient also presented nausea and vomiting apparently poor oral intake due to the progressive nature of her symptoms she came to the emergency department for evaluation where she was found to have a retroperitoneal abscess. The patient also was found to be in acute renal failure secondary to prerenal azotemia most likely given the severe dehydration. The patient was admitted to the hospital promptly started on broad- spectrum antibiotics and ID consultation and nephrology consultation was seeked. Patient was also seen in consultation by Dr. Knight from the surgical department. After her percutaneous drainage the patient felt much better she was found to have cholelithiasis but no evidence of acute cholecystitis. Cultures of her abscess did not grow organisms she did have some few gram-positive rods not enough to be reported she didn't have evidence on urine culture of Klebsiella pneumonia and she remained on broad-spectrum antibiotics until her drain was removed on the day of discharge. Repeat CAT scan was done with evidence of resolution of her abscess. She was deemed appropriate from the surgical standpoint of view to be dismissed home and our infectious disease microsoft infrastructure consultant the escalated therapy to cefdinir 300 mg twice a day. Patient is in good spirits to be dismissed home and feels confident that she will have a good outcome. There was an offered to her to transition to a custodial facility but she was not interested. Signs and symptoms of alarm and when to seek medical attention was explained to the patient prior to dismissal. Follow-up appointment with surgery for elective cholecystectomy will be done prior to dismissal as well. Gen.: Chronically ill-appearing in no apparent distress Head: Normal shape atraumatic Eyes: Pupils equal reactive to light and accommodation, normal conjunctivae and lids Neck: Supple no JVD no carotid bruit or lymphadenopathy no thyromegaly Chest: Lungs clear to auscultation with good inspiratory effort no crackles ral es or rhonchi Cardiovascular: S1-S2 regular rhythm no murmurs gallops or rubs Neurological: Alert awake oriented in person time place and situation, cranial nerves II through XII intact, no motor or sensory deficits appreciated Psych: Appropriate mood, cooperative Discharge Information Condition at Discharge: Improved Follow Up: Weeks Disposition/Orders: D/C to Home Scheduled Amlodipine Besylate (Amlodipine Besylate) 5 Mg Tablet, 5 MG PO DAILY for , (Reported) Entered as Reported by: SANKET MAKI RN on 11/22/1915 Last Action: Continued on 11/22/19103 by SANKET MAKI RN Aspirin (Aspirin) 325 Mg Tablet, 325 MG PO DAILYWBKFT for antiplatelet for 30 Days, #30 Prescribed by: LUIS FELIPE EDDY MD on 02/27/19 1403 Last Action: Continued on 11/22/19103 by SANKET MAKI RN Atorvastatin Calcium (Atorvastatin Calcium) 20 Mg Tablet, 20 MG PO DAILY for , (Reported) Entered as Reported by: SANKET MAKI RN on 11/22/1915 Last Action: Continued on 11/22/19103 by SANKET MAKI RN Cefdinir (Cefdinir) 300 Mg Capsule, 1 CAP PO BID for abscess, #14 Prescribed by: LUIS FELIPE EDDY MD on 11/29/19 1314 Celecoxib (Celecoxib) 200 Mg Capsule, 200 MG PO BID for , (Reported) Entered as Reported by: SANKET MAKI RN on 11/22/192341 Last Action: Converted on 11/22/19103 by SANKET MAKI RN Ferrous Sulfate (Feosol) 325 Mg Tablet, 325 MG PO BID for WILFRIDO for 30 Days, #60 Prescribed by: LUIS FELIPE EDDY MD on 02/27/19 1402 Last Action: Continued on 11/22/19103 by SANKET MAKI RN Fluoxetine Hcl (Fluoxetine Hcl) 20 Mg Capsule, 20 MG PO DAILY for , (Reported) Entered as Reported by: SANKET MAKI RN on 11/22/1915 Last Action: Continued on 11/22/19103 by SANKET MAKI RN Icosapent Ethyl (Vascepa) 1 Gm Capsule, 2 GM PO BID for , (Reported) Entered as Reported by: SANKET MAKI RN on 11/22/192341 Last Action: Converted on 11/22/19103 by SANKET MAKI RN Insulin Detemir (Levemir Flextouch) 100 Unit/1 Ml Insuln.pen, 23 UNITS SQ QHS for , (Reported) Entered as Reported by: SANKET MAKI RN on 11/22/1915 Last Action: Converted on 11/22/19103 by SANKET MAKI RN Lisinopril (Lisinopril) 20 Mg Tablet, 10 MG PO BID for , (Reported) Entered as Reported by: SANKET MAKI RN on 11/22/1915 Last Action: Continued on 11/22/19103 by SANKET MAKI RN Metformin Hcl (Metformin Hcl Er) 500 Mg Tab.er.24h, 250 MG PO BID for , (Reported) Entered as Reported by: SANKET MAKI RN on 11/22/1915 Last Action: New Order on 11/22/1915 by SANKET MAKI RN Montelukast Sodium (Montelukast Sodium) 10 Mg Tablet, 10 MG PO DAILY for , (Reported) Entered as Reported by: SANKET MAKI RN on 11/22/192341 Last Action: Continued on 11/22/19103 by SANKET MAKI RN Polyethylene Glycol 3350 (Polyethylene Glycol 3350) 17 Gm Powd.pack, 17 GM PO DAILY for constipation for 30 Days, #30 Prescribed by: LUIS FELIPE EDDY MD on 02/27/191402 Last Action: Continued on 11/22/19103 by SANKET MAKI RN Tamsulosin Hcl (Flomax) 0.4 Mg Cap.er.24h, 0.4 MG PO QHS for urinary urgency for 30 Days, #30 Prescribed by: LUIS FELIPE EDDY MD on 02/27/191401 Last Action: Continued on 11/22/19103 by SANKET MAKI RN [Pantoprazole] 40 MG TABLET.DR, 40 MG PO BIDAC for pud for 30 Days, #60 Prescribed by: LUIS FELIPE EDDY MD on 02/27/191402 Last Action: Converted on 11/22/19103 by SANKET MAKI RN Scheduled PRN Albuterol Sulfate (Proair Hfa) 8.5 Gm Hfa.aer.ad, 8.5 GM INH PRN Q4HRS PRN for , (Reported) Entered as Reported by: SANKET MAKI RN on 11/22/19 0001 Last Action: Continued on 11/22/19103 by SANKET MAKI RN Diphenhydramine Hcl (Benadryl) 25 Mg Capsule, 1 CAP PO PRN Q6HRS PRN for ITCHING, #30 Ref 1 (Reported) Entered as Reported by: Helio Castellanos RN on 04/08/192341 Last Action: Continued on 11/22/19103 by SANKET MAKI RN Discontinued Medications Insulin Glargine,Hum.rec.anlog (Lantus Solostar) 100 Unit/1 Ml Insuln.pen, 20 UNIT SQ QHS for Hyperglycemia, #15 Ref 5 (Reported) Entered as Reported by: Helio Castellanos RN on 04/08/192341 Last Action: Discontinued on 11/22/1915 by SANKET MAKI RN Metformin Hcl (Metformin Hcl) 500 Mg Tablet, 500 MG PO BIDWMEALS for ANTI- DIABETIC, Ref 0 (Reported) Entered as Reported by: Helio Castellanos RN on 04/08/192341 Last Action: Discontinued on 11/22/1915 by ELISHA MARTIN HECTOR M MD Nov 29, 2019 16:03
--- NOTE | 2019-11-29 16:12 | NUR ---
SS following up with discharge planning. Discharge orders received for home healthcare. SS phoned and faxed discharge orders and referral to [facility], ; fax [phone]. Pt's RN notified.
== END 2019-11-29 15:00 | disposition home health service (06) | DRG 871 ==
LOC: ER 16:04 → ED HOLD 21:00 → 2 NORTH 23:13 → 6 SOUTH 11-26 18:45
PROVIDERS: ADMIT Internal Medicine; ATTEND Internal Medicine
PROC: 0W9H3ZZ Drainage of Retroperitoneum, Percutaneous Approach (ICD-10-PCS; principal; 2019-11-28)
DX: A41.9 Sepsis, unspecified organism (principal); K68.19 Other retroperitoneal abscess; N17.0 Acute kidney failure with tubular necrosis; N20.2 Calculus of kidney with calculus of ureter; K80.10 Calculus of gallbladder with chronic cholecystitis without obstruction; N13.6 Pyonephrosis; F32.9 Major depressive disorder, single episode, unspecified; I10 Essential (primary) hypertension; E11.9 Type 2 diabetes mellitus without complications; F41.9 Anxiety disorder, unspecified; K82.8 Other specified diseases of gallbladder; J45.909 Unspecified asthma, uncomplicated; E86.0 Dehydration; E87.6 Hypokalemia; D64.9 Anemia, unspecified; E78.5 Hyperlipidemia, unspecified; B96.1 Klebsiella pneumoniae [K. pneumoniae] as the cause of diseases classified elsewhere; N21.1 Calculus in urethra; B96.89 Other specified bacterial agents as the cause of diseases classified elsewhere; N29 Other disorders of kidney and ureter in diseases classified elsewhere; Z98.49 Cataract extraction status, unspecified eye; Z87.440 Personal history of urinary (tract) infections; Z86.73 Personal history of transient ischemic attack (TIA), and cerebral infarction without residual deficits; Z84.1 Family history of disorders of kidney and ureter; Z82.49 Family history of ischemic heart disease and other diseases of the circulatory system
CPT/HCPCS: 36415; 49406; 74022; 74176; 76770; 78708; 80048; 80053; 81001; 82150; 82962; 83605; 83690; 83735; 84100; 85007; 85025; 85610; 85730; 87071; 87075; 87086; 87186; 87804; 96374; 96375; 99152; 99285; A4215; A9562; C1729; C1894; J1815; J1940; J2250; J2405; J2543; J3010; J3480; J7030; 97116; 97530; 97535; G0378